=== PATIENT | female | born 1955 | race African-American/Black ===

== ENCOUNTER 2022-04-29 11:15 | Emergency (ER) | payer OTHER, SELFPAY ==
[2022-04-29 11:18] VITALS: BP 136/83; PULSE 80; RESP 18; TEMP 36.6; O2SAT 97; BMI 29.0
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
== END 2022-04-29 14:58 | disposition home or self-care (01) ==
PROVIDERS: Emergency Provider Student in an Organized Health Care Education/Training Program
DX: S13.4XXA Sprain of ligaments of cervical spine, initial encounter (principal); M54.50 Low back pain, unspecified; R51.9 Headache, unspecified; M54.2 Cervicalgia; V43.52XA Car driver injured in collision with other type car in traffic accident, initial encounter; Y93.9 Activity, unspecified; Y92.410 Unspecified street and highway as the place of occurrence of the external cause; Y99.9 Unspecified external cause status
CPT/HCPCS: 70450; 72100; 72125; 99283; 99284

== ENCOUNTER 2024-06-28 22:28 | Inpatient (IN) | payer MEDICARE, SELFPAY ==
--- NOTE | ~2024-06-28 | XR_ITS ---
CLINICAL HISTORY: dyspnea 1 view chest x-ray. Comparison: None Findings: Minimal to mild left basilar opacities are present with mild blunting of the left costophrenic angle. No focal consolidation identified within the right lung. No pneumothorax or right pleural effusion. Heart size is borderline enlarged. Partial visualization of surgical hardware over the cervical spine. Impression: 1. Borderline cardiomegaly with minimal to mild left basilar atelectasis versus infiltrates in the possible small left pleural effusion. This document has been electronically signed by: Mario Dow MD on 06/28/2024 23:30:14
[2024-06-28 22:33] VITALS: BP 192/92; PULSE 114; RESP 18; TEMP 36.9; O2SAT 97
[2024-06-28 22:38] VITALS: BP 192/92; PULSE 110; PULSE 94; RESP 20; TEMP 36.9; O2SAT 96; O2SAT 97; BMI 37.3
[2024-06-28 22:46] VITALS: BP 177/94; PULSE 106; RESP 15; TEMP 36.9; O2SAT 96
--- NOTE | 2024-06-28 22:46 | ECG_ITS ---
Test Reason : HTN Blood Pressure : */* mmHG Vent. Rate : 90 BPM Atrial Rate : 90 BPM P-R Int : 176 ms QRS Dur : 114 ms QT Int : 360 ms P-R-T Axes : 63 42 203 degrees QTcB Int : 440 ms Normal sinus rhythm with sinus arrhythmia Nonspecific ST and T wave abnormality Abnormal ECG When compared with ECG of 27-Aug-2003 16:22, Nonspecific T wave abnormality now evident in Inferior leads T wave inversion now evident in Lateral leads Referred By: Generic ED Physician Electronically Signed By: CHEYENNE YOU
[2024-06-28 23:34] LABS: Influenza A PCR NEGATIVE (Negative); Influenza B PCR NEGATIVE (Negative); Resp Syncy Virus RNA Qual PCR NEGATIVE (Negative); SARS COV2 PCR INHOUSE NEGATIVE (Negative)
[2024-06-28 23:49] LABS: Prothrombin Time 11.3 SEC (10.9-12.4)
[2024-06-28 23:55] LABS: Basophils Percent Auto 0.7 % (0-2); Eosinophils Absolute Auto 0.2 X10*3/uL (0.0-0.4); Eosinophils Percent Auto 4.3 % (0-4); Hematocrit 32.2 % (37.0-47.0); Hemoglobin 10.7 g/dl (12.0-16.0); Imm Gran Abs Auto 0.02 X10*3/uL (0.00-0.03); Imm Gran Pct Auto 0.4 % (0.0-0.4); Lymphocytes Absolute Auto 1.3 X10*3/uL (1.2-4.9); Lymphocytes Percent Auto 23.4 % (20-40); MANUAL DIFF FLAG NO; Mean Corpuscular HGB Conc 33.2 g/dl (31.0-35.0); Mean Corpuscular Hemoglobin 29.6 pg (27.0-33.0); Mean Platelet Volume 11.4 fL (9.4-12.3); Monocytes Absolute Auto 0.4 X10*3/uL (0.1-1.2); Monocytes Percent Auto 8.1 % (2-11); Neutrophils Absolute Auto 3.4 x10*3/uL (2.0-8.3); Neutrophils Percent Auto 63.1 % (45-73); Platelet Count 283 X10*3/uL (160-400); Red Blood Count 3.62 X10*6/uL (4.20-5.50); Red Cell Distribution Width 15.2 % (11.0-16.0); White Blood Count 5.3 X10*3/uL (4.8-10.8)
[2024-06-29] VITALS (13 sets, daily range): BP systolic 120–183; BP diastolic 64–94; PULSE 73–105; RESP 14–20; TEMP 36.2–36.7; O2SAT 95–100; BMI 34.0
--- NOTE | 2024-06-29 00:05 | ED_ITS ---
HPI - General Adult General Chief complaint: Dyspnea Stated complaint: malaise,diff breathing Time Seen by Provider: 06/28/24 22:50 Source: patient Mode of arrival: EMS Limitations: no limitations History of Present Illness ED Provider: HPI narrative: Patient's history of hypertension noncompliant to her medication, history of asthma noncompliant to her medication has not seen a PCP in last 2- 3 years does not take any medication for her blood pressure comes here for increased shortness of breath for last few days got worse in last 3 days with dry cough now denies any chest pain saturating 96% at room air blood pressure was 192/92 on arrival Related Data Previous Rx's ?Medication ?Instructions ?Recorded acetaminophen 500 mg capsule 1,000 mg (2 x 500 mg) PO TID PRN 04/29/22 pain #20 caps oxycodone 5 mg tablet 5 mg PO Q8H PRN pain #10 tabs 04/29/22 Allergies Allergy/AdvReac Type Severity Reaction Status Date / Time No Known Allergies Allergy Verified 06/28/24 22:42 Review of Systems 2 Review of Systems: Yes all other systems are reviewed and are negative [facility] Past Medical History Medical History (Updated 06/29/24 @ 01:38 by Jimi Oro MD) Asthma Hypertension Social History Social History Advance Directives: No Advance Directives Information Provided: Yes Physical Exam ED Vital Signs: Vital Signs - 24 hr 06/28/24 22:33 06/28/24 22:38 06/28/24 22:46 Temperature 98.5 F 98.5 F 98.5 F Pulse Rate 114 H 94 106 H Respiratory Rate 18 20 15 Blood Pressure 192/92 H 192/92 H 177/94 H Pulse Oximetry 97 97 96 Oxygen Delivery Method Room Air Room Air Room Air 06/29/24 00:50 06/29/24 00:55 Temperature Pulse Rate 105 H Respiratory Rate 15 Blood Pressure 177/94 H Pulse Oximetry Oxygen Delivery Method BMI result Body Mass Index 37.3 Appearance: Alert. Oriented X3. No acute distress. Dry cough Eyes: PERRLA, No Nystagmus ENT: Pharynx normal. Oral Mucosa moist Neck: Normal inspection. Neck supple. CVS: Normal heart rate and rhythm. Pulses normal. Respiratory: No respiratory distress. Equal air entry bilateral, prolonged expiration few rales at the bases frequent dry cough Abdomen: Soft and nontender. Bowel sounds are present, no mass palpable, no CVA tenderness Skin: Skin warm and dry. Normal skin color. Normal skin turgor. Extremities: 2+ lower extremity edema. No calf tenderness Neuro: Oriented X 3. No motor deficit. No sensory deficit.No cerebellar signs , cranial nerves II-XII intact Medications Administered Discontinued Medications Generic Name Dose Route Start Last Admin Trade Name Sena PRN Reason Stop Dose Admin Amlodipine Besylate 5 mg 06/29/24 00:19 06/29/24 00:50 Amlodipine Besylate 5 Mg Tablet PO 06/29/24 00:20 5 mg ONCE ONE Administration Protocol Albuterol Sulfate 2.5 mg/ 0 mg 06/29/24 00:09 06/29/24 00:52 Albuterol/Ipratropium 3 ml INHALE 06/29/24 00:10 1 dose ONCE ONE Administration Medical Decision Making Medical Decision Making [facility] Narrative: Patient with history of hypertension noncompliant to medication noted to be hypotensive on arrival workup showed elevated BNP and creatinine patient has not seen PCP for a while no previous labs available chest x-ray showed cardiomegaly with atelectasis. Will admit patient for IV diuresis and cardiology follow up Differential Diagnosis Differential Diagnoses: The differential diagnosis associated with the presentation includes Admission/Observation Consideration of admission/observation: Escalation of care including admission/observation considered Consult Healthcare Provider Management of the patient was discussed with: Hospitalist Lab Data [facility] Lab Attestation statement: I reviewed the patient's lab results. 06/28/24 23:47 06/28/24 23:47 Labs: Lab Results 06/28/24 06/28/24 06/28/24 Range/Units 22:53 23:25 23:47 WBC 5.3 (4.8-10.8) X10*3/uL RBC 3.62 L (4.20-5.50) X10*6/uL Hgb 10.7 L (12.0-16.0) g/dl Hct 32.2 L (37.0-47.0) % MCV 89.0 (80.0-98.0) fL MCH 29.6 (27.0-33.0) pg MCHC 33.2 (31.0-35.0) g/dl RDW 15.2 (11.0-16.0) % Plt Count 283 (160-400) X10*3/uL MPV 11.4 (9.4-12.3) fL Immature Gran % (Auto) 0.4 (0.0-0.4) % Neut % (Auto) 63.1 (45-73) % Lymph % (Auto) 23.4 (20-40) % [place] % (Auto) 8.1 (2-11) % Eos % (Auto) 4.3 H (0-4) % Baso % (Auto) 0.7 (0-2) % Lymph # (Auto) 1.3 (1.2-4.9) X10*3/uL [place] # (Auto) 0.4 (0.1-1.2) X10*3/uL Eos # (Auto) 0.2 (0.0-0.4) X10*3/uL Baso # (Auto) 0.0 (0.0-0.2) X10*3/uL Abs Immat Gran (auto) 0.02 (0.00-0.03) X10*3/uL Absolute Neuts (auto) 3.4 (2.0-8.3) x10*3/uL Absolute Nucleated RBC 0.000 (0.0-0.012) X10*3/uL Nucleated RBC % (auto) 0.0 (0.0-0.2) /100WBC Hold Purple Top PT 11.3 (10.9-12.4) SEC INR 1.0 (0.9-1.1) Hold Blue Top Sodium 145 (135-145) mmol/L Potassium 3.4 (3.3-5.1) mmol/L Chloride 108 (96-108) mmol/L Carbon Dioxide 27 (22-29) mmol/L Anion Gap 13 (12-20) BUN 18 H (9-16) mg/dL Creatinine 1.53 H (0.5-1.4) mg/dL Estim Creat Clear Calc 37.6 Estimated GFR 34 Random Glucose 212 H (60-115) mg/dL Calcium 8.8 (8.4-10.2) mg/dL Troponin I High Sens 39.0 H (<3.5-17.0) ng/L B-Natriuretic Peptide (<100) pg/mL TSH 2.59 (0.32-4.0) uIU/mL Influenza Type A (PCR) NEGATIVE (Negative) Influenza Type B (PCR) NEGATIVE (Negative) RSV RNA Qual (PCR) NEGATIVE (Negative) SARS-CoV-2 RNA (RT-PCR) NEGATIVE (Negative) 06/28/24 Range/Units 23:48 WBC (4.8-10.8) X10*3/uL RBC (4.20-5.50) X10*6/uL Hgb (12.0-16.0) g/dl Hct (37.0-47.0) % MCV (80.0-98.0) fL MCH (27.0-33.0) pg MCHC (31.0-35.0) g/dl RDW (11.0-16.0) % Plt Count (160-400) X10*3/uL MPV (9.4-12.3) fL Immature Gran % (Auto) (0.0-0.4) % Neut % (Auto) (45-73) % Lymph % (Auto) (20-40) % [place] % (Auto) (2-11) % Eos % (Auto) (0-4) % Baso % (Auto) (0-2) % Lymph # (Auto) (1.2-4.9) X10*3/uL [place] # (Auto) (0.1-1.2) X10*3/uL Eos # (Auto) (0.0-0.4) X10*3/uL Baso # (Auto) (0.0-0.2) X10*3/uL Abs Immat Gran (auto) (0.00-0.03) X10*3/uL Absolute Neuts (auto) (2.0-8.3) x10*3/uL Absolute Nucleated RBC (0.0-0.012) X10*3/uL Nucleated RBC % (auto) (0.0-0.2) /100WBC Hold Purple Top SEE NOTE PT (10.9-12.4) SEC INR (0.9-1.1) Hold Blue Top SEE NOTE Sodium (135-145) mmol/L Potassium (3.3-5.1) mmol/L Chloride (96-108) mmol/L Carbon Dioxide (22-29) mmol/L Anion Gap (12-20) BUN (9-16) mg/dL Creatinine (0.5-1.4) mg/dL Estim Creat Clear Calc Estimated GFR Random Glucose (60-115) mg/dL Calcium (8.4-10.2) mg/dL Troponin I High Sens (<3.5-17.0) ng/L B-Natriuretic Peptide 868 H (<100) pg/mL TSH (0.32-4.0) uIU/mL Influenza Type A (PCR) (Negative) Influenza Type B (PCR) (Negative) RSV RNA Qual (PCR) (Negative) SARS-CoV-2 RNA (RT-PCR) (Negative) Independent Interpretation I performed an independent interpretation of an: EKG and Plain X-Ray Interpretation: CM+ Normal sinus rhythm with heart rate 90 beats per minute normal interval normal axis T inversion inferolateral leads no acute ischemia Radiology Impression Discussion of test interpretation with radiology: I have reviewed the radiologist's reading. Radiologist Impression: Impression: 1. Borderline cardiomegaly with minimal to mild left basilar atelectasis versus infiltrates in the possible small left pleural effusion. This document has been electronically signed by: Mario Dow MD on Discharge Plan Discharge Clinical Impression: Congestive heart failure of unknown etiology, Hypertension, CKD (chronic kidney disease) stage 3, GFR 30-59 ml/min Patient Disposition: Admitted As Inpatient Print Language: Barbadian
[2024-06-29 00:07] LABS: Anion Gap 13 (12-20); Blood Urea Nitrogen 18 mg/dL (9-16); Calcium 8.8 mg/dL (8.4-10.2); Carbon Dioxide 27 mmol/L (22-29); Chloride 108 mmol/L (96-108); Creatinine Clr Calc Pharmacy 37.6; Estimated Glomerular Filt Rate 34; Glucose Random 212 mg/dL (60-115); Potassium 3.4 mmol/L (3.3-5.1); Sodium 145 mmol/L (135-145)
--- NOTE | 2024-06-29 00:12 | PC.NURSE ---
18g IV access established by via ultrasound guided insertion. Labs drawn and sent for analysis. Awaiting results.
[2024-06-29] MEDS: amLODIPine Besylate 5 MG TABLET PO (00:50)
[2024-06-29 00:52] LABS: B Type Natriuretic Peptide 868 pg/mL (<100)
[2024-06-29] MEDS: Albuterol Sulfate 2.5 MG, Albuterol/Iprat 2.5/0.5MG 3 ML 3 ML INHALE (00:52)
[2024-06-29 01:03] LABS: Thyroid Stimulating Hormone 2.59 uIU/mL (0.32-4.0)
[2024-06-29] MEDS: Furosemide 40 MG/4 ML VIAL IVPUSH (01:46)
[2024-06-29] MEDS: Nitroglycerin 2 % Oint 1 GM Packet 1 INCH TRANSDERMA (01:46)
--- NOTE | 2024-06-29 02:10 | PM.IMHP ---
History of Present Illness Date of Service: 06/29/24 Attending physician on admission: [facility] Chief Complaint: SOB, fatigue Pt is a 69-year-old female with an unclear PMH significant for?HTN and asthma who presents to the ED complaining of increased SOB, difficulty breathing, and nonproductive cough for the past few days. Reports sick contact with a grandson gave her a bad cold. Pt states feels fatigued, weak, and has chest pain/tightness mostly associated with deep breathing and cough. Pt is overall a poor and vague historian, and is unable to provide details concerning either her PMH, medication use, or current symptoms. Reports she is supposed to be on antihypertensives, but has not taken them for an unclear amount of time. Has not followed with a PCP for ?a long time?. States was recently at [facility] and diagnosed with ?a heart condition? but is unable to specify what that condition was or what medications, if any, she was prescribed. Denies known hx of CHF. No fever, chills, nausea, or vomiting. Currently denies abdominal pain, but states she knows it's coming since has chronic abdominal issues. Earlier has a headache but currently none. In the ED pt was hypertensive as high as 192/92, tachycardic up to 114, and satting at 96% on RA. Labs were significant for creatinine 1.53 (baseline unknown), glucose 212, initial troponin 39.0, and BNP 868. Tested negative for flu, COVID, RSV. CXR showed borderline cardiomegaly with minimal to mild left basilar atelectasis vs infiltrate and possible small left pleural effusion. Pt was treated with amlodipine, DuoNeb, nitroglycerin, and furosemide. Pt will be admitted to the hospital for treatment and further evaluation of new onset acute CHF. Review of Systems Review of Systems: Negative except for that which is stated in the [facility] Medical History Asthma Hypertension Social History Advance Directives: No Advance Directives Information Provided: Yes Meds Allergies Allergy/AdvReac Type Severity Reaction Status Date / Time No Known Allergies Allergy Verified 06/28/24 22:42 Physical Exam Vital Signs and Narrative: Vital Signs: Last Vital Signs Temp 98.5 F 06/28/24 22:46 Pulse 105 H 06/29/24 00:55 Resp 15 06/29/24 00:55 BP 157/91 H 06/29/24 01:46 Pulse Ox 96 06/28/24 22:46 O2 Del Method Room Air 06/28/24 22:46 BMI result Body Mass Index 37.3 General: AOx3, no acute distress Resp: CTA bilaterally CVS: Regularly irregular rhythm. No JVD appreciated GI: +BS, NT, no distention Skin: Warm, dry Neuro: Cranial nerves II-XII grossly intact bilaterally. Motor grossly intact bilaterally Extremities: 2+ bilateral pitting lower leg edema Psych: Appropriate affect Results Labs 06/28/24 23:47 06/28/24 23:47 Labs: Laboratory Results - last 24 hr 06/28/24 06/28/24 06/28/24 22:53 23:25 23:47 MCV 89.0 MCH 29.6 MCHC 33.2 RDW 15.2 Plt Count 283 MPV 11.4 Immature Gran % (Auto) 0.4 Neut % (Auto) 63.1 Lymph % (Auto) 23.4 [place] % (Auto) 8.1 Eos % (Auto) 4.3 H Baso % (Auto) 0.7 Lymph # (Auto) 1.3 [place] # (Auto) 0.4 Eos # (Auto) 0.2 Baso # (Auto) 0.0 Abs Immat Gran (auto) 0.02 Absolute Neuts (auto) 3.4 Absolute Nucleated RBC 0.000 Nucleated RBC % (auto) 0.0 Hold Purple Top PT 11.3 INR 1.0 Hold Blue Top Anion Gap 13 Estim Creat Clear Calc 37.6 Estimated GFR 34 Random Glucose 212 H Calcium 8.8 B-Natriuretic Peptide TSH 2.59 Influenza Type A (PCR) NEGATIVE Influenza Type B (PCR) NEGATIVE RSV RNA Qual (PCR) NEGATIVE SARS-CoV-2 RNA (RT-PCR) NEGATIVE 06/28/24 23:48 MCV MCH MCHC RDW Plt Count MPV Immature Gran % (Auto) Neut % (Auto) Lymph % (Auto) [place] % (Auto) Eos % (Auto) Baso % (Auto) Lymph # (Auto) [place] # (Auto) Eos # (Auto) Baso # (Auto) Abs Immat Gran (auto) Absolute Neuts (auto) Absolute Nucleated RBC Nucleated RBC % (auto) Hold Purple Top SEE NOTE PT INR Hold Blue Top SEE NOTE Anion Gap Estim Creat Clear Calc Estimated GFR Random Glucose Calcium B-Natriuretic Peptide 868 H TSH Influenza Type A (PCR) Influenza Type B (PCR) RSV RNA Qual (PCR) SARS-CoV-2 RNA (RT-PCR) Assessment and Plan (1) Congestive heart failure of unknown etiology: Status: Acute (2) Hypertensive urgency: Status: Acute Plan Pt is a 69-year-old female with an unclear PMH significant for?HTN and asthma who presents to the ED complaining of increased SOB, difficulty breathing, and nonproductive cough for the past few days. Pt will be admitted to the hospital for treatment and further evaluation of new onset acute CHF. New onset CHF Pt with SOB, SOTELO, nonproductive, elevated BNP, 2+ pitting LLE, CXR with possible cardiomegaly pleural effusion Pt denies any previous CHF diagnosis, but states has a heart problem recently diagnosed at [facility] Will treat with Lasix 20 mg IV bid Echocardiogram Cardiology consult Follow I/O, daily weights, lytes Low salt diet Monitor on telemetry Hypertensive urgency BP as high as 192/92, currently 183/66 Pt currently asymptomatic but reports [place] earlier Has been off meds for unclear period of time Will give labetalol 5mg IV x1 Resume home meds once med rec completed Monitor BP Elevated creatinine Patient's creatinine 1.53 at time presentation Baseline unknown: CKD 3 vs ZEINAB likely cardiorenal Treat as above with diuretics Follow kidney function Elevated troponin Initial troponin 39.0 Pt asymptomatic, EKG without ischemic changes Likely type 2 in the setting of increased demand Repeat troponin Monitor on telemetry Cough Reports non-productive cough for past few days Possibly in the setting of CHF, though pt reports contact with sick son RSV/Flu/COVID negative CXR negative for consolidation Will check full respiratory panel Currently no indication for antibiotics at this time, no sepsis Hyperglycemia Random glucose 212 at time of presentation Pt reports she thinks she is diabetic, but does not know what medications she is or if she takes insulin Will place on sliding scale insulin for now Check A1c Asthma Not in acute exacerbation Continue home inhalers Full Code Attending:?Dr. Hanson DVT Prophylaxis: Lovenox Pt will require a hospitalization of at least two nights for treatment and evaluation of new onset acute CHF as well as possible ZEINAB vs CKD 3. Pt will require hospital level care for administration of IV diuretics, close monitoring of labs and kidney function, and specialist consultation Cardiology. Quality Stroke Does the patient have a stroke diagnosis?: No VTE Prior VTE?: No VTE Risk Level:: Medical - moderate - high VTE Device Contraindication: Treatment Not Indicated VTE Drug Contraindication: N/A - Med Ordered
[2024-06-29] MEDS: Labetalol HCL 100 MG/20 ML VIAL IVPUSH (02:29)
[2024-06-29 03:58] LABS: Troponin-I High Sensitivity 31.7 ng/L (<3.5-17.0)
--- NOTE | 2024-06-29 05:40 | MHC.EDTECH ---
Patient agreed with placement of Purewick for better documentation of I+O. Purewick placed by senior health physics technician Shannon
--- NOTE | 2024-06-29 05:42 | PC.NURSE ---
Pt is alert/oriented. Up to commode with this RN and noted to be increasingly weak and mildy SOB with activity, purewick placed by [email or web address]. No SOB noted on rest. Skin color normal for ethnicity. +1 edema to LE. NSR on tele rate 80s. Voiding frequently
[2024-06-29 07:22] LABS: Glucose, Whole Blood 172 mg/dL (60-115)
[2024-06-29] MEDS: Insulin Lispro 100 UNIT/ML 3 ML VIAL SUBCUT ×2 (08:45→12:04)
[2024-06-29] MEDS: Furosemide 20 MG/2 ML VIAL IVPUSH ×2 (08:47→16:40)
[2024-06-29] MEDS: 0.9 % Sodium Chloride Flush 3 ML SYRINGE IVFLUSH ×2 (08:49→16:40)
--- NOTE | 2024-06-29 09:12 | MHC.EDTECH ---
purewick removed from pt due to pt transferring to bedside commode when necessary. RN aware
[2024-06-29 09:20] LABS: Adenovirus PCR Not Detected (Not Detect.); Bordetella parapertussis PCR Not Detected (Not Detect.); Bordetella pertussis PCR Not Detected (Not Detect.); Chlamydia pneumoniae PCR Not Detected (Not Detect.); Coronavirus 229E PCR Not Detected (Not Detect.); Coronavirus HKU1 PCR Not Detected (Not Detect.); Coronavirus NL63 PCR Not Detected (Not Detect.); Coronavirus OC43 PCR Not Detected (Not Detect.); Human metapneumovirus PCR Not Detected (Not Detect.); Influenza A PCR Not Detected (Not Detect.); Influenza B PCR Not Detected (Not Detect.); Mycoplasma pneumoniae PCR Not Detected (Not Detect.); Parainfluenza 1 PCR Not Detected (Not Detect.); Parainfluenza 2 PCR Not Detected (Not Detect.); Parainfluenza 3 PCR Not Detected (Not Detect.); Parainfluenza 4 PCR Not Detected (Not Detect.); RSV PCR Not Detected (Not Detect.); Rhino/Enterovirus PCR Not Detected (Not Detect.)
[2024-06-29 09:31] LABS: SARS-CoV-2 PCR Not Detected (Not Detect.)
--- NOTE | 2024-06-29 10:23 | MHC.CM.PN ---
CM met with Patient at bedside and addressed IMM with her verbally (on contact precautions); original was given to Patient and a copy has been placed on the chart. Patient is currently living in a house with her Niece ,on [address] [facility] in [place]; her Niece will transport to home. Patient has a cane and walker and her goal is home/self care. CM has initiated and will follow fir dc planning. PCP is Dr. Cesario Cedeno and Patient declined the completion of a HCP.
[2024-06-29 10:53] LABS: Glucose, Whole Blood 204 mg/dL (60-115)
--- NOTE | 2024-06-29 11:23 | PHA.MEDREC ---
Addendum entered by Inna Gramajo [facility] 07/01/24 21:35: Normansimi took pictures of RX bottles that were brought in by a family member and sent them to me. They included Eliquis 5mg, dicyclomine 10mg QID, monelukast 10mg, and a hand written lable on RX bottle that had tylenol 500mg on it Addendum entered by Myron Sutherland 06/29/24 18:09: Called Kacey Maya ([phone]) who pt is staying with and was provided with list of medications. Unclear whether medications are current and unable to confirm which pharmacy they were filled at. Left as unconfirmed for now. Original Note: Pharmacy Consult ? Medication Reconciliation Pharmacy has completed the medication reconciliation. Patient is poor historian of medications. Pt claims to be on several medications, but cannot state what they are for or remember any of the names. Patient states they utilized a mail order pharmacy service at one point (cannot remember the mail order name) and also utilized [facility]. Called [facility] and was told that the patient has not picked up anything in the past year at their location (was sent Eliquis Rx in 02/2024 but was never picked up by pt). Called pt's contact Mony ([phone]) but was unable to get a hold of them and left a message.
[2024-06-29] MEDS: Loratadine 10 MG TABLET PO (12:04)
--- NOTE | 2024-06-29 12:51 | CA_ITS ---
Transthoracic Echocardiogram Patient (Last, First, Middle): Elizabeth Russell, Gender: Female Date of : 1955 Age: 69 Procedure Date: 06/29/2024 Procedure Type: Transthoracic Echocardiogram Location: [facility] [place] Height: 160.02 cm Weight: 86.64 kg BSA: 1.90 m2 Heart Rate: bpm BP: 148 / 94 mmHg Front Counter Clerk: BUDDY Referring MD: Judah RAMSAY Symptoms: New onset CHF Study Quality: Technically Difficult, contrast ECG Rhythm: Sinus Conclusions: - The left ventricular systolic function is severely decreased. The visually estimated ejection fraction is between 15-20%. - No obvious valvular pathology seen on this study. Findings Procedure Information Contrast agent, definity, is being given per protocol without apparent complications. Left Ventricle Mildly increased left ventricular cavity size. There is normal left ventricular wall thickness. The left ventricular systolic function is severely decreased. The visually estimated ejection fraction is between 15 20%. Evidence suggests grade II (moderate) diastolic dysfunction. Globally hypokinetic with some regional variation. Right Ventricle Normal right ventricular cavity size. There is mildly decreased right ventricular systolic function. Atria Both atria are normal in size. Aortic Valve There is a normal trileaflet aortic valve. There is no aortic valve stenosis. There is no aortic valve regurgitation. Mitral Valve The mitral valve appears normal. There is no mitral valve regurgitation. There is no mitral valve stenosis. Pulmonic Valve The pulmonic valve is likely normal. Tricuspid Valve There is no tricuspid valve regurgitation. Tricuspid regurgitation envelope is inadequate for calculation of right ventricular systolic pressure. Great Vessels The asc aorta is normal in size. Venous The inferior vena cava was not well visualized. Pericardium/Pleural There is no evidence of pericardial effusion. Prior Study Comparison No prior study available for comparison. Recommendations, Care & Conclusions No obvious valvular pathology seen on this study. Measurements 2D Linear Measurements IVSd: 0.89 0.6-0.9/0.6-1.0 cm LVIDd: 5.74 3.9-5.3/4.2-5.9 cm LVIDd Index: 3.02 2.4-3.2/2.2-3.1 cm/m2 LVIDs: 3.75 2.0-3.6 cm LVPWd: 0.87 0.7-1.1 cm LA Diam: 3.20 2.7-3.8/3.0-4.0 cm LAIDs Index: 1.68 1.5-2.3 cm/m2 LV Mass: 241.19 67-162/88-224 g LV Mass Index: 126.94 43-95/49-115 g/m2 LVOT Diam: 2.00 3.0+(-)1.3 cm 2D Systolic Function EF 4C: 21.50 >55% EF 2C: 34.60 >55% EF BiP: 27.70 >55% Mitral Valve MV Pk E: 0.69 MV PK A: 0.62 MV Decel Time: 175.00 E/A: 1.10 E'Lateral: 3.92 E'Medial: 3.48 E/E' Med: 19.90 E/E' Lat: 17.70 PHT: 51.00 MVA PHT: 4.31 Decel [place]: 3.94 Aortic Valve AoV Pk Humberto: 1.03 AoV Mn Humberto: 0.74 AoV VTI: 0.20 AoV Pk Grad: 4.00 Aov Mn Grad: 2.00 LEVON Cont.VTI: 1.97 LVOT LVOT Pk Humberto: 0.72 LVOT Mn Humberto: 0.49 LVOT VTI: 0.13 LVOT Pk Grad: 2.00 LVOT Mn Grad: 1.00 LVOT Diam: 2.00 LVOT Area: 3.14 Diastolic Function MV Pk E: 0.69 MV Pk A: 0.62 E/A: 1.10 E'Medial: 3.48 E/E' Med: 19.90 E' Laterial: 3.92 E/E' Lat: 17.70 Right Ventricle TAPSE (mm): 20.00 TVS' Humberto: 8.59 Great Vessels Aorta Sinus of Valsalva: 3.15 2.0-3.[address] [place]: 2.83 1.7-3.4 cm Ao Asc: 3.50 2.1-3.4 cm Updated in Other Vendor System with Status of Final Victorino Pope MD electronically signed on 06/30/2024 1:36:25 PM with status of Final
[2024-06-29 16:22] LABS: Glucose, Whole Blood 149 mg/dL (60-115)
--- NOTE | 2024-06-29 16:52 | P.EN_ITS ---
Event Note Date of Service: 06/29/24 Event Note: This patient is seen and examined -patient was admitted for CHF exacerbation- etiology unclear, no documentation available ,medications also not available Physical exam and assessment and plan coordinated in APCs note, Agree with the plan in addition: chf excerebation/ckd3 b: continue iv diuresis /moniter i/o,daily weight [phone] madan Time Spent With Patient Time: Total time managing care of this patient today ____ minutes.
[2024-06-29] MEDS: guaiFENesin DM 200/20/10 ML 10 ML SYRUP PO (18:05)
[2024-06-29 20:14] LABS: Alanine Aminotransferase 91 U/L (0-31); Albumin Level 3.7 g/dL (3.5-5.0); Alkaline Phosphatase 73 U/L (39-117); Anion Gap 15 (12-20); Aspartate Amino Transferase 50 U/L (5-31); Bilirubin Total 0.3 mg/dL (0.0-1.0); Blood Urea Nitrogen 19 mg/dL (9-16); Calcium 8.7 mg/dL (8.4-10.2); Carbon Dioxide 30 mmol/L (22-29); Chloride 102 mmol/L (96-108); Estimated Glomerular Filt Rate 33; Glucose Random 197 mg/dL (60-115); Sodium 144 mmol/L (135-145); Total Protein 7.8 g/dL (6.5-8.0)
[2024-06-29 21:53] LABS: Glucose, Whole Blood 178 mg/dL (60-115)
[2024-06-30] VITALS: BP 137/74; PULSE 89; RESP 16; TEMP 37.1; O2SAT 98
[2024-06-30 04:00] VITALS: BP 161/77; PULSE 77; RESP 16; TEMP 36.4; O2SAT 96
[2024-06-30 07:34] LABS: Estimated Average Glucose 180 mg/dL; Hemoglobin A1C 179.9466 umol/L; Hemoglobin A1c % 7.9 % (<6.0)
[2024-06-30 07:37] LABS: Anion Gap 15 (12-20); Blood Urea Nitrogen 17 mg/dL (9-16); Calcium 8.7 mg/dL (8.4-10.2); Carbon Dioxide 29 mmol/L (22-29); Chloride 103 mmol/L (96-108); Creatinine Clr Calc Pharmacy 39.4; Estimated Glomerular Filt Rate 37; Glucose Random 171 mg/dL (60-115); Potassium 3.1 mmol/L (3.3-5.1); Sodium 144 mmol/L (135-145)
[2024-06-30 07:44] LABS: Glucose, Whole Blood 176 mg/dL (60-115)
[2024-06-30 07:50] VITALS: BP 142/69; PULSE 91; RESP 19; TEMP 36.5; O2SAT 97
--- NOTE | 2024-06-30 08:18 | HO.PM.IMPN ---
Subjective Subjective Date of Service: 06/30/24 Interval History: possible chf -etiology unclear Review of Systems sob seems somewhat improving generalised weak 2.1liter leg negative Physical Exam Vital Signs: Vital Signs: Last Vital Signs Temp 97.7 F 06/30/24 07:50 Pulse 91 06/30/24 07:50 Resp 19 06/30/24 07:50 BP 142/69 H 06/30/24 07:50 Pulse Ox 97 06/30/24 07:50 O2 Del Method Room Air 06/30/24 04:00 BMI result Body Mass Index 34.0 General: awake ,conversive ,poor histroian. Resp: air entry fair ,somewhat diminshed at bases CVS: Regularly irregular rhythm. No JVD . GI: +BS, NT, no distention Skin: Warm, dry,edema 1+ Neuro: nonfocal Objective Data Active Medications Acetaminophen (Acetaminophen 325 Mg Tablet) 650 mg PO Q6H PRN PRN Reason: Pain, Mild 1-3,fever,headache Calcium Carbonate (Calcium Carbonate 750 Mg Tab.Chew) 750 mg PO Q4H PRN PRN Reason: Heartburn Dextrose (Dextrose 50 % 25 Gm/50 Ml Syringe) 25 gm IVPUSH Q15M PRN; Protocol PRN Reason: per Hypoglycemia Standing Ord. Enoxaparin Sodium (Enoxaparin Sodium 40 Mg/0.4 Ml Syringe) 40 mg SUBCUT Q24H [facility] Last Admin: 06/30/24 03:47 Dose: Not Given Documented By: CRISTINA Non-Admin Reason: Patient Refused Furosemide (Furosemide 20 Mg/2 Ml Vial) 20 mg IVPUSH BIDWM [facility]; Protocol Last Admin: 06/29/24 16:40 Dose: 20 mg Documented By: OFELIA Glucose (Glucose Gel 15 Gm Gel..Gram.) 15 gm PO Q15M PRN; Protocol PRN Reason: per Hypoglycemia Standing Ord. Guaifenesin (Guaifenesin 200 Mg/10 Ml 10 Ml Liquid) 10 ml PO Q4H PRN PRN Reason: Cough Guaifenesin/Dextromethorphan (Guaifenesin Dm 200/20/10 Ml 10 Ml Syrup) 10 ml PO Q4H PRN PRN Reason: Cough Last Admin: 06/29/24 18:05 Dose: 10 ml Documented By: OFELIA Insulin Human Lispro (Insulin Lispro 100 Unit/Ml 3 Ml Vial) 0 unit SUBCUT QIDACHS [facility]; Protocol Last Admin: 06/29/24 21:45 Dose: Not Given Documented By: CRISTINA Non-Admin Reason: Patient Refused Loratadine (Loratadine 10 Mg Tablet) 10 mg PO DAILY [facility] Last Admin: 06/29/24 12:04 Dose: 10 mg Documented By: OFELIA Magnesium Hydroxide (Milk Of Magnesia 30 Ml Oral.Susp) 30 ml PO DAILY PRN PRN Reason: Constipation Melatonin (Melatonin 3 Mg Tablet) 6 mg PO BEDTIME PRN PRN Reason: Insomnia Metoprolol Tartrate (Metoprolol Tartrate 25 Mg Tablet) 25 mg PO BID [facility]; Protocol Montelukast Sodium (Montelukast Sodium 10 Mg Tablet) 10 mg PO DAILY [facility] Ondansetron HCl (Ondansetron Hcl 4 Mg/2 Ml Vial) 4 mg IVPUSH Q8H PRN PRN Reason: Nausea and Vomiting Sodium Chloride (0.9 % Sodium Chloride Flush 3 Ml Syringe) 3 ml IVFLUSH QSHIFT [facility] Last Admin: 06/30/24 01:23 Dose: Not Given Documented By: CRISTINA Non-Admin Reason: Patient Asleep Labs 06/28/24 23:47 06/30/24 07:12 Labs: Laboratory Results - last 24 hr 06/29/24 06/29/24 06/29/24 07:09 10:47 16:13 Anion Gap Estim Creat Clear Calc Estimated GFR POC Glucose 204 H 149 H Random Glucose Estimat Average Glucose Hemoglobin A1c % Calcium Total Bilirubin AST ALT Alkaline Phosphatase Total Protein Albumin Respiratory Panel North See Note Adenovirus (Rapid PCR) Not Detected B.pert (TEM-PCR) Not Detected B.parapertussis DNA PCR Not Detected C. pneumoniae DNA (PCR) Not Detected Coronavirus OC43 (PCR) Not Detected Coronavirus HKU1 (PCR) Not Detected Coronavirus 229E (PCR) Not Detected Coronavirus NL63 (PCR) Not Detected Human Metapneumovir PCR Not Detected Influenza A (RT-PCR) Not Detected Influenza B (RT-PCR) Not Detected M. pneumoniae (PCR) Not Detected Parainfluenza 1 (PCR) Not Detected Parainfluenza 2 (PCR) Not Detected Parainfluenza 3 (PCR) Not Detected Parainfluenza 4 (PCR) Not Detected RSV (PCR) Not Detected Entero/Rhino (PCR) Not Detected SARS-CoV-2 RNA (RT-PCR) Not Detected 06/29/24 06/29/24 06/30/24 19:43 21:43 07:12 Anion Gap 15 15 Estim Creat Clear Calc 35.0 39.4 Estimated GFR 33 37 POC Glucose 178 H Random Glucose 197 H 171 H Estimat Average Glucose 180 Hemoglobin A1c % 7.9 H Calcium 8.7 8.7 Total Bilirubin 0.3 AST 50 H ALT 91 H Alkaline Phosphatase 73 Total Protein 7.8 Albumin 3.7 Respiratory Panel North Adenovirus (Rapid PCR) B.pert (TEM-PCR) B.parapertussis DNA PCR C. pneumoniae DNA (PCR) Coronavirus OC43 (PCR) Coronavirus HKU1 (PCR) Coronavirus 229E (PCR) Coronavirus NL63 (PCR) Human Metapneumovir PCR Influenza A (RT-PCR) Influenza B (RT-PCR) M. pneumoniae (PCR) Parainfluenza 1 (PCR) Parainfluenza 2 (PCR) Parainfluenza 3 (PCR) Parainfluenza 4 (PCR) RSV (PCR) Entero/Rhino (PCR) SARS-CoV-2 RNA (RT-PCR) 06/30/24 07:22 Anion Gap Estim Creat Clear Calc Estimated GFR POC Glucose 176 H Random Glucose Estimat Average Glucose Hemoglobin A1c % Calcium Total Bilirubin AST ALT Alkaline Phosphatase Total Protein Albumin Respiratory Panel North Adenovirus (Rapid PCR) B.pert (TEM-PCR) B.parapertussis DNA PCR C. pneumoniae DNA (PCR) Coronavirus OC43 (PCR) Coronavirus HKU1 (PCR) Coronavirus 229E (PCR) Coronavirus NL63 (PCR) Human Metapneumovir PCR Influenza A (RT-PCR) Influenza B (RT-PCR) M. pneumoniae (PCR) Parainfluenza 1 (PCR) Parainfluenza 2 (PCR) Parainfluenza 3 (PCR) Parainfluenza 4 (PCR) RSV (PCR) Entero/Rhino (PCR) SARS-CoV-2 RNA (RT-PCR) Assessment and Plan (1) Hypertensive urgency: Status: Acute (2) CKD (chronic kidney disease) stage 3, GFR 30-59 ml/min: Status: Acute (3) Hypertension: Status: Acute (4) Congestive heart failure of unknown etiology: Status: Acute Assessment and Plan: 69-year-old female with an unclear PMH significant for?HTN and asthma who presents to the ED complaining of increased SOB, difficulty breathing, and nonproductive cough for the past few days. Pt will be admitted to the hospital for treatment and further evaluation of possible new onset acute CHF. As per discharge records from records from [facility] pmhx of leg swelling ,elevated bnp, htn,dm2,asthma-?severtity unknown,leucopenia and hx of lung cancer s/p left lower lobe resection follow up with Dr Pao ferrara.pcp was Dr Lee ( as per medical records from [facility]). New onset CHF Pt with SOB, SOTELO, nonproductive, elevated BNP, 2+ pitting LLE, CXR with possible cardiomegaly pleural effusion Follow I/O, daily weights, lytes elevated troponins -flat ,ekg:Normal sinus rhythm with sinus arrhythmia. plan:moniter on tele echo ef lower side -left ventricular systolic function is severely decreased. The visually estimated ejection fraction is between 15-20%. (echo in [facility] in 02/28 : ef is 55-60%) Cardiology consult- continue iv lasix,moniter i/o. Hx of Paf: continue metoprolol and eliquis. Htn:home meds unclear -records from [facility] -only on metoprolol. likely ckd3a: moniter renal function and electrolytes (lasix). nephrology eval. Cough: non-productive cough for past few days Possibly in the setting of CHF, though pt reports contact with sick grandson RSV/Flu/COVID negative,CXR negative for consolidation,full respiratory panel negative no indication for antibiotics at this time, no sepsis dm with flactuating fs : hba1c levels 7.9 moniter fs and sliding scale coverage. Asthma-?severity unknown Not in acute exacerbation Continue home inhalers. As per [facility] notes -patient has memory impairment ( even in 02/28) unable to provide any significant details for her medical issues or medication even during that admission. tsh normal , will check b12 levels obesity -encouraged to loose weight and cut down calories ongoing hospitalization of at least two nights for treatment and evaluation of new onset acute CHF as well as possible ZEINAB vs CKD 3-need IV diuretics, close monitoring of labs and kidney function, and specialist consultation Cardiology. spoke to patient niece -patient does not have any pcp,and she will bring her meds from home tomorrow. Quality Stroke Does the patient have a stroke diagnosis?: No VTE Prior VTE?: No VTE Risk Level:: Medical - moderate - high VTE Device Contraindication: Treatment Not Indicated VTE Drug Contraindication: N/A - Med Ordered
[2024-06-30 08:23] LABS: Magnesium 1.7 mg/dL (1.6-2.6)
[2024-06-30] MEDS: Insulin Lispro 100 UNIT/ML 3 ML VIAL SUBCUT ×3 (09:21→21:59)
[2024-06-30] MEDS: Potassium Chloride ER 20 MEQ TAB.ER.PRT 40 MEQ PO (09:21)
[2024-06-30] MEDS: Metoprolol Tartrate 25 MG TABLET PO ×2 (09:21→20:27)
[2024-06-30] MEDS: Loratadine 10 MG TABLET PO (09:21)
[2024-06-30] MEDS: Montelukast Sodium 10 MG TABLET PO (09:21)
[2024-06-30] MEDS: Furosemide 20 MG/2 ML VIAL IVPUSH (09:22)
[2024-06-30] MEDS: 0.9 % Sodium Chloride Flush 3 ML SYRINGE IVFLUSH ×3 (09:22→22:00)
[2024-06-30 11:52] LABS: Glucose, Whole Blood 232 mg/dL (60-115)
[2024-06-30 12:00] VITALS: BP 133/68; PULSE 89; RESP 19; TEMP 36.2; O2SAT 94
--- NOTE | 2024-06-30 15:24 | PM.CNCAR ---
History of Present Illness History of Present Illness Date of Service: 06/30/24 Chief complaint: New Onset CHF Narrative: This is a cardiology consultation for CHF. Patient is a poor historian and not able to give any information whatsoever. She states she does not know why she is here. Stated history of hypertension/asthma. Also paroxysmal atrial fibrillation. Per H and P, weakness, chest tightness with deep breathing and cough. Supposedly not taken antihypertensives for a while but patient does not know really any information at all. 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 However, it seems that she has been admitted to [facility] in the past when she was apparently diagnosed with atrial fibrillation per Dr. Guevara/records. Currently, she states she feels okay. No acute cardiac symptoms. She had an echocardiogram yesterday and that showed LV dysfunction. Hence we are asked to see. Review of Systems Review of Systems: Yes all other systems are reviewed and are negative Constitutional: Constitutional: Reports as per HPI and Reports no additional constitutional complaints Eyes: Eyes: Reports as per HPI and Denies no additional eye complaints ENT: Denies system reviewed and no additional complaints, except as documented and Reports as per HPI Cardiovascular: Cardiovascular: Reports as per HPI, Reports no additional cardiovascular complaints, Denies acrocyanosis, Denies cool extremities, Denies chest pain, Denies leg edema, Denies lightheadedness, Denies palpitations and Denies dyspnea Respiratory: Respiratory: Reports as per HPI, Denies no additional respiratory complaints and Denies dyspnea Gastrointestinal: Gastrointestinal: Reports as per HPI and Denies no additional gastrointestinal complaints Genitourinary: Genitourinary: Reports as per HPI Musculoskeletal: Musculoskeletal: Reports no additional musculoskeletal complaints and Reports as per HPI Integumentary/Breasts: Skin/Breast: Reports system reviewed and no additional complaints, except as docu Neurologic: Reports system reviewed and no additional complaints, except as documented and Reports as per HPI Psychiatric: Psychiatric: Reports no additional psychiatric complaints and Reports as per HPI Endocrine: Endocrine: Reports no additional endocrine complaints, Reports as per HPI and Denies palpitations Hematologic/Lymphatic: Hematologic/Lymphatic: Reports no additional hematologic/lymphatic complaints and Reports as per HPI Allergic/Immunologic: Allergic/Immunologic: Reports no additional allergic/immunologic complaints and Reports as per HPI [facility] Past Medical History Medical History Asthma Hypertension Family History Pertinent family history: Patient cannot recall any information. Social History Social History Household Members: Family Housing: House Do you presently have visiting nurse or other home services: No Patient Tobacco Use Status: Never used Tobacco Smoked in Last 30 Days: No Use of substances other than those prescribed or required for medical reasons: No Currently Displaying Signs/Symptoms of Drug Intoxication Withdrawal: No Have you been hit, kicked, punched, or otherwise hurt by someone within the past year? If so, by whom?: No Do you feel safe in your current relationship?: Yes Is there a partner from a previous relationship who is making you feel unsafe now?: No Are you made to feel afraid or neglected: No Advance Directives: No Advance Directives Information Provided: Yes Do you have a plan to hurt others: No Plan Recently lost weight without trying: No Nutrition Risks: No Nutritional Risk Patient : No : No Poor oral hygiene: No service: No Meds Allergies Allergy/AdvReac Type Severity Reaction Status Date / Time No Known Allergies Allergy Verified 06/28/24 22:42 Active Medications: Current Medications Acetaminophen (Acetaminophen 325 Mg Tablet) 650 mg PO Q6H PRN PRN Reason: Pain, Mild 1-3,fever,headache Calcium Carbonate (Calcium Carbonate 750 Mg Tab.Chew) 750 mg PO Q4H PRN PRN Reason: Heartburn Dextrose (Dextrose 50 % 25 Gm/50 Ml Syringe) 25 gm IVPUSH Q15M PRN; Protocol PRN Reason: per Hypoglycemia Standing Ord. Enoxaparin Sodium (Enoxaparin Sodium 40 Mg/0.4 Ml Syringe) 40 mg SUBCUT Q24H [facility] Last Admin: 06/30/24 03:47 Dose: Not Given Furosemide (Furosemide 20 Mg/2 Ml Vial) 20 mg IVPUSH DAILY [facility]; Protocol Last Admin: 06/30/24 09:22 Dose: 20 mg Glucose (Glucose Gel 15 Gm Gel..Gram.) 15 gm PO Q15M PRN; Protocol PRN Reason: per Hypoglycemia Standing Ord. Guaifenesin (Guaifenesin 200 Mg/10 Ml 10 Ml Liquid) 10 ml PO Q4H PRN PRN Reason: Cough Guaifenesin/Dextromethorphan (Guaifenesin Dm 200/20/10 Ml 10 Ml Syrup) 10 ml PO Q4H PRN PRN Reason: Cough Last Admin: 06/29/24 18:05 Dose: 10 ml Insulin Human Lispro (Insulin Lispro 100 Unit/Ml 3 Ml Vial) 0 unit SUBCUT QIDACHS [facility]; Protocol Last Admin: 06/30/24 12:17 Dose: 4 unit Loratadine (Loratadine 10 Mg Tablet) 10 mg PO DAILY [facility] Last Admin: 06/30/24 09:21 Dose: 10 mg Magnesium Hydroxide (Milk Of Magnesia 30 Ml Oral.Susp) 30 ml PO DAILY PRN PRN Reason: Constipation Melatonin (Melatonin 3 Mg Tablet) 6 mg PO BEDTIME PRN PRN Reason: Insomnia Metoprolol Tartrate (Metoprolol Tartrate 25 Mg Tablet) 25 mg PO BID [facility]; Protocol Last Admin: 06/30/24 09:21 Dose: 25 mg Montelukast Sodium (Montelukast Sodium 10 Mg Tablet) 10 mg PO DAILY [facility] Last Admin: 06/30/24 09:21 Dose: 10 mg Ondansetron HCl (Ondansetron Hcl 4 Mg/2 Ml Vial) 4 mg IVPUSH Q8H PRN PRN Reason: Nausea and Vomiting Sodium Chloride (0.9 % Sodium Chloride Flush 3 Ml Syringe) [facility] Last Admin: 06/30/24 09:22 Dose: 3 ml Home Medications ?Medication ?Instructions ?Recorded ?Confirmed ?Last Taken ?Type apixaban 5 mg tablet 5 mg PO BID 06/29/24 06/29/24 Unknown History insulin aspart U-100 100 unit/mL 1 sliding scale dose subcut TIDAC 06/29/24 06/29/24 Unknown History (3 mL) subcutaneous pen (Novolog FlexPen U-100 Insulin aspart) insulin glargine 100 unit/mL (3 See Rx Instructions .Route .COMPLEX 06/29/24 Unknown History mL) subcutaneous pen (Lantus Solostar U-100 Insulin) liraglutide 0.6 mg/0.1 mL (18 mg/3 1.8 mg subcut DAILY 06/29/24 06/29/24 Unknown History mL) subcutaneous pen injector (Victoza 2-Mian) metoclopramide HCl 5 mg tablet 5 mg PO DAILY 06/29/24 06/29/24 Unknown History metoprolol tartrate 25 mg tablet 25 mg PO BID 06/29/24 06/29/24 Unknown History montelukast 10 mg tablet 10 mg PO DAILY 06/29/24 06/29/24 Unknown History umeclidinium 62.5 mcg/actuation 1 inh inhalation DAILY 06/29/24 06/29/24 Unknown History blister powder for inhalation (Incruse Ellipta) Physical Exam Vital Signs: Vital Signs: Last Vital Signs Temp 97.1 F 06/30/24 12:00 Pulse 89 06/30/24 12:00 Resp 19 06/30/24 12:00 BP 133/68 06/30/24 12:00 Pulse Ox 94 06/30/24 12:00 O2 Del Method Room Air 06/30/24 12:00 BMI result Body Mass Index 34.0 Const: General: comfortable and no acute distress Orientation/consciousness: patient oriented x3 HEENT: Other: Unremarkable Head: Yes normal to inspection Neck: Neck: Yes normal visual inspection Chest: Chest palpation & inspection: normal inspection of the chest Resp: Auscultation: clear to auscultation bilaterally Cardio: Palpation: normal PMI Heart sounds: S1 normal heart sound present, S2 normal heart sound present, no gallops, no murmurs and no rubs GI: Palpation (GI): Soft to palpation Back/Spine/Pelvis: Other: unremarkable Skin: General skin exam: no rashes or lesions noted Neuro: General: patient oriented x3 Extrem: General: Yes normal to inspection Psych: Mental Status: mental status grossly normal Objective Labs and Meds 06/28/24 23:47 06/30/24 07:12 Lab results: Laboratory Results - last 24 hr 06/29/24 06/29/24 06/29/24 16:13 19:43 21:43 Sodium 144 Potassium 3.0 L Chloride 102 Carbon Dioxide 30 H Anion Gap 15 BUN 19 H Creatinine 1.56 H Estim Creat Clear Calc 35.0 Estimated GFR 33 POC Glucose 149 H 178 H Random Glucose 197 H Estimat Average Glucose Hemoglobin A1c % Calcium 8.7 Magnesium Total Bilirubin 0.3 AST 50 H ALT 91 H Alkaline Phosphatase 73 Total Protein 7.8 Albumin 3.7 06/30/24 06/30/24 06/30/24 07:12 07:22 11:25 Sodium 144 Potassium 3.1 L Chloride 103 Carbon Dioxide 29 Anion Gap 15 BUN 17 H Creatinine 1.39 Estim Creat Clear Calc 39.4 Estimated GFR 37 POC Glucose 176 H 232 H Random Glucose 171 H Estimat Average Glucose 180 Hemoglobin A1c % 7.9 H Calcium 8.7 Magnesium 1.7 Total Bilirubin AST ALT Alkaline Phosphatase Total Protein Albumin ECG Interpretation: EKG with sinus rhythm, 90/Min; nonspecific ST-T changes. Assessment and Plan (1) Hypertensive urgency: Status: Acute (2) Acute combined systolic and diastolic congestive heart failure: Status: Acute (3) CKD (chronic kidney disease) stage 3, GFR 30-59 ml/min: Status: Acute (4) Diabetes mellitus: Status: Acute Plan Diabetes, hypertension, chronic kidney disease, probable acute heart failure related to poorly controlled hypertension. In the echocardiogram, LVEF is 15-20%. Moderate diastolic dysfunction. Blood pressure was in the 190s initially. Currently much improved. Creatinine was 1.53 yesterday. Today it is 1.39. She could have hypertension induced LV dysfunction. Could have concurrent CAD. I am not entirely clear what she takes at home. That needs to be clarified with family. Discussed about this with Dr. Guevara. Otherwise, considering the fact that she has diabetes, CKD as well as hypertension, we can start DIANDRA inhibitors or ARB. We will need to closely monitor creatinine. Consider Nephrology consult. Carvedilol can be used in please metoprolol for blood pressure effects as well as LV dysfunction. On IV diuretics for heart failure and we can monitor her creatinine closely. For history of PAF, on Eliquis. Main barrier medical care would be cognition. Discussed with Dr. Guevara. Procedures Date of Service Date of Service: 06/30/24
[2024-06-30 15:31] LABS: Glucose, Whole Blood 95 mg/dL (60-115)
[2024-06-30 15:41] VITALS: BP 135/65; PULSE 77; RESP 18; TEMP 36.1; O2SAT 97
[2024-06-30 20:00] VITALS: BP 137/57; PULSE 81; RESP 20; TEMP 36.7; O2SAT 97
[2024-06-30] MEDS: Apixaban 5 MG TABLET PO (20:27)
[2024-06-30] MEDS: Acetaminophen 325 MG TABLET 650 MG PO (20:28)
[2024-06-30 21:19] LABS: Glucose, Whole Blood 161 mg/dL (60-115)
[2024-07-01] VITALS (9 sets, daily range): BP systolic 109–147; BP diastolic 59–94; PULSE 67–84; RESP 16–20; TEMP 35.8–36.7; O2SAT 97–99
[2024-07-01 07:21] LABS: Glucose, Whole Blood 144 mg/dL (60-115)
[2024-07-01] MEDS: Tiotropium Bromide 2.5 mcg 1 PUFF/2.5 MCG MIST.INHAL 2 PUFF INHALE (08:10)
[2024-07-01] MEDS: Loratadine 10 MG TABLET PO (08:44)
[2024-07-01] MEDS: Montelukast Sodium 10 MG TABLET PO (08:44)
[2024-07-01] MEDS: Apixaban 5 MG TABLET PO ×2 (08:45→21:19)
[2024-07-01] MEDS: 0.9 % Sodium Chloride Flush 3 ML SYRINGE IVFLUSH ×2 (08:45→17:22)
[2024-07-01] MEDS: Metoprolol Tartrate 25 MG TABLET PO ×2 (08:45→21:16)
[2024-07-01] MEDS: Furosemide 20 MG/2 ML VIAL IVPUSH (08:45)
[2024-07-01 09:59] LABS: Anion Gap 13 (12-20); Anion Gap 14 (12-20); Blood Urea Nitrogen 23 mg/dL (9-16); Calcium 8.6 mg/dL (8.4-10.2); Calcium 8.8 mg/dL (8.4-10.2); Carbon Dioxide 28 mmol/L (22-29); Chloride 103 mmol/L (96-108); Chloride 104 mmol/L (96-108); Creatinine Clr Calc Pharmacy 35.3; Estimated Glomerular Filt Rate 33; Estimated Glomerular Filt Rate 34; Glucose Random 286 mg/dL (60-115); Potassium 3.3 mmol/L (3.3-5.1); Sodium 142 mmol/L (135-145)
[2024-07-01 10:06] LABS: B Type Natriuretic Peptide 278 pg/mL (<100)
--- NOTE | 2024-07-01 10:13 | P.CONNP_ITS ---
History of Present Illness Reason for Consult Consult date: 07/01/24 Reason for consult: CKD Chief Complaint Chief complaint: New Onset CHF History of Present Illness Narrative: 69-year-old female with an unclear PMH significant for?HTN and asthma who presents to the ED complaining of increased SOB, difficulty breathing, and nonproductive cough for the past few days. Reports sick contact with a grandson gave her a bad cold. Pt states feels fatigued, weak, and has chest pain/tightness mostly associated with deep breathing and cough. Pt is overall a poor and vague historian, and is unable to provide details concerning either her PMH, medication use, or current symptoms. Reports she is supposed to be on antihypertensives, but has not taken them for an unclear amount of time. Has not followed with a PCP for ?a long time?. States was recently at [facility] and diagnosed with ?a heart condition? but is unable to specify what that condition was or what medications, if any, she was prescribed. Denies known hx of CHF. No fever, chills, nausea, or vomiting. Currently denies abdominal pain, but states she knows it's coming since has chronic abdominal issues. Earlier has a headache but currently none. Review of Systems Review of Systems Yes Unobtainable due to mental status PMFSH Past Medical History Medical History Asthma Hypertension Social History Social History Household Members: Family Housing: House Do you presently have visiting nurse or other home services: No Patient Tobacco Use Status: Never used Tobacco service: No Meds Allergies Allergy/AdvReac Type Severity Reaction Status Date / Time No Known Allergies Allergy Verified 06/28/24 22:42 Active Medications: Current Medications Acetaminophen (Acetaminophen 325 Mg Tablet) 650 mg PO Q6H PRN PRN Reason: Pain, Mild 1-3,fever,headache Last Admin: 06/30/24 20:28 Dose: 650 mg Apixaban (Apixaban 5 Mg Tablet) 5 mg PO BID [facility] Last Admin: 07/01/24 08:45 Dose: 5 mg Calcium Carbonate (Calcium Carbonate 750 Mg Tab.Chew) 750 mg PO Q4H PRN PRN Reason: Heartburn Dextrose (Dextrose 50 % 25 Gm/50 Ml Syringe) 25 gm IVPUSH Q15M PRN; Protocol PRN Reason: per Hypoglycemia Standing Ord. Enoxaparin Sodium (Enoxaparin Sodium 40 Mg/0.4 Ml Syringe) 40 mg SUBCUT Q24H [facility] Last Admin: 07/01/24 04:56 Dose: Not Given Furosemide (Furosemide 20 Mg/2 Ml Vial) 20 mg IVPUSH DAILY [facility]; Protocol Last Admin: 07/01/24 08:45 Dose: 20 mg Glucose (Glucose Gel 15 Gm Gel..Gram.) 15 gm PO Q15M PRN; Protocol PRN Reason: per Hypoglycemia Standing Ord. Guaifenesin (Guaifenesin 200 Mg/10 Ml 10 Ml Liquid) 10 ml PO Q4H PRN PRN Reason: Cough Guaifenesin/Dextromethorphan (Guaifenesin Dm 200/20/10 Ml 10 Ml Syrup) 10 ml PO Q4H PRN PRN Reason: Cough Last Admin: 06/29/24 18:05 Dose: 10 ml Insulin Human Lispro (Insulin Lispro 100 Unit/Ml 3 Ml Vial) 0 unit SUBCUT QIDACHS [facility]; Protocol Last Admin: 07/01/24 07:39 Dose: Not Given Loratadine (Loratadine 10 Mg Tablet) 10 mg PO DAILY [facility] Last Admin: 07/01/24 08:44 Dose: 10 mg Magnesium Hydroxide (Milk Of Magnesia 30 Ml Oral.Susp) 30 ml PO DAILY PRN PRN Reason: Constipation Melatonin (Melatonin 3 Mg Tablet) 6 mg PO BEDTIME PRN PRN Reason: Insomnia Metoprolol Tartrate (Metoprolol Tartrate 25 Mg Tablet) 25 mg PO BID [facility]; Protocol Last Admin: 07/01/24 08:45 Dose: 25 mg Montelukast Sodium (Montelukast Sodium 10 Mg Tablet) 10 mg PO DAILY [facility] Last Admin: 07/01/24 08:44 Dose: 10 mg Ondansetron HCl (Ondansetron Hcl 4 Mg/2 Ml Vial) 4 mg IVPUSH Q8H PRN PRN Reason: Nausea and Vomiting Sodium Chloride (0.9 % Sodium Chloride Flush 3 Ml Syringe) 3 ml IVFLUSH QSHIFT [facility] Last Admin: 07/01/24 08:45 Dose: 3 ml Tiotropium [place] (Tiotropium [place] 2.5 Mcg 1 Puff/2.5 Mcg Mist.Inhal) 2 puff INHALE RDAILY [facility] Last Admin: 07/01/24 08:10 Dose: 2 puff Home Medications ?Medication ?Instructions ?Recorded ?Confirmed ?Last Taken ?Type apixaban 5 mg tablet 5 mg PO BID 06/29/24 06/29/24 Unknown History insulin aspart U-100 100 unit/mL 1 sliding scale dose subcut TIDAC 06/29/24 06/29/24 Unknown History (3 mL) subcutaneous pen (Novolog FlexPen U-100 Insulin aspart) insulin glargine 100 unit/mL (3 See Rx Instructions .Route .COMPLEX 06/29/24 Unknown History mL) subcutaneous pen (Lantus Solostar U-100 Insulin) liraglutide 0.6 mg/0.1 mL (18 mg/3 1.8 mg subcut DAILY 06/29/24 06/29/24 Unknown History mL) subcutaneous pen injector (Victoza 2-Mian) metoclopramide HCl 5 mg tablet 5 mg PO DAILY 06/29/24 06/29/24 Unknown History metoprolol tartrate 25 mg tablet 25 mg PO BID 06/29/24 06/29/24 Unknown History montelukast 10 mg tablet 10 mg PO DAILY 06/29/24 06/29/24 Unknown History umeclidinium 62.5 mcg/actuation 1 inh inhalation DAILY 06/29/24 06/29/24 Unknown History blister powder for inhalation (Incruse Ellipta) dicyclomine 10 mg capsule 10 mg PO QID 07/01/24 07/01/24 Unknown History Physical Exam Vital Signs: Last Vital Signs Temp 97.5 F 07/01/24 07:52 Pulse 75 07/01/24 08:13 Resp 16 07/01/24 08:13 BP 142/94 H 07/01/24 07:52 Pulse Ox 98 07/01/24 07:52 O2 Del Method Room Air 07/01/24 07:52 BMI result Body Mass Index 34.0 Awake. Comfortable. Neck is supple. Mucosa moist. Lungs bilateral scattered rhonchi. Heart S1-S2 heard no gallop. Abdomen soft. Extremities no edema. No involuntary movements. No myoclonus. Results Lab Results 06/28/24 23:47 07/04/24 11:13 Lab results: Chemistry 06/28/24 06/29/24 06/30/24 23:47 19:43 07:12 Sodium 145 144 144 Potassium 3.4 3.0 L 3.1 L Carbon Dioxide 27 30 H 29 BUN 18 H 19 H 17 H Creatinine 1.53 H 1.56 H 1.39 Calcium 8.8 8.7 8.7 07/01/24 07/01/24 07/01/24 09:37 09:37 09:37 Sodium 142 142 Potassium 3.3 3.3 Carbon Dioxide 28 BUN Creatinine Calcium 07/01/24 07/01/24 07/01/24 09:37 09:37 09:37 Sodium Potassium Carbon Dioxide 28 BUN 23 H 23 H Creatinine 1.52 H 1.55 H Calcium 8.8 07/01/24 09:37 Sodium Potassium Carbon Dioxide BUN Creatinine Calcium 8.6 Hematology 06/28/24 23:47 WBC 5.3 Hgb 10.7 L Plt Count 283 Assessment and Plan (1) CKD (chronic kidney disease) stage 3, GFR 30-59 ml/min: Status: Acute (2) Hypertension: Status: Acute Plan ZEINAB superimposed on CKD. Renal function is essentially unchanged Continue with cautious diuresis Low-sodium diet Continue to avoid nephrotoxic agents including NSAIDs. Mild anemia due to CKD. No indication for Epogen yet. She will follow up with the team Procedures Date of Service Date of Service: 07/10/24
[2024-07-01 10:38] LABS: Folate 8.4 ng/mL (> or = 4.0); Vitamin B12 478 pg/mL (200-900)
[2024-07-01 11:32] LABS: Glucose, Whole Blood 229 mg/dL (60-115)
[2024-07-01] MEDS: Insulin Lispro 100 UNIT/ML 3 ML VIAL SUBCUT ×2 (11:52→21:19)
[2024-07-01] MEDS: Acetaminophen 325 MG TABLET 650 MG PO (11:55)
--- NOTE | 2024-07-01 16:04 | HO.PM.IMPN ---
Subjective Subjective Date of Service: 07/01/24 Interval History: chf ,ckd Review of Systems sob seems improving denies any chest pain Physical Exam Vital Signs: Vital Signs: Last Vital Signs Temp 97.7 F 07/01/24 15:48 Pulse 72 07/01/24 15:48 Resp 18 07/01/24 15:48 BP 109/59 L 07/01/24 15:48 Pulse Ox 97 07/01/24 15:48 O2 Del Method Room Air 07/01/24 15:48 BMI result Body Mass Index 34.0 General: awake ,conversive ,poor histroian. Resp: air entry fair ,no rales or wheezing CVS: Regularly irregular rhythm. No JVD . GI: +BS, NT, no distention Skin: Warm, dry,trace edema. Neuro: nonfocal Objective Data Active Medications Acetaminophen (Acetaminophen 325 Mg Tablet) 650 mg PO Q6H PRN PRN Reason: Pain, Mild 1-3,fever,headache Last Admin: 07/01/24 11:55 Dose: 650 mg Documented By: ILENE Apixaban (Apixaban 5 Mg Tablet) 5 mg PO BID [facility] Last Admin: 07/01/24 08:45 Dose: 5 mg Documented By: ILENE Calcium Carbonate (Calcium Carbonate 750 Mg Tab.Chew) 750 mg PO Q4H PRN PRN Reason: Heartburn Dextrose (Dextrose 50 % 25 Gm/50 Ml Syringe) 25 gm IVPUSH Q15M PRN; Protocol PRN Reason: per Hypoglycemia Standing Ord. Furosemide (Furosemide 20 Mg/2 Ml Vial) 20 mg IVPUSH DAILY [facility]; Protocol Last Admin: 07/01/24 08:45 Dose: 20 mg Documented By: ILENE Glucose (Glucose Gel 15 Gm Gel..Gram.) 15 gm PO Q15M PRN; Protocol PRN Reason: per Hypoglycemia Standing Ord. Guaifenesin (Guaifenesin 200 Mg/10 Ml 10 Ml Liquid) 10 ml PO Q4H PRN PRN Reason: Cough Guaifenesin/Dextromethorphan (Guaifenesin Dm 200/20/10 Ml 10 Ml Syrup) 10 ml PO Q4H PRN PRN Reason: Cough Last Admin: 06/29/24 18:05 Dose: 10 ml Documented By: OFELIA Insulin Human Lispro (Insulin Lispro 100 Unit/Ml 3 Ml Vial) 0 unit SUBCUT QIDACHS [facility]; Protocol Last Admin: 07/01/24 11:52 Dose: 4 unit Documented By: ILENE Loratadine (Loratadine 10 Mg Tablet) 10 mg PO DAILY [facility] Last Admin: 07/01/24 08:44 Dose: 10 mg Documented By: ILENE Magnesium Hydroxide (Milk Of Magnesia 30 Ml Oral.Susp) 30 ml PO DAILY PRN PRN Reason: Constipation Melatonin (Melatonin 3 Mg Tablet) 6 mg PO BEDTIME PRN PRN Reason: Insomnia Metoprolol Tartrate (Metoprolol Tartrate 25 Mg Tablet) 25 mg PO BID [facility]; Protocol Last Admin: 07/01/24 08:45 Dose: 25 mg Documented By: ILENE Montelukast Sodium (Montelukast Sodium 10 Mg Tablet) 10 mg PO DAILY [facility] Last Admin: 07/01/24 08:44 Dose: 10 mg Documented By: ILENE Ondansetron HCl (Ondansetron Hcl 4 Mg/2 Ml Vial) 4 mg IVPUSH Q8H PRN PRN Reason: Nausea and Vomiting Sodium Chloride (0.9 % Sodium Chloride Flush 3 Ml Syringe) 3 ml IVFLUSH QSHIFT [facility] Last Admin: 07/01/24 08:45 Dose: 3 ml Documented By: ILENE Tiotropium [place] (Tiotropium [place] 2.5 Mcg 1 Puff/2.5 Mcg Mist.Inhal) 2 puff INHALE RDAILY [facility] Last Admin: 07/01/24 08:10 Dose: 2 puff Documented By: GUIDIB Labs 06/28/24 23:47 07/01/24 09:37 Labs: Laboratory Results - last 24 hr 06/30/24 07/01/24 07/01/24 21:13 07:16 09:37 Anion Gap 14 Estim Creat Clear Calc Estimated GFR POC Glucose 161 H 144 H Random Glucose Calcium B-Natriuretic Peptide Vitamin B12 Folate 07/01/24 07/01/24 07/01/24 09:37 09:37 09:37 Anion Gap 13 Estim Creat Clear Calc 36.0 35.3 Estimated GFR 34 33 POC Glucose Random Glucose 286 H Calcium B-Natriuretic Peptide Vitamin B12 Folate 07/01/24 07/01/24 07/01/24 09:37 09:37 11:29 Anion Gap Estim Creat Clear Calc Estimated GFR POC Glucose 229 H Random Glucose 286 H Calcium 8.8 8.6 B-Natriuretic Peptide 278 H Vitamin B12 478 Folate 8.4 Assessment and Plan (1) Hypertensive urgency: Status: Acute (2) CKD (chronic kidney disease) stage 3, GFR 30-59 ml/min: Status: Acute (3) Hypertension: Status: Acute (4) Congestive heart failure of unknown etiology: Status: Acute Assessment and Plan: 69-year-old female with an unclear PMH significant for?HTN and asthma who presents to the ED complaining of increased SOB, difficulty breathing, and nonproductive cough for the past few days. Pt will be admitted to the hospital for treatment and further evaluation of possible new onset acute CHF. As per discharge records from records from [facility] ([facility]): pmhx of leg swelling ,elevated bnp, htn,dm2,asthma-?severtity unknown,leucopenia and hx of lung cancer s/p left lower lobe resection follow up with Dr Pao ferrara.pcp was Dr Lee ( as per medical records from [facility]). New onset CHF Pt with SOB, SOTELO, nonproductive, elevated BNP, 2+ pitting LLE, CXR with possible cardiomegaly pleural effusion Follow I/O, daily weights, lytes elevated troponins -flat ,ekg:Normal sinus rhythm with sinus arrhythmia. plan:moniter on tele echo ef lower side -left ventricular systolic function is severely decreased. The visually estimated ejection fraction is between 15-20%. (echo in [facility] in 02/28 : ef is 55-60%) Cardiology consult- continue iv lasix,moniter i/o. Hx of Paf: continue metoprolol and eliquis. Htn:home meds unclear -records from [facility] -only on metoprolol. likely ckd3a: moniter renal function and electrolytes (lasix). nephrology eval. Cough: non-productive cough for past few days Possibly in the setting of CHF, though pt reports contact with sick grandson RSV/Flu/COVID negative,CXR negative for consolidation,full respiratory panel negative no indication for antibiotics at this time, no sepsis dm with flactuating fs : hba1c levels 7.9 moniter fs and sliding scale coverage. Asthma-?severity unknown Not in acute exacerbation Continue home inhalers. As per [facility] notes -patient has memory impairment ( even in 02/28) unable to provide any significant details for her medical issues or medication even during that admission. tsh normal , will check b12 levels obesity -encouraged to loose weight and cut down calories ongoing hospitalization of at least two nights for treatment and evaluation of new onset acute CHF as well as possible ZEINAB vs CKD 3-need IV diuretics, close monitoring of labs and kidney function, and specialist consultation Cardiology. spoke to patient niece -patient does not have any pcp,and she will bring her meds from home tomorrow. Quality Stroke Does the patient have a stroke diagnosis?: No VTE Prior VTE?: No VTE Risk Level:: Medical - moderate - high VTE Device Contraindication: Treatment Not Indicated VTE Drug Contraindication: N/A - Med Ordered
--- NOTE | 2024-07-01 16:06 | P.CDIM_ITS ---
PROVIDER RESPONSE TEXT: To clarify, the appropriate diagnosis supported by the clinical indicators: CKD 3b QUERY TEXT: PHYSICIAN'S DOCUMENTATION REQUEST Date of Query: 07/01/2024 09:58 AM EST Patient Name: Elizabeth Russell Admit Date: 06/29/2024 Dear Vish Guevara MD, A review of the medical record indicates additional documentation may be needed. Please review below and update the documentation accordingly. Clinical Indicators: Per Hospitalist Progress note 06/29/24: CKD 3b : BUN 19/Creatinine 1.56 Per Hospitalist Progress note 06/30/24: likely CKD 3a : BUN 17/Creatinine 1.39 The following diagnoses or signs and symptoms were noted in the patient record: Based on the above, could you clarify the appropriate diagnosis, if significant, that supports the ab ove abnormalities and additional evaluation, monitoring, and/or treatment rendered: CKD 3a CKD 3b Labs indicate a diagnosis of (please specify) Other (explain) Clinically unable to determine (explain) Thank you, Sheila Fry RN Use of terms such as suspected, likely, concern for, or probable (associated with a specific diagnosi s that is being evaluated, monitored, or treated as if it exists) are acceptable and can be coded in the inpatient se tting, when documented at the time of discharge. Please use your independent medical judgment in providing your response. THIS QUERY IS PART OF THE PERMANENT MEDICAL RECORD
--- NOTE | 2024-07-01 16:34 | MHC.CM.PN ---
PT NOT YET MEDICALLY CLEARED, DCP TBD, STR RECOMMENDED, HOWEVER PT CURRENTLY REFUSING DCP: HOME WITH [facility] VS STR
[2024-07-01 16:45] LABS: Glucose, Whole Blood 100 mg/dL (60-115)
[2024-07-01 20:37] LABS: Glucose, Whole Blood 191 mg/dL (60-115)
[2024-07-02] VITALS (9 sets, daily range): BP systolic 112–151; BP diastolic 58–92; PULSE 66–82; RESP 16–98; TEMP 35.9–36.5; O2SAT 96–100
[2024-07-02] MEDS: 0.9 % Sodium Chloride Flush 3 ML SYRINGE IVFLUSH ×3 (02:23→22:54)
[2024-07-02] MEDS: Acetaminophen 325 MG TABLET 650 MG PO ×3 (02:26→22:52)
[2024-07-02 07:34] LABS: Glucose, Whole Blood 219 mg/dL (60-115)
[2024-07-02] MEDS: Tiotropium Bromide 2.5 mcg 1 PUFF/2.5 MCG MIST.INHAL 2 PUFF INHALE (07:57)
[2024-07-02 08:05] LABS: Anion Gap 13 (12-20); Blood Urea Nitrogen 31 mg/dL (9-16); Calcium 8.6 mg/dL (8.4-10.2); Carbon Dioxide 30 mmol/L (22-29); Chloride 103 mmol/L (96-108); Creatinine Clr Calc Pharmacy 34.4; Estimated Glomerular Filt Rate 32; Glucose Random 230 mg/dL (60-115); Potassium 3.2 mmol/L (3.3-5.1); Sodium 143 mmol/L (135-145)
--- NOTE | 2024-07-02 08:40 | HO.PM.IMPN ---
Subjective Subjective Date of Service: 07/02/24 Interval History: chf,zeinab Review of Systems sob seems to be somewhat improving has cough Physical Exam Vital Signs: Vital Signs: Last Vital Signs Temp 97.7 F 07/02/24 08:00 Pulse 66 07/02/24 08:00 Resp 18 07/02/24 08:00 BP 139/82 07/02/24 08:00 Pulse Ox 99 07/02/24 08:00 O2 Del Method Room Air 07/02/24 08:00 BMI result Body Mass Index 34.0 General: awake ,conversive ,poor histroian. Resp: air entry fair ,no rales or wheezing CVS: Regularly irregular rhythm. No JVD . GI: +BS, NT, no distention Skin: Warm, dry,trace edema. Neuro: nonfocal Objective Data Active Medications Acetaminophen (Acetaminophen 325 Mg Tablet) 650 mg PO Q6H PRN PRN Reason: Pain, Mild 1-3,fever,headache Last Admin: 07/02/24 02:26 Dose: 650 mg Documented By: CARYN Apixaban (Apixaban 5 Mg Tablet) 5 mg PO BID [facility] Last Admin: 07/01/24 21:19 Dose: 5 mg Documented By: ROBERT Calcium Carbonate (Calcium Carbonate 750 Mg Tab.Chew) 750 mg PO Q4H PRN PRN Reason: Heartburn Dextrose (Dextrose 50 % 25 Gm/50 Ml Syringe) 25 gm IVPUSH Q15M PRN; Protocol PRN Reason: per Hypoglycemia Standing Ord. Glucose (Glucose Gel 15 Gm Gel..Gram.) 15 gm PO Q15M PRN; Protocol PRN Reason: per Hypoglycemia Standing Ord. Guaifenesin (Guaifenesin 200 Mg/10 Ml 10 Ml Liquid) 10 ml PO Q4H PRN PRN Reason: Cough Guaifenesin/Dextromethorphan (Guaifenesin Dm 200/20/10 Ml 10 Ml Syrup) 10 ml PO Q4H PRN PRN Reason: Cough Last Admin: 06/29/24 18:05 Dose: 10 ml Documented By: OFELIA Insulin Human Lispro (Insulin Lispro 100 Unit/Ml 3 Ml Vial) 0 unit SUBCUT QIDACHS [facility]; Protocol Last Admin: 07/01/24 21:19 Dose: 2 unit Documented By: ROBERT Loratadine (Loratadine 10 Mg Tablet) 10 mg PO DAILY [facility] Last Admin: 07/01/24 08:44 Dose: 10 mg Documented By: ILENE Magnesium Hydroxide (Milk Of Magnesia 30 Ml Oral.Susp) 30 ml PO DAILY PRN PRN Reason: Constipation Melatonin (Melatonin 3 Mg Tablet) 6 mg PO BEDTIME PRN PRN Reason: Insomnia Metoprolol Tartrate (Metoprolol Tartrate 25 Mg Tablet) 25 mg PO BID [facility]; Protocol Last Admin: 07/01/24 21:16 Dose: 25 mg Documented By: ROBERT Montelukast Sodium (Montelukast Sodium 10 Mg Tablet) 10 mg PO DAILY [facility] Last Admin: 07/01/24 08:44 Dose: 10 mg Documented By: ILENE Ondansetron HCl (Ondansetron Hcl 4 Mg/2 Ml Vial) 4 mg IVPUSH Q8H PRN PRN Reason: Nausea and Vomiting Sodium Chloride (0.9 % Sodium Chloride Flush 3 Ml Syringe) 3 ml IVFLUSH QSHIFT [facility] Last Admin: 07/02/24 02:23 Dose: 3 ml Documented By: SALSYLVIE Tiotropium [place] (Tiotropium [place] 2.5 Mcg 1 Puff/2.5 Mcg Mist.Inhal) 2 puff INHALE RDAILY [facility] Last Admin: 07/02/24 07:57 Dose: 2 puff Documented By: JOSE JUAN Labs 06/28/24 23:47 07/02/24 07:28 Labs: Laboratory Results - last 24 hr 07/01/24 07/01/24 07/01/24 09:37 09:37 09:37 Anion Gap 14 13 Estim Creat Clear Calc 36.0 35.3 Estimated GFR 34 POC Glucose Random Glucose Calcium B-Natriuretic Peptide Vitamin B12 Folate 07/01/24 07/01/24 07/01/24 09:37 09:37 09:37 Anion Gap Estim Creat Clear Calc Estimated GFR 33 POC Glucose Random Glucose 286 H 286 H Calcium 8.8 8.6 B-Natriuretic Peptide 278 H Vitamin B12 478 Folate 8.4 07/01/24 07/01/24 07/01/24 11:29 16:31 20:31 Anion Gap Estim Creat Clear Calc Estimated GFR POC Glucose 229 H 100 191 H Random Glucose Calcium B-Natriuretic Peptide Vitamin B12 Folate 07/02/24 07/02/24 07:24 07:28 Anion Gap 13 Estim Creat Clear Calc 34.4 Estimated GFR 32 POC Glucose 219 H Random Glucose 230 H Calcium 8.6 B-Natriuretic Peptide Vitamin B12 Folate Assessment and Plan (1) Diabetes mellitus: Status: Acute (2) Acute combined systolic and diastolic congestive heart failure: Status: Acute (3) Hypertensive urgency: Status: Acute (4) CKD (chronic kidney disease) stage 3, GFR 30-59 ml/min: Status: Acute (5) Hypertension: Status: Acute (6) Congestive heart failure of unknown etiology: Status: Acute Assessment and Plan: 69-year-old female with an unclear PMH significant for?HTN and asthma who presents to the ED complaining of increased SOB, difficulty breathing, and nonproductive cough for the past few days. Pt will be admitted to the hospital for treatment and further evaluation of possible new onset acute CHF. As per discharge records from records from [facility] ([facility]): pmhx of leg swelling ,elevated bnp, htn,dm2,asthma-?severtity unknown,leucopenia and hx of lung cancer s/p left lower lobe resection follow up with Dr Pao ferrara.pcp was Dr Lee ( as per medical records from [facility]). New onset CHF Pt with SOB, SOTELO, nonproductive, elevated BNP, 2+ pitting LLE, CXR with possible cardiomegaly pleural effusion Follow I/O, daily weights, lytes elevated troponins -flat ,ekg:Normal sinus rhythm with sinus arrhythmia. plan:moniter on tele echo ef lower side -left ventricular systolic function is severely decreased. The visually estimated ejection fraction is between 15-20%. (echo in [facility] in 02/28 : ef is 55-60%) Cardiology consult- hold iv lasix due to wrosening creatinine,moniter i/o. Hx of Paf: continue metoprolol and eliquis. Htn:home meds unclear -records from [facility] -only on metoprolol. laki on ckd3a: moniter renal function and electrolytes (lasix). hold lasix for today nephrology eval. Cough: non-productive cough for past few days Possibly in the setting of CHF, though pt reports contact with sick grandson RSV/Flu/COVID negative,CXR negative for consolidation,full respiratory panel negative no indication for antibiotics at this time, no sepsis dm with flactuating fs : hba1c levels 7.9 moniter fs and sliding scale coverage. Asthma-?severity unknown Not in acute exacerbation Continue home inhalers. As per [facility] notes -patient has memory impairment ( even in 02/28) unable to provide any significant details for her medical issues or medication even during that admission. tsh normal , b12 ,folate normal obesity -encouraged to loose weight and cut down calories ongoing hospitalization of at least two nights for treatment and evaluation of new onset acute CHF as well as possible ZEINAB vs CKD 3-need IV diuretics, close monitoring of labs and kidney function, and specialist consultation Cardiology. spoke to patient niece miss hager in detail Quality Stroke Does the patient have a stroke diagnosis?: No VTE Prior VTE?: No VTE Risk Level:: Medical - moderate - high VTE Device Contraindication: Treatment Not Indicated VTE Drug Contraindication: N/A - Med Ordered
[2024-07-02] MEDS: Insulin Lispro 100 UNIT/ML 3 ML VIAL SUBCUT ×2 (08:49→12:13)
[2024-07-02] MEDS: Apixaban 5 MG TABLET PO ×2 (08:56→22:53)
[2024-07-02] MEDS: Metoprolol Tartrate 25 MG TABLET PO ×2 (08:57→22:53)
[2024-07-02] MEDS: Loratadine 10 MG TABLET PO (08:57)
[2024-07-02] MEDS: Montelukast Sodium 10 MG TABLET PO (08:58)
[2024-07-02] MEDS: Potassium Chloride ER 20 MEQ TAB.ER.PRT PO (10:54)
[2024-07-02 12:04] LABS: Glucose, Whole Blood 201 mg/dL (60-115)
[2024-07-02] MEDS: traZODone HCL 25 MG HALFTAB 12.5 MG PO (12:13)
--- NOTE | 2024-07-02 13:07 | MHC.CM.PN ---
CM met with pt. to ask if she would like to complete a HCP. She said she would have to speak with her niece about this, CM will check back later on this.
[2024-07-02 16:37] LABS: Glucose, Whole Blood 134 mg/dL (60-115)
--- NOTE | 2024-07-02 16:59 | PC.NURSE ---
Per MD have patient use the incentive spirometer. Incentive spirometer brought into room and patient educated on how to use and the importance of using. Patient refusing to use, states that she does not have enough oxygen to use it and that she doesn't have the patience to try it. States that if she begins to feel better she will think about using it but at this time she is not willing to try.
--- NOTE | 2024-07-02 22:00 | PC.NURSE ---
Pt refusing to have glucose checked by PARASITOLOGIST. RN went in and asked again and pt stated she does not have DM, and therefore does not need insulin. RN unable to give insulin. aware
--- NOTE | 2024-07-02 22:00 | PC.NURSE ---
Pt refusing incentive spirometer. States it makes it harder to breathe. RN provided education
[2024-07-02] MEDS: Melatonin 3 MG TABLET 6 MG PO (22:53)
[2024-07-03] VITALS (8 sets, daily range): BP systolic 113–167; BP diastolic 64–79; PULSE 59–71; RESP 16; TEMP 36.1–36.7; O2SAT 98–100
--- NOTE | 2024-07-03 02:30 | PC.NURSE ---
Pt is awake and refusing incentive spirometer. States it makes it harder to breathe. RN provided education again. Pt requesting device to be removed from room. RN left incentive spirometer in room.
[2024-07-03 07:49] LABS: Glucose, Whole Blood 151 mg/dL (60-115)
[2024-07-03] MEDS: Tiotropium Bromide 2.5 mcg 1 PUFF/2.5 MCG MIST.INHAL 2 PUFF INHALE (07:56)
[2024-07-03] MEDS: Montelukast Sodium 10 MG TABLET PO (09:28)
[2024-07-03] MEDS: Apixaban 5 MG TABLET PO ×2 (09:28→21:04)
[2024-07-03] MEDS: 0.9 % Sodium Chloride Flush 3 ML SYRINGE IVFLUSH ×3 (09:28→21:05)
[2024-07-03] MEDS: Potassium Chloride ER 20 MEQ TAB.ER.PRT 40 MEQ PO (09:29)
[2024-07-03] MEDS: Loratadine 10 MG TABLET PO (09:29)
[2024-07-03] MEDS: Metoprolol Tartrate 25 MG TABLET PO ×2 (09:29→21:04)
--- NOTE | 2024-07-03 10:39 | MHC.CM.PN ---
Per rounds, pt. is not yet ready to DC, CM spoke to pt. to follow up on doing HCP, she said she forgot to speak with her niece about this. CM asked pt. permission to speak with family, she did not have a phone # for her niece, Caitlin, whom she lives with. Pt. gave CM permission to speak to her sister, Mony, vm message left. Pt's medical record from [facility] show 2 MD's listed as PCP, CM will ask family to clarify.
[2024-07-03 11:33] LABS: Glucose, Whole Blood 212 mg/dL (60-115)
--- NOTE | 2024-07-03 11:35 | HO.PM.IMPN ---
Subjective Subjective Date of Service: 07/03/24 Interval History: feels better Physical Exam Vital Signs: Vital Signs: Last Vital Signs Temp 97.1 F 07/03/24 11:22 Pulse 59 07/03/24 11:22 Resp 16 07/03/24 11:22 BP 126/64 07/03/24 11:22 Pulse Ox 99 07/03/24 11:22 O2 Del Method Room Air 07/03/24 11:22 BMI result Body Mass Index 34.0 Objective Data Active Medications Acetaminophen (Acetaminophen 325 Mg Tablet) 650 mg PO Q6H PRN PRN Reason: Pain, Mild 1-3,fever,headache Last Admin: 07/02/24 22:52 Dose: 650 mg Documented By: DAVID Apixaban (Apixaban 5 Mg Tablet) 5 mg PO BID [facility] Last Admin: 07/03/24 09:28 Dose: 5 mg Documented By: SAULO Calcium Carbonate (Calcium Carbonate 750 Mg Tab.Chew) 750 mg PO Q4H PRN PRN Reason: Heartburn Dextrose (Dextrose 50 % 25 Gm/50 Ml Syringe) 25 gm IVPUSH Q15M PRN; Protocol PRN Reason: per Hypoglycemia Standing Ord. Glucose (Glucose Gel 15 Gm Gel..Gram.) 15 gm PO Q15M PRN; Protocol PRN Reason: per Hypoglycemia Standing Ord. Guaifenesin (Guaifenesin 200 Mg/10 Ml 10 Ml Liquid) 10 ml PO Q4H PRN PRN Reason: Cough Guaifenesin/Dextromethorphan (Guaifenesin Dm 200/20/10 Ml 10 Ml Syrup) 10 ml PO Q4H PRN PRN Reason: Cough Last Admin: 06/29/24 18:05 Dose: 10 ml Documented By: OFELIA Insulin Human Lispro (Insulin Lispro 100 Unit/Ml 3 Ml Vial) 0 unit SUBCUT QIDACHS [facility]; Protocol Last Admin: 07/03/24 09:22 Dose: Not Given Documented By: SAULO Non-Admin Reason: Patient Refused Lidocaine (Lidocaine 4 % Patch Adh..Patch) 1 patch TRANSDERMA DAILY [facility]; Protocol Last Admin: 07/03/24 09:25 Dose: Not Given Documented By: SAULO Non-Admin Reason: Patient Refused Loratadine (Loratadine 10 Mg Tablet) 10 mg PO DAILY [facility] Last Admin: 07/03/24 09:29 Dose: 10 mg Documented By: SAULO Magnesium Hydroxide (Milk Of Magnesia 30 Ml Oral.Susp) 30 ml PO DAILY PRN PRN Reason: Constipation Melatonin (Melatonin 3 Mg Tablet) 6 mg PO BEDTIME PRN PRN Reason: Insomnia Last Admin: 07/02/24 22:53 Dose: 6 mg Documented By: DAVID Metoprolol Tartrate (Metoprolol Tartrate 25 Mg Tablet) 25 mg PO BID [facility]; Protocol Last Admin: 07/03/24 09:29 Dose: 25 mg Documented By: SAULO Montelukast Sodium (Montelukast Sodium 10 Mg Tablet) 10 mg PO DAILY [facility] Last Admin: 07/03/24 09:28 Dose: 10 mg Documented By: SAULO Ondansetron HCl (Ondansetron Hcl 4 Mg/2 Ml Vial) 4 mg IVPUSH Q8H PRN PRN Reason: Nausea and Vomiting Sodium Chloride (0.9 % Sodium Chloride Flush 3 Ml Syringe) 3 ml IVFLUSH QSHIFT [facility] Last Admin: 07/03/24 09:28 Dose: 3 ml Documented By: SAULO Tiotropium [place] (Tiotropium [place] 2.5 Mcg 1 Puff/2.5 Mcg Mist.Inhal) 2 puff INHALE RDAILY [facility] Last Admin: 07/03/24 07:56 Dose: 2 puff Documented By: [email or web address] Labs 06/28/24 23:47 07/02/24 07:28 Labs: Laboratory Results - last 24 hr 07/02/24 07/02/24 07/03/24 11:54 16:15 07:28 POC Glucose 201 H 134 H 151 H 07/03/24 11:21 POC Glucose 212 H Assessment and Plan (1) Diabetes mellitus: Status: Acute (2) Acute combined systolic and diastolic congestive heart failure: Status: Acute (3) Hypertensive urgency: Status: Acute (4) CKD (chronic kidney disease) stage 3, GFR 30-59 ml/min: Status: Acute (5) Hypertension: Status: Acute (6) Congestive heart failure of unknown etiology: Status: Acute Assessment and Plan: 69F PMH significant for?HTN, pafib, CKD III, DM, unspecified asthma, lung cancer who presented to the ED complaining of increased SOBnew onset acute CHF. acute systolic CHF now euovlemic, continue metoprolol, outpatient cardio follow up hypertensive vs ischemic Paf continue metoprolol and eliquis. Htn metoprolol. ckd3a: moniter renal function and electrolytes (lasix). hold lasix nephrology dm hba1c levels 7.9 moniter fs and sliding scale coverage. Asthma- severity unknown Not in acute exacerbation Continue home inhalers. As per [facility] notes -patient has memory impairment ( even in 02/28) unable to provide any significant details for her medical issues or medication even during that admission. tsh normal , b12 ,folate normal obesity encouraged to loose weight and cut down calories dvt prophylaxis - eliquis full code reason for continued hospitalization:safe dispo Quality Stroke Does the patient have a stroke diagnosis?: No VTE Prior VTE?: No VTE Risk Level:: Medical - moderate - high VTE Device Contraindication: Treatment Not Indicated VTE Drug Contraindication: N/A - Med Ordered
[2024-07-03] MEDS: Insulin Lispro 100 UNIT/ML 3 ML VIAL SUBCUT ×2 (12:09→21:04)
--- NOTE | 2024-07-03 13:07 | P.PNNP_ITS ---
Subjective Subjective Date of Service: 07/03/24 Interval history: Feels better; Seen this morning. All recent data reviewed Physical Exam 2 Vital Signs: Vital Signs: Last Vital Signs Temp 97.1 F 07/03/24 11:22 Pulse 59 07/03/24 11:22 Resp 16 07/03/24 11:22 BP 126/64 07/03/24 11:22 Pulse Ox 99 07/03/24 11:22 O2 Del Method Room Air 07/03/24 11:22 BMI result Body Mass Index 34.0 Const: General: no acute distress Orientation/consciousness: patient oriented x3 Eyes: EOM: EOMs intact bilaterally Neck: Neck: Yes supple Resp: Auscultation: diminished lung sounds Cardio: Rate: regular rate GI: Palpation (GI): Soft to palpation Neuro: General: patient oriented x3 Extrem: General: Yes no pedal edema Objective Data Labs 06/28/24 23:47 07/02/24 07:28 Labs: Laboratory Results - last 24 hr 07/02/24 07/03/24 07/03/24 16:15 07:28 11:21 POC Glucose 134 H 151 H 212 H Procedures Date of Service Date of Service: 07/03/24 Assessment & Plan Assessment and plan (1) CKD (chronic kidney disease) stage 3, GFR 30-59 ml/min: Status: Acute (2) Hypertension: Status: Acute Plan H/O ZEINAB superimposed on CKD Renal function currently stable Low-sodium diet ; BP needs to be at goal No NSAIDs/ ACEI for now No indication for Epogen yet. Shall arrange office follow up when D/[facility] Progress Note: Quality Stroke Does the patient have a stroke diagnosis?: No
[2024-07-03 16:23] LABS: Glucose, Whole Blood 152 mg/dL (60-115)
[2024-07-03 20:40] LABS: Glucose, Whole Blood 169 mg/dL (60-115)
[2024-07-04 07:17] VITALS: BP 132/81; PULSE 73; RESP 19; TEMP 36.3; O2SAT 98
[2024-07-04 07:28] LABS: Glucose, Whole Blood 154 mg/dL (60-115)
[2024-07-04] MEDS: Tiotropium Bromide 2.5 mcg 1 PUFF/2.5 MCG MIST.INHAL 2 PUFF INHALE (08:46)
[2024-07-04 08:49] VITALS: PULSE 72; RESP 18; O2SAT 96
[2024-07-04] MEDS: Metoprolol Tartrate 25 MG TABLET PO (09:49)
[2024-07-04] MEDS: Loratadine 10 MG TABLET PO (09:49)
[2024-07-04] MEDS: 0.9 % Sodium Chloride Flush 3 ML SYRINGE IVFLUSH (09:49)
[2024-07-04] MEDS: Apixaban 5 MG TABLET PO (09:49)
[2024-07-04] MEDS: Montelukast Sodium 10 MG TABLET PO (09:49)
[2024-07-04] MEDS: Insulin Lispro 100 UNIT/ML 3 ML VIAL SUBCUT ×2 (09:50→12:07)
--- NOTE | 2024-07-04 09:54 | P.DS_ITS ---
DS: Providers Provider Date of Service: 07/04/24 Date of admission: 06/29/24 02:21 Date of discharge: 07/04/24 Primary care physician: Cesario Cedeno MD Consults: 06/29/24 10:21 Consult to Nephrology Routine Consulting Provider: [facility] Reason for consultation: ckd /chf Has provider been notified: No 06/30/24 08:42 Consult to Cardiology Routine Consulting Provider: [facility] Reason for consultation: chf Has provider been notified: No DS: Diagnosis Discharge Diagnosis (1) CKD (chronic kidney disease) stage 3, GFR 30-59 ml/min: Status: Acute (2) Hypertension: Status: Acute DS: Summary Hospital Course Hospital Course: from initial hpi: 69-year-old female with an unclear PMH significant for?HTN and asthma who presents to the ED complaining of increased SOB, difficulty breathing, and nonproductive cough for the past few days. Reports sick contact with a grandson gave her a bad cold. Pt states feels fatigued, weak, and has chest pain/tightness mostly associated with deep breathing and cough. Pt is overall a poor and vague historian, and is unable to provide details concerning either her PMH, medication use, or current symptoms. Reports she is supposed to be on antihypertensives, but has not taken them for an unclear amount of time. Has not followed with a PCP for ?a long time?. States was recently at [facility] and diagnosed with ?a heart condition? but is unable to specify what that condition was or what medications, if any, she was prescribed. Denies known hx of CHF. No fever, chills, nausea, or vomiting. Currently denies abdominal pain, but states she knows it's coming since has chronic abdominal issues. Earlier has a headache but currently none. In the ED pt was hypertensive as high as 192/92, tachycardic up to 114, and satting at 96% on RA. Labs were significant for creatinine 1.53 (baseline unknown), glucose 212, initial troponin 39.0, and BNP 868. Tested negative for flu, COVID, RSV. CXR showed borderline cardiomegaly with minimal to mild left basilar atelectasis vs infiltrate and possible small left pleural effusion. Pt was treated with amlodipine, DuoNeb, nitroglycerin, and furosemide. Pt will be admitted to the hospital for treatment and further evaluation of new onset acute CHF. hospital course: Patient was admitted for acute on chronic systolic CHF. Was treated with IV Lasix and became euvolemic. Was continued on metoprolol and recommended outpatient follow up with Cardiology. For paroxysmal AFib was continued on metoprolol and Eliquis. For hypertension continued on metoprolol became better controlled. For CKD 3 creatinine remained stable around 1.5. For diabetes was continued on insulin sliding scale. For unspecified asthma remained stable. For obesity weight loss recommended. Patient is feeling better will be discharged to [facility] [place], expected to require less than 30 days. Time Attestation Discharge Coordination Time (in mins): 37 Quality: Safe Use of Opioids Does Pt have an Active Cancer Diagnosis on the Problem List?: No Quality: Stroke Does the patient have a stroke diagnosis?: No Physical Exam Vital Signs: Vital Signs: Last Vital Signs Temp 97.4 F 07/04/24 07:17 Pulse 72 07/04/24 08:49 Resp 18 07/04/24 08:49 BP 132/81 07/04/24 07:17 Pulse Ox 98 07/04/24 07:17 O2 Del Method Room Air 07/04/24 07:17 BMI result Body Mass Index 34.0 Const: General: no acute distress Orientation/consciousness: patient oriented x3 Eyes: EOM: EOMs intact bilaterally Neck: Neck: Yes supple Resp: Auscultation: diminished lung sounds Cardio: Rate: regular rate GI: Palpation (GI): Soft to palpation Neuro: General: patient oriented x3 Extrem: General: Yes no pedal edema DS: Data Data Completed and Pending Labs on day of discharge: Laboratory Results - last 24 hr 07/03/24 07/03/24 07/03/24 11:21 16:17 20:33 POC Glucose 212 H 152 H 169 H 07/04/24 07:19 POC Glucose 154 H Discharge Plan Discharge Anticipated Discharge Date/Time: 07/04/24 09:53 Patient Disposition: Xfer SNF Discharge Diagnosis: chf Referrals: Cesario Cedeno MD [Primary Care Provider] - 1 Week Discharge Medications: Continued metoclopramide HCl 5 mg Tablet 5 mg PO DAILY montelukast 10 mg Tablet 10 mg PO DAILY metoprolol tartrate 25 mg Tablet 25 mg PO BID apixaban 5 mg Tablet 5 mg PO BID insulin aspart U-100 [Novolog FlexPen U-100 Insulin] 100 unit/mL (3 mL) Insulin Pen 1 sliding scale dose SUBCUT TIDAC insulin glargine [Lantus Solostar U-100 Insulin] 100 unit/mL (3 mL) Insulin Pen See Rx Instructions .ROUTE .COMPLEX Rx Instructions: dose not known liraglutide [Victoza 2-Mian] 0.6 mg/0.1 mL (18 mg/3 mL) Pen Injector 1.8 mg SUBCUT DAILY Incruse Ellipta 62.5 mcg/actuation Blister With Device 1 inh INHALATION DAILY dicyclomine 10 mg Capsule 10 mg PO QID Discharge Orders: Discharge Order (Routine); Ordered 07/04/24 Ordered By: Eron Andres Diet: Advance to usual diet Activity on Discharge: As tolerated Stand Alone Forms: Patient Portal Discharge page Print Language: Malay Care Plan Goals: manage chf Health Concerns: chf Plan of Treatment: cardiology follow up Assessment: see above
--- NOTE | 2024-07-04 09:58 | P.PNIM_ITS ---
Subjective Subjective Date of Service: 07/04/24 Interval History: feels better Physical Exam 2 Vital Signs: Vital Signs: Last Vital Signs Temp 97.4 F 07/04/24 07:17 Pulse 72 07/04/24 08:49 Resp 18 07/04/24 08:49 BP 132/81 07/04/24 07:17 Pulse Ox 98 07/04/24 07:17 O2 Del Method Room Air 07/04/24 07:17 BMI result Body Mass Index 34.0 Const: General: no acute distress Orientation/consciousness: patient oriented x3 Eyes: EOM: EOMs intact bilaterally Neck: Neck: Yes supple Resp: Auscultation: diminished lung sounds Cardio: Rate: regular rate GI: Palpation (GI): Soft to palpation Neuro: General: patient oriented x3 Extrem: General: Yes no pedal edema Objective Data Active Medications Acetaminophen (Acetaminophen 325 Mg Tablet) 650 mg PO Q6H PRN PRN Reason: Pain, Mild 1-3,fever,headache Last Admin: 07/02/24 22:52 Dose: 650 mg Documented By: DAVID Apixaban (Apixaban 5 Mg Tablet) 5 mg PO BID [facility] Last Admin: 07/04/24 09:49 Dose: 5 mg Documented By: YUDELKA Calcium Carbonate (Calcium Carbonate 750 Mg Tab.Chew) 750 mg PO Q4H PRN PRN Reason: Heartburn Dextrose (Dextrose 50 % 25 Gm/50 Ml Syringe) 25 gm IVPUSH Q15M PRN; Protocol PRN Reason: per Hypoglycemia Standing Ord. Glucose (Glucose Gel 15 Gm Gel..Gram.) 15 gm PO Q15M PRN; Protocol PRN Reason: per Hypoglycemia Standing Ord. Guaifenesin (Guaifenesin 200 Mg/10 Ml 10 Ml Liquid) 10 ml PO Q4H PRN PRN Reason: Cough Guaifenesin/Dextromethorphan (Guaifenesin Dm 200/20/10 Ml 10 Ml Syrup) 10 ml PO Q4H PRN PRN Reason: Cough Last Admin: 06/29/24 18:05 Dose: 10 ml Documented By: OFELIA Insulin Human Lispro (Insulin Lispro 100 Unit/Ml 3 Ml Vial) 0 unit SUBCUT QIDACHS [facility]; Protocol Last Admin: 07/04/24 09:50 Dose: 2 unit Documented By: YUDELKA Lidocaine (Lidocaine 4 % Patch Adh..Patch) 1 patch TRANSDERMA DAILY [facility]; Protocol Last Admin: 07/04/24 09:52 Dose: Not Given Documented By: YUDELKA Non-Admin Reason: Patient Refused Loratadine (Loratadine 10 Mg Tablet) 10 mg PO DAILY [facility] Last Admin: 07/04/24 09:49 Dose: 10 mg Documented By: YUDELKA Magnesium Hydroxide (Milk Of Magnesia 30 Ml Oral.Susp) 30 ml PO DAILY PRN PRN Reason: Constipation Melatonin (Melatonin 3 Mg Tablet) 6 mg PO BEDTIME PRN PRN Reason: Insomnia Last Admin: 07/02/24 22:53 Dose: 6 mg Documented By: DAVID Metoprolol Tartrate (Metoprolol Tartrate 25 Mg Tablet) 25 mg PO BID [facility]; Protocol Last Admin: 07/04/24 09:49 Dose: 25 mg Documented By: YUDELKA Montelukast Sodium (Montelukast Sodium 10 Mg Tablet) 10 mg PO DAILY [facility] Last Admin: 07/04/24 09:49 Dose: 10 mg Documented By: YUDELKA Ondansetron HCl (Ondansetron Hcl 4 Mg/2 Ml Vial) 4 mg IVPUSH Q8H PRN PRN Reason: Nausea and Vomiting Sodium Chloride (0.9 % Sodium Chloride Flush 3 Ml Syringe) 3 ml IVFLUSH QSHIFT [facility] Last Admin: 07/04/24 09:49 Dose: 3 ml Documented By: YUDELKA Tiotropium [place] (Tiotropium [place] 2.5 Mcg 1 Puff/2.5 Mcg Mist.Inhal) 2 puff INHALE RDAILY [facility] Last Admin: 07/04/24 08:46 Dose: 2 puff Documented By: JANETT Labs 06/28/24 23:47 07/02/24 07:28 Labs: Laboratory Results - last 24 hr 07/03/24 07/03/24 07/03/24 11:21 16:17 20:33 POC Glucose 212 H 152 H 169 H 07/04/24 07:19 POC Glucose 154 H Assessment and Plan (1) Diabetes mellitus: Status: Acute (2) Acute combined systolic and diastolic congestive heart failure: Status: Acute (3) Hypertensive urgency: Status: Acute (4) CKD (chronic kidney disease) stage 3, GFR 30-59 ml/min: Status: Acute (5) Hypertension: Status: Acute (6) Congestive heart failure of unknown etiology: Status: Acute Assessment and Plan: 69F PMH significant for?HTN, pafib, CKD III, DM, unspecified asthma, lung cancer who presented to the ED complaining of increased SOBnew onset acute CHF. acute systolic CHF now euovlemic, continue metoprolol, outpatient cardio follow up hypertensive vs ischemic Paf continue metoprolol and eliquis. Htn metoprolol. ckd3a: moniter renal function and electrolytes (lasix). hold lasix nephrology dm hba1c levels 7.9 moniter fs and sliding scale coverage. Asthma- severity unknown Not in acute exacerbation Continue home inhalers. As per [facility] notes -patient has memory impairment ( even in 02/28) unable to provide any significant details for her medical issues or medication even during that admission. tsh normal , b12 ,folate normal obesity encouraged to loose weight and cut down calories dvt prophylaxis - mayra full code reason for continued hospitalization:safe dispo Quality Stroke Does the patient have a stroke diagnosis?: No VTE Prior VTE?: No VTE Risk Level:: Medical - moderate - high VTE Device Contraindication: Treatment Not Indicated VTE Drug Contraindication: N/A - Med Ordered
[2024-07-04] MEDS: Magnesium Oxide 400 MG TABLET 800 MG PO (11:03)
--- NOTE | 2024-07-04 11:25 | MHC.CM.PN ---
CM received call back from pt.s niece, Nancy, discussed DCP, family feel pt. should go to [facility] according to PT rec. CM sent out referrals, family and CM to discuss further with pt. to encourage her to accept this plan. Family is not aware of pt.'s medicaid status, referral into financial counselors.
[2024-07-04 11:27] VITALS: BP 134/63; PULSE 70; RESP 18; TEMP 36.4; O2SAT 98
[2024-07-04 11:29] LABS: Glucose, Whole Blood 264 mg/dL (60-115)
[2024-07-04 11:50] LABS: Anion Gap 11 (12-20); Blood Urea Nitrogen 28 mg/dL (9-16); Calcium 8.9 mg/dL (8.4-10.2); Carbon Dioxide 28 mmol/L (22-29); Chloride 106 mmol/L (96-108); Estimated Glomerular Filt Rate 36; Glucose Random 315 mg/dL (60-115); Potassium 3.9 mmol/L (3.3-5.1); Sodium 141 mmol/L (135-145)
[2024-07-04 12:45] LABS: Magnesium 2.1 mg/dL (1.6-2.6)
[2024-07-04 15:27] VITALS: BP 136/70; PULSE 76; RESP 18; TEMP 36.1; O2SAT 96
--- NOTE | 2024-07-04 15:35 | MHC.CM.PN ---
Pt. has been medically cleared for DC, she will go to [facility] for STR via BLS this evening.
[2024-07-04 16:10] LABS: Glucose, Whole Blood 110 mg/dL (60-115)
== END 2024-07-04 19:22 | disposition skilled nursing facility (03) | DRG 291 ==
LOC: HO.ED 06-29 01:38 → HO.EDOVER 06-29 02:31 → HO.IMC 06-29 07:32
PROVIDERS: Internal Medicine; Admitting Provider Student in an Organized Health Care Education/Training Program; Emergency Provider Internal Medicine; Visit Provider Internal Medicine
DX: I13.0 Hypertensive heart and chronic kidney disease with heart failure and stage 1 through stage 4 chronic kidney disease, or unspecified chronic kidney disease (principal); I50.23 Acute on chronic systolic (congestive) heart failure; N17.9 Acute kidney failure, unspecified; I16.0 Hypertensive urgency; N18.32 Chronic kidney disease, stage 3b; E11.22 Type 2 diabetes mellitus with diabetic chronic kidney disease; E11.65 Type 2 diabetes mellitus with hyperglycemia; J45.909 Unspecified asthma, uncomplicated; I48.0 Paroxysmal atrial fibrillation; E66.9 Obesity, unspecified; Z68.34 Body mass index [BMI] 34.0-34.9, adult; Z71.3 Dietary counseling and surveillance; Z20.822 Contact with and (suspected) exposure to COVID-19; Z91.148 Patient's other noncompliance with medication regimen for other reason; Z79.01 Long term (current) use of anticoagulants; Z79.4 Long term (current) use of insulin; Z79.899 Other long term (current) drug therapy
CPT/HCPCS: 0241U; 36415; 71045; 80048; 80053; 82607; 82746; 82947; 83036; 83735; 83880; 84443; 84484; 85025; 85610; 87633; 93005; 93306; 94640; 97110; 97162; 99285; J1920; J1940; Q9957

== ENCOUNTER → 2024-06-28 22:46 | Outpatient (BNV) | payer MEDICARE, SELFPAY | PROVIDERS: Admitting Provider Student in an Organized Health Care Education/Training Program; Emergency Provider Internal Medicine; PCP Internal Medicine Critical Care Medicine; Visit Provider Internal Medicine | DX: I49.9 Cardiac arrhythmia, unspecified (principal); R94.31 Abnormal electrocardiogram [ECG] [EKG] | CPT/HCPCS: 93010 ==

== ENCOUNTER → 2024-06-28 22:46 | Outpatient (BNV) | payer OTHER, SELFPAY | PROVIDERS: Emergency Provider Internal Medicine; Visit Provider Radiology Diagnostic Radiology | DX: J98.11 Atelectasis (principal) | CPT/HCPCS: 71045 ==

== ENCOUNTER 2024-06-29 02:21 | Outpatient (BNV) | payer MEDICARE, SELFPAY | END 2024-06-29 12:51 | PROVIDERS: Admitting Provider Student in an Organized Health Care Education/Training Program; Emergency Provider Internal Medicine; PCP Internal Medicine Critical Care Medicine; Visit Provider Internal Medicine | DX: I50.9 Heart failure, unspecified (principal) | CPT/HCPCS: 93306 ==

== ENCOUNTER → 2024-06-29 02:21 | Outpatient (BNV) | payer MEDICARE, SELFPAY | PROVIDERS: Admitting Provider Student in an Organized Health Care Education/Training Program; Emergency Provider Internal Medicine; PCP Internal Medicine Critical Care Medicine; Visit Provider Internal Medicine Nephrology | DX: N18.30 Chronic kidney disease, stage 3 unspecified (principal); I10 Essential (primary) hypertension | CPT/HCPCS: 99232 ==

== ENCOUNTER → 2024-06-29 02:21 | Outpatient (BNV) | payer MEDICARE, SELFPAY | PROVIDERS: Admitting Provider Student in an Organized Health Care Education/Training Program; Emergency Provider Internal Medicine; PCP Internal Medicine Critical Care Medicine; Visit Provider Internal Medicine | DX: I16.0 Hypertensive urgency (principal); I50.41 Acute combined systolic (congestive) and diastolic (congestive) heart failure; N18.30 Chronic kidney disease, stage 3 unspecified; E11.9 Type 2 diabetes mellitus without complications | CPT/HCPCS: 99223 ==

== ENCOUNTER → 2024-06-29 02:21 | Outpatient (BNV) | payer MEDICARE, SELFPAY | PROVIDERS: Admitting Provider Student in an Organized Health Care Education/Training Program; Emergency Provider Internal Medicine; PCP Internal Medicine Critical Care Medicine; Visit Provider Student in an Organized Health Care Education/Training Program | DX: E11.9 Type 2 diabetes mellitus without complications (principal); I50.41 Acute combined systolic (congestive) and diastolic (congestive) heart failure; I16.0 Hypertensive urgency; N18.30 Chronic kidney disease, stage 3 unspecified; I10 Essential (primary) hypertension; I50.9 Heart failure, unspecified | CPT/HCPCS: 99231; 99233 ==

== ENCOUNTER 2024-09-30 18:25 | Inpatient (IN) | payer MEDICARE, SELFPAY ==
--- NOTE | ~2024-09-30 | CT_ITS ---
EXAMINATION: CT CHEST WITHOUT IV CONTRAST INDICATION: Cough, CHF COMPARISON: Comparison is made with the prior examination dated 10/02/2024. TECHNIQUE: Helical CT scan of the chest was performed without intravenous contrast. Coronal and sagittal reformatted images were generated and reviewed. This CT exam was performed with one or more of the following dose reduction techniques: automated exposure control, adjustment of the mA and/or kV according to patient size, use of iterative reconstruction technique. DLP: 287 mGy-cm CHEST: THYROID: The thyroid is unremarkable. LUNGS: There is a 3 mm nodule in the right middle lobe (series 4, image 97) small areas of scarring are seen bilaterally. There are no focal airspace opacities. There is no evidence of vascular congestion. MEDIASTINUM: There is an enlarged paratracheal lymph node measuring up to 3.9 cm in size and an enlarged precarinal lymph node measuring 2.2 cm in size. DHAVAL: Evaluation of the hilar regions is limited by lack of intravenous contrast material. CARDIOVASCULATURE: The heart is enlarged. There is no pericardial effusion. The thoracic aorta is normal in caliber. DEGREE OF CORONARY CALCIFICATION: mild PLEURA: There is no pleural effusion. No pneumothorax. MAIN AIRWAYS: The mainstem bronchi and proximal branches are patent. AXILLA: There is no axillary lymphadenopathy. BONES AND SOFT TISSUES: There is degenerative disc disease of the spine. UPPER ABDOMEN: The visualized portions of the liver, spleen, and adrenals have an unremarkable unenhanced appearance. CT/CT chest wo IV con IMPRESSION: Mediastinal lymphadenopathy as described. Given the size of the nodes, mediastinoscopy should be considered. Electronically signed by: Milton Bonilla MD 10/04/2024 02:19 PM EDT
--- NOTE | ~2024-09-30 | CT_ITS ---
EXAMINATION: CT CHEST WITHOUT CONTRAST CLINICAL INFORMATION: Shortness of breath. Cough. COMPARISON: No prior CT. Correlated to x-ray dated September 30, 2024. TECHNIQUE: Multidetector volumetric CT imaging of the chest was done. Axial MIP volume rendering provided. Sagittal and coronal reformatted images were obtained. This CT examination was performed using dose optimization techniques as appropriate, variously including the following: *Automated exposure control *Adjustment of mA and/or kV according to patient size (this includes techniques or standardized protocols for targeted exams where dose is matched to indication/reason for exam; i.e. extremities or head) *Use of iterative reconstruction technique DLP: 289 mGy centimeter. FINDINGS: TARGET TRIMMER: Patient's large body habitus. Meniscal shaped opacity left lower hemithorax. Cardiomediastinal silhouette size is enlarged. Multilevel thoracic spondylosis. Metallic plate in the cervical spine no fully included. LUNGS: Pulmonary patchy groundglass extending from the perihilar region to the periphery. No honeycombing. No bronchiectasis. MEDIASTINUM: Nonspecific prominent lymph nodes. Calcified plaque thoracic aorta. No aneurysm, thoracic aorta. Calcified plaque in the coronary arteries. No gross pericardial effusion. No pneumomediastinum. CORONARY ARTERY CALCIFICATION: Calcified plaque. PLEURA: Bilateral pleural effusions, moderate volume and likely layering no pneumothorax. No calcified pleural plaques.. AXILLA: No lymphadenopathy. UPPER ABDOMEN: Contracted gallbladder with questionable biliary sludge versus gallstones. Residual contrast within the stomach. OSSEOUS STRUCTURES: Multilevel spondylosis throughout the axial skeleton. No acute fracture. Degenerative changes in the acromioclavicular joints, left greater than the right side. CT/CT chest wo IV con IMPRESSION: Mild pulmonary edema and bilateral pleural effusions, moderate volume. Cardiomegaly. Atherosclerosis disease and likely coronary artery disease. Fleischner guidelines were followed. Electronically signed by: Andrew Saldana MD 10/02/2024 01:28 PM EDT
--- NOTE | ~2024-09-30 | XR_ITS ---
CLINICAL HISTORY: cough --- Additional Notes or Special Instructions: bloodwork 1900 DG 1 view chest x-ray Comparison: CR - XR CHEST 1V - 06/28/24 22:57 EST Findings: Diffuse interstitial patchy opacities in both lungs. Moderate left and small right pleural effusions. Mild cardiomegaly. Findings are concerning for fluid overload/CHF. Normal size heart. No acute fracture. IMPRESSION: Diffuse interstitial patchy opacities in both lungs. Moderate left and small right pleural effusions. Mild cardiomegaly. Findings are concerning for fluid overload/CHF. This document has been electronically signed by: Robin Tafoya MD on 09/30/2024 20:17:26
[2024-09-30 18:38] VITALS: BP 162/122; PULSE 94; O2SAT 98
[2024-09-30 18:40] VITALS: BP 156/93; PULSE 93; RESP 18; TEMP 36.6; O2SAT 100; BMI 36.8
[2024-09-30 18:53] VITALS: BP 149/94; PULSE 92; RESP 17; O2SAT 100
--- NOTE | 2024-09-30 19:30 | ED_ITS ---
HPI - SOB/Dyspnea General Chief Complaint: Dyspnea Stated Complaint: sob Time Seen by Provider: 09/30/24 18:58 Source: patient and EMS Mode of arrival: EMS Limitations: no limitations History of Present Illness ED Provider: Dr. Barb Preciado HPI Narrative: Patient comes to the emergency room complaining of cough, shortness of breath. Patient states that she has been feeling a bit tight, wheezy, no chest pain, patient states that she has history of asthma. When EMS arrived, they put the patient on an OxyMask 6 L, by the time she arrived to the emergency room, patient was talking in full sentences, states that she believes she has history of asthma but is not sure. Patient denies any lower extremity edema, denies orthopnea. Patient denies any syncopal or near syncopal episodes Related Data Home Medications ?Medication ?Instructions ?Recorded ?Confirmed apixaban 5 mg tablet 5 mg PO BID 06/29/24 06/29/24 insulin aspart U-100 100 unit/mL 1 sliding scale dose subcut TIDAC 06/29/24 06/29/24 (3 mL) subcutaneous pen (Novolog FlexPen U-100 Insulin aspart) insulin glargine 100 unit/mL (3 See Rx Instructions .Route .COMPLEX 06/29/24 mL) subcutaneous pen (Lantus Solostar U-100 Insulin) liraglutide 0.6 mg/0.1 mL (18 mg/3 1.8 mg subcut DAILY 06/29/24 06/29/24 mL) subcutaneous pen injector (Victoza 2-Mian) metoclopramide HCl 5 mg tablet 5 mg PO DAILY 06/29/24 06/29/24 metoprolol tartrate 25 mg tablet 25 mg PO BID 06/29/24 06/29/24 montelukast 10 mg tablet 10 mg PO DAILY 06/29/24 06/29/24 umeclidinium 62.5 mcg/actuation 1 inh inhalation DAILY 06/29/24 06/29/24 blister powder for inhalation (Incruse Ellipta) dicyclomine 10 mg capsule 10 mg PO QID 07/01/24 07/01/24 Allergies Allergy/AdvReac Type Severity Reaction Status Date / Time No Known Allergies Allergy Verified 09/30/24 18:43 Review of Systems 2 Review of Systems: Constitutional : No Weight loss, No Fever, No Chills, No Night Sweats, No Fatigue, No Malaise ENT/Mouth : No Hearing loss, No Ear Pain, No Nasal Congestion, No Sinus Pain, No Hoarseness, No sore throat, No Rhinorrhea, No Swallowing Difficulty Eyes: No Eye Pain, No Swelling, No Redness, No Foreign Body, No Discharge, No Vision Changes Cardiovascular : No Chest Pain, denies orthopnea, no lower extremity edema or palpitations Respiratory : Complaining of cough, wheezing, chest tightness with no pain Gastrointestinal : No Nausea, No Vomiting, No Diarrhea, No Constipation, No abdominal Pain, No Hematochezia, No Melena Genitourinary : no irregular bleeding, No Dysuria, No Urinary Frequency, No Hematuria, No Urinary Incontinence, No Urgency, No Flank Pain, No Urinary Flow Changes, No Hesitancy Musculoskeletal : No joint pain, No Myalgias, No Joint Swelling Skin : No Skin Lesions, No rash Neuro : No Weakness, No Numbness, No Paresthesias, No Loss of Consciousness, No Dizziness, No Headache Psych : No Anxiety/Panic, No Depression, No SI/HI/AH/VH, No Social Issues, Heme/Lymph: No Bruising, No Bleeding,No Lymphadenopathy Endocrine : No Polyuria, No Polydipsia, No Temperature Intolerance [facility] Past Medical History Medical History (Updated 09/30/24 @ 22:01 by Barb Preciado MD) CKD (chronic kidney disease) stage 3, GFR 30-59 ml/min Hypertensive urgency Acute combined systolic and diastolic congestive heart failure Diabetes mellitus Asthma Hypertension Social History Social History Household Members: Family Housing: House Do you presently have visiting nurse or other home services: No Patient Tobacco Use Status: Never used Tobacco Smoked in Last 30 Days: No Use of substances other than those prescribed or required for medical reasons: No Advance Directives: Yes Advance Directives on File: Yes Advance Directives Date on File: 07/05/24 service: No Physical Exam 2 Vital Signs: Vital Signs: Last Vital Signs Temp 97.8 F 09/30/24 18:40 Pulse 92 09/30/24 18:53 Resp 17 09/30/24 18:53 BP 149/94 H 09/30/24 18:53 Pulse Ox 86 L 09/30/24 21:26 O2 Del Method Oxymask 09/30/24 18:53 O2 Flow Rate 6 09/30/24 18:53 Oxygen Flow Rate 6 09/30/24 18:40 BMI result Body Mass Index 36.8 Const: Other: Appearance: Alert. Oriented X3. No acute distress. Eyes: Pupils equal, round and reactive to light. ENT: Pharynx normal. Neck: Normal inspection. Neck supple. No lymph nodes noted. No crepitus CVS: Normal heart rate and rhythm. Pulses normal. Normal S1 and S2 Respiratory: No respiratory distress. Breath sounds normal. No Wheezing. No rales actively coughing, decreased breath sounds on the left lower lobe Abdomen: Soft and nontender. No rigidity. No distention. Skin: Skin warm and dry. Normal skin color. Normal skin turgor. Extremities: No lower extremity edema. No Lacerations. No Rash Neuro: Oriented X 3. No motor deficit. No sensory deficit. Moving all extremities. No slurred speech. CN 2 through 12 grossly intact Psych: calm, cooperative, normal affect Course Course Course Narrative: Patient's oxygen saturation in the mid 90s on room air. I asked the patient if she has any history of CHF or atrial fibrillation. Patient denies this. However, patient was seen here in June of this year, patient had already the diagnosis of CHF and atrial fibrillation. Patient was admitted for it. Patient states that she is not on any medications for either one of these conditions However, on patient's discharge medications, patient is supposed to be on metoprolol and Eliquis, which she has not been taking since she got discharged from the hospital in June 2024. Medical Decision Making Medical Decision Making [facility] Narrative: My interpretation of labs: Patient's white blood cell count within normal limits, normal chemistry. Patient's BNP is 2018, previously in the 200s. Troponin 40.3 secondary to elevated BNP. Normal venous glasses. Serology negative for influenza RSV and COVID. Patient's chest x-ray shows patchy opacities in both lungs and small right and left pleural effusions. Findings consistent with CHF overload. On ambulation trial, patient's oxygen saturation dropped to 86%. Patient was giving IV Lasix. Patient was empirically treated with IV antibiotics, azithromycin and ceftriaxone, patient has been coughing quite a bit, patient may have underlying pneumonia. Sepsis is not suspected. Patient has no fever, no hypotensive episodes. Patient states that now she is aware that she has atrial fibrillation and CHF. As mentioned above, all the patient has been hospitalized for CHF and atrial fibrillation, patient states that she was not aware of her previous diagnosis and has not been taking metoprolol for Eliquis. I discussed the above-mentioned with Dr. Flores from the Medicine team, patient being admitted Differential Diagnosis Differential Diagnoses: The differential diagnosis associated with the presentation includes (CHF, COVID, RSV, influenza, bronchitis) Admission/Observation Consideration of admission/observation: Escalation of care including admission/observation considered Consult Healthcare Provider Management of the patient was discussed with: Hospitalist Lab Data MDM Lab Attestation statement: I reviewed the patient's lab results. 09/30/24 19:46 09/30/24 19:46 Labs: Lab Results 09/30/24 09/30/24 Range/Units 19:46 19:50 WBC 5.0 (4.8-10.8) X10*3/uL RBC 3.85 L (4.20-5.50) X10*6/uL Hgb 11.2 L (12.0-16.0) g/dl Hct 34.9 L (37.0-47.0) % MCV 90.6 (80.0-98.0) fL MCH 29.1 (27.0-33.0) pg MCHC 32.1 (31.0-35.0) g/dl RDW 16.7 H (11.0-16.0) % Plt Count 271 (160-400) X10*3/uL MPV 11.4 (9.4-12.3) fL Immature Gran % (Auto) 0.4 (0.0-0.4) % Neut % (Auto) 57.1 (45-73) % Lymph % (Auto) 25.5 (20-40) % [place] % (Auto) 8.0 (2-11) % Eos % (Auto) 8.0 H (0-4) % Baso % (Auto) 1.0 (0-2) % Lymph # (Auto) 1.3 (1.2-4.9) X10*3/uL [place] # (Auto) 0.4 (0.1-1.2) X10*3/uL Eos # (Auto) 0.4 (0.0-0.4) X10*3/uL Baso # (Auto) 0.1 (0.0-0.2) X10*3/uL Abs Immat Gran (auto) 0.02 (0.00-0.03) X10*3/uL Absolute Neuts (auto) 2.8 (2.0-8.3) x10*3/uL Absolute Nucleated RBC 0.000 (0.0-0.012) X10*3/uL Nucleated RBC % (auto) 0.0 (0.0-0.2) /100WBC VBG pH 7.41 (7.32-7.43) VBG pCO2 48 mmHg VBG pO2 59 mmHg VBG HCO3 31 H (22-26) mmol/L VBG O2 Saturation 81.0 % VBG Base Excess 5.6 mmol/L Sodium 144 (135-145) mmol/L Potassium 3.6 (3.3-5.1) mmol/L Chloride 107 (96-108) mmol/L Carbon Dioxide 25 (22-29) mmol/L Anion Gap 16 (12-20) BUN 14 (9-16) mg/dL Creatinine 1.43 H (0.5-1.4) mg/dL Estim Creat Clear Calc 40.0 Estimated GFR 36 Random Glucose 184 H (60-115) mg/dL Calcium 9.1 (8.4-10.2) mg/dL Total Bilirubin 0.6 (0.0-1.0) mg/dL AST 37 H (5-31) U/L ALT 68 H (0-31) U/L Alkaline Phosphatase 74 (39-117) U/L Troponin I High Sens 40.3 H (<3.5-17.0) ng/L B-Natriuretic Peptide 2018 H (<100) pg/mL Total Protein 7.3 (6.5-8.0) g/dL Albumin 4.0 (3.5-5.0) g/dL Influenza Type A (PCR) NEGATIVE (Negative) Influenza Type B (PCR) NEGATIVE (Negative) RSV RNA Qual (PCR) NEGATIVE (Negative) SARS-CoV-2 RNA (RT-PCR) NEGATIVE (Negative) Independent Interpretation I performed an independent interpretation of an: Plain X-Ray Radiology Impression Discussion of test interpretation with radiology: I have reviewed the radiologist's reading. Radiologist Impression: Diffuse interstitial patchy opacities in both lungs. Moderate left and small right pleural effusions. Mild cardiomegaly. Findings are concerning for fluid overload/CHF. Normal size heart. No acute fracture. IMPRESSION: Diffuse interstitial patchy opacities in both lungs. Moderate left and small right pleural effusions. Mild cardiomegaly. Findings are concerning for fluid overload/CHF. Critical Care Time Critical Care Time Critical Care Time: Yes Total Critical Care Time: 60 Attestation: I have personally provided critical care time. Time includes review of lab data, radiology results, discussion with consultants, and monitoring for potential decompensation. Intervention performed as documented. Discharge Plan Discharge Clinical Impression: Acute exacerbation of CHF (congestive heart failure), Noncompliance with medications Patient Disposition: Admitted As Inpatient Prescriptions: No Action metoclopramide HCl 5 mg Tablet 5 mg PO DAILY montelukast 10 mg Tablet 10 mg PO DAILY metoprolol tartrate 25 mg Tablet 25 mg PO BID apixaban 5 mg Tablet 5 mg PO BID insulin aspart U-100 [Novolog FlexPen U-100 Insulin] 100 unit/mL (3 mL) Insulin Pen 1 sliding scale dose SUBCUT TIDAC insulin glargine [Lantus Solostar U-100 Insulin] 100 unit/mL (3 mL) Insulin Pen See Rx Instructions .ROUTE .COMPLEX Rx Instructions: dose not known liraglutide [Victoza 2-Mian] 0.6 mg/0.1 mL (18 mg/3 mL) Pen Injector 1.8 mg SUBCUT DAILY Incruse Ellipta 62.5 mcg/actuation Blister With Device 1 inh INHALATION DAILY dicyclomine 10 mg Capsule 10 mg PO QID Print Language: Unable To Collect
--- NOTE | 2024-09-30 19:43 | ECG_ITS ---
Test Reason : SOB Blood Pressure : */* mmHG Vent. Rate : 92 BPM Atrial Rate : 92 BPM P-R Int : 160 ms QRS Dur : 114 ms QT Int : 388 ms P-R-T Axes : 44 7 202 degrees QTcB Int : 479 ms Sinus rhythm with Premature supraventricular complexes and with occasional Premature ventricular complexes Left ventricular hypertrophy with repolarization abnormality ( R in aVL , [place] product ) Abnormal ECG When compared with ECG of 28-Jun-2024 22:41, Premature ventricular complexes are now Present Premature supraventricular complexes are now Present Referred By: Barb Preciado Electronically Signed By: Nhan Jane
[2024-09-30 19:50] LABS: MANUAL DIFF FLAG NO
[2024-09-30 19:53] LABS: VBG Base Excess 5.6 mmol/L; VBG HCO3 31 mmol/L (22-26); VBG pCO2 48 mmHg; VBG pH 7.41 (7.32-7.43); VBG pO2 59 mmHg
[2024-09-30 19:57] LABS: Venous Blood Gas Refer to POC result
[2024-09-30 19:58] LABS: Basophils Absolute Auto 0.1 X10*3/uL (0.0-0.2); Eosinophils Absolute Auto 0.4 X10*3/uL (0.0-0.4); Hematocrit 34.9 % (37.0-47.0); Hemoglobin 11.2 g/dl (12.0-16.0); Imm Gran Abs Auto 0.02 X10*3/uL (0.00-0.03); Imm Gran Pct Auto 0.4 % (0.0-0.4); Lymphocytes Absolute Auto 1.3 X10*3/uL (1.2-4.9); Lymphocytes Percent Auto 25.5 % (20-40); Mean Corpuscular HGB Conc 32.1 g/dl (31.0-35.0); Mean Corpuscular Hemoglobin 29.1 pg (27.0-33.0); Mean Corpuscular Volume 90.6 fL (80.0-98.0); Mean Platelet Volume 11.4 fL (9.4-12.3); Monocytes Absolute Auto 0.4 X10*3/uL (0.1-1.2); Neutrophils Absolute Auto 2.8 x10*3/uL (2.0-8.3); Neutrophils Percent Auto 57.1 % (45-73); Platelet Count 271 X10*3/uL (160-400); Red Blood Count 3.85 X10*6/uL (4.20-5.50); Red Cell Distribution Width 16.7 % (11.0-16.0)
[2024-09-30 20:05] LABS: Alanine Aminotransferase 68 U/L (0-31); Alkaline Phosphatase 74 U/L (39-117); Anion Gap 16 (12-20); Aspartate Amino Transferase 37 U/L (5-31); Bilirubin Total 0.6 mg/dL (0.0-1.0); Blood Urea Nitrogen 14 mg/dL (9-16); Calcium 9.1 mg/dL (8.4-10.2); Carbon Dioxide 25 mmol/L (22-29); Chloride 107 mmol/L (96-108); Estimated Glomerular Filt Rate 36; Glucose Random 184 mg/dL (60-115); Potassium 3.6 mmol/L (3.3-5.1); Sodium 144 mmol/L (135-145); Total Protein 7.3 g/dL (6.5-8.0)
[2024-09-30 20:11] LABS: B Type Natriuretic Peptide 2018 pg/mL (<100)
[2024-09-30 20:12] LABS: Troponin-I High Sensitivity 40.3 ng/L (<3.5-17.0)
[2024-09-30 21:02] LABS: Influenza A PCR NEGATIVE (Negative); Influenza B PCR NEGATIVE (Negative); Resp Syncy Virus RNA Qual PCR NEGATIVE (Negative); SARS COV2 PCR INHOUSE NEGATIVE (Negative)
[2024-09-30 21:26] VITALS: O2SAT 86
--- NOTE | 2024-09-30 22:00 | PC.NURSE ---
Addendum entered by Naima Millard RN 09/30/24 22:59: pt attempted to use bedside commode, pt was able to use with standby assist. pt agreeable to purwick, placed pt on purwick and tolerated well. falls precautions placed on pt. pts needs met at this time. call geiger within reach plan of care ongoing Addendum entered by Naima Millard RN 09/30/24 22:13: abx ordered, per MD Preciado no cultures or lactic needed at this time. Original Note: pt ambulated to restroom using walker with ET as standby, pt noted to desat to 86% on RA.
[2024-09-30 22:08] VITALS: BP 130/75
[2024-09-30] MEDS: Furosemide 40 MG/4 ML VIAL IVPUSH (22:08)
[2024-09-30] MEDS: Azithromycin 500 MG TABLET PO (22:18)
[2024-09-30] MEDS: cefTRIAXone sodium 1 GM VIAL IVPUSH (22:18)
[2024-09-30 22:24] VITALS: BP 124/52; PULSE 90; RESP 14; TEMP 36.6; O2SAT 98
--- NOTE | 2024-09-30 22:43 | PM.IMHP ---
History of Present Illness Date of Service: 09/30/24 Attending physician on admission: Ashlie Luu Chief Complaint: Shortness on breath Elizabeth Russell is a 69 years old woman with past medical history significant for paroxysmal atrial fibrillation, HFrEF (15-20%), CKD and type 2 diabetes mellitus presents to the emergency department complaining of shortness on breath that started today associated with dry cough. She denied any associated chest pain, headache, sore throat, fever or chills. She also denied any acute gastrointestinal or symptoms. Denied leg swelling. Patient stated that she is not taking any blood thinners such as Eliquis (she said no one told her she has to take this; however she filled out a prescription for it on July 27, 2024). She denied tobacco smoking, alcohol abuse or illicit drug use. TTE June 2024 showed EF 15-20%, diastolic dysfunction. In the ED, she was found to have stable vital signs. Blood workup showed no leukocytosis. Hemoglobin is 11.2 which is at baseline. Platelets are normal. There are no electrolyte imbalances. Glucose 184. Creatinine is 1.43 which is at baseline. Transaminases are mildly elevated (better that prior). Troponin is 40.3 (prior 31.7) and markedly elevated BNP, 2018 (prior 278). CXR showed diffuse interstitial patchy opacities in both lungs, moderate left and small right pleural effusion, mild cardiomegaly findings are concerning for fluid overload/CHF. ECG showed sinus rhythm with occasional PVCs. ED tx: Furosemide 40 mg IV Review of Systems Review of Systems: All 12 systems were reviewed and normal except as noted in HPI. [facility] Medical History (Updated 09/30/24 @ 23:49 by Ashlie Luu MD) CKD (chronic kidney disease) stage 3, GFR 30-59 ml/min Hypertensive urgency Acute combined systolic and diastolic congestive heart failure Diabetes mellitus Asthma Hypertension Social History Household Members: Family Housing: House Do you presently have visiting nurse or other home services: No Patient Tobacco Use Status: Never used Tobacco Smoked in Last 30 Days: No Use of substances other than those prescribed or required for medical reasons: No Advance Directives: Yes Advance Directives on File: Yes Advance Directives Date on File: 07/05/24 service: No Meds Allergies Allergy/AdvReac Type Severity Reaction Status Date / Time No Known Allergies Allergy Verified 09/30/24 18:43 Active Medications: Current Medications Acetaminophen (Acetaminophen 325 Mg Tablet) 975 mg PO Q6H PRN PRN Reason: Pain, Mild 1-3,fever,headache Furosemide (Furosemide 40 Mg/4 Ml Vial) 40 mg IVPUSH BID@0900,1800 MAURI; Protocol Melatonin (Melatonin 3 Mg Tablet) 6 mg PO BEDTIME PRN PRN Reason: Insomnia Sodium Chloride (0.9 % Sodium Chloride Flush 3 Ml Syringe) 3 ml [facility] Home Medications ?Medication ?Instructions ?Recorded ?Confirmed ?Last Taken ?Type apixaban 5 mg tablet 5 mg PO BID 06/29/24 06/29/24 Unknown History insulin aspart U-100 100 unit/mL 1 sliding scale dose subcut TIDAC 06/29/24 06/29/24 Unknown History (3 mL) subcutaneous pen (Novolog FlexPen U-100 Insulin aspart) insulin glargine 100 unit/mL (3 See Rx Instructions .Route .COMPLEX 06/29/24 Unknown History mL) subcutaneous pen (Lantus Solostar U-100 Insulin) liraglutide 0.6 mg/0.1 mL (18 mg/3 1.8 mg subcut DAILY 06/29/24 06/29/24 Unknown History mL) subcutaneous pen injector ([employer] 2-Mian) metoclopramide HCl 5 mg tablet 5 mg PO DAILY 06/29/24 06/29/24 Unknown History metoprolol tartrate 25 mg tablet 25 mg PO BID 06/29/24 06/29/24 Unknown History montelukast 10 mg tablet 10 mg PO DAILY 06/29/24 06/29/24 Unknown History umeclidinium 62.5 mcg/actuation 1 inh inhalation DAILY 06/29/24 06/29/24 Unknown History blister powder for inhalation (Incruse Ellipta) dicyclomine 10 mg capsule 10 mg PO QID 07/01/24 07/01/24 Unknown History Physical Exam Vital Signs and Narrative: Vital Signs: Last Vital Signs Temp 97.8 F 09/30/24 22:24 Pulse 90 09/30/24 22:24 Resp 14 09/30/24 22:24 BP 124/52 L 09/30/24 22:24 Pulse Ox 98 09/30/24 22:24 O2 Del Method Room Air 09/30/24 22:24 O2 Flow Rate 6 09/30/24 18:53 Oxygen Flow Rate 6 09/30/24 18:40 BMI result Body Mass Index 36.8 Constitutional - Awake and Alert, No apparent distress HEENT - PERRL, EOMI Heart - Irregular rhythm, extra beats. No murmur. Lungs - Normal lung expansion, Normal respiratory effort, No respiratory distress. Tachypnea. Decreased breath sounds at bases. No crackles. No wheezing. Abdomen - NT / ND; +BS; No rebound or guarding Extremities - no calf tenderness bilaterally, no swelling Musculoskeletal - Normal inspection, normal ROM Skin - Warm/Dry Neurological - Alert & oriented x3. No focal weakness grossly noted. Normal speech. Psychological - Depressed affect Results Labs 09/30/24 19:46 09/30/24 19:46 Labs: Laboratory Results - last 24 hr 09/30/24 09/30/24 19:46 19:50 MCV 90.6 MCH 29.1 MCHC 32.1 RDW 16.7 H Plt Count 271 MPV 11.4 Immature Gran % (Auto) 0.4 Neut % (Auto) 57.1 Lymph % (Auto) 25.5 [place] % (Auto) 8.0 Eos % (Auto) 8.0 H Baso % (Auto) 1.0 Lymph # (Auto) 1.3 [place] # (Auto) 0.4 Eos # (Auto) 0.4 Baso # (Auto) 0.1 Abs Immat Gran (auto) 0.02 Absolute Neuts (auto) 2.8 Absolute Nucleated RBC 0.000 Nucleated RBC % (auto) 0.0 VBG pH 7.41 VBG pCO2 48 VBG pO2 59 VBG HCO3 31 H VBG O2 Saturation 81.0 VBG Base Excess 5.6 Anion Gap 16 Estim Creat Clear Calc 40.0 Estimated GFR 36 Random Glucose 184 H Calcium 9.1 Total Bilirubin 0.6 AST 37 H ALT 68 H Alkaline Phosphatase 74 B-Natriuretic Peptide 2018 H Total Protein 7.3 Albumin 4.0 Influenza Type A (PCR) NEGATIVE Influenza Type B (PCR) NEGATIVE RSV RNA Qual (PCR) NEGATIVE SARS-CoV-2 RNA (RT-PCR) NEGATIVE Assessment and Plan (1) Acute on chronic combined systolic and diastolic CHF (congestive heart failure): Status: Acute (2) Diabetes mellitus: Qualifiers: Diabetes mellitus type: type 2 Diabetes mellitus director long term care insulin use: with shelter use Diabetes mellitus complication status: without complication Qualified Code(s): E11.9 - Type 2 diabetes mellitus without complications; 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 Admit to hospitalist service. Telemetry. Pulse oximetry. Supplemental oxygen as needed to keep oxygen saturation above 90%. Continue Lasix 40 mg IV twice daily. Elevated troponin, no chest pain -likely secondary to above. Recheck troponin. Essential hypertension. Continue metoprolol. Paroxysmal atrial fibrillation, currently rate controlled. Continue metoprolol and Eliquis. CKD stage 3A. Renal function is stable. Avoid nephrotoxic agents. Continue to monitor renal function. Type 2 diabetes mellitus. Hgb A1c 7.9% (Jun 2024). Diabetic diet. BG checks before meals at bedtime. Insulin sliding scale. Asthma. Not in acute exacerbation. Continue home inhalers. Memory impairment. TSH, vitamin B12 and folate are normal during prior hospitalization. Obesity. BMI 36.8 kg/m2. Weight loss. DVT prophylaxis: Eliquis Code status: Full Patient will need hospitalization for at least 2 midnights for acute CHF treatment with IV diuresis and close monitoring of vital signs. Quality Stroke Does the patient have a stroke diagnosis?: No VTE Prior VTE?: No VTE Risk Level:: Medical - moderate - high VTE Device Contraindication: N/A - Device Ordered VTE Drug Contraindication: N/A - Med Ordered
[2024-09-30 23:05] LABS: Glucose, Whole Blood 232 mg/dL (60-115)
[2024-09-30] MEDS: Insulin Lispro 100 UNIT/ML 3 ML VIAL SUBCUT (23:24)
[2024-10-01] VITALS (11 sets, daily range): BP systolic 110–160; BP diastolic 66–94; PULSE 81–89; RESP 14–18; TEMP 36–36.9; O2SAT 97–100; BMI 34.6
[2024-10-01 02:53] LABS: Procalcitonin 0.04 ng/mL
--- NOTE | 2024-10-01 05:40 | PC.NURSE ---
Pt from home [facility] with report of cold like symptoms x 4 weeks and has an hx of asthma. Pt denies any chest pain, fevers, n/v/d, or recent sick contacts. Upon EMS arrival pt was placed on 6L oxymask and received an updraft from EMS. On arrival to ED pt was on RA and speaking in full clear sentences. pt has a dry barky cough, with upper exp whezing. Pt was last seen here in June where she was admitted for CHF and afib but pt denies any hx of CHF or afib, states she has not been taking any medications related to these conditions because she was not aware. Pt ambulated with walker to the bathroom and was noted to desat to 86% on RA. Pt is a&0x3, able to make her needs known and has purwick in place. Pt being admitted for acute CHF and monitoring. Pt has 18G ultrasound guided IV in RAC. Pt has been medicated per jul. LABS: BNP- 2018 Troponin- 40.3 Chest Xray: IMPRESSION: Diffuse interstitial patchy opacities in both lungs. Moderate left and small right pleural effusions. Mild cardiomegaly. Findings are concerning for fluid overload/CHF.
[2024-10-01 06:16] LABS: MANUAL DIFF FLAG NO
[2024-10-01 06:21] LABS: Basophils Percent Auto 0.6 % (0-2); Eosinophils Absolute Auto 0.5 X10*3/uL (0.0-0.4); Eosinophils Percent Auto 9.1 % (0-4); Hematocrit 33.8 % (37.0-47.0); Imm Gran Abs Auto 0.02 X10*3/uL (0.00-0.03); Imm Gran Pct Auto 0.4 % (0.0-0.4); Lymphocytes Absolute Auto 1.2 X10*3/uL (1.2-4.9); Lymphocytes Percent Auto 22.8 % (20-40); Mean Corpuscular HGB Conc 32.5 g/dl (31.0-35.0); Mean Corpuscular Hemoglobin 28.9 pg (27.0-33.0); Mean Corpuscular Volume 88.7 fL (80.0-98.0); Mean Platelet Volume 11.5 fL (9.4-12.3); Monocytes Absolute Auto 0.6 X10*3/uL (0.1-1.2); Neutrophils Absolute Auto 2.9 x10*3/uL (2.0-8.3); Neutrophils Percent Auto 56.1 % (45-73); Platelet Count 272 X10*3/uL (160-400); Red Blood Count 3.81 X10*6/uL (4.20-5.50); Red Cell Distribution Width 16.7 % (11.0-16.0); White Blood Count 5.1 X10*3/uL (4.8-10.8)
[2024-10-01 06:31] LABS: Anion Gap 14 (12-20); Blood Urea Nitrogen 17 mg/dL (9-16); Calcium 8.8 mg/dL (8.4-10.2); Carbon Dioxide 29 mmol/L (22-29); Chloride 105 mmol/L (96-108); Creatinine Clr Calc Pharmacy 38.3; Estimated Glomerular Filt Rate 35; Glucose Random 155 mg/dL (60-115); Magnesium 1.8 mg/dL (1.6-2.6); Potassium 3.1 mmol/L (3.3-5.1); Sodium 145 mmol/L (135-145)
[2024-10-01 06:38] LABS: Troponin-I High Sensitivity 44.3 ng/L (<3.5-17.0)
[2024-10-01 07:19] LABS: Glucose, Whole Blood 137 mg/dL (60-115)
--- NOTE | 2024-10-01 08:35 | P.PNIM_ITS ---
Subjective Subjective Date of Service: 10/01/24 Interval History: sob improved Physical Exam 2 Vital Signs: Vital Signs: Last Vital Signs Temp 97.0 F 10/01/24 07:55 Pulse 85 10/01/24 07:55 Resp 14 10/01/24 07:55 BP 152/94 H 10/01/24 07:55 Pulse Ox 99 10/01/24 07:55 O2 Del Method Room Air 10/01/24 07:55 O2 Flow Rate 6 09/30/24 18:53 Oxygen Flow Rate 6 09/30/24 18:40 BMI result Body Mass Index 36.8 General: AO X 3, no acute distress Resp: Crackles bilateral, no accessory muscles used CVS: S1,S2,RRR, 2-3+ edema le bilateral GI: soft, non tender, non distended Neuro: motor grossly intact, alert Psych: appropriate affect, appropriate insight Objective Data Active Medications Acetaminophen (Acetaminophen 325 Mg Tablet) 975 mg PO Q6H PRN PRN Reason: Pain, Mild 1-3,fever,headache Apixaban (Apixaban 5 Mg Tablet) 5 mg PO BID [facility] Dextrose (Dextrose 50 % 25 Gm/50 Ml Syringe) 25 gm IVPUSH Q15M PRN; Protocol PRN Reason: per Hypoglycemia Standing Ord. Furosemide (Furosemide 40 Mg/4 Ml Vial) 40 mg IVPUSH BID@0900,1800 [facility]; Protocol Glucose (Glucose Gel 15 Gm Gel..Gram.) 15 gm PO Q15M PRN; Protocol PRN Reason: per Hypoglycemia Standing Ord. Insulin Human Lispro (Insulin Lispro 100 Unit/Ml 3 Ml Vial) 0 unit SUBCUT QIDACHS [facility]; Protocol Last Admin: 10/01/24 07:34 Dose: Not Given Documented By: DAVID Non-Admin Reason: No Insulin Coverage Melatonin (Melatonin 3 Mg Tablet) 6 mg PO BEDTIME PRN PRN Reason: Insomnia Sodium Chloride (0.9 % Sodium Chloride Flush 3 Ml Syringe) 3 ml IVFLUSH [facility] Last Admin: 10/01/24 01:23 Dose: Not Given Documented By: BON Non-Admin Reason: 10ml flush used Labs 10/01/24 06:11 10/01/24 06:11 Labs: Laboratory Results - last 24 hr 09/30/24 09/30/24 09/30/24 19:46 19:50 23:01 MCV 90.6 MCH 29.1 MCHC 32.1 RDW 16.7 H Plt Count 271 MPV 11.4 Immature Gran % (Auto) 0.4 Neut % (Auto) 57.1 Lymph % (Auto) 25.5 [place] % (Auto) 8.0 Eos % (Auto) 8.0 H Baso % (Auto) 1.0 Lymph # (Auto) 1.3 [place] # (Auto) 0.4 Eos # (Auto) 0.4 Baso # (Auto) 0.1 Abs Immat Gran (auto) 0.02 Absolute Neuts (auto) 2.8 Absolute Nucleated RBC 0.000 Nucleated RBC % (auto) 0.0 VBG pH 7.41 VBG pCO2 48 VBG pO2 59 VBG HCO3 31 H VBG O2 Saturation 81.0 VBG Base Excess 5.6 Anion Gap 16 Estim Creat Clear Calc 40.0 Estimated GFR 36 POC Glucose 232 H Random Glucose 184 H Calcium 9.1 Magnesium Total Bilirubin 0.6 AST 37 H ALT 68 H Alkaline Phosphatase 74 B-Natriuretic Peptide 2018 H Total Protein 7.3 Albumin 4.0 Procalcitonin 0.04 Influenza Type A (PCR) NEGATIVE Influenza Type B (PCR) NEGATIVE RSV RNA Qual (PCR) NEGATIVE SARS-CoV-2 RNA (RT-PCR) NEGATIVE 10/01/24 10/01/24 06:11 07:16 MCV 88.7 MCH 28.9 MCHC 32.5 RDW 16.7 H Plt Count 272 MPV 11.5 Immature Gran % (Auto) 0.4 Neut % (Auto) 56.1 Lymph % (Auto) 22.8 [place] % (Auto) 11.0 Eos % (Auto) 9.1 H Baso % (Auto) 0.6 Lymph # (Auto) 1.2 [place] # (Auto) 0.6 Eos # (Auto) 0.5 H Baso # (Auto) 0.0 Abs Immat Gran (auto) 0.02 Absolute Neuts (auto) 2.9 Absolute Nucleated RBC 0.000 Nucleated RBC % (auto) 0.0 VBG pH VBG pCO2 VBG pO2 VBG HCO3 VBG O2 Saturation VBG Base Excess Anion Gap 14 Estim Creat Clear Calc 38.3 Estimated GFR 35 POC Glucose 137 H Random Glucose 155 H Calcium 8.8 Magnesium 1.8 Total Bilirubin AST ALT Alkaline Phosphatase B-Natriuretic Peptide Total Protein Albumin Procalcitonin Influenza Type A (PCR) Influenza Type B (PCR) RSV RNA Qual (PCR) SARS-CoV-2 RNA (RT-PCR) Assessment and Plan (1) Acute combined systolic and diastolic congestive heart failure: Status: Acute Plan 69F PMH hfref, pafib, CKD III, DM, presented with sob Acute hypoxic respiratory failure secondary to acute on chronic systolic and diastolic CHF IV Lasix, follow up Cardiology Paroxysmal AFib Metoprolol, Eliquis CKD 3 Stable Diabetes Continue insulin DVT prophylaxis-on Eliquis Full Code reason for continued hospitalization: IV diuresis Quality Stroke Does the patient have a stroke diagnosis?: No VTE Prior VTE?: No VTE Risk Level:: Medical - moderate - high VTE Device Contraindication: N/A - Device Ordered VTE Drug Contraindication: N/A - Med Ordered
[2024-10-01] MEDS: Potassium Chloride ER 20 MEQ TAB.ER.PRT 40 MEQ PO (08:44)
[2024-10-01] MEDS: Apixaban 5 MG TABLET PO ×2 (08:44→22:54)
[2024-10-01] MEDS: Furosemide 40 MG/4 ML VIAL IVPUSH ×2 (08:44→17:38)
[2024-10-01] MEDS: 0.9 % Sodium Chloride Flush 3 ML SYRINGE IVFLUSH ×3 (08:45→22:55)
[2024-10-01] MEDS: Acetaminophen 325 MG TABLET 975 MG PO (08:57)
--- NOTE | 2024-10-01 09:35 | PM.CNCAR ---
History of Present Illness History of Present Illness Date of Service: 10/01/24 Consult reason: congestive heart failure Chief complaint: Acute on chronic CHF, Hypoxia Narrative: I was consulted to see Elizabeth in cardiology consultation today for acute congestive heart failure. Patient is a poor historian and not able to provide much history. Says she is not aware of she having any heart problems. She lives currently with the niece and says does not do much around the house, although says that she can do it but has not been doing it. She came with significant shortness of breath and noted to be hypoxic with a acute exacerbation of congestive heart failure. She also has cough. Continues to have cough but says that she feels a lot better than yesterday. However she is not able to further describe overall her symptoms. She has not had any chest pain. She seems to has been admitted here in June with decompensated congestive heart failure at that time echocardiogram shows severe LV systolic dysfunction with LVEF of 25-30% and also has prior history of atrial fibrillation as well as diabetes. She is not aware of her medications but says takes all her medications at home. She denies any chest pain, palpitations, lightheadedness, syncope. She also says she did not notice any leg swelling. Review of Systems Constitutional: Constitutional: Reports no additional constitutional complaints Eyes: Eyes: Reports no additional eye complaints Cardiovascular: Cardiovascular: Denies chest pain, Denies lightheadedness, Denies palpitations, Reports dyspnea and Reports orthopnea Respiratory: Respiratory: Reports cough and Reports dyspnea Gastrointestinal: Gastrointestinal: Reports no additional gastrointestinal complaints Integumentary/Breasts: Skin/Breast: Reports system reviewed and no additional complaints, except as docu Neurologic: Reports system reviewed and no additional complaints, except as documented Psychiatric: Psychiatric: Reports no additional psychiatric complaints Endocrine: Endocrine: Denies palpitations PMFSH Past Medical History Medical History CKD (chronic kidney disease) stage 3, GFR 30-59 ml/min Hypertensive urgency Acute combined systolic and diastolic congestive heart failure Diabetes mellitus Asthma Hypertension Social History Social History Household Members: Family Housing: House Do you presently have visiting nurse or other home services: No Patient Tobacco Use Status: Never used Tobacco Smoked in Last 30 Days: No Use of substances other than those prescribed or required for medical reasons: No Advance Directives: Yes Advance Directives on File: Yes Advance Directives Date on File: 07/05/24 service: No Meds Allergies Allergy/AdvReac Type Severity Reaction Status Date / Time No Known Allergies Allergy Verified 09/30/24 18:43 Active Medications: Current Medications Acetaminophen (Acetaminophen 325 Mg Tablet) 975 mg PO Q6H PRN PRN Reason: Pain, Mild 1-3,fever,headache Last Admin: 10/01/24 08:57 Dose: 975 mg Apixaban (Apixaban 5 Mg Tablet) 5 mg PO BID [facility] Last Admin: 10/01/24 08:44 Dose: 5 mg Dextrose (Dextrose 50 % 25 Gm/50 Ml Syringe) 25 gm IVPUSH Q15M PRN; Protocol PRN Reason: per Hypoglycemia Standing Ord. Furosemide (Furosemide 40 Mg/4 Ml Vial) 40 mg IVPUSH BID@0900,1800 [facility]; Protocol Last Admin: 10/01/24 08:44 Dose: 40 mg Glucose (Glucose Gel 15 Gm Gel..Gram.) 15 gm PO Q15M PRN; Protocol PRN Reason: per Hypoglycemia Standing Ord. Insulin Human Lispro (Insulin Lispro 100 Unit/Ml 3 Ml Vial) 0 unit SUBCUT QIDACHS [facility]; Protocol Last Admin: 10/01/24 07:34 Dose: Not Given Melatonin (Melatonin 3 Mg Tablet) 6 mg PO BEDTIME PRN PRN Reason: Insomnia Sodium Chloride (0.9 % Sodium Chloride Flush 3 Ml Syringe) 3 ml IVFLUSH [facility] Last Admin: 10/01/24 08:45 Dose: 3 ml Home Medications ?Medication ?Instructions ?Recorded ?Confirmed ?Last Taken ?Type apixaban 5 mg tablet 5 mg PO BID 06/29/24 06/29/24 Unknown History insulin aspart U-100 100 unit/mL 1 sliding scale dose subcut TIDAC 06/29/24 06/29/24 Unknown History (3 mL) subcutaneous pen (Novolog FlexPen U-100 Insulin aspart) insulin glargine 100 unit/mL (3 See Rx Instructions .Route .COMPLEX 06/29/24 Unknown History mL) subcutaneous pen (Lantus Solostar U-100 Insulin) liraglutide 0.6 mg/0.1 mL (18 mg/3 1.8 mg subcut DAILY 06/29/24 06/29/24 Unknown History mL) subcutaneous pen injector (Dolls Killtoza 2-Mian) metoclopramide HCl 5 mg tablet 5 mg PO DAILY 06/29/24 06/29/24 Unknown History metoprolol tartrate 25 mg tablet 25 mg PO BID 06/29/24 06/29/24 Unknown History montelukast 10 mg tablet 10 mg PO DAILY 06/29/24 06/29/24 Unknown History umeclidinium 62.5 mcg/actuation 1 inh inhalation DAILY 06/29/24 06/29/24 Unknown History blister powder for inhalation (Incruse Ellipta) dicyclomine 10 mg capsule 10 mg PO QID 07/01/24 07/01/24 Unknown History Physical Exam Vital Signs: Vital Signs: Last Vital Signs Temp 97.0 F 10/01/24 07:55 Pulse 85 10/01/24 07:55 Resp 14 10/01/24 07:55 BP 133/80 10/01/24 08:44 Pulse Ox 99 10/01/24 07:55 O2 Del Method Room Air 10/01/24 07:55 O2 Flow Rate 6 09/30/24 18:53 Oxygen Flow Rate 6 09/30/24 18:40 BMI result Body Mass Index 36.8 Const: General: cooperative, alert, awake and in distress mild and respiratory Nutritional Appearance: obese Orientation/consciousness: patient oriented x3 HEENT: Head: Yes normocephalic and Yes atraumatic Neck: Neck: Yes trachea midline, Yes supple and Yes JVD Resp: Effort & Inspection: normal respiratory effort Auscultation: no wheezes and breath sounds absent on th left (Base) Cardio: Jugular venous distension: JVD Palpation: abnormal PMI enlarged PMI Rate: regular rate Rhythm: abnormal rhythm with ectopic beats Heart sounds: S1 normal heart sound present, S2 normal heart sound present, no click, no gallops and no murmurs GI: Auscultation: normal bowel sounds Skin: General skin exam: no rashes or lesions noted Neuro: General: patient oriented x3 and no focal motor deficits Extrem: General: No clubbing, No cyanosis and Yes edema Objective Labs and Meds 10/01/24 06:11 10/01/24 06:11 Lab results: Laboratory Results - last 24 hr 09/30/24 09/30/2425 19:46 19:50 23:01 WBC 5.0 RBC 3.85 L Hgb 11.2 L Hct 34.9 L MCV 90.6 MCH 29.1 MCHC 32.1 RDW 16.7 H Plt Count 271 MPV 11.4 Immature Gran % (Auto) 0.4 Neut % (Auto) 57.1 Lymph % (Auto) 25.5 [place] % (Auto) 8.0 Eos % (Auto) 8.0 H Baso % (Auto) 1.0 Lymph # (Auto) 1.3 [place] # (Auto) 0.4 Eos # (Auto) 0.4 Baso # (Auto) 0.1 Abs Immat Gran (auto) 0.02 Absolute Neuts (auto) 2.8 Absolute Nucleated RBC 0.000 Nucleated RBC % (auto) 0.0 VBG pH 7.41 VBG pCO2 48 VBG pO2 59 VBG HCO3 31 H VBG O2 Saturation 81.0 VBG Base Excess 5.6 Sodium 144 Potassium 3.6 Chloride 107 Carbon Dioxide 25 Anion Gap 16 BUN 14 Creatinine 1.43 H Estim Creat Clear Calc 40.0 Estimated GFR 36 POC Glucose 232 H Random Glucose 184 H Calcium 9.1 Magnesium Total Bilirubin 0.6 AST 37 H ALT 68 H Alkaline Phosphatase 74 Troponin I High Sens 40.3 H B-Natriuretic Peptide 2018 H Total Protein 7.3 Albumin 4.0 Procalcitonin 0.04 Influenza Type A (PCR) NEGATIVE Influenza Type B (PCR) NEGATIVE RSV RNA Qual (PCR) NEGATIVE SARS-CoV-2 RNA (RT-PCR) NEGATIVE 10/01/24 10/01/24 06:11 07:16 WBC 5.1 RBC 3.81 L Hgb 11.0 L Hct 33.8 L MCV 88.7 MCH 28.9 MCHC 32.5 RDW 16.7 H Plt Count 272 MPV 11.5 Immature Gran % (Auto) 0.4 Neut % (Auto) 56.1 Lymph % (Auto) 22.8 [place] % (Auto) 11.0 Eos % (Auto) 9.1 H Baso % (Auto) 0.6 Lymph # (Auto) 1.2 [place] # (Auto) 0.6 Eos # (Auto) 0.5 H Baso # (Auto) 0.0 Abs Immat Gran (auto) 0.02 Absolute Neuts (auto) 2.9 Absolute Nucleated RBC 0.000 Nucleated RBC % (auto) 0.0 VBG pH VBG pCO2 VBG pO2 VBG HCO3 VBG O2 Saturation VBG Base Excess Sodium 145 Potassium 3.1 L Chloride 105 Carbon Dioxide 29 Anion Gap 14 BUN 17 H Creatinine 1.49 H Estim Creat Clear Calc 38.3 Estimated GFR 35 POC Glucose 137 H Random Glucose 155 H Calcium 8.8 Magnesium 1.8 Total Bilirubin AST ALT Alkaline Phosphatase Troponin I High Sens 44.3 H B-Natriuretic Peptide Total Protein Albumin Procalcitonin Influenza Type A (PCR) Influenza Type B (PCR) RSV RNA Qual (PCR) SARS-CoV-2 RNA (RT-PCR) EKG shows normal sinus rhythm with LVH with repolarization abnormality with PACs and PVCs Assessment and Plan (1) Acute exacerbation of CHF (congestive heart failure): Status: Acute Patient presented with acute congestive heart failure with bilateral pleural effusion. Clinically still appears to be in congestive heart failure. Continue IV diuresis. Strict intake and output chart needs to be pursued. She has multiple comorbidities including diabetes, chronic kidney disease but most importantly understanding of her disease process and possible noncompliance. I think she needs further education for heart failure. Please provide her with printed education materials. Start Entresto 24-26 mg b.i.d.. Closely follow electrolytes and renal function. Once euvolemic will also will need beta-flaco therapy. Will gradually increase her medications. Also add Jardiance 10 mg to regimen. (2) Paroxysmal atrial fibrillation: Status: Acute Paroxysmal atrial fibrillation with frequent PACs. Hold off on beta-blockers for now. If she has further runs of atrial fibrillation may benefit from rhythm control with amiodarone therapy. Will continue monitor. Agree with oral anticoagulation therapy with Eliquis. Full disclosure cardiac telemetry. Will follow with you Procedures Date of Service Date of Service: 10/01/24
--- NOTE | 2024-10-01 11:12 | MHC.EDTECH ---
took over assignment at 1100, pt was cleaned, blankets given, vitals obtained, 700mL of urine via purewick documented and emptied.
--- NOTE | 2024-10-01 12:00 | MHC.CM.PN ---
IMM 10/01/24, Pt lives with her niece, she could not recall the name of her PCP. HCP is on file and confirmed: niece, Nancy. She has used services from [facility] in the past and they will accept her as a pt. again if needed. For DME, she has a walker. Following last admission, she went to [facility] for STR. Niece to transport home at DC, DCP: home with services. CM to follow for DC needs.
[2024-10-01 12:49] LABS: Glucose, Whole Blood 216 mg/dL (60-115)
[2024-10-01] MEDS: Insulin Lispro 100 UNIT/ML 3 ML VIAL SUBCUT ×2 (12:51→22:54)
--- NOTE | 2024-10-01 15:49 | MHC.EDTECH ---
pt was transferred to hospital bed for comfort. bed side table and call geiger within reach.
[2024-10-01 17:50] LABS: Glucose, Whole Blood 145 mg/dL (60-115)
--- NOTE | 2024-10-01 18:34 | PHA.MEDREC ---
Pharmacy Consult ? Medication Reconciliation Pharmacy has completed the medication reconciliation.
[2024-10-01 22:23] LABS: Glucose, Whole Blood 218 mg/dL (60-115)
[2024-10-01] MEDS: Sacubitril/Valsartan 24/26 1 TAB TABLET PO (22:54)
[2024-10-02] VITALS (7 sets, daily range): BP systolic 110–150; BP diastolic 59–83; PULSE 62–95; RESP 16–18; TEMP 36.1–36.8; O2SAT 92–100
[2024-10-02 07:28] LABS: Hematocrit 35.8 % (37.0-47.0); Hemoglobin 11.3 g/dl (12.0-16.0); Mean Corpuscular HGB Conc 31.6 g/dl (31.0-35.0); Mean Corpuscular Hemoglobin 28.4 pg (27.0-33.0); Mean Corpuscular Volume 89.9 fL (80.0-98.0); Mean Platelet Volume 12.3 fL (9.4-12.3); Platelet Count 269 X10*3/uL (160-400); Red Blood Count 3.98 X10*6/uL (4.20-5.50); Red Cell Distribution Width 16.5 % (11.0-16.0)
[2024-10-02 07:48] LABS: Glucose, Whole Blood 156 mg/dL (60-115)
[2024-10-02 07:53] LABS: Anion Gap 13 (12-20); Blood Urea Nitrogen 17 mg/dL (9-16); Calcium 8.4 mg/dL (8.4-10.2); Carbon Dioxide 33 mmol/L (22-29); Chloride 101 mmol/L (96-108); Creatinine Clr Calc Pharmacy 34.9; Estimated Glomerular Filt Rate 32; Glucose Random 134 mg/dL (60-115); Magnesium 1.6 mg/dL (1.6-2.6); Potassium 2.9 mmol/L (3.3-5.1); Sodium 144 mmol/L (135-145)
[2024-10-02] MEDS: Insulin Lispro 100 UNIT/ML 3 ML VIAL SUBCUT ×3 (09:13→22:31)
[2024-10-02] MEDS: Potassium Chloride ER 20 MEQ TAB.ER.PRT 40 MEQ PO (09:14)
[2024-10-02] MEDS: Apixaban 5 MG TABLET PO ×2 (09:14→22:31)
[2024-10-02] MEDS: Empagliflozin 10 MG TABLET PO (09:14)
[2024-10-02] MEDS: 0.9 % Sodium Chloride Flush 3 ML SYRINGE IVFLUSH ×3 (09:14→22:32)
[2024-10-02] MEDS: Sacubitril/Valsartan 24/26 1 TAB TABLET PO ×2 (09:15→22:31)
--- NOTE | 2024-10-02 10:15 | P.PNIM_ITS ---
Subjective Subjective Date of Service: 10/02/24 Interval History: SOB is better, still with signs of fluid overload, non productive cough Physical Exam 2 Vital Signs: Vital Signs: Last Vital Signs Temp 97.1 F 10/02/24 07:16 Pulse 93 10/02/24 07:16 Resp 16 10/02/24 07:16 BP 138/83 10/02/24 07:16 Pulse Ox 96 10/02/24 07:16 O2 Del Method Room Air 10/02/24 07:16 O2 Flow Rate 6 09/30/24 18:53 Oxygen Flow Rate 6 09/30/24 18:40 BMI result Body Mass Index 34.6 Objective Data Active Medications Acetaminophen (Acetaminophen 325 Mg Tablet) 975 mg PO Q6H PRN PRN Reason: Pain, Mild 1-3,fever,headache Last Admin: 10/01/24 08:57 Dose: 975 mg Documented By: STANISLAV Apixaban (Apixaban 5 Mg Tablet) 5 mg PO BID [facility] Last Admin: 10/02/24 09:14 Dose: 5 mg Documented By: MAXIMILIANO Dextrose (Dextrose 50 % 25 Gm/50 Ml Syringe) 25 gm IVPUSH Q15M PRN; Protocol PRN Reason: per Hypoglycemia Standing Ord. Empagliflozin (Empagliflozin 10 Mg Tablet) 10 mg PO DAILY [facility] Last Admin: 10/02/24 09:14 Dose: 10 mg Documented By: MAXIMILIANO Furosemide (Furosemide 40 Mg/4 Ml Vial) 40 mg IVPUSH BID@0900,1800 [facility]; Protocol Last Admin: 10/02/24 09:14 Dose: 40 mg Documented By: MAXIMILIANO Glucose (Glucose Gel 15 Gm Gel..Gram.) 15 gm PO Q15M PRN; Protocol PRN Reason: per Hypoglycemia Standing Ord. Insulin Human Lispro (Insulin Lispro 100 Unit/Ml 3 Ml Vial) 0 unit SUBCUT QIDACHS [facility]; Protocol Last Admin: 10/02/24 09:13 Dose: 2 unit Documented By: MAXIMILIANO Melatonin (Melatonin 3 Mg Tablet) 6 mg PO BEDTIME PRN PRN Reason: Insomnia Sacubitril/Valsartan (Sacubitril/Valsartan 1 Tab Tablet) 1 tab PO BID [facility]; Protocol Last Admin: 10/02/24 09:15 Dose: 1 tab Documented By: MAXIMILIANO Sodium Chloride (0.9 % Sodium Chloride Flush 3 Ml Syringe) 3 ml IVFLUSH QSHIFT [facility] Last Admin: 10/02/24 09:14 Dose: 3 ml Documented By: MAXIMILIANO Labs 10/02/24 07:14 10/02/24 07:14 Labs: Laboratory Results - last 24 hr 10/01/24 10/01/24 10/01/24 12:45 17:42 22:19 MCV MCH MCHC RDW Plt Count MPV Absolute Nucleated RBC Nucleated RBC % (auto) Anion Gap Estim Creat Clear Calc Estimated GFR POC Glucose 216 H 145 H 218 H Random Glucose Calcium Magnesium 10/02/24 10/02/24 07:14 07:18 MCV 89.9 MCH 28.4 MCHC 31.6 RDW 16.5 H Plt Count 269 MPV 12.3 Absolute Nucleated RBC 0.000 Nucleated RBC % (auto) 0.0 Anion Gap 13 Estim Creat Clear Calc 34.9 Estimated GFR 32 POC Glucose 156 H Random Glucose 134 H Calcium 8.4 Magnesium 1.6 Assessment and Plan (1) Acute combined systolic and diastolic congestive heart failure: Status: Acute (2) Paroxysmal atrial fibrillation: Status: Acute (3) CKD (chronic kidney disease) stage 3, GFR 30-59 ml/min: Status: Acute (4) Diabetes mellitus: Status: Acute Plan 69F PMH hfref, pafib, CKD III, DM, presented with sob d/t decompensated heart failure Acute hypoxic respiratory failure secondary to acute on chronic systolic and diastolic, last echo Jun 2024, EF 25-30% IV Lasix, Cardiology following continue entresto, jardiance once euvolemic may add beta flaco Non contrast CT in light persistent cough Monitor I/O, weight, electrolytes Hypokalemia, oral K recheck in Am Paroxysmal AFib, remains in afib start amio 200 bid, if CT shows no evidence of pul fibrosis continue eliquis CKD 3 Stable Diabetes Continue insulin DVT prophylaxis-on Eliquis Full Code reason for continued hospitalization: IV diuresis acute heart failure Quality Stroke Does the patient have a stroke diagnosis?: No VTE Prior VTE?: No VTE Risk Level:: Medical - moderate - high VTE Device Contraindication: N/A - Device Ordered VTE Drug Contraindication: N/A - Med Ordered
--- NOTE | 2024-10-02 10:41 | PM.PNCARD ---
Subjective Subjective Date of Service: 10/02/24 Principal diagnosis: Decompensated congestive heart failure, cardiac arrhythmias Interval history: Patient continues to be short of breath as per her and continues to have cough nonproductive. Has diuresed about 2 L since yesterday. Kidney functions are stable. Continues to have runs of short bursts of atrial fibrillation and PACs on the monitor. No pauses noted. Review of Systems Constitutional: Reports weakness Eyes: Reports no additional eye complaints Cardiovascular: Denies chest pain, Denies rapid heart rate, Reports leg edema, Denies lightheadedness, Denies Loss of Consciousness, Denies palpitations, Reports dyspnea on exertion and Reports orthopnea Respiratory: Reports cough and Reports dyspnea on exertion Gastrointestinal: Reports no additional gastrointestinal complaints Genitourinary: Reports no additional female genitourinary complaints Musculoskeletal: Reports no additional musculoskeletal complaints Reports system reviewed and no additional complaints, except as documented and Reports weakness Endocrine: Denies palpitations Physical Exam Vital Signs: Last Vital Signs Temp 97.1 F 10/02/24 07:16 Pulse 93 10/02/24 07:16 Resp 16 10/02/24 07:16 BP 138/83 10/02/24 07:16 Pulse Ox 96 10/02/24 07:16 O2 Del Method Room Air 10/02/24 07:16 O2 Flow Rate 6 09/30/24 18:53 Oxygen Flow Rate 6 09/30/24 18:40 BMI result Body Mass Index 34.6 Const General: cooperative, alert, awake and in distress mild and respiratory Nutritional Appearance: obese Orientation/consciousness: patient oriented x3 HEENT Head: Yes normocephalic and Yes atraumatic Neck Neck: Yes trachea midline, Yes supple and Yes JVD Resp Effort & Inspection: normal respiratory effort Auscultation: no wheezes and breath sounds absent on th left (Base) Cardio Jugular venous distension: JVD Palpation: abnormal PMI enlarged PMI Rate: regular rate Rhythm: abnormal rhythm with ectopic beats Heart sounds: S1 normal heart sound present, S2 normal heart sound present, no click, no gallops and no murmurs GI Auscultation: normal bowel sounds Skin General skin exam: no rashes or lesions noted Neuro General: patient oriented x3 and no focal motor deficits Extrem General: No clubbing, No cyanosis and Yes edema Objective Labs and Meds 10/02/24 07:14 10/02/24 07:14 Lab results: Laboratory Results - last 24 hr 10/01/24 10/01/24 10/01/24 12:45 17:42 22:19 WBC RBC Hgb Hct MCV MCH MCHC RDW Plt Count MPV Absolute Nucleated RBC Nucleated RBC % (auto) Sodium Potassium Chloride Carbon Dioxide Anion Gap BUN Creatinine Estim Creat Clear Calc Estimated GFR POC Glucose 216 H 145 H 218 H Random Glucose Calcium Magnesium 10/02/24 10/02/24 07:14 07:18 WBC 5.0 RBC 3.98 L Hgb 11.3 L Hct 35.8 L MCV 89.9 MCH 28.4 MCHC 31.6 RDW 16.5 H Plt Count 269 MPV 12.3 Absolute Nucleated RBC 0.000 Nucleated RBC % (auto) 0.0 Sodium 144 Potassium 2.9 L* Chloride 101 Carbon Dioxide 33 H Anion Gap 13 BUN 17 H Creatinine 1.58 H Estim Creat Clear Calc 34.9 Estimated GFR 32 POC Glucose 156 H Random Glucose 134 H Calcium 8.4 Magnesium 1.6 Progress Note: A&P Assessment and plan (1) Acute exacerbation of CHF (congestive heart failure): Status: Acute Assessment and Plan: Acute congestive heart failure with persistent fluid overload. Continue IV diuresis. Continue Entresto therapy as well as Jardiance therapy. Hold off on beta-flaco therapy given her fluid overload status and decompensated heart failure status at this point time. Once more euvolemic will pursue beta-flaco therapy as well. Strict intake and output chart needs to be pursued. Continue monitor electrolytes and renal function closely. If blood pressure remained stable with more diuresis, will add spironolactone and/or uptitrate Entresto therapy. Discussed with her about her diagnoses and importance of follow up and compliance with medication to improve overall outcome. Her cough is out of proportion to her heart failure. Question underlying pulmonary pathology. Consider noncontrast CT. Question related to pleural effusion which may require drainage. (2) Paroxysmal atrial fibrillation: Status: Acute Assessment and Plan: Paroxysmal atrial fibrillation with short bursts of atrial arrhythmias. Noncontrast CTA of the lungs. If no significant interstitial process consider starting amiodarone 200 mg b.i.d.. Continue with anticoagulation for now. Will follow with you Time Spent With Patient Time: Total time managing care of this patient today ____ minutes. Progress Note: Quality Stroke Does the patient have a stroke diagnosis?: No Procedures Date of Service Date of Service: 10/02/24
[2024-10-02 12:03] LABS: Glucose, Whole Blood 227 mg/dL (60-115)
[2024-10-02] MEDS: Furosemide 40 MG/4 ML VIAL IVPUSH ×2 (12:20→18:19)
[2024-10-02 16:16] LABS: Glucose, Whole Blood 110 mg/dL (60-115)
[2024-10-02 21:06] LABS: Glucose, Whole Blood 196 mg/dL (60-115)
[2024-10-02] MEDS: Amiodarone HCL 200 MG TABLET PO (22:31)
[2024-10-02] MEDS: guaiFENesin 200 MG/10 ML 10 ML LIQUID PO (22:51)
[2024-10-02] MEDS: Lactulose 20 GM/30 ML SOLUTION PO (22:52)
[2024-10-03] VITALS (9 sets, daily range): BP systolic 100–129; BP diastolic 54–83; PULSE 60–137; RESP 17–18; TEMP 36.1–36.7; O2SAT 94–98
--- NOTE | 2024-10-03 | ECG_ITS ---
Test Reason : tachycardia Blood Pressure : */* mmHG Vent. Rate : 149 BPM Atrial Rate : * BPM P-R Int : * ms QRS Dur : 110 ms QT Int : 322 ms P-R-T Axes : * 29 241 degrees QTcB Int : 507 ms Supraventricular tachycardia Incomplete left bundle branch block Left ventricular hypertrophy with repolarization abnormality ( R in aVL , Sokolow-Camargo , Gideon product ) Abnormal ECG When compared with ECG of 30-Sep-2024 19:48, Supraventricular tachycardia has replaced Normal sinus rhythm with Premature atrial complexes Referred By: Ashlie Luu Electronically Signed By: VERENICE HAQ MD
[2024-10-03 07:13] LABS: Anion Gap 14 (12-20); Blood Urea Nitrogen 27 mg/dL (9-16); Calcium 8.7 mg/dL (8.4-10.2); Carbon Dioxide 35 mmol/L (22-29); Chloride 100 mmol/L (96-108); Creatinine Clr Calc Pharmacy 34.7; Estimated Glomerular Filt Rate 32; Glucose Random 165 mg/dL (60-115); Sodium 146 mmol/L (135-145)
[2024-10-03 07:24] LABS: B Type Natriuretic Peptide 439 pg/mL (<100)
[2024-10-03 07:32] LABS: Glucose, Whole Blood 172 mg/dL (60-115)
[2024-10-03] MEDS: Furosemide 40 MG/4 ML VIAL IVPUSH (07:54)
[2024-10-03] MEDS: Insulin Lispro 100 UNIT/ML 3 ML VIAL SUBCUT ×4 (07:54→21:33)
[2024-10-03] MEDS: Potassium Chloride ER 20 MEQ TAB.ER.PRT 40 MEQ PO ×2 (07:55→20:01)
[2024-10-03] MEDS: Sacubitril/Valsartan 24/26 1 TAB TABLET PO ×2 (07:55→19:58)
[2024-10-03] MEDS: Apixaban 5 MG TABLET PO ×2 (07:55→20:01)
[2024-10-03] MEDS: Amiodarone HCL 200 MG TABLET PO ×2 (07:55→20:00)
[2024-10-03] MEDS: Empagliflozin 10 MG TABLET PO (07:55)
[2024-10-03] MEDS: 0.9 % Sodium Chloride Flush 3 ML SYRINGE IVFLUSH ×3 (07:57→20:02)
[2024-10-03] MEDS: polyethylene glycoL 3350 17 GM POWD.PACK PO (08:00)
[2024-10-03 11:27] LABS: Glucose, Whole Blood 231 mg/dL (60-115)
--- NOTE | 2024-10-03 11:38 | PM.PNCARD ---
Subjective Subjective Date of Service: 10/03/24 Principal diagnosis: Decompensated congestive heart failure, cardiac arrhythmias Interval history: Patient is feeling better. Cough has improved. Still having short runs of PACs without sustained atrial fibrillation. Hemodynamically stable. BNP is significantly down trended Review of Systems Constitutional: Reports weakness Eyes: Reports no additional eye complaints Cardiovascular: Denies chest pain, Denies rapid heart rate, Denies lightheadedness, Denies Loss of Consciousness and Reports dyspnea (Improved) Respiratory: Reports cough (Improved) and Reports dyspnea (Improved) Musculoskeletal: Reports no additional musculoskeletal complaints Reports system reviewed and no additional complaints, except as documented and Reports weakness Psychiatric: Reports no additional psychiatric complaints Physical Exam Vital Signs: Last Vital Signs Temp 98.1 F 10/03/24 11:10 Pulse 80 10/03/24 11:10 Resp 18 10/03/24 11:10 BP 124/67 10/03/24 11:10 Pulse Ox 94 10/03/24 11:10 O2 Del Method Room Air 10/03/24 11:10 O2 Flow Rate 6 09/30/24 18:53 Oxygen Flow Rate 6 09/30/24 18:40 BMI result Body Mass Index 34.6 Const General: cooperative, alert, awake and in distress mild and respiratory Nutritional Appearance: obese Orientation/consciousness: patient oriented x3 HEENT Head: Yes normocephalic and Yes atraumatic Neck Neck: Yes trachea midline, Yes supple and Yes no JVD Resp Effort & Inspection: normal respiratory effort Auscultation: no wheezes and breath sounds absent on th left (Base) Cardio Jugular venous distension: no JVD Palpation: abnormal PMI enlarged PMI Rate: regular rate Rhythm: abnormal rhythm with ectopic beats Heart sounds: S1 normal heart sound present, S2 normal heart sound present, no click, no gallops and no murmurs GI Auscultation: normal bowel sounds Skin General skin exam: no rashes or lesions noted Neuro General: patient oriented x3 and no focal motor deficits Extrem General: No clubbing, No cyanosis and Yes edema Objective Labs and Meds 10/02/24 07:14 10/03/24 06:25 Lab results: Laboratory Results - last 24 hr 10/02/24 10/02/24 10/02/24 11:58 16:13 21:01 Sodium Potassium Chloride Carbon Dioxide Anion Gap BUN Creatinine Estim Creat Clear Calc Estimated GFR POC Glucose 227 H 110 196 H Random Glucose Calcium B-Natriuretic Peptide 10/03/24 10/03/24 10/03/24 06:25 07:28 11:23 Sodium 146 H Potassium 3.0 L Chloride 100 Carbon Dioxide 35 H Anion Gap 14 BUN 27 H Creatinine 1.59 H Estim Creat Clear Calc 34.7 Estimated GFR 32 POC Glucose 172 H 231 H Random Glucose 165 H Calcium 8.7 B-Natriuretic Peptide 439 H Imaging Radiologist's impression: Impressions Chest CT 10/02/24 11:25 IMPRESSION: Mild pulmonary edema and bilateral pleural effusions, moderate volume. Cardiomegaly. Atherosclerosis disease and likely coronary artery disease. Fleischner guidelines were followed. Electronically signed by: Andrew Saldana MD 10/02/2024 01:28 PM EDT Progress Note: A&P Assessment and plan (1) Acute exacerbation of CHF (congestive heart failure): Status: Acute Assessment and Plan: Acute decompensated systolic heart failure. Clinically much improved. Continue Lasix but add low-dose 40 mg daily. Transition to p.o. Lasix tomorrow. Continue with Entresto and Jardiance. Add Coreg 3.125 mg b.i.d. to her regimen. Continue strict intake and output chart and monitoring of electrolytes and renal function. Check BNP tomorrow. Out of bed to chair. Education material to be provided. Consider physical therapy consult. (2) Paroxysmal atrial fibrillation: Status: Acute Assessment and Plan: Paroxysmal atrial fibrillation without any sustained episodes. At this point time will continue with amiodarone at 200 mg b.i.d. for 1 month followed by 200 mg daily to suppress atrial fibrillation. Eventually once optimized medical therapy and no more recurrence of atrial fibrillation will consider reducing amiodarone dependence. Continue full oral anticoagulation. Will follow with you Time Spent With Patient Time: Total time managing care of this patient today ____ minutes. Progress Note: Quality Stroke Does the patient have a stroke diagnosis?: No Procedures Date of Service Date of Service: 10/03/24
--- NOTE | 2024-10-03 12:01 | P.PNIM_ITS ---
Subjective Subjective Date of Service: 10/03/24 Interval History: Seen and examined this morning Follow-up for CHF Awake, alert, reports improvement in breathing No overnight events Review of Systems Review of Systems: Yes all other systems are reviewed and are negative Constitutional Constitutional: Denies chills and Denies fever(s) Cardiovascular Cardiovascular: Denies chest pain, Denies palpitations and Denies dyspnea Respiratory Respiratory: Denies cough and Denies dyspnea Endocrine Endocrine: Denies palpitations Physical Exam 2 Vital Signs: Vital Signs: Last Vital Signs Temp 98.1 F 10/03/24 11:10 Pulse 80 10/03/24 11:10 Resp 18 10/03/24 11:10 BP 124/67 10/03/24 11:10 Pulse Ox 94 10/03/24 11:10 O2 Del Method Room Air 10/03/24 11:10 O2 Flow Rate 6 09/30/24 18:53 Oxygen Flow Rate 6 09/30/24 18:40 BMI result Body Mass Index 34.6 Objective Data Active Medications Acetaminophen (Acetaminophen 325 Mg Tablet) 975 mg PO Q6H PRN PRN Reason: Pain, Mild 1-3,fever,headache Last Admin: 10/01/24 08:57 Dose: 975 mg Documented By: STANISLAV Amiodarone HCl (Amiodarone Hcl 200 Mg Tablet) 200 mg PO BID [facility] Last Admin: 10/03/24 07:55 Dose: 200 mg Documented By: TALI Apixaban (Apixaban 5 Mg Tablet) 5 mg PO BID [facility] Last Admin: 10/03/24 07:55 Dose: 5 mg Documented By: TALI Bisacodyl (Bisacodyl 10 Mg Supp.Rect) 10 mg OR BEDTIME PRN PRN Reason: Constipation Carvedilol (Carvedilol 3.125 Mg Tablet) 3.125 mg PO BID [facility]; Protocol Dextrose (Dextrose 50 % 25 Gm/50 Ml Syringe) 25 gm IVPUSH Q15M PRN; Protocol PRN Reason: per Hypoglycemia Standing Ord. Empagliflozin (Empagliflozin 10 Mg Tablet) 10 mg PO DAILY [facility] Last Admin: 10/03/24 07:55 Dose: 10 mg Documented By: TALI Furosemide (Furosemide 40 Mg/4 Ml Vial) 40 mg IVPUSH DAILY [facility]; Protocol Glucose (Glucose Gel 15 Gm Gel..Gram.) 15 gm PO Q15M PRN; Protocol PRN Reason: per Hypoglycemia Standing Ord. Guaifenesin (Guaifenesin 200 Mg/10 Ml 10 Ml Liquid) 10 ml PO Q6H PRN PRN Reason: Cough Last Admin: 10/02/24 22:51 Dose: 10 ml Documented By: KATELIN Insulin Human Lispro (Insulin Lispro 100 Unit/Ml 3 Ml Vial) 0 unit SUBCUT QIDACHS [facility]; Protocol Last Admin: 10/03/24 11:37 Dose: 4 unit Documented By: TALI Magnesium Hydroxide (Milk Of Magnesia 30 Ml Oral.Susp) 30 ml PO BID PRN PRN Reason: Constipation Melatonin (Melatonin 3 Mg Tablet) 6 mg PO BEDTIME PRN PRN Reason: Insomnia Polyethylene Glycol (Polyethylene Glycol 3350 17 Gm Powd.Pack) 17 gm PO DAILY [facility] Last Admin: 10/03/24 08:00 Dose: 17 gm Documented By: TALI Potassium Chloride (Potassium Chloride Er 20 Meq Tab.Er.Prt) 40 meq PO BID [facility] Stop: 10/03/24 21:01 Last Admin: 10/03/24 07:55 Dose: 40 meq Documented By: TALI Sacubitril/Valsartan (Sacubitril/Valsartan 1 Tab Tablet) 1 tab PO BID [facility]; Protocol Last Admin: 10/03/24 07:55 Dose: 1 tab Documented By: TALI Sodium Chloride (0.9 % Sodium Chloride Flush 3 Ml Syringe) [facility] Last Admin: 10/03/24 11:37 Dose: 3 ml Documented By: TALI Labs 10/02/24 07:14 10/03/24 06:25 Labs: Laboratory Results - last 24 hr 10/02/24 10/02/24 10/02/24 11:58 16:13 21:01 Anion Gap Estim Creat Clear Calc Estimated GFR POC Glucose 227 H 110 196 H Random Glucose Calcium B-Natriuretic Peptide 10/03/24 10/03/24 10/03/24 06:25 07:28 11:23 Anion Gap 14 Estim Creat Clear Calc 34.7 Estimated GFR 32 POC Glucose 172 H 231 H Random Glucose 165 H Calcium 8.7 B-Natriuretic Peptide 439 H Assessment and Plan (1) Paroxysmal atrial fibrillation: Status: Acute (2) Acute exacerbation of CHF (congestive heart failure): Status: Acute Plan This is a 69F PMH hfref, pafib, CKD III, DM, presented with sob d/t decompensated heart failure Acute hypoxic respiratory failure secondary to acute on chronic systolic and diastolic, last echo Jun 2024, EF 25-30% Continue IV Lasix, reduce to once daily Cardiology following continue tono shell Add Coreg 3.125 b.i.d. Monitor I/O, weight, electrolytes Hypokalemia, Persistently low, continue oral K recheck in Am Paroxysmal AFib, remains in afib start amio 200 bid for 1 month followed by 200 mg daily continue eliquis Outpatient follow-up with Cardiology CKD 3 Stable Diabetes Victoza on hold Continue insulin DVT prophylaxis-on Eliquis Full Code reason for continued hospitalization: IV diuresis acute heart failure Quality Stroke Does the patient have a stroke diagnosis?: No VTE Prior VTE?: No VTE Risk Level:: Medical - moderate - high VTE Device Contraindication: N/A - Device Ordered VTE Drug Contraindication: N/A - Med Ordered
--- NOTE | 2024-10-03 14:27 | MHC.CM.PN ---
PCP is Dr. Cesario Cedeno in [place].
[2024-10-03 16:16] LABS: Glucose, Whole Blood 175 mg/dL (60-115)
[2024-10-03] MEDS: guaiFENesin 200 MG/10 ML 10 ML LIQUID PO (19:59)
[2024-10-03] MEDS: carvediloL 3.125 MG TABLET PO (20:00)
[2024-10-03 20:55] LABS: Glucose, Whole Blood 190 mg/dL (60-115)
[2024-10-03] MEDS: Metoprolol Tartrate 5 MG/5 ML VIAL IVPUSH ×2 (21:09→21:26)
[2024-10-04] MEDS: Digoxin 0.5 MG/2 ML AMPUL 0.125 MG IVPUSH (00:24)
--- NOTE | 2024-10-04 03:34 | PC.NURSE ---
1952: HR sustaining in 140's - pt symptomatic - MD valencia aware. Scheduled PO meds given per MD, with no effect 2018: Rhythm on tele shows SVT - MD aware and come to bedside. EKG ordered 2039: EKG obtained 2108: Metoprolol 5mg IVP ordered and given with no effect, MD aware. 2125: Addtl Metoprolol 5mg IVP ordered and given with mild effect - MD aware - HR sustaining in 130's SVT rhythm. 0024: Digoxin 0.125mg IVP ordered and given with good effect - NSR in 60/70's
[2024-10-04 03:59] VITALS: BP 117/68; PULSE 109; RESP 18; TEMP 36.3; O2SAT 95
[2024-10-04 07:14] LABS: Glucose, Whole Blood 169 mg/dL (60-115)
[2024-10-04 07:33] VITALS: BP 95/65; PULSE 65; RESP 16; TEMP 36.4; O2SAT 95
[2024-10-04 08:13] LABS: Anion Gap 12 (12-20); Blood Urea Nitrogen 37 mg/dL (9-16); Calcium 8.7 mg/dL (8.4-10.2); Carbon Dioxide 35 mmol/L (22-29); Chloride 101 mmol/L (96-108); Creatinine Clr Calc Pharmacy 29.3; Estimated Glomerular Filt Rate 26; Glucose Random 163 mg/dL (60-115); Sodium 144 mmol/L (135-145)
[2024-10-04 08:17] LABS: B Type Natriuretic Peptide 473 pg/mL (<100)
[2024-10-04] MEDS: guaiFENesin 200 MG/10 ML 10 ML LIQUID PO (08:39)
[2024-10-04] MEDS: Empagliflozin 10 MG TABLET PO (08:39)
[2024-10-04] MEDS: polyethylene glycoL 3350 17 GM POWD.PACK PO (08:39)
[2024-10-04] MEDS: Sacubitril/Valsartan 24/26 1 TAB TABLET PO (08:39)
[2024-10-04] MEDS: Amiodarone HCL 200 MG TABLET PO (08:39)
[2024-10-04] MEDS: carvediloL 3.125 MG TABLET PO (08:39)
[2024-10-04] MEDS: Acetaminophen 325 MG TABLET 975 MG PO (08:39)
[2024-10-04] MEDS: Insulin Lispro 100 UNIT/ML 3 ML VIAL SUBCUT ×3 (08:40→21:38)
[2024-10-04] MEDS: Apixaban 5 MG TABLET PO ×2 (08:40→21:39)
[2024-10-04] MEDS: 0.9 % Sodium Chloride Flush 3 ML SYRINGE IVFLUSH ×3 (08:40→21:39)
--- NOTE | 2024-10-04 10:13 | PM.PNCARD ---
Subjective Subjective Date of Service: 10/04/24 Principal diagnosis: Decompensated congestive heart failure, cardiac arrhythmias Interval history: Patient complains of incessant cough this morning. This is again new yesterday was feeling better. Says shortness of breath is so-so. Overnight had very prolonged fast heart rate consistent with SVT/atrial flutter. Received multiple medication including digoxin and IV Lopressor with multiple rounds. This morning converted to sinus rhythm and he had remains in sinus rhythm at 70 beats per minute. Blood pressure this morning is soft. Negative balance of 2160 since yesterday. Creatinine in as bumped up Review of Systems Constitutional: Reports weakness Eyes: Reports no additional eye complaints Cardiovascular: Denies rapid heart rate, Denies leg edema, Denies Loss of Consciousness and Denies palpitations Respiratory: Reports cough Reports weakness Endocrine: Denies palpitations Physical Exam Vital Signs: Last Vital Signs Temp 97.5 F 10/04/24 07:33 Pulse 65 10/04/24 07:33 Resp 16 10/04/24 07:33 BP 95/65 10/04/24 07:33 Pulse Ox 95 10/04/24 07:33 O2 Del Method Room Air 10/04/24 07:33 O2 Flow Rate 6 09/30/24 18:53 Oxygen Flow Rate 6 09/30/24 18:40 BMI result Body Mass Index 34.6 Const General: cooperative and comfortable Nutritional Appearance: obese Orientation/consciousness: patient oriented x3 Neck Neck: Yes trachea midline, Yes supple and Yes no JVD Resp Effort & Inspection: decreased respiratory effort Auscultation: diminished lung sounds Cardio Palpation: abnormal PMI displaced PMI Rate: regular rate Rhythm: regular rhythm Heart sounds: S1 normal heart sound present, S2 normal heart sound present, no click, no gallops and no murmurs Skin General skin exam: no rashes or lesions noted Neuro General: patient oriented x3 and no focal motor deficits Extrem General: No clubbing, No cyanosis and Yes edema Objective Labs and Meds 10/02/24 07:14 10/04/24 07:20 Lab results: Laboratory Results - last 24 hr 10/03/24 10/03/24 10/03/24 11:23 16:10 20:52 Sodium Potassium Chloride Carbon Dioxide Anion Gap BUN Creatinine Estim Creat Clear Calc Estimated GFR POC Glucose 231 H 175 H 190 H Random Glucose Calcium B-Natriuretic Peptide 10/04/24 10/04/24 07:10 07:20 Sodium 144 Potassium 4.0 D Chloride 101 Carbon Dioxide 35 H Anion Gap 12 BUN 37 H Creatinine 1.88 H Estim Creat Clear Calc 29.3 Estimated GFR 26 POC Glucose 169 H Random Glucose 163 H Calcium 8.7 B-Natriuretic Peptide 473 H Progress Note: A&P Assessment and plan (1) Acute exacerbation of CHF (congestive heart failure): Status: Acute Assessment and Plan: Acute decompensated congestive heart failure on admission, has diuresed well over the last few days with significant negative balance. Clinically has improved. Today creatinine is further bumped up, probably from overnight significant tachyarrhythmia as well as possibly mild over diuresis and a low blood pressure. I would hold off on Entresto tonight. Also hold on Coreg for now. Continue amiodarone. Hold on diuretics. Resume p.o. diuretics tomorrow of the creatinine in his downtrending. Overall needs out of bed to chair and better mobility. Discussed with the patient. Patient is still remains kind of clue as about her overall medical condition. Importance of understanding medical situation and hopefully providing her with education material would help. Compliance with medication was discussed. She persistently has cough which is unusual. Consider noncontrast imaging of the chest with a CTA in his she has persistent significant effusion may need thoracocentesis. Discussed with hospitalist team. (2) Paroxysmal atrial fibrillation: Status: Acute Assessment and Plan: Paroxysmal atrial fibrillation although overnight had significant fast heart rate consistent with a possibly SVT or atrial flutter. Has converted back to sinus rhythm. Continue amiodarone increase amiodarone loading to 400 mg b.i.d.. Noncontrast CTA as above. Currently on full oral anticoagulation will continue the same. Will follow with you Time Spent With Patient Time: Total time managing care of this patient today ____ minutes. Progress Note: Quality Stroke Does the patient have a stroke diagnosis?: No Procedures Date of Service Date of Service: 10/04/24
--- NOTE | 2024-10-04 10:42 | MHC.CM.PN ---
Per ROUNDS discussion, Patient is not yet medically cleared for dc (Heart Failure); PT is recommending STR and CM will follow.
[2024-10-04 11:23] LABS: Glucose, Whole Blood 247 mg/dL (60-115)
[2024-10-04 11:44] VITALS: BP 92/68; PULSE 66; RESP 15; TEMP 36.4; O2SAT 99
--- NOTE | 2024-10-04 14:16 | P.PNIM_ITS ---
Subjective Subjective Date of Service: 10/04/24 Interval History: seen and examined this morning follow up for CHF limited historian dry cough; no clear sob/dsypnea Had prolonged tachycardia overnight consistent with SVT/atrial flutter and required 2 dose of IV Lopressor and digoxin. No chest pain Review of Systems Review of Systems: Yes all other systems are reviewed and are negative Constitutional Constitutional: Denies chills and Denies fever(s) Cardiovascular Cardiovascular: Denies chest pain and Denies palpitations Endocrine Endocrine: Denies palpitations Physical Exam 2 Vital Signs: Vital Signs: Last Vital Signs Temp 97.6 F 10/04/24 11:44 Pulse 66 10/04/24 11:44 Resp 15 10/04/24 11:44 BP 92/68 10/04/24 11:44 Pulse Ox 99 10/04/24 11:44 O2 Del Method Room Air 10/04/24 11:44 O2 Flow Rate 6 09/30/24 18:53 Oxygen Flow Rate 6 09/30/24 18:40 BMI result Body Mass Index 34.6 Const: Other: vague historian General: cooperative, no acute distress, alert and awake Nutritional Appearance: obese Orientation/consciousness: patient oriented x3 Resp: Effort & Inspection: normal respiratory effort and able to speak in complete sentences Cardio: Rate: regular rate Neuro: General: patient oriented x3, moves all extremities and CN's II-XI intact bilaterally Extrem: General: Yes no pedal edema Objective Data Active Medications Acetaminophen (Acetaminophen 325 Mg Tablet) 975 mg PO Q6H PRN PRN Reason: Pain, Mild 1-3,fever,headache Last Admin: 10/04/24 08:39 Dose: 975 mg Documented By: TALI Amiodarone HCl (Amiodarone Hcl 200 Mg Tablet) 400 mg PO BID [facility] Apixaban (Apixaban 5 Mg Tablet) 5 mg PO BID [facility] Last Admin: 10/04/24 08:40 Dose: 5 mg Documented By: TALI Bisacodyl (Bisacodyl 10 Mg Supp.Rect) 10 mg [place] BEDTIME PRN PRN Reason: Constipation Carvedilol (Carvedilol 3.125 Mg Tablet) 3.125 mg PO BID [facility]; Protocol Last Admin: 10/04/24 08:39 Dose: 3.125 mg Documented By: TALI Dextrose (Dextrose 50 % 25 Gm/50 Ml Syringe) 25 gm IVPUSH Q15M PRN; Protocol PRN Reason: per Hypoglycemia Standing Ord. Empagliflozin (Empagliflozin 10 Mg Tablet) 10 mg PO DAILY [facility] Last Admin: 10/04/24 08:39 Dose: 10 mg Documented By: TALI Glucose (Glucose Gel 15 Gm Gel..Gram.) 15 gm PO Q15M PRN; Protocol PRN Reason: per Hypoglycemia Standing Ord. Guaifenesin (Guaifenesin 200 Mg/10 Ml 10 Ml Liquid) 10 ml PO Q6H PRN PRN Reason: Cough Last Admin: 10/04/24 08:39 Dose: 10 ml Documented By: TALI Insulin Human Lispro (Insulin Lispro 100 Unit/Ml 3 Ml Vial) 0 unit SUBCUT QIDACHS [facility]; Protocol Last Admin: 10/04/24 11:52 Dose: 4 unit Documented By: TALI Magnesium Hydroxide (Milk Of Magnesia 30 Ml Oral.Susp) 30 ml PO BID PRN PRN Reason: Constipation Melatonin (Melatonin 3 Mg Tablet) 6 mg PO BEDTIME PRN PRN Reason: Insomnia Polyethylene Glycol (Polyethylene Glycol 3350 17 Gm Powd.Pack) 17 gm PO DAILY [facility] Last Admin: 10/04/24 08:39 Dose: 17 gm Documented By: TALI Sacubitril/Valsartan (Sacubitril/Valsartan 1 Tab Tablet) 1 tab PO BID [facility]; Protocol Last Admin: 10/04/24 08:39 Dose: 1 tab Documented By: TALI Sodium Chloride (0.9 % Sodium Chloride Flush 3 Ml Syringe) 3 ml IVFLUSH QSHIFT [facility] Last Admin: 10/04/24 11:54 Dose: 3 ml Documented By: TALI Labs 10/02/24 07:14 10/04/24 07:20 Labs: Laboratory Results - last 24 hr 10/03/24 10/03/24 10/04/24 16:10 20:52 07:10 Anion Gap Estim Creat Clear Calc Estimated GFR POC Glucose 175 H 190 H 169 H Random Glucose Calcium B-Natriuretic Peptide 10/04/24 10/04/24 07:20 11:19 Anion Gap 12 Estim Creat Clear Calc 29.3 Estimated GFR 26 POC Glucose 247 H Random Glucose 163 H Calcium 8.7 B-Natriuretic Peptide 473 H Assessment and Plan (1) Paroxysmal atrial fibrillation: Status: Acute (2) Acute exacerbation of CHF (congestive heart failure): Status: Acute Plan This is a 69F PMH hfref, pafib, CKD III, DM, presented with sob d/t decompensated heart failure Acute hypoxic respiratory failure secondary to acute on chronic systolic and diastolic last echo Jun 2024, EF 15-20% grade II diastolic dysfunction renal function now trending up, hold lasix Cardiology following hold tono shell, Coreg 3.125 b.i.d. Monitor I/O, weight, electrolytes ZEINAB on CKD3 likely due to medications hold as above follow BMP Paroxysmal AFib had afib RVR/SVT overnight 10/03 requiring multiple doses of IV medications; this a.m. in sinus rhythm, heart rate controlled Increase amiodarone to 400 b.i.d. for 1 month followed by 200 mg daily continue eliquis Cardiology following cough chest CT negative for pna showing mediastinal lymphadenopathy - will need outpatient follow up symptomatic treatment Hypokalemia Improved with replacement Diabetes Victoza on hold Continue SSI, follow POCs DVT prophylaxis-on Eliquis Full Code reason for continued hospitalization: IV diuresis acute heart failure Quality Stroke Does the patient have a stroke diagnosis?: No VTE Prior VTE?: No VTE Risk Level:: Medical - moderate - high VTE Device Contraindication: N/A - Device Ordered VTE Drug Contraindication: N/A - Med Ordered
[2024-10-04 15:54] VITALS: BP 108/60; PULSE 68; RESP 17; TEMP 36.2; O2SAT 97
[2024-10-04 16:18] LABS: Glucose, Whole Blood 84 mg/dL (60-115)
[2024-10-04] MEDS: Nystatin Powder 15 GM BOTTLE 1 APPL TOPICAL ×2 (17:08→21:39)
[2024-10-04 20:00] VITALS: BP 123/61; PULSE 68; RESP 18; TEMP 36.2; O2SAT 99
[2024-10-04 20:41] LABS: Glucose, Whole Blood 171 mg/dL (60-115)
[2024-10-04] MEDS: Amiodarone HCL 200 MG TABLET 400 MG PO (21:39)
[2024-10-04 23:55] VITALS: BP 117/57; PULSE 73; RESP 18; TEMP 36.3; O2SAT 99
[2024-10-05 04:00] VITALS: BP 120/65; PULSE 71; RESP 18; TEMP 36.1; O2SAT 98
[2024-10-05 07:15] LABS: Anion Gap 14 (12-20); Blood Urea Nitrogen 35 mg/dL (9-16); Calcium 8.6 mg/dL (8.4-10.2); Carbon Dioxide 32 mmol/L (22-29); Chloride 100 mmol/L (96-108); Creatinine Clr Calc Pharmacy 31.2; Estimated Glomerular Filt Rate 28; Glucose Random 139 mg/dL (60-115); Potassium 3.8 mmol/L (3.3-5.1); Sodium 142 mmol/L (135-145)
[2024-10-05 07:16] VITALS: BP 110/64; PULSE 74; RESP 18; TEMP 36.8; O2SAT 97
--- NOTE | 2024-10-05 07:19 | PC.NURSE ---
pt refusing poc this morning stating phleb isacc her blood and it will show a result.
--- NOTE | 2024-10-05 10:15 | PM.PNCARD ---
Subjective Subjective Date of Service: 10/05/24 Principal diagnosis: Decompensated congestive heart failure, cardiac arrhythmias Interval history: no overnight significant atrial arrhythmias. Hemodynamically stable. Blood pressure is stable. Creatinine is downtrending. No shortness of breath. Continues to have dry cough. Chest CTA yesterday showed mediastinal lymphadenopathy without significant congestive lungs. Review of Systems Constitutional: Reports weakness Eyes: Reports no additional eye complaints Cardiovascular: Denies chest pain, Denies lightheadedness, Denies Loss of Consciousness, Denies palpitations and Reports dyspnea on exertion Respiratory: Reports cough and Reports dyspnea on exertion Reports weakness Endocrine: Denies palpitations Physical Exam Vital Signs: Last Vital Signs Temp 98.2 F 10/05/24 07:16 Pulse 74 10/05/24 07:16 Resp 18 10/05/24 07:16 BP 110/64 10/05/24 07:16 Pulse Ox 97 10/05/24 07:16 O2 Del Method Room Air 10/05/24 07:16 O2 Flow Rate 6 09/30/24 18:53 Oxygen Flow Rate 6 09/30/24 18:40 BMI result Body Mass Index 34.6 Const General: cooperative and comfortable Nutritional Appearance: obese Orientation/consciousness: patient oriented x3 Neck Neck: Yes trachea midline, Yes supple and Yes no JVD Resp Effort & Inspection: decreased respiratory effort Auscultation: diminished lung sounds Cardio Palpation: abnormal PMI displaced PMI Rate: regular rate Rhythm: regular rhythm Heart sounds: S1 normal heart sound present, S2 normal heart sound present, no click, no gallops and no murmurs Skin General skin exam: no rashes or lesions noted Neuro General: patient oriented x3 and no focal motor deficits Extrem General: No clubbing, No cyanosis and Yes edema Objective Labs and Meds 10/02/24 07:14 10/05/24 06:19 Lab results: Laboratory Results - last 24 hr 10/04/24 10/04/24 10/04/24 11:19 16:15 20:36 Hold Purple Top Sodium Potassium Chloride Carbon Dioxide Anion Gap BUN Creatinine Estim Creat Clear Calc Estimated GFR POC Glucose 247 H 84 171 H Random Glucose Calcium 10/05/24 06:19 Hold Purple Top SEE NOTE Sodium 142 Potassium 3.8 Chloride 100 Carbon Dioxide 32 H Anion Gap 14 BUN 35 H Creatinine 1.77 H Estim Creat Clear Calc 31.2 Estimated GFR 28 POC Glucose Random Glucose 139 H Calcium 8.6 Imaging Radiologist's impression: Impressions Chest CT 10/04/24 13:45 IMPRESSION: Mediastinal lymphadenopathy as described. Given the size of the nodes, mediastinoscopy should be considered. Electronically signed by: Milton Bonilla MD 10/04/2024 02:19 PM EDT Progress Note: A&P Assessment and plan (1) Acute exacerbation of CHF (congestive heart failure): Status: Acute Assessment and Plan: Acute decompensated congestive heart failure, with significant systolic dysfunction. Eventually require ischemic workup. For now blood pressures improved and clinically appears much more euvolemic. Restart Lasix 40 mg daily. Also restart Entresto 24-26 mg b.i.d.. Blood pressure more stable. Hold off on carvedilol therapy at this point time due to lower blood pressure. Continue monitor strict intake and output chart. Monitor renal function tomorrow. Will hold off any other neurohormonal modulation due to lower blood pressure. Continue aggressive rhythm control approach. Heart failure management was discussed again and she seems to still not understand the gravity of his situation. unclear reason for cough. Consider continue incentive spirometry and pulmonary consult (2) Paroxysmal atrial fibrillation: Status: Acute Assessment and Plan: paroxysmal atrial fibrillation better suppressed on higher dose of amiodarone. Continue amiodarone loading 400 mg b.i.d. for total of 2 weeks. 200 mg beyond that. Continue full oral anticoagulation. Will follow with you Time Spent With Patient Time: Total time managing care of this patient today ____ minutes. Progress Note: Quality Stroke Does the patient have a stroke diagnosis?: No Procedures Date of Service Date of Service: 10/05/24
[2024-10-05] MEDS: Amiodarone HCL 200 MG TABLET 400 MG PO ×2 (10:27→20:36)
[2024-10-05] MEDS: guaiFENesin 200 MG/10 ML 10 ML LIQUID PO (10:27)
[2024-10-05] MEDS: Apixaban 5 MG TABLET PO ×2 (10:28→20:37)
[2024-10-05] MEDS: Empagliflozin 10 MG TABLET PO (10:28)
--- NOTE | 2024-10-05 10:28 | P.PNIM_ITS ---
Subjective Subjective Date of Service: 10/05/24 Interval History: seen and examined this morning follow up for CHF, ZEINAB reporting cough. no sob doesn't give much history Review of Systems Review of Systems: Yes all other systems are reviewed and are negative Constitutional Constitutional: Denies chills and Denies fever(s) Cardiovascular Cardiovascular: Denies chest pain, Denies palpitations and Denies dyspnea Respiratory Respiratory: Reports cough and Denies dyspnea Gastrointestinal Gastrointestinal: Denies abdominal pain Endocrine Endocrine: Denies palpitations Physical Exam 2 Vital Signs: Vital Signs: Last Vital Signs Temp 98.2 F 10/05/24 07:16 Pulse 74 10/05/24 07:16 Resp 18 10/05/24 07:16 BP 110/64 10/05/24 07:16 Pulse Ox 97 10/05/24 07:16 O2 Del Method Room Air 10/05/24 07:16 O2 Flow Rate 6 09/30/24 18:53 Oxygen Flow Rate 6 09/30/24 18:40 BMI result Body Mass Index 34.6 Const: Other: vague historian General: no acute distress, alert and awake Nutritional Appearance: o bese Resp: Effort & Inspection: normal respiratory effort and able to speak in complete sentences Cardio: Rate: regular rate Neuro: General: moves all extremities and CN's II-XI intact bilaterally Extrem: General: Yes no pedal edema Objective Data Active Medications Acetaminophen (Acetaminophen 325 Mg Tablet) 975 mg PO Q6H PRN PRN Reason: Pain, Mild 1-3,fever,headache Last Admin: 10/04/24 08:39 Dose: 975 mg Documented By: TALI Amiodarone HCl (Amiodarone Hcl 200 Mg Tablet) 400 mg PO BID [facility] Last Admin: 10/04/24 21:39 Dose: 400 mg Documented By: ANTOINKristin Apixaban (Apixaban 5 Mg Tablet) 5 mg PO BID [facility] Last Admin: 10/04/24 21:39 Dose: 5 mg Documented By: ANTOINKristin Bisacodyl (Bisacodyl 10 Mg Supp.Rect) 10 mg [place] BEDTIME PRN PRN Reason: Constipation Carvedilol (Carvedilol 3.125 Mg Tablet) 3.125 mg PO BID [facility]; Protocol Last Admin: 10/04/24 08:39 Dose: 3.125 mg Documented By: TALI Dextrose (Dextrose 50 % 25 Gm/50 Ml Syringe) 25 gm IVPUSH Q15M PRN; Protocol PRN Reason: per Hypoglycemia Standing Ord. Empagliflozin (Empagliflozin 10 Mg Tablet) 10 mg PO DAILY [facility] Last Admin: 10/04/24 08:39 Dose: 10 mg Documented By: TALI Furosemide (Furosemide 40 Mg Tablet) 40 mg PO DAILY [facility]; Protocol Glucose (Glucose Gel 15 Gm Gel..Gram.) 15 gm PO Q15M PRN; Protocol PRN Reason: per Hypoglycemia Standing Ord. Guaifenesin (Guaifenesin 200 Mg/10 Ml 10 Ml Liquid) 10 ml PO Q6H PRN PRN Reason: Cough Last Admin: 10/04/24 08:39 Dose: 10 ml Documented By: TALI Insulin Human Lispro (Insulin Lispro 100 Unit/Ml 3 Ml Vial) 0 unit SUBCUT QIDACHS [facility]; Protocol Last Admin: 10/05/24 07:19 Dose: Not Given Documented By: JAMIL Non-Admin Reason: low poc Magnesium Hydroxide (Milk Of Magnesia 30 Ml Oral.Susp) 30 ml PO BID PRN PRN Reason: Constipation Melatonin (Melatonin 3 Mg Tablet) 6 mg PO BEDTIME PRN PRN Reason: Insomnia Nystatin (Nystatin Powder 15 Gm Bottle) 1 appl TOPICAL BID [facility]; Protocol Last Admin: 10/04/24 21:39 Dose: 1 appl Documented By: ANTOINC Polyethylene Glycol (Polyethylene Glycol 3350 17 Gm Powd.Pack) 17 gm PO DAILY [facility] Last Admin: 10/04/24 08:39 Dose: 17 gm Documented By: TALI Sacubitril/Valsartan (Sacubitril/Valsartan 1 Tab Tablet) 1 tab PO BID [facility]; Protocol Sodium Chloride (0.9 % Sodium Chloride Flush 3 Ml Syringe) 3 ml IVFLUSH QSHIFT [facility] Last Admin: 10/05/24 07:20 Dose: Not Given Documented By: JAMIL Non-Admin Reason: Previously Administered Labs 10/02/24 07:14 10/05/24 06:19 Labs: Laboratory Results - last 24 hr 10/04/24 10/04/24 10/04/24 11:19 16:15 20:36 Hold Purple Top Anion Gap Estim Creat Clear Calc Estimated GFR POC Glucose 247 H 84 171 H Random Glucose Calcium 10/05/24 06:19 Hold Purple Top SEE NOTE Anion Gap 14 Estim Creat Clear Calc 31.2 Estimated GFR 28 POC Glucose Random Glucose 139 H Calcium 8.6 Assessment and Plan (1) Paroxysmal atrial fibrillation: Status: Acute (2) Acute on chronic combined systolic and diastolic CHF (congestive heart failure): Status: Acute Plan This is a 69F PMH hfref, pafib, CKD III, DM, presented with sob d/t decompensated heart failure Acute hypoxic respiratory failure secondary to acute on chronic systolic and diastolic last echo Jun 2024, EF 15-20% grade II diastolic dysfunction renal function was trending up, lasix, entresto and coreg placed on hold 10/04 - will now resume po lasix and entresto hold coreg continue jardiance Cardiology following ZEINAB on CKD3 likely due to medications. improving. follow BMP Paroxysmal AFib had afib RVR/SVT overnight 10/03 requiring multiple doses of IV medications; HR better controlled Increase amiodarone to 400 b.i.d. for 2 weeks (end 10/19) followed by 200 mg daily continue eliquis Cardiology following cough chest CT negative for pna showing mediastinal lymphadenopathy - will need outpatient follow up symptomatic treatment RPP pending Hypokalemia Improved with replacement Diabetes Victoza on hold Continue SSI, follow POCs DVT prophylaxis- Eliquis Full Code dispo - PT rec STR reason for continued hospitalization: IV diuresis acute heart failure Quality Stroke Does the patient have a stroke diagnosis?: No VTE Prior VTE?: No VTE Risk Level:: Medical - moderate - high VTE Device Contraindication: N/A - Device Ordered VTE Drug Contraindication: N/A - Med Ordered
[2024-10-05] MEDS: Nystatin Powder 15 GM BOTTLE 1 APPL TOPICAL ×2 (10:29→20:41)
[2024-10-05 11:15] LABS: Glucose, Whole Blood 227 mg/dL (60-115)
[2024-10-05] MEDS: Insulin Lispro 100 UNIT/ML 3 ML VIAL SUBCUT ×3 (11:46→20:37)
[2024-10-05 11:54] VITALS: BP 100/51; PULSE 72; RESP 16; TEMP 36.4; O2SAT 96
[2024-10-05 14:51] LABS: Adenovirus PCR Not Detected (Not Detect.); Bordetella parapertussis PCR Not Detected (Not Detect.); Bordetella pertussis PCR Not Detected (Not Detect.); Chlamydia pneumoniae PCR Not Detected (Not Detect.); Coronavirus 229E PCR Not Detected (Not Detect.); Coronavirus HKU1 PCR Not Detected (Not Detect.); Coronavirus NL63 PCR Not Detected (Not Detect.); Coronavirus OC43 PCR Not Detected (Not Detect.); Human metapneumovirus PCR Not Detected (Not Detect.); Influenza A PCR Not Detected (Not Detect.); Influenza B PCR Not Detected (Not Detect.); Mycoplasma pneumoniae PCR Not Detected (Not Detect.); Parainfluenza 1 PCR Not Detected (Not Detect.); Parainfluenza 2 PCR Not Detected (Not Detect.); Parainfluenza 3 PCR Not Detected (Not Detect.); Parainfluenza 4 PCR Not Detected (Not Detect.); RSV PCR Not Detected (Not Detect.); Rhino/Enterovirus PCR Not Detected (Not Detect.)
[2024-10-05 14:55] LABS: Influenza A H1 PCR Not Detected (Not Detect.); Influenza A H1-2009 PCR Not Detected (Not Detect.); Influenza A H3 PCR Not Detected (Not Detect.); SARS-CoV-2 PCR Not Detected (Not Detect.)
[2024-10-05 15:20] VITALS: BP 101/53; PULSE 69; RESP 16; TEMP 36.2; O2SAT 96
[2024-10-05 15:56] LABS: Glucose, Whole Blood 159 mg/dL (60-115)
[2024-10-05] MEDS: 0.9 % Sodium Chloride Flush 3 ML SYRINGE IVFLUSH ×2 (16:49→20:38)
[2024-10-05 20:00] VITALS: BP 115/77; PULSE 74; RESP 18; TEMP 36.3; O2SAT 99
[2024-10-05 20:34] LABS: Glucose, Whole Blood 174 mg/dL (60-115)
[2024-10-05] MEDS: Sacubitril/Valsartan 24/26 1 TAB TABLET PO (20:37)
[2024-10-05 23:37] VITALS: BP 111/53; PULSE 71; RESP 16; TEMP 36.1; O2SAT 97
[2024-10-06] VITALS (7 sets, daily range): BP systolic 97–123; BP diastolic 54–78; PULSE 66–70; RESP 16–20; TEMP 36.1–37.1; O2SAT 96–99
[2024-10-06 06:23] LABS: Anion Gap 14 (12-20); Blood Urea Nitrogen 36 mg/dL (9-16); Calcium 8.8 mg/dL (8.4-10.2); Carbon Dioxide 30 mmol/L (22-29); Chloride 102 mmol/L (96-108); Creatinine Clr Calc Pharmacy 30.5; Estimated Glomerular Filt Rate 28; Glucose Random 153 mg/dL (60-115); Potassium 3.7 mmol/L (3.3-5.1); Sodium 142 mmol/L (135-145)
[2024-10-06 07:12] LABS: Glucose, Whole Blood 151 mg/dL (60-115)
[2024-10-06] MEDS: Empagliflozin 10 MG TABLET PO (08:54)
[2024-10-06] MEDS: Insulin Lispro 100 UNIT/ML 3 ML VIAL SUBCUT ×4 (08:54→21:32)
[2024-10-06] MEDS: Apixaban 5 MG TABLET PO ×2 (08:54→21:31)
[2024-10-06] MEDS: 0.9 % Sodium Chloride Flush 3 ML SYRINGE IVFLUSH (08:55)
[2024-10-06] MEDS: Amiodarone HCL 200 MG TABLET 400 MG PO ×2 (08:55→21:31)
[2024-10-06] MEDS: guaiFENesin 200 MG/10 ML 10 ML LIQUID PO (08:55)
[2024-10-06] MEDS: Nystatin Powder 15 GM BOTTLE 1 APPL TOPICAL ×2 (08:59→21:35)
--- NOTE | 2024-10-06 11:10 | HO.PM.IMPN ---
Subjective Subjective Date of Service: 10/06/24 Interval History: Seen and examined this morning Follow-up for CHF reporting ongoing cough vague historian not getting out of bed Review of Systems Review of Systems: Yes all other systems are reviewed and are negative Constitutional Constitutional: Denies chills and Denies fever(s) Cardiovascular Cardiovascular: Denies chest pain, Denies palpitations and Denies dyspnea Respiratory Respiratory: Reports cough and Denies dyspnea no wheeze Endocrine Endocrine: Denies palpitations Physical Exam Vital Signs: Vital Signs: Last Vital Signs Temp 97.3 F 10/06/24 10:58 Pulse 67 10/06/24 10:58 Resp 16 10/06/24 10:58 BP 114/56 L 10/06/24 10:58 Pulse Ox 99 10/06/24 10:58 O2 Del Method Room Air 10/06/24 10:58 O2 Flow Rate 6 09/30/24 18:53 Oxygen Flow Rate 6 09/30/24 18:40 BMI result Body Mass Index 34.6 Const: Other: vague historian General: cooperative, no acute distress, alert and awake Nutritional Appearance: obese Orientation/consciousness: patient oriented x3 Resp: Effort & Inspection: normal respiratory effort and able to speak in complete sentences Cardio: Rate: regular rate Neuro: General: patient oriented x3, moves all extremities and CN's II-XI intact bilaterally Extrem: General: Yes no pedal edema Objective Data Active Medications Acetaminophen (Acetaminophen 325 Mg Tablet) 975 mg PO Q6H PRN PRN Reason: Pain, Mild 1-3,fever,headache Last Admin: 10/04/24 08:39 Dose: 975 mg Documented By: TALI Amiodarone HCl (Amiodarone Hcl 200 Mg Tablet) 400 mg PO BID [facility] Last Admin: 10/06/24 08:55 Dose: 400 mg Documented By: SAUL Apixaban (Apixaban 5 Mg Tablet) 5 mg PO BID [facility] Last Admin: 10/06/24 08:54 Dose: 5 mg Documented By: SAUL Bisacodyl (Bisacodyl 10 Mg Supp.Rect) 10 mg [place] BEDTIME PRN PRN Reason: Constipation Carvedilol (Carvedilol 3.125 Mg Tablet) 3.125 mg PO BID [facility]; Protocol Last Admin: 10/04/24 08:39 Dose: 3.125 mg Documented By: TALI Dextrose (Dextrose 50 % 25 Gm/50 Ml Syringe) 25 gm IVPUSH Q15M PRN; Protocol PRN Reason: per Hypoglycemia Standing Ord. Empagliflozin (Empagliflozin 10 Mg Tablet) 10 mg PO DAILY [facility] Last Admin: 10/06/24 08:54 Dose: 10 mg Documented By: SAUL Furosemide (Furosemide 40 Mg Tablet) 40 mg PO DAILY [facility]; Protocol Glucose (Glucose Gel 15 Gm Gel..Gram.) 15 gm PO Q15M PRN; Protocol PRN Reason: per Hypoglycemia Standing Ord. Guaifenesin (Guaifenesin 200 Mg/10 Ml 10 Ml Liquid) 10 ml PO TID [facility] Last Admin: 10/06/24 08:55 Dose: 10 ml Documented By: SAUL Doxycycline Hyclate 100 mg/ (Sodium Chloride) 250 mls @ 166.67 mls/hr IV Q12H [facility] Insulin Human Lispro (Insulin Lispro 100 Unit/Ml 3 Ml Vial) 0 unit SUBCUT QIDACHS [facility]; Protocol Last Admin: 10/06/24 08:54 Dose: 2 unit Documented By: SAUL Magnesium Hydroxide (Milk Of Magnesia 30 Ml Oral.Susp) 30 ml PO BID PRN PRN Reason: Constipation Melatonin (Melatonin 3 Mg Tablet) 6 mg PO BEDTIME PRN PRN Reason: Insomnia Nystatin (Nystatin Powder 15 Gm Bottle) 1 appl TOPICAL BID [facility]; Protocol Last Admin: 10/06/24 08:59 Dose: 1 appl Documented By: SAUL Polyethylene Glycol (Polyethylene Glycol 3350 17 Gm Powd.Pack) 17 gm PO DAILY [facility] Last Admin: 10/06/24 08:59 Dose: Not Given Documented By: SAUL Non-Admin Reason: Patient Refused Sacubitril/Valsartan (Sacubitril/Valsartan 1 Tab Tablet) 1 tab PO BID [facility]; Protocol Last Admin: 10/05/24 20:37 Dose: 1 tab Documented By: MAXIMILIANO Sodium Chloride (0.9 % Sodium Chloride Flush 3 Ml Syringe) 3 ml IVFLUSH QSHIFT [facility] Last Admin: 10/06/24 08:55 Dose: 3 ml Documented By: SAUL Labs 10/02/24 07:14 10/06/24 06:01 Labs: Laboratory Results - last 24 hr 10/05/24 10/05/24 10/05/24 10:25 10:59 15:24 Hold Purple Top Anion Gap Estim Creat Clear Calc Estimated GFR POC Glucose 227 H 159 H Random Glucose Calcium Respiratory Panel North See Note Adenovirus (Rapid PCR) Not Detected B.pert (TEM-PCR) Not Detected B.parapertussis DNA PCR Not Detected C. pneumoniae DNA (PCR) Not Detected Coronavirus OC43 (PCR) Not Detected Coronavirus HKU1 (PCR) Not Detected Coronavirus 229E (PCR) Not Detected Coronavirus NL63 (PCR) Not Detected Human Metapneumovir PCR Not Detected Influenza A (RT-PCR) Not Detected Influenza A (H1) PCR Not Detected Influ A (H1/09) PCR Not Detected Influenza A (H3) PCR Not Detected Influenza B (RT-PCR) Not Detected M. pneumoniae (PCR) Not Detected Parainfluenza 1 (PCR) Not Detected Parainfluenza 2 (PCR) Not Detected Parainfluenza 3 (PCR) Not Detected Parainfluenza 4 (PCR) Not Detected RSV (PCR) Not Detected Entero/Rhino (PCR) Not Detected SARS-CoV-2 RNA (RT-PCR) Not Detected 10/05/24 10/06/24 10/06/24 20:28 06:01 06:06 Hold Purple Top SEE NOTE Anion Gap 14 Estim Creat Clear Calc 30.5 Estimated GFR 28 POC Glucose 174 H Random Glucose 153 H Calcium 8.8 Respiratory Panel North Adenovirus (Rapid PCR) B.pert (TEM-PCR) B.parapertussis DNA PCR C. pneumoniae DNA (PCR) Coronavirus OC43 (PCR) Coronavirus HKU1 (PCR) Coronavirus 229E (PCR) Coronavirus NL63 (PCR) Human Metapneumovir PCR Influenza A (RT-PCR) Influenza A (H1) PCR Influ A (H1/09) PCR Influenza A (H3) PCR Influenza B (RT-PCR) M. pneumoniae (PCR) Parainfluenza 1 (PCR) Parainfluenza 2 (PCR) Parainfluenza 3 (PCR) Parainfluenza 4 (PCR) RSV (PCR) Entero/Rhino (PCR) SARS-CoV-2 RNA (RT-PCR) 10/06/24 06:54 Hold Purple Top Anion Gap Estim Creat Clear Calc Estimated GFR POC Glucose 151 H Random Glucose Calcium Respiratory Panel North Adenovirus (Rapid PCR) B.pert (TEM-PCR) B.parapertussis DNA PCR C. pneumoniae DNA (PCR) Coronavirus OC43 (PCR) Coronavirus HKU1 (PCR) Coronavirus 229E (PCR) Coronavirus NL63 (PCR) Human Metapneumovir PCR Influenza A (RT-PCR) Influenza A (H1) PCR Influ A (H1) PCR Influenza A (H3) PCR Influenza B (RT-PCR) M. pneumoniae (PCR) Parainfluenza 1 (PCR) Parainfluenza 2 (PCR) Parainfluenza 3 (PCR) Parainfluenza 4 (PCR) RSV (PCR) Entero/Rhino (PCR) SARS-CoV-2 RNA (RT-PCR) Assessment and Plan (1) Acute on chronic combined systolic and diastolic CHF (congestive heart failure): Status: Acute (2) Paroxysmal atrial fibrillation: Status: Acute Plan This is a 69F H hfref, pafib, CKD III, DM, presented with sob d/t decompensated heart failure Acute hypoxic respiratory failure secondary to acute on chronic systolic and diastolic last echo Jun 2024, EF 15-20% grade II diastolic dysfunction renal function was trending up, lasix, entresto and coreg placed on hold 10/04 - will now resume po lasix and entresto coreg d/c continue jardiance Cardiology following ZEINAB on CKD3 likely due to medications. renal function about the same, not too far off baseline, likely due to starting entreso. outpatient monitoring of renal function Paroxysmal AFib had afib RVR/SVT overnight 10/03 requiring multiple doses of IV medications; HR better controlled Increase amiodarone to 400 b.i.d. for 2 weeks (end 10/19) followed by 200 mg daily continue eliquis Cardiology following cough due to possible bronchitis chest CT negative for pna showing mediastinal lymphadenopathy - will need outpatient follow up symptomatic treatment RPP negative (although not good sample per nurse due to lack of cooperation) Possible bronchitis, we will start IV doxycycline Hypokalemia Improved with replacement Diabetes Victoza on hold Continue SSI, follow POCs DVT prophylaxis- Eliquis Full Code dispo - PT rec STR reason for continued hospitalization: acute heart failure, placement Quality Stroke Does the patient have a stroke diagnosis?: No VTE Prior VTE?: No VTE Risk Level:: Medical - moderate - high VTE Device Contraindication: N/A - Device Ordered VTE Drug Contraindication: N/A - Med Ordered
[2024-10-06] MEDS: Doxycycline Hyclate 100 MG in 0.9 % Sodium Chloride 250 ML 166.67 MG IV ×2 (11:14→21:31)
[2024-10-06 11:31] LABS: Glucose, Whole Blood 191 mg/dL (60-115)
--- NOTE | 2024-10-06 15:28 | PM.PNCARD ---
Subjective Subjective Date of Service: 10/06/24 Principal diagnosis: Decompensated congestive heart failure, cardiac arrhythmias Interval history: Patient having no cardiac symptoms. Continues to have cough. No overnight significant arrhythmias. Blood pressure is on the softer side. Review of Systems Constitutional: Reports weakness Cardiovascular: Reports no additional cardiovascular complaints Respiratory: Reports cough Gastrointestinal: Reports no additional gastrointestinal complaints Reports weakness Psychiatric: Reports no additional psychiatric complaints Physical Exam Vital Signs: Last Vital Signs Temp 97.3 F 10/06/24 10:58 Pulse 67 10/06/24 14:17 Resp 16 10/06/24 10:58 BP 97/54 L 10/06/24 14:17 Pulse Ox 99 10/06/24 10:58 O2 Del Method Room Air 10/06/24 10:58 O2 Flow Rate 6 09/30/24 18:53 Oxygen Flow Rate 6 09/30/24 18:40 BMI result Body Mass Index 34.6 Const General: cooperative and comfortable Nutritional Appearance: obese Orientation/consciousness: patient oriented x3 Neck Neck: Yes trachea midline, Yes supple and Yes no JVD Resp Effort & Inspection: decreased respiratory effort Auscultation: diminished lung sounds Cardio Palpation: abnormal PMI displaced PMI Rate: regular rate Rhythm: regular rhythm Heart sounds: S1 normal heart sound present, S2 normal heart sound present, no click, no gallops and no murmurs Skin General skin exam: no rashes or lesions noted Neuro General: patient oriented x3 and no focal motor deficits Extrem General: No clubbing, No cyanosis and Yes edema Objective Labs and Meds 10/02/24 07:14 10/06/24 06:01 Lab results: Laboratory Results - last 24 hr 10/05/24 10/05/24 10/06/24 15:24 20:28 06:01 Hold Purple Top Sodium 142 Potassium 3.7 Chloride 102 Carbon Dioxide 30 H Anion Gap 14 BUN 36 H Creatinine 1.81 H Estim Creat Clear Calc 30.5 Estimated GFR 28 POC Glucose 159 H 174 H Random Glucose 153 H Calcium 8.8 10/06/24 10/06/24 10/06/24 06:06 06:54 11:03 Hold Purple Top SEE NOTE Sodium Potassium Chloride Carbon Dioxide Anion Gap BUN Creatinine Estim Creat Clear Calc Estimated GFR POC Glucose 151 H 191 H Random Glucose Calcium Progress Note: A&P Assessment and plan (1) Acute exacerbation of CHF (congestive heart failure): Status: Acute Assessment and Plan: Decompensated systolic heart failure. Patient doing better. Continue current diuretic dose. Continue current Entresto therapy. Hold off on other neurohormonal modulation except for Jardiance due to low blood pressure. Heart failure management discussed in details. Daily weight monitoring avoidance salt loading was discussed. Importance of compliance and follow up was discussed. Continue rhythm control approach. Will need ischemic workup as outpatient. Will sign of the case and follow as outpatient. (2) Paroxysmal atrial fibrillation: Status: Acute Assessment and Plan: Paroxysmal atrial fibrillation currently suppressed on amiodarone therapy. Continue loading for 2 weeks. Continue full oral anticoagulation with Eliquis. Will follow up with outpatient. Will follow up in the clinic in 2 weeks time, sooner p.r.n.. Thank you for allowing me to partake in her care Time Spent With Patient Time: Total time managing care of this patient today ____ minutes. Progress Note: Quality Stroke Does the patient have a stroke diagnosis?: No Procedures Date of Service Date of Service: 10/06/24
[2024-10-06 15:48] LABS: Glucose, Whole Blood 198 mg/dL (60-115)
[2024-10-06 21:15] LABS: Glucose, Whole Blood 175 mg/dL (60-115)
[2024-10-06] MEDS: Sacubitril/Valsartan 24/26 1 TAB TABLET PO (21:31)
[2024-10-07] MEDS: 0.9 % Sodium Chloride Flush 3 ML SYRINGE IVFLUSH ×4 (00:43→22:26)
[2024-10-07 04:00] VITALS: BP 121/58; PULSE 67; RESP 18; TEMP 36.6; O2SAT 98
[2024-10-07 07:25] LABS: Glucose, Whole Blood 133 mg/dL (60-115)
[2024-10-07 07:39] VITALS: BP 125/63; PULSE 64; RESP 20; TEMP 36.2; O2SAT 97
[2024-10-07] MEDS: Empagliflozin 10 MG TABLET PO (09:56)
[2024-10-07] MEDS: Furosemide 40 MG TABLET PO (09:56)
[2024-10-07] MEDS: Apixaban 5 MG TABLET PO ×2 (09:56→22:14)
[2024-10-07] MEDS: Doxycycline Hyclate 100 MG in 0.9 % Sodium Chloride 250 ML 166.67 MG IV ×2 (09:57→22:27)
[2024-10-07] MEDS: Amiodarone HCL 200 MG TABLET 400 MG PO ×2 (09:57→22:14)
[2024-10-07] MEDS: Nystatin Powder 15 GM BOTTLE 1 APPL TOPICAL ×2 (10:47→22:21)
[2024-10-07] MEDS: Sacubitril/Valsartan 24/26 1 TAB TABLET PO ×2 (10:47→22:15)
--- NOTE | 2024-10-07 10:51 | MHC.CM.PN ---
Addendum entered by Hortencia Banks 10/07/24 11:24: Per [facility], when they attempted to run Patient's insurance, it came up as Inactive, as of 10/06/2024; an email referral has been made to [facility] [place] [employer]); CM will follow. Original Note: Per [facility]OUNDS discussion, Patient may be medically cleared for dc to SNF/STR today or tomorrow. CM met with Patient at bedside to discuss dc planning and Patient adamantly states that she wants to go home. Patient gave CM permission to ask [facility] to attempt insurance auth in case she changes her mind about STR. Patient also gave CM to speak with her Niece/Jaye @ [phone] regarding the dc plan(Patient lives with Jaye, not Niece/Cheyenne). Per Jaye, Patient needs STR because she works all day and because Patient is not current with a PCP, she will not qualify for home vna services. Jaye is going to speak with Patient and ask Patient's Sister to speak with her to encourage STR. CM has asked [facility] to initiate auth and CM will continue to follow.
[2024-10-07 11:41] LABS: Glucose, Whole Blood 181 mg/dL (60-115)
[2024-10-07 12:00] VITALS: BP 130/67; PULSE 69; RESP 20; TEMP 36.3; O2SAT 98
[2024-10-07] MEDS: Insulin Lispro 100 UNIT/ML 3 ML VIAL SUBCUT ×2 (12:25→17:23)
--- NOTE | 2024-10-07 13:04 | P.PNIM_ITS ---
Subjective Subjective Date of Service: 10/07/24 Interval History: Follow-up for CHF reporting ongoing cough vague historian not getting out of bed Review of Systems Review of Systems: Yes all other systems are reviewed and are negative Constitutional Constitutional: Denies chills and Denies fever(s) Cardiovascular Cardiovascular: Denies chest pain, Denies palpitations and Denies dyspnea Respiratory Respiratory: Reports cough and Denies dyspnea no wheeze Endocrine Endocrine: Denies palpitations Physical Exam 2 Vital Signs: Vital Signs: Last Vital Signs Temp 97.4 F 10/07/24 12:00 Pulse 69 10/07/24 12:00 Resp 20 10/07/24 12:00 BP 130/67 10/07/24 12:00 Pulse Ox 98 10/07/24 12:00 O2 Del Method Room Air 10/07/24 12:00 O2 Flow Rate 6 09/30/24 18:53 Oxygen Flow Rate 6 09/30/24 18:40 BMI result Body Mass Index 34.6 Appearing in no acute distress lung sounds are clear to auscultation heart regular rate rhythm, clear S1, S2 positive bowel sounds, abdomen is soft, nontender neuro patient is alert x3, no focal deficits Objective Data Active Medications Acetaminophen (Acetaminophen 325 Mg Tablet) 975 mg PO Q6H PRN PRN Reason: Pain, Mild 1-3,fever,headache Last Admin: 10/04/24 08:39 Dose: 975 mg Documented By: TALI Amiodarone HCl (Amiodarone Hcl 200 Mg Tablet) 400 mg PO BID [facility] Last Admin: 10/07/24 09:57 Dose: 400 mg Documented By: MYRNA Apixaban (Apixaban 5 Mg Tablet) 5 mg PO BID [facility] Last Admin: 10/07/24 09:56 Dose: 5 mg Documented By: MYRNA Bisacodyl (Bisacodyl 10 Mg Supp.Rect) 10 mg [place] BEDTIME PRN PRN Reason: Constipation Dextrose (Dextrose 50 % 25 Gm/50 Ml Syringe) 25 gm IVPUSH Q15M PRN; Protocol PRN Reason: per Hypoglycemia Standing Ord. Empagliflozin (Empagliflozin 10 Mg Tablet) 10 mg PO DAILY [facility] Last Admin: 10/07/24 09:56 Dose: 10 mg Documented By: MYRNA Furosemide (Furosemide 40 Mg Tablet) 40 mg PO DAILY [facility]; Protocol Last Admin: 10/07/24 09:56 Dose: 40 mg Documented By: MYRNA Glucose (Glucose Gel 15 Gm Gel..Gram.) 15 gm PO Q15M PRN; Protocol PRN Reason: per Hypoglycemia Standing Ord. Guaifenesin (Guaifenesin 200 Mg/10 Ml 10 Ml Liquid) 10 ml PO TID [facility] Last Admin: 10/07/24 10:26 Dose: Not Given Documented By: MYRNA Non-Admin Reason: Patient Refused Doxycycline Hyclate 100 mg/ (Sodium Chloride) 250 mls @ 166.67 mls/hr IV Q12H [facility] Last Admin: 10/07/24 09:57 Dose: 166.67 mls/hr Documented By: MYRNA Insulin Human Lispro (Insulin Lispro 100 Unit/Ml 3 Ml Vial) 0 unit SUBCUT QIDACHS [facility]; Protocol Last Admin: 10/07/24 12:25 Dose: 2 unit Documented By: MYRNA Magnesium Hydroxide (Milk Of Magnesia 30 Ml Oral.Susp) 30 ml PO BID PRN PRN Reason: Constipation Melatonin (Melatonin 3 Mg Tablet) 6 mg PO BEDTIME PRN PRN Reason: Insomnia Nystatin (Nystatin Powder 15 Gm Bottle) 1 appl TOPICAL BID [facility]; Protocol Last Admin: 10/07/24 10:47 Dose: 1 appl Documented By: MYRNA Polyethylene Glycol (Polyethylene Glycol 3350 17 Gm Powd.Pack) 17 gm PO DAILY [facility] Last Admin: 10/07/24 10:27 Dose: Not Given Documented By: MYRNA Non-Admin Reason: Patient Refused Sacubitril/Valsartan (Sacubitril/Valsartan 1 Tab Tablet) 1 tab PO BID [facility]; Protocol Last Admin: 10/07/24 10:47 Dose: 1 tab Documented By: MYRNA Sodium Chloride (0.9 % Sodium Chloride Flush 3 Ml Syringe) 3 ml IVFLUSH QSHIFT [facility] Last Admin: 10/07/24 11:17 Dose: 3 ml Documented By: MYRNA Labs 10/02/24 07:14 10/06/24 06:01 Labs: Laboratory Results - last 24 hr 10/06/24 10/06/24 10/07/24 15:29 21:07 07:16 POC Glucose 198 H 175 H 133 H 10/07/24 11:31 POC Glucose 181 H Assessment and Plan (1) Acute on chronic combined systolic and diastolic CHF (congestive heart failure): Status: Acute (2) Paroxysmal atrial fibrillation: Status: Acute Plan 69F PMH hfref, pafib, CKD III, DM, presented with sob d/t decompensated heart failure Acute hypoxic respiratory failure secondary to acute on chronic systolic and diastolic last echo Jun 2024, EF 15-20% grade II diastolic dysfunction renal function was trending up, lasix, entresto and coreg placed on hold 10/04 - will now resume po lasix and entresto coreg d/c continue jardiance Cardiology following ZEINAB on CKD3 likely due to medications. renal function about the same, not too far off baseline, likely due to starting entreso. outpatient monitoring of renal function Paroxysmal AFib had afib RVR/SVT overnight 10/03 requiring multiple doses of IV medications; HR better controlled Increase amiodarone to 400 b.i.d. for 2 weeks (end 10/19) followed by 200 mg daily continue eliquis Cardiology following cough due to possible bronchitis chest CT negative for pna showing mediastinal lymphadenopathy - will need outpatient follow up symptomatic treatment RPP negative (although not good sample per nurse due to lack of cooperation) IV doxycycline Hypokalemia Improved with replacement Diabetes Victoza on hold Continue SSI, follow POCs DVT prophylaxis- Eliquis Full Code dispo - PT rec STR reason for continued hospitalization: acute heart failure, placement Quality Stroke Does the patient have a stroke diagnosis?: No VTE Prior VTE?: No VTE Risk Level:: Medical - moderate - high VTE Device Contraindication: N/A - Device Ordered VTE Drug Contraindication: N/A - Med Ordered
[2024-10-07 15:46] VITALS: BP 119/62; PULSE 63; RESP 18; TEMP 36.6; O2SAT 98
[2024-10-07 16:21] LABS: Glucose, Whole Blood 165 mg/dL (60-115)
[2024-10-07 20:00] VITALS: BP 119/56; PULSE 66; RESP 17; TEMP 36.4; O2SAT 99
[2024-10-07 20:51] LABS: Glucose, Whole Blood 96 mg/dL (60-115)
[2024-10-07] MEDS: guaiFENesin 200 MG/10 ML 10 ML LIQUID PO (22:12)
[2024-10-07 23:52] VITALS: BP 125/58; PULSE 67; RESP 17; TEMP 35.9; O2SAT 98
[2024-10-08] VITALS (7 sets, daily range): BP systolic 111–135; BP diastolic 53–69; PULSE 60–69; RESP 16–18; TEMP 36.1–37.2; O2SAT 97–100
[2024-10-08 07:31] LABS: Glucose, Whole Blood 128 mg/dL (60-115)
[2024-10-08 08:03] LABS: Hematocrit 36.2 % (37.0-47.0); Hemoglobin 11.3 g/dl (12.0-16.0); Mean Corpuscular HGB Conc 31.2 g/dl (31.0-35.0); Mean Corpuscular Hemoglobin 28.4 pg (27.0-33.0); Mean Platelet Volume 11.8 fL (9.4-12.3); Platelet Count 240 X10*3/uL (160-400); Red Blood Count 3.98 X10*6/uL (4.20-5.50); Red Cell Distribution Width 15.9 % (11.0-16.0); White Blood Count 4.2 X10*3/uL (4.8-10.8)
[2024-10-08 08:13] LABS: Anion Gap 13 (12-20); Blood Urea Nitrogen 30 mg/dL (9-16); Calcium 8.6 mg/dL (8.4-10.2); Carbon Dioxide 30 mmol/L (22-29); Chloride 104 mmol/L (96-108); Estimated Glomerular Filt Rate 28; Glucose Random 138 mg/dL (60-115); Potassium 3.6 mmol/L (3.3-5.1); Sodium 143 mmol/L (135-145)
[2024-10-08] MEDS: Furosemide 40 MG TABLET PO (08:23)
[2024-10-08] MEDS: Apixaban 5 MG TABLET PO ×2 (08:23→20:57)
[2024-10-08] MEDS: Sacubitril/Valsartan 24/26 1 TAB TABLET PO ×2 (08:23→20:57)
[2024-10-08] MEDS: Amiodarone HCL 200 MG TABLET 400 MG PO ×2 (08:23→20:57)
[2024-10-08] MEDS: Empagliflozin 10 MG TABLET PO (08:23)
[2024-10-08] MEDS: Doxycycline Hyclate 100 MG in 0.9 % Sodium Chloride 250 ML 166.67 MG IV (08:25)
[2024-10-08] MEDS: 0.9 % Sodium Chloride Flush 3 ML SYRINGE IVFLUSH (08:26)
[2024-10-08] MEDS: Nystatin Powder 15 GM BOTTLE 1 APPL TOPICAL (08:29)
[2024-10-08 11:19] LABS: Glucose, Whole Blood 223 mg/dL (60-115)
[2024-10-08] MEDS: Acetaminophen 325 MG TABLET 975 MG PO ×2 (11:44→17:44)
[2024-10-08] MEDS: Insulin Lispro 100 UNIT/ML 3 ML VIAL SUBCUT ×2 (11:45→21:09)
--- NOTE | 2024-10-08 14:11 | HO.PM.IMPN ---
Subjective Subjective Date of Service: 10/08/24 Interval History: Follow-up for CHF reporting ongoing cough vague historian ob to chair Review of Systems Review of Systems: Yes all other systems are reviewed and are negative Constitutional Constitutional: Denies chills and Denies fever(s) Cardiovascular Cardiovascular: Denies chest pain, Denies palpitations and Denies dyspnea Respiratory Respiratory: Reports cough and Denies dyspnea no wheeze Endocrine Endocrine: Denies palpitations Physical Exam Vital Signs: Vital Signs: Last Vital Signs Temp 98.2 F 10/08/24 11:32 Pulse 60 10/08/24 11:32 Resp 16 10/08/24 11:32 BP 128/69 10/08/24 11:32 Pulse Ox 98 10/08/24 11:32 O2 Del Method Room Air 10/08/24 11:32 O2 Flow Rate 6 09/30/24 18:53 Oxygen Flow Rate 6 09/30/24 18:40 BMI result Body Mass Index 34.6 Appearing in no acute distress lung sounds are clear to auscultation heart regular rate rhythm, clear S1, S2 positive bowel sounds, abdomen is soft, nontender neuro patient is alert x3, no focal deficits Objective Data Active Medications Acetaminophen (Acetaminophen 325 Mg Tablet) 975 mg PO Q6H PRN PRN Reason: Pain, Mild 1-3,fever,headache Last Admin: 10/08/24 11:44 Dose: 975 mg Documented By: KATHY Amiodarone HCl (Amiodarone Hcl 200 Mg Tablet) 400 mg PO BID [facility] Last Admin: 10/08/24 08:23 Dose: 400 mg Documented By: KATHY Apixaban (Apixaban 5 Mg Tablet) 5 mg PO BID [facility] Last Admin: 10/08/24 08:23 Dose: 5 mg Documented By: KATHY Bisacodyl (Bisacodyl 10 Mg Supp.Rect) 10 mg [place] BEDTIME PRN PRN Reason: Constipation Dextrose (Dextrose 50 % 25 Gm/50 Ml Syringe) 25 gm IVPUSH Q15M PRN; Protocol PRN Reason: per Hypoglycemia Standing Ord. Empagliflozin (Empagliflozin 10 Mg Tablet) 10 mg PO DAILY [facility] Last Admin: 10/08/24 08:23 Dose: 10 mg Documented By: KATHY Furosemide (Furosemide 40 Mg Tablet) 40 mg PO DAILY [facility]; Protocol Last Admin: 10/08/24 08:23 Dose: 40 mg Documented By: KATHY Glucose (Glucose Gel 15 Gm Gel..Gram.) 15 gm PO Q15M PRN; Protocol PRN Reason: per Hypoglycemia Standing Ord. Guaifenesin (Guaifenesin 200 Mg/10 Ml 10 Ml Liquid) 10 ml PO TID [facility] Last Admin: 10/08/24 08:24 Dose: Not Given Documented By: KATHY Non-Admin Reason: Patient Refused Doxycycline Hyclate 100 mg/ (Sodium Chloride) 250 mls @ 166.67 mls/hr IV Q12H [facility] Last Infusion: 10/08/24 10:26 Dose: Infused Documented By: KATHY Insulin Human Lispro (Insulin Lispro 100 Unit/Ml 3 Ml Vial) 0 unit SUBCUT QIDACHS [facility]; Protocol Last Admin: 10/08/24 11:45 Dose: 4 unit Documented By: KATHY Magnesium Hydroxide (Milk Of Magnesia 30 Ml Oral.Susp) 30 ml PO BID PRN PRN Reason: Constipation Melatonin (Melatonin 3 Mg Tablet) 6 mg PO BEDTIME PRN PRN Reason: Insomnia Nystatin (Nystatin Powder 15 Gm Bottle) 1 appl TOPICAL BID [facility]; Protocol Last Admin: 10/08/24 08:29 Dose: 1 appl Documented By: KATHY Polyethylene Glycol (Polyethylene Glycol 3350 17 Gm Powd.Pack) 17 gm PO DAILY [facility] Last Admin: 10/08/24 08:25 Dose: Not Given Documented By: KATHY Non-Admin Reason: Patient Refused Sacubitril/Valsartan (Sacubitril/Valsartan 1 Tab Tablet) 1 tab PO BID [facility]; Protocol Last Admin: 10/08/24 08:23 Dose: 1 tab Documented By: KATHY Sodium Chloride (0.9 % Sodium Chloride Flush 3 Ml Syringe) 3 ml IVFLUSH QSHIFT [facility] Last Admin: 10/08/24 08:26 Dose: 3 ml Documented By: KATHY Labs 10/08/24 07:49 10/08/24 07:49 Labs: Laboratory Results - last 24 hr 10/07/24 10/07/24 10/08/24 16:15 20:42 07:19 MCV MCH MCHC RDW Plt Count MPV Absolute Nucleated RBC Nucleated RBC % (auto) Anion Gap Estim Creat Clear Calc Estimated GFR POC Glucose 165 H 96 128 H Random Glucose Calcium 10/08/24 10/08/24 07:49 11:07 MCV 91.0 MCH 28.4 MCHC 31.2 RDW 15.9 Plt Count 240 MPV 11.8 Absolute Nucleated RBC 0.000 Nucleated RBC % (auto) 0.0 Anion Gap 13 Estim Creat Clear Calc 31.0 Estimated GFR 28 POC Glucose 223 H Random Glucose 138 H Calcium 8.6 Assessment and Plan (1) Acute on chronic combined systolic and diastolic CHF (congestive heart failure): Status: Acute (2) Paroxysmal atrial fibrillation: Status: Acute Plan 69F PMH hfref, pafib, CKD III, DM, presented with sob d/t decompensated heart failure Acute hypoxic respiratory failure secondary to acute on chronic systolic and diastolic. Resolved last echo Jun 2024, EF 15-20% grade II diastolic dysfunction renal function was trending up, lasix, entresto and coreg placed on hold 10/04>resumed po lasix and entresto coreg d/c continue jardiance Cardiology following ZEINAB on CKD3 likely due to medications. not too far off baseline, likely due to starting entreso. Paroxysmal AFib had afib RVR/SVT10/03 requiring multiple doses of IV medications; HR better controlled Increased amiodarone to 400 b.i.d. for 2 weeks (end 10/19) followed by 200 mg daily continue eliquis Cardiology following Cough due to possible bronchitis chest CT negative for pna showing mediastinal lymphadenopathy>outpatient follow up symptomatic treatment RPP negative IV doxycycline Hypokalemia Improved with replacement Diabetes Victoza on hold Continue SSI, follow POCs DVT prophylaxis- Eliquis Full Code dispo>PT rec STR, working on insurance issues Quality Stroke Does the patient have a stroke diagnosis?: No VTE Prior VTE?: No VTE Risk Level:: Medical - moderate - high VTE Device Contraindication: N/A - Device Ordered VTE Drug Contraindication: N/A - Med Ordered
--- NOTE | 2024-10-08 15:35 | MHC.CM.PN ---
Per [facility] [place] [facility], an appointment with Patient's Niece/Jaye has been set up for Monday, 10/11 at 4PM to start a [employer] application. CM will continue to follow.
[2024-10-08 16:46] LABS: Glucose, Whole Blood 103 mg/dL (60-115)
[2024-10-08 20:48] LABS: Glucose, Whole Blood 176 mg/dL (60-115)
[2024-10-08] MEDS: Doxycycline Hyclate 100 MG in 0.9 % Sodium Chloride 250 ML 167 MG IV (20:58)
[2024-10-09] VITALS (9 sets, daily range): BP systolic 121–140; BP diastolic 56–68; PULSE 60–73; RESP 16–18; TEMP 36.1–37.1; O2SAT 97–99
[2024-10-09] MEDS: 0.9 % Sodium Chloride Flush 3 ML SYRINGE IVFLUSH ×3 (00:53→20:16)
[2024-10-09] MEDS: Acetaminophen 325 MG TABLET 975 MG PO ×2 (04:29→20:11)
--- NOTE | 2024-10-09 07:30 | HE.PHANOTE ---
IV TO PO Doxycycline changed from IV to PO per P&T
[2024-10-09 07:50] LABS: Glucose, Whole Blood 137 mg/dL (60-115)
[2024-10-09] MEDS: Sacubitril/Valsartan 24/26 1 TAB TABLET PO ×2 (09:19→20:11)
[2024-10-09] MEDS: Furosemide 40 MG TABLET PO (09:19)
[2024-10-09] MEDS: Amiodarone HCL 200 MG TABLET 400 MG PO ×2 (09:19→20:11)
[2024-10-09] MEDS: Apixaban 5 MG TABLET PO ×2 (09:19→20:11)
[2024-10-09] MEDS: Doxycycline Monohydrate 100 MG CAPSULE PO ×2 (09:19→20:11)
[2024-10-09] MEDS: Empagliflozin 10 MG TABLET PO (09:20)
[2024-10-09] MEDS: guaiFENesin 200 MG/10 ML 10 ML LIQUID PO ×2 (09:20→20:12)
[2024-10-09] MEDS: Nystatin Powder 15 GM BOTTLE 1 APPL TOPICAL ×2 (09:21→20:16)
[2024-10-09 11:39] LABS: Anion Gap 13 (12-20); Blood Urea Nitrogen 28 mg/dL (9-16); Calcium 8.6 mg/dL (8.4-10.2); Carbon Dioxide 31 mmol/L (22-29); Chloride 103 mmol/L (96-108); Creatinine Clr Calc Pharmacy 29.3; Estimated Glomerular Filt Rate 26; Glucose Random 241 mg/dL (60-115); Magnesium 1.8 mg/dL (1.6-2.6); Potassium 3.3 mmol/L (3.3-5.1); Sodium 144 mmol/L (135-145)
[2024-10-09 11:45] LABS: B Type Natriuretic Peptide 764 pg/mL (<100)
--- NOTE | 2024-10-09 12:09 | HO.PM.IMPN ---
Subjective Subjective Date of Service: 10/09/24 Interval History: denies chest pain or shortness of breath refusing to go to [facility] but her niece will not take her back Review of Systems Review of Systems: Yes all other systems are reviewed and are negative Physical Exam Vital Signs: Vital Signs: Last Vital Signs Temp 98.2 F 10/09/24 11:37 Pulse 60 10/09/24 11:37 Resp 18 10/09/24 11:37 BP 125/58 L 10/09/24 11:37 Pulse Ox 98 10/09/24 11:37 O2 Del Method Room Air 10/09/24 11:37 O2 Flow Rate 6 09/30/24 18:53 Oxygen Flow Rate 6 09/30/24 18:40 BMI result Body Mass Index 34.6 Gen: in no acute distress HEENT: sclera anicteric, moist mucus membranes Neck: supple Lungs: clear to auscultation bilaterally Heart: regular rate and rhythm, no murmurs Abd: soft, non-tender, non-distended Ext: no edema Skin: warm/well-perfused Neuro: alert and oriented x3, no focal findings Psych: appropriate affect Objective Data Active Medications Acetaminophen (Acetaminophen 325 Mg Tablet) 975 mg PO Q6H PRN PRN Reason: Pain, Mild 1-3,fever,headache Last Admin: 10/09/24 04:29 Dose: 975 mg Documented By: CARLOS Amiodarone HCl (Amiodarone Hcl 200 Mg Tablet) 400 mg PO BID [facility] Last Admin: 10/09/24 09:19 Dose: 400 mg Documented By: KATHY Apixaban (Apixaban 5 Mg Tablet) 5 mg PO BID [facility] Last Admin: 10/09/24 09:19 Dose: 5 mg Documented By: KATHY Bisacodyl (Bisacodyl 10 Mg Supp.Rect) 10 mg [place] BEDTIME PRN PRN Reason: Constipation Dextrose (Dextrose 50 % 25 Gm/50 Ml Syringe) 25 gm IVPUSH Q15M PRN; Protocol PRN Reason: per Hypoglycemia Standing Ord. Doxycycline Monohydrate (Doxycycline Monohydrate 100 Mg Capsule) 100 mg PO Q12H [facility] Last Admin: 10/09/24 09:19 Dose: 100 mg Documented By: KATHY Empagliflozin (Empagliflozin 10 Mg Tablet) 10 mg PO DAILY [facility] Last Admin: 10/09/24 09:20 Dose: 10 mg Documented By: KATHY Furosemide (Furosemide 40 Mg Tablet) 40 mg PO DAILY [facility]; Protocol Last Admin: 10/09/24 09:19 Dose: 40 mg Documented By: KATHY Glucose (Glucose Gel 15 Gm Gel..Gram.) 15 gm PO Q15M PRN; Protocol PRN Reason: per Hypoglycemia Standing Ord. Guaifenesin (Guaifenesin 200 Mg/10 Ml 10 Ml Liquid) 10 ml PO TID [facility] Last Admin: 10/09/24 09:20 Dose: 10 ml Documented By: KATHY Insulin Human Lispro (Insulin Lispro 100 Unit/Ml 3 Ml Vial) 0 unit SUBCUT QIDACHS [facility]; Protocol Last Admin: 10/09/24 08:01 Dose: Not Given Documented By: KATHY Non-Admin Reason: No Insulin Coverage Magnesium Hydroxide (Milk Of Magnesia 30 Ml Oral.Susp) 30 ml PO BID PRN PRN Reason: Constipation Melatonin (Melatonin 3 Mg Tablet) 6 mg PO BEDTIME PRN PRN Reason: Insomnia Nystatin (Nystatin Powder 15 Gm Bottle) 1 appl TOPICAL BID [facility]; Protocol Last Admin: 10/09/24 09:21 Dose: 1 appl Documented By: KATHY Polyethylene Glycol (Polyethylene Glycol 3350 17 Gm Powd.Pack) 17 gm PO DAILY [facility] Last Admin: 10/09/24 09:20 Dose: Not Given Documented By: KATHY Non-Admin Reason: Patient Refused Sacubitril/Valsartan (Sacubitril/Valsartan 1 Tab Tablet) 1 tab PO BID [facility]; Protocol Last Admin: 10/09/24 09:19 Dose: 1 tab Documented By: KATHY Sodium Chloride (0.9 % Sodium Chloride Flush 3 Ml Syringe) 3 ml IVFLUSH QSHIFT [facility] Last Admin: 10/09/24 09:20 Dose: 3 ml Documented By: KATHY Labs 10/08/24 07:49 10/09/24 10:54 Labs: Laboratory Results - last 24 hr 10/08/24 10/08/24 10/09/24 16:09 20:35 07:35 Anion Gap Estim Creat Clear Calc Estimated GFR POC Glucose 103 176 H 137 H Random Glucose Calcium Magnesium B-Natriuretic Peptide 10/09/24 10:54 Anion Gap 13 Estim Creat Clear Calc 29.3 Estimated GFR 26 POC Glucose Random Glucose 241 H Calcium 8.6 Magnesium 1.8 B-Natriuretic Peptide 764 H Assessment and Plan (1) Acute on chronic combined systolic and diastolic CHF (congestive heart failure): Status: Acute (2) Paroxysmal atrial fibrillation: Status: Acute Plan d10 for 69yo F with HFrEF, pAF, CKD3, and DM2 presenting with dyspnea, admitted for ADHF acute hypoxic respiratory failure due to acute-chronic HFrEF - TTE Jun 2024 with LVEF 15-20% and grade 2 diastolic dysfunction - carvedilol discontinued due to hypotension - continue Entresto + empagliflozin - will give 1 dose of IV furosemide and recheck labs in AM - negative 7.5L cumulatively this admission - weaned off O2 ZEINAB/CKD3 - close to baseline, monitor closely pAF - AF/RVR vs SVT 10/03 requiring multiple doses of IV medications; HR now controlled in NSR - amiodarone load 10/04-10/19 400 mg bid then 200 mg daily - continue apixaban - needs outpt Cardiology follow-up bronchitis - doxycycline 10/06-10/[address] 10/04 - should have outpt mediastinoscopy hypoK - repleted DM2 - continue correction-dose lispro + empagliflozin VTE ppx - apixaban dispo - STR; CM working on insurance issues In my clinical judgment, the patient requires continued inpatient hospitalization for the following reasons: diuresis, placement Total time managing care of this patient today: 40 minutes. Quality Stroke Does the patient have a stroke diagnosis?: No VTE Prior VTE?: No VTE Risk Level:: Medical - moderate - high VTE Device Contraindication: N/A - Device Ordered VTE Drug Contraindication: N/A - Med Ordered
[2024-10-09 12:12] LABS: Glucose, Whole Blood 246 mg/dL (60-115)
[2024-10-09] MEDS: Furosemide 40 MG/4 ML VIAL IVPUSH (13:07)
[2024-10-09] MEDS: Insulin Lispro 100 UNIT/ML 3 ML VIAL SUBCUT (13:08)
[2024-10-09 16:08] LABS: Glucose, Whole Blood 90 mg/dL (60-115)
[2024-10-09] MEDS: Melatonin 3 MG TABLET 6 MG PO (20:11)
[2024-10-09 20:15] LABS: Glucose, Whole Blood 141 mg/dL (60-115)
[2024-10-10] VITALS (7 sets, daily range): BP systolic 116–134; BP diastolic 56–70; PULSE 59–64; RESP 16–18; TEMP 36.1–37.1; O2SAT 97–99
[2024-10-10 07:22] LABS: Glucose, Whole Blood 124 mg/dL (60-115)
[2024-10-10] MEDS: Sacubitril/Valsartan 24/26 1 TAB TABLET PO ×2 (08:50→20:21)
[2024-10-10] MEDS: Amiodarone HCL 200 MG TABLET 400 MG PO ×2 (08:50→20:21)
[2024-10-10] MEDS: Apixaban 5 MG TABLET PO ×2 (08:50→20:21)
[2024-10-10] MEDS: 0.9 % Sodium Chloride Flush 3 ML SYRINGE IVFLUSH ×3 (08:50→20:20)
[2024-10-10] MEDS: Empagliflozin 10 MG TABLET PO (08:50)
[2024-10-10] MEDS: Doxycycline Monohydrate 100 MG CAPSULE PO ×2 (08:51→20:21)
[2024-10-10] MEDS: Nystatin Powder 15 GM BOTTLE 1 APPL TOPICAL ×2 (08:51→20:23)
--- NOTE | 2024-10-10 11:00 | HO.PM.IMPN ---
Subjective Subjective Date of Service: 10/10/24 Interval History: c/o cough no dyspnea or chest pain refused labs this AM Review of Systems Review of Systems: Yes all other systems are reviewed and are negative Physical Exam Vital Signs: Vital Signs: Last Vital Signs Temp 97.0 F 10/10/24 07:10 Pulse 60 10/10/24 07:10 Resp 18 10/10/24 07:10 BP 132/69 10/10/24 07:10 Pulse Ox 99 10/10/24 07:10 O2 Del Method Room Air 10/10/24 07:10 O2 Flow Rate 6 09/30/24 18:53 Oxygen Flow Rate 6 09/30/24 18:40 BMI result Body Mass Index 34.6 Gen: in no acute distress HEENT: sclera anicteric, moist mucus membranes Neck: supple Lungs: clear to auscultation bilaterally Heart: regular rate and rhythm, no murmurs Abd: soft, non-tender, non-distended Ext: no edema Skin: warm/well-perfused Neuro: alert and oriented x3, no focal findings Psych: appropriate affect Objective Data Active Medications Acetaminophen (Acetaminophen 325 Mg Tablet) 975 mg PO Q6H PRN PRN Reason: Pain, Mild 1-3,fever,headache Last Admin: 10/09/24 20:11 Dose: 975 mg Documented By: MANAN Amiodarone HCl (Amiodarone Hcl 200 Mg Tablet) 400 mg PO BID [facility] Last Admin: 10/10/24 08:50 Dose: 400 mg Documented By: OFELIA Apixaban (Apixaban 5 Mg Tablet) 5 mg PO BID [facility] Last Admin: 10/10/24 08:50 Dose: 5 mg Documented By: OFELIA Bisacodyl (Bisacodyl 10 Mg Supp.Rect) 10 mg [place] BEDTIME PRN PRN Reason: Constipation Dextrose (Dextrose 50 % 25 Gm/50 Ml Syringe) 25 gm IVPUSH Q15M PRN; Protocol PRN Reason: per Hypoglycemia Standing Ord. Doxycycline Monohydrate (Doxycycline Monohydrate 100 Mg Capsule) 100 mg PO Q12H [facility] Last Admin: 10/10/24 08:51 Dose: 100 mg Documented By: OFELIA Empagliflozin (Empagliflozin 10 Mg Tablet) 10 mg PO DAILY [facility] Last Admin: 10/10/24 08:50 Dose: 10 mg Documented By: OFELIA Furosemide (Furosemide 40 Mg Tablet) 40 mg PO DAILY [facility]; Protocol Last Admin: 10/09/24 09:19 Dose: 40 mg Documented By: KATHY Glucose (Glucose Gel 15 Gm Gel..Gram.) 15 gm PO Q15M PRN; Protocol PRN Reason: per Hypoglycemia Standing Ord. Guaifenesin (Guaifenesin 200 Mg/10 Ml 10 Ml Liquid) 10 ml PO TID [facility] Last Admin: 10/10/24 08:53 Dose: Not Given Documented By: OFELIA Non-Admin Reason: Patient Refused Insulin Human Lispro (Insulin Lispro 100 Unit/Ml 3 Ml Vial) 0 unit SUBCUT QIDACHS [facility]; Protocol Last Admin: 10/10/24 08:51 Dose: Not Given Documented By: OFELIA Non-Admin Reason: No Insulin Coverage Magnesium Hydroxide (Milk Of Magnesia 30 Ml Oral.Susp) 30 ml PO BID PRN PRN Reason: Constipation Melatonin (Melatonin 3 Mg Tablet) 6 mg PO BEDTIME PRN PRN Reason: Insomnia Last Admin: 10/09/24 20:11 Dose: 6 mg Documented By: MANAN Nystatin (Nystatin Powder 15 Gm Bottle) 1 appl TOPICAL BID [facility]; Protocol Last Admin: 10/10/24 08:51 Dose: 1 appl Documented By: OFELIA Polyethylene Glycol (Polyethylene Glycol 3350 17 Gm Powd.Pack) 17 gm PO DAILY [facility] Last Admin: 10/10/24 08:51 Dose: Not Given Documented By: OFELIA Non-Admin Reason: Patient Refused Sacubitril/Valsartan (Sacubitril/Valsartan 1 Tab Tablet) 1 tab PO BID [facility]; Protocol Last Admin: 10/10/24 08:50 Dose: 1 tab Documented By: OFELIA Sodium Chloride (0.9 % Sodium Chloride Flush 3 Ml Syringe) 3 ml IVFLUSH QSHIFT [facility] Last Admin: 10/10/24 08:50 Dose: 3 ml Documented By: OFELIA Labs 10/08/24 07:49 10/09/24 10:54 Labs: Laboratory Results - last 24 hr 10/09/24 10/09/24 10/09/24 10:54 11:36 16:02 Anion Gap 13 Estim Creat Clear Calc 29.3 Estimated GFR 26 POC Glucose 246 H 90 Random Glucose 241 H Calcium 8.6 Magnesium 1.8 B-Natriuretic Peptide 764 H 10/09/24 10/10/24 20:04 07:13 Anion Gap Estim Creat Clear Calc Estimated GFR POC Glucose 141 H 124 H Random Glucose Calcium Magnesium B-Natriuretic Peptide Assessment and Plan (1) Acute on chronic combined systolic and diastolic CHF (congestive heart failure): Status: Acute (2) Paroxysmal atrial fibrillation: Status: Acute Plan [id number] 69yo F with HFrEF, pAF, CKD3, and DM2 presenting with dyspnea, admitted for ADHF acute hypoxic respiratory failure due to acute-chronic HFrEF - TTE Jun 2024 with LVEF 15-20% and grade 2 diastolic dysfunction - carvedilol discontinued due to hypotension - continue Entresto + empagliflozin - gave 1 dose of IV furosemide yesterday, recheck labs tomorrow - negative 7.3L cumulatively this admission - weaned off O2 ZEINAB/CKD3 - close to baseline, monitor closely, BMP ordered for tomorrow pAF - AF/RVR vs SVT 10/03 requiring multiple doses of IV medications; HR now controlled in NSR - amiodarone load 10/04-10/19 400 mg bid then 200 mg daily - continue apixaban - needs outpt Cardiology follow-up bronchitis - doxycycline 10/06-10/10; add benzonatate + guaifenesin/DM mediastinal lymphadenopathy on CT 10/04 - should have outpt mediastinoscopy hypoK - repleted DM2 - continue correction-dose lispro + empagliflozin VTE ppx - apixaban dispo - STR; CM working on insurance issues In my clinical judgment, the patient requires continued inpatient hospitalization for the following reasons: diuresis, placement Total time managing care of this patient today: 35 minutes. Quality Stroke Does the patient have a stroke diagnosis?: No VTE Prior VTE?: No VTE Risk Level:: Medical - moderate - high VTE Device Contraindication: N/A - Device Ordered VTE Drug Contraindication: N/A - Med Ordered
[2024-10-10 11:24] LABS: Glucose, Whole Blood 191 mg/dL (60-115)
[2024-10-10] MEDS: Insulin Lispro 100 UNIT/ML 3 ML VIAL SUBCUT ×2 (12:08→20:20)
[2024-10-10 15:33] LABS: Glucose, Whole Blood 120 mg/dL (60-115)
--- NOTE | 2024-10-10 17:08 | PC.NURSE ---
pt refused blood work this am. DR Patel spoke with the patient and pt agreed to do blood work tomorrow
[2024-10-10 19:45] LABS: Glucose, Whole Blood 181 mg/dL (60-115)
[2024-10-10] MEDS: Melatonin 3 MG TABLET 6 MG PO (20:21)
[2024-10-11] VITALS (7 sets, daily range): BP systolic 112–135; BP diastolic 56–67; PULSE 57–61; RESP 16–18; TEMP 36.2–36.6; O2SAT 95–100
[2024-10-11 07:26] LABS: Anion Gap 10 (12-20); Blood Urea Nitrogen 29 mg/dL (9-16); Calcium 9.1 mg/dL (8.4-10.2); Carbon Dioxide 32 mmol/L (22-29); Chloride 105 mmol/L (96-108); Creatinine Clr Calc Pharmacy 28.6; Estimated Glomerular Filt Rate 26; Glucose Random 102 mg/dL (60-115); Magnesium 1.7 mg/dL (1.6-2.6); Sodium 144 mmol/L (135-145)
[2024-10-11 07:33] LABS: B Type Natriuretic Peptide 445 pg/mL (<100)
[2024-10-11 07:41] LABS: Glucose, Whole Blood 123 mg/dL (60-115)
[2024-10-11] MEDS: 0.9 % Sodium Chloride Flush 3 ML SYRINGE IVFLUSH (08:25)
[2024-10-11] MEDS: Amiodarone HCL 200 MG TABLET 400 MG PO ×2 (08:25→20:12)
[2024-10-11] MEDS: Sacubitril/Valsartan 24/26 1 TAB TABLET PO ×2 (08:25→20:12)
[2024-10-11] MEDS: Empagliflozin 10 MG TABLET PO (08:25)
[2024-10-11] MEDS: Apixaban 5 MG TABLET PO ×2 (08:25→20:12)
[2024-10-11] MEDS: Doxycycline Monohydrate 100 MG CAPSULE PO ×2 (08:25→20:12)
[2024-10-11] MEDS: Nystatin Powder 15 GM BOTTLE 1 APPL TOPICAL ×2 (08:26→20:19)
[2024-10-11] MEDS: Potassium Chloride ER 20 MEQ TAB.ER.PRT 40 MEQ PO (09:25)
[2024-10-11] MEDS: Acetaminophen 325 MG TABLET 975 MG PO (09:25)
[2024-10-11 11:09] LABS: Glucose, Whole Blood 243 mg/dL (60-115)
[2024-10-11] MEDS: Insulin Lispro 100 UNIT/ML 3 ML VIAL SUBCUT ×2 (11:52→17:04)
--- NOTE | 2024-10-11 12:20 | P.PNIM_ITS ---
Subjective Subjective Date of Service: 10/11/24 Interval History: c/o cough no chest pain no dyspnea Review of Systems Review of Systems: Yes all other systems are reviewed and are negative Physical Exam 2 Vital Signs: Vital Signs: Last Vital Signs Temp 97.9 F 10/11/24 10:56 Pulse 58 10/11/24 10:56 Resp 18 10/11/24 10:56 BP 112/56 L 10/11/24 10:56 Pulse Ox 100 10/11/24 10:56 O2 Del Method Room Air 10/11/24 10:56 O2 Flow Rate 6 09/30/24 18:53 Oxygen Flow Rate 6 09/30/24 18:40 BMI result Body Mass Index 34.6 Gen: in no acute distress HEENT: sclera anicteric, moist mucus membranes Neck: supple Lungs: clear to auscultation bilaterally Heart: regular rate and rhythm, no murmurs Abd: soft, non-tender, non-distended Ext: no edema Skin: warm/well-perfused Neuro: alert and oriented x3, no focal findings Psych: appropriate affect Objective Data Active Medications Acetaminophen (Acetaminophen 325 Mg Tablet) 975 mg PO Q6H PRN PRN Reason: Pain, Mild 1-3,fever,headache Last Admin: 10/11/24 09:25 Dose: 975 mg Documented By: OFELIA Amiodarone HCl (Amiodarone Hcl 200 Mg Tablet) 400 mg PO BID [facility] Last Admin: 10/11/24 08:25 Dose: 400 mg Documented By: OFELIA Apixaban (Apixaban 5 Mg Tablet) 5 mg PO BID [facility] Last Admin: 10/11/24 08:25 Dose: 5 mg Documented By: OFELIA Benzonatate (Benzonatate 100 Mg Capsule) 200 mg PO TID PRN PRN Reason: Cough Bisacodyl (Bisacodyl 10 Mg Supp.Rect) 10 mg [place] BEDTIME PRN PRN Reason: Constipation Dextrose (Dextrose 50 % 25 Gm/50 Ml Syringe) 25 gm IVPUSH Q15M PRN; Protocol PRN Reason: per Hypoglycemia Standing Ord. Doxycycline Monohydrate (Doxycycline Monohydrate 100 Mg Capsule) 100 mg PO Q12H [facility] Last Admin: 10/11/24 08:25 Dose: 100 mg Documented By: OFELIA Empagliflozin (Empagliflozin 10 Mg Tablet) 10 mg PO DAILY [facility] Last Admin: 10/11/24 08:25 Dose: 10 mg Documented By: OFELIA Furosemide (Furosemide 40 Mg Tablet) 40 mg PO DAILY [facility]; Protocol Last Admin: 10/09/24 09:19 Dose: 40 mg Documented By: KATHY Glucose (Glucose Gel 15 Gm Gel..Gram.) 15 gm PO Q15M PRN; Protocol PRN Reason: per Hypoglycemia Standing Ord. Guaifenesin (Guaifenesin 200 Mg/10 Ml 10 Ml Liquid) 10 ml PO TID [facility] Last Admin: 10/11/24 08:26 Dose: Not Given Documented By: OFELIA Non-Admin Reason: Patient Refused Guaifenesin/Dextromethorphan (Guaifenesin Dm 100/10/5 Ml 5 Ml Syrup) 5 ml PO Q4H PRN PRN Reason: Cough Insulin Human Lispro (Insulin Lispro 100 Unit/Ml 3 Ml Vial) 0 unit SUBCUT QIDACHS [facility]; Protocol Last Admin: 10/11/24 11:52 Dose: 4 unit Documented By: OFELIA Magnesium Hydroxide (Milk Of Magnesia 30 Ml Oral.Susp) 30 ml PO BID PRN PRN Reason: Constipation Melatonin (Melatonin 3 Mg Tablet) 6 mg PO BEDTIME PRN PRN Reason: Insomnia Last Admin: 10/10/24 20:21 Dose: 6 mg Documented By: KULDIP Nystatin (Nystatin Powder 15 Gm Bottle) 1 appl TOPICAL BID [facility]; Protocol Last Admin: 10/11/24 08:26 Dose: 1 appl Documented By: OFELIA Polyethylene Glycol (Polyethylene Glycol 3350 17 Gm Powd.Pack) 17 gm PO DAILY [facility] Last Admin: 10/11/24 08:26 Dose: Not Given Documented By: OFELIA Non-Admin Reason: Patient Refused Sacubitril/Valsartan (Sacubitril/Valsartan 1 Tab Tablet) 1 tab PO BID [facility]; Protocol Last Admin: 10/11/24 08:25 Dose: 1 tab Documented By: OFELIA Sodium Chloride (0.9 % Sodium Chloride Flush 3 Ml Syringe) 3 ml IVFLUSH QSHIFT [facility] Last Admin: 10/11/24 08:25 Dose: 3 ml Documented By: OFELIA Labs 10/08/24 07:49 10/11/24 06:27 Labs: Laboratory Results - last 24 hr 10/10/24 10/10/24 10/11/24 15:29 19:41 06:27 Anion Gap 10 L Estim Creat Clear Calc 28.6 Estimated GFR 26 POC Glucose 120 H 181 H Random Glucose 102 Calcium 9.1 Magnesium 1.7 B-Natriuretic Peptide 445 H 10/11/24 10/11/24 07:35 10:59 Anion Gap Estim Creat Clear Calc Estimated GFR POC Glucose 123 H 243 H Random Glucose Calcium Magnesium B-Natriuretic Peptide Assessment and Plan (1) Acute on chronic combined systolic and diastolic CHF (congestive heart failure): Status: Acute (2) Paroxysmal atrial fibrillation: Status: Acute Plan d12 for 69yo F with HFrEF, pAF, CKD3, and DM2 presenting with dyspnea, admitted for ADHF acute hypoxic respiratory failure due to acute-chronic HFrEF - TTE Jun 2024 with LVEF 15-20% and grade 2 diastolic dysfunction - carvedilol discontinued due to hypotension - continue Entresto + empagliflozin - SCr up a little, hold furosemide for now - negative 6.7L cumulatively this admission - weaned off O2 hypoK - replete PO, recheck tomorrow ZEINAB/CKD3 - hold furosemide, monitor pAF - AF/RVR vs SVT 10/03 requiring multiple doses of IV medications; HR now controlled in NSR - amiodarone load 10/04-10/19 400 mg bid then 200 mg daily - continue apixaban - needs outpt Cardiology follow-up bronchitis - doxycycline 10/06-10/10; addded benzonatate + guaifenesin/DM - repeat RPP mediastinal lymphadenopathy on CT 10/04 - should have outpt mediastinoscopy DM2 - continue correction-dose lispro + empagliflozin VTE ppx - apixaban dispo - STR; CM working on insurance issues In my clinical judgment, the patient requires continued inpatient hospitalization for the following reasons: placement Total time managing care of this patient today: 35 minutes. Quality Stroke Does the patient have a stroke diagnosis?: No VTE Prior VTE?: No VTE Risk Level:: Medical - moderate - high VTE Device Contraindication: N/A - Device Ordered VTE Drug Contraindication: N/A - Med Ordered
[2024-10-11 14:02] LABS: Adenovirus PCR Not Detected (Not Detect.); Bordetella parapertussis PCR Not Detected (Not Detect.); Bordetella pertussis PCR Not Detected (Not Detect.); Chlamydia pneumoniae PCR Not Detected (Not Detect.); Coronavirus 229E PCR Not Detected (Not Detect.); Coronavirus HKU1 PCR Not Detected (Not Detect.); Coronavirus NL63 PCR Not Detected (Not Detect.); Coronavirus OC43 PCR Not Detected (Not Detect.); Human metapneumovirus PCR Not Detected (Not Detect.); Influenza A PCR Not Detected (Not Detect.); Influenza B PCR Not Detected (Not Detect.); Mycoplasma pneumoniae PCR Not Detected (Not Detect.); Parainfluenza 1 PCR Not Detected (Not Detect.); Parainfluenza 2 PCR Not Detected (Not Detect.); Parainfluenza 3 PCR Not Detected (Not Detect.); Parainfluenza 4 PCR Not Detected (Not Detect.); RSV PCR Not Detected (Not Detect.); Rhino/Enterovirus PCR Not Detected (Not Detect.)
[2024-10-11 14:16] LABS: Influenza A H1 PCR Not Detected (Not Detect.); Influenza A H1-2009 PCR Not Detected (Not Detect.); Influenza A H3 PCR Not Detected (Not Detect.); SARS-CoV-2 PCR Not Detected (Not Detect.)
[2024-10-11 15:32] LABS: Glucose, Whole Blood 185 mg/dL (60-115)
[2024-10-11 19:24] LABS: Glucose, Whole Blood 142 mg/dL (60-115)
[2024-10-11] MEDS: Melatonin 3 MG TABLET 6 MG PO (20:11)
[2024-10-12] MEDS: Acetaminophen 325 MG TABLET 975 MG PO (02:49)
[2024-10-12 03:14] VITALS: BP 126/60; PULSE 60; RESP 16; TEMP 36.2; O2SAT 99
[2024-10-12 07:29] LABS: Glucose, Whole Blood 124 mg/dL (60-115)
[2024-10-12 07:32] VITALS: BP 109/61; PULSE 60; RESP 18; TEMP 36.2; O2SAT 100
[2024-10-12] MEDS: Sacubitril/Valsartan 24/26 1 TAB TABLET PO ×2 (08:21→19:37)
[2024-10-12] MEDS: polyethylene glycoL 3350 17 GM POWD.PACK PO (08:22)
[2024-10-12] MEDS: Empagliflozin 10 MG TABLET PO (08:22)
[2024-10-12] MEDS: Doxycycline Monohydrate 100 MG CAPSULE PO ×2 (08:22→19:37)
[2024-10-12] MEDS: Apixaban 5 MG TABLET PO ×2 (08:22→19:37)
[2024-10-12] MEDS: Amiodarone HCL 200 MG TABLET 400 MG PO ×2 (08:22→19:38)
[2024-10-12] MEDS: Nystatin Powder 15 GM BOTTLE 1 APPL TOPICAL ×2 (08:28→19:38)
--- NOTE | 2024-10-12 11:17 | HO.PM.IMPN ---
Subjective Subjective Date of Service: 10/12/24 Interval History: c/o cough no dyspnea refused labs this AM Review of Systems Review of Systems: Yes all other systems are reviewed and are negative Physical Exam Vital Signs: Vital Signs: Last Vital Signs Temp 97.2 F 10/12/24 07:32 Pulse 60 10/12/24 07:32 Resp 18 10/12/24 07:32 BP 109/61 10/12/24 07:32 Pulse Ox 100 10/12/24 07:32 O2 Del Method Room Air 10/12/24 07:32 O2 Flow Rate 6 09/30/24 18:53 Oxygen Flow Rate 6 09/30/24 18:40 BMI result Body Mass Index 34.6 Gen: in no acute distress HEENT: sclera anicteric, moist mucus membranes Neck: supple Lungs: clear to auscultation bilaterally Heart: regular rate and rhythm, no murmurs Abd: soft, non-tender, non-distended Ext: no edema Skin: warm/well-perfused Neuro: alert and oriented x3, no focal findings Psych: appropriate affect Objective Data Active Medications Acetaminophen (Acetaminophen 325 Mg Tablet) 975 mg PO Q6H PRN PRN Reason: Pain, Mild 1-3,fever,headache Last Admin: 10/12/24 02:49 Dose: 975 mg Documented By: MANAN Amiodarone HCl (Amiodarone Hcl 200 Mg Tablet) 400 mg PO BID [facility] Last Admin: 10/12/24 08:22 Dose: 400 mg Documented By: GEORGIA Apixaban (Apixaban 5 Mg Tablet) 5 mg PO BID [facility] Last Admin: 10/12/24 08:22 Dose: 5 mg Documented By: GEORGIA Benzonatate (Benzonatate 100 Mg Capsule) 200 mg PO TID PRN PRN Reason: Cough Bisacodyl (Bisacodyl 10 Mg Supp.Rect) 10 mg [place] BEDTIME PRN PRN Reason: Constipation Dextrose (Dextrose 50 % 25 Gm/50 Ml Syringe) 25 gm IVPUSH Q15M PRN; Protocol PRN Reason: per Hypoglycemia Standing Ord. Doxycycline Monohydrate (Doxycycline Monohydrate 100 Mg Capsule) 100 mg PO Q12H [facility] Last Admin: 10/12/24 08:22 Dose: 100 mg Documented By: GEORGIA Empagliflozin (Empagliflozin 10 Mg Tablet) 10 mg PO DAILY [facility] Last Admin: 10/12/24 08:22 Dose: 10 mg Documented By: GEORGIA Furosemide (Furosemide 40 Mg Tablet) 40 mg PO DAILY [facility]; Protocol Last Admin: 10/09/24 09:19 Dose: 40 mg Documented By: KATHY Glucose (Glucose Gel 15 Gm Gel..Gram.) 15 gm PO Q15M PRN; Protocol PRN Reason: per Hypoglycemia Standing Ord. Guaifenesin (Guaifenesin 200 Mg/10 Ml 10 Ml Liquid) 10 ml PO TID [facility] Last Admin: 10/12/24 08:23 Dose: 10 ml Documented By: GEORGIA Guaifenesin/Dextromethorphan (Guaifenesin Dm 100/10/5 Ml 5 Ml Syrup) 5 ml PO Q4H PRN PRN Reason: Cough Insulin Human Lispro (Insulin Lispro 100 Unit/Ml 3 Ml Vial) 0 unit SUBCUT QIDACHS [facility]; Protocol Last Admin: 10/12/24 07:54 Dose: Not Given Documented By: GEORGIA Non-Admin Reason: No Insulin Coverage Magnesium Hydroxide (Milk Of Magnesia 30 Ml Oral.Susp) 30 ml PO BID PRN PRN Reason: Constipation Melatonin (Melatonin 3 Mg Tablet) 6 mg PO BEDTIME PRN PRN Reason: Insomnia Last Admin: 10/11/24 20:11 Dose: 6 mg Documented By: MANAN Nystatin (Nystatin Powder 15 Gm Bottle) 1 appl TOPICAL BID [facility]; Protocol Last Admin: 10/12/24 08:28 Dose: 1 appl Documented By: GEORGIA Polyethylene Glycol (Polyethylene Glycol 3350 17 Gm Powd.Pack) 17 gm PO DAILY [facility] Last Admin: 10/12/24 08:22 Dose: 17 gm Documented By: GEORGIA Sacubitril/Valsartan (Sacubitril/Valsartan 1 Tab Tablet) 1 tab PO BID [facility]; Protocol Last Admin: 10/12/24 08:21 Dose: 1 tab Documented By: GEORGIA Sodium Chloride (0.9 % Sodium Chloride Flush 3 Ml Syringe) 3 ml IVFLUSH QSHIFT [facility] Last Admin: 10/12/24 07:54 Dose: Not Given Documented By: GEORGIA Non-Admin Reason: No Access Labs 10/08/24 07:49 10/11/24 06:27 Labs: Laboratory Results - last 24 hr 10/11/24 10/11/24 10/11/24 12:06 15:19 19:14 POC Glucose 185 H 142 H Respiratory Panel [place] See Note Adenovirus (Rapid PCR) Not Detected B.pert (TEM-PCR) Not Detected B.parapertussis DNA PCR Not Detected C. pneumoniae DNA (PCR) Not Detected Coronavirus OC43 (PCR) Not Detected Coronavirus HKU1 (PCR) Not Detected Coronavirus 229E (PCR) Not Detected Coronavirus NL63 (PCR) Not Detected Human Metapneumovir PCR Not Detected Influenza A (RT-PCR) Not Detected Influenza A (H1) PCR Not Detected Influ A (H1/) PCR Not Detected Influenza A (H3) PCR Not Detected Influenza B (RT-PCR) Not Detected M. pneumoniae (PCR) Not Detected Parainfluenza 1 (PCR) Not Detected Parainfluenza 2 (PCR) Not Detected Parainfluenza 3 (PCR) Not Detected Parainfluenza 4 (PCR) Not Detected RSV (PCR) Not Detected Entero/Rhino (PCR) Not Detected SARS-CoV-2 RNA (RT-PCR) Not Detected 10/12/24 07:02 POC Glucose 124 H Respiratory Panel [place] Adenovirus (Rapid PCR) B.pert (TEM-PCR) B.parapertussis DNA PCR C. pneumoniae DNA (PCR) Coronavirus OC43 (PCR) Coronavirus HKU1 (PCR) Coronavirus 229E (PCR) Coronavirus NL63 (PCR) Human Metapneumovir PCR Influenza A (RT-PCR) Influenza A (H1) PCR Influ A (H1/) PCR Influenza A (H3) PCR Influenza B (RT-PCR) M. pneumoniae (PCR) Parainfluenza 1 (PCR) Parainfluenza 2 (PCR) Parainfluenza 3 (PCR) Parainfluenza 4 (PCR) RSV (PCR) Entero/Rhino (PCR) SARS-CoV-2 RNA (RT-PCR) Assessment and Plan (1) Acute on chronic combined systolic and diastolic CHF (congestive heart failure): Status: Acute (2) Paroxysmal atrial fibrillation: Status: Acute Plan d13 for 69yo F with HFrEF, pAF, CKD3, and DM2 presenting with dyspnea, admitted for ADHF acute hypoxic respiratory failure due to acute-chronic HFrEF - TTE Jun 2024 with LVEF 15-20% and grade 2 diastolic dysfunction - carvedilol discontinued due to hypotension - continue Entresto + empagliflozin - SCr up a little, hold furosemide for now - negative 6.1L cumulatively this admission - weaned off O2 hypoK - repleted, recheck pending ZEINAB/CKD3 - hold furosemide, recheck pending pAF - AF/RVR vs SVT 10/03 requiring multiple doses of IV medications; HR now controlled in NSR - amiodarone load 10/04-10/19 400 mg bid then 200 mg daily - continue apixaban - needs outpt Cardiology follow-up bronchitis - doxycycline 10/06-10/10; addded benzonatate + guaifenesin/DM - repeat RPP negative mediastinal lymphadenopathy on CT 10/04 - should have outpt mediastinoscopy DM2 - continue correction-dose lispro + empagliflozin VTE ppx - apixaban dispo - STR; CM working on insurance issues In my clinical judgment, the patient requires continued inpatient hospitalization for the following reasons: placement Total time managing care of this patient today: 35 minutes. Quality Stroke Does the patient have a stroke diagnosis?: No VTE Prior VTE?: No VTE Risk Level:: Medical - moderate - high VTE Device Contraindication: N/A - Device Ordered VTE Drug Contraindication: N/A - Med Ordered
[2024-10-12 11:57] LABS: Glucose, Whole Blood 237 mg/dL (60-115)
[2024-10-12] MEDS: Insulin Lispro 100 UNIT/ML 3 ML VIAL SUBCUT (12:09)
[2024-10-12 12:25] VITALS: BP 111/53; PULSE 60; RESP 18; TEMP 36.6; O2SAT 97
[2024-10-12 15:47] VITALS: BP 132/58; PULSE 59; RESP 18; TEMP 36.6; O2SAT 99
[2024-10-12 16:29] LABS: Glucose, Whole Blood 95 mg/dL (60-115)
[2024-10-12 19:04] VITALS: BP 140/67; PULSE 69; RESP 18; TEMP 36.2; O2SAT 99
[2024-10-12] MEDS: Benzonatate 100 MG CAPSULE 200 MG PO (19:37)
[2024-10-12] MEDS: Melatonin 3 MG TABLET 6 MG PO (19:37)
[2024-10-12 20:30] LABS: Glucose, Whole Blood 148 mg/dL (60-115)
[2024-10-12] MEDS: Calcium Carbonate 750 MG TAB.CHEW PO (23:00)
[2024-10-12 23:31] VITALS: BP 130/71; PULSE 68; RESP 18; TEMP 35.9; O2SAT 98
[2024-10-13 03:10] VITALS: BP 140/76; PULSE 67; RESP 18; TEMP 35.7; O2SAT 99
[2024-10-13 07:43] LABS: Glucose, Whole Blood 117 mg/dL (60-115)
[2024-10-13 08:00] VITALS: BP 134/65; PULSE 63; RESP 18; TEMP 36.4; O2SAT 99
[2024-10-13 08:06] LABS: Anion Gap 16 (12-20); Blood Urea Nitrogen 25 mg/dL (9-16); Calcium 9.2 mg/dL (8.4-10.2); Carbon Dioxide 25 mmol/L (22-29); Chloride 109 mmol/L (96-108); Creatinine Clr Calc Pharmacy 31.9; Estimated Glomerular Filt Rate 29; Glucose Random 118 mg/dL (60-115); Potassium 3.6 mmol/L (3.3-5.1); Sodium 146 mmol/L (135-145)
[2024-10-13 08:13] LABS: B Type Natriuretic Peptide 1276 pg/mL (<100)
[2024-10-13] MEDS: Amiodarone HCL 200 MG TABLET 400 MG PO ×2 (09:57→21:38)
[2024-10-13 09:59] VITALS: BP 142/62
[2024-10-13] MEDS: Sacubitril/Valsartan 24/26 1 TAB TABLET PO ×2 (09:59→21:38)
[2024-10-13] MEDS: Doxycycline Monohydrate 100 MG CAPSULE PO ×2 (10:01→21:38)
[2024-10-13] MEDS: polyethylene glycoL 3350 17 GM POWD.PACK PO (10:01)
[2024-10-13] MEDS: Empagliflozin 10 MG TABLET PO (10:01)
[2024-10-13] MEDS: Apixaban 5 MG TABLET PO ×2 (10:01→21:38)
[2024-10-13] MEDS: Benzonatate 100 MG CAPSULE 200 MG PO (10:01)
[2024-10-13] MEDS: Nystatin Powder 15 GM BOTTLE 1 APPL TOPICAL ×2 (10:05→21:39)
--- NOTE | 2024-10-13 10:06 | HO.PM.IMPN ---
Subjective Subjective Date of Service: 10/13/24 Interval History: no new complaints Review of Systems Review of Systems: Yes all other systems are reviewed and are negative Physical Exam Vital Signs: Vital Signs: Last Vital Signs Temp 97.6 F 10/13/24 08:00 Pulse 63 10/13/24 08:00 Resp 18 10/13/24 08:00 BP 134/65 10/13/24 08:00 Pulse Ox 99 10/13/24 08:00 O2 Del Method Room Air 10/13/24 08:00 O2 Flow Rate 6 09/30/24 18:53 Oxygen Flow Rate 6 09/30/24 18:40 BMI result Body Mass Index 34.6 Gen: in no acute distress HEENT: sclera anicteric, moist mucus membranes Neck: supple Lungs: clear to auscultation bilaterally Heart: regular rate and rhythm, no murmurs Abd: soft, non-tender, non-distended Ext: no edema Skin: warm/well-perfused Neuro: alert and oriented x3, no focal findings Psych: appropriate affect Objective Data Active Medications Acetaminophen (Acetaminophen 325 Mg Tablet) 975 mg PO Q6H PRN PRN Reason: Pain, Mild 1-3,fever,headache Last Admin: 10/12/24 02:49 Dose: 975 mg Documented By: MANAN Amiodarone HCl (Amiodarone Hcl 200 Mg Tablet) 400 mg PO BID [facility] Last Admin: 10/12/24 19:38 Dose: 400 mg Documented By: MANAN Apixaban (Apixaban 5 Mg Tablet) 5 mg PO BID [facility] Last Admin: 10/12/24 19:37 Dose: 5 mg Documented By: MANAN Benzonatate (Benzonatate 100 Mg Capsule) 200 mg PO TID PRN PRN Reason: Cough Last Admin: 10/12/24 19:37 Dose: 200 mg Documented By: MANAN Bisacodyl (Bisacodyl 10 Mg Supp.Rect) 10 mg [place] BEDTIME PRN PRN Reason: Constipation Calcium Carbonate (Calcium Carbonate 750 Mg Tab.Chew) 750 mg PO Q6H PRN PRN Reason: Heartburn Last Admin: 10/12/24 23:00 Dose: 750 mg Documented By: MANAN Dextrose (Dextrose 50 % 25 Gm/50 Ml Syringe) 25 gm IVPUSH Q15M PRN; Protocol PRN Reason: per Hypoglycemia Standing Ord. Doxycycline Monohydrate (Doxycycline Monohydrate 100 Mg Capsule) 100 mg PO Q12H [facility] Last Admin: 10/12/24 19:37 Dose: 100 mg Documented By: MANAN Empagliflozin (Empagliflozin 10 Mg Tablet) 10 mg PO DAILY [facility] Last Admin: 10/12/24 08:22 Dose: 10 mg Documented By: GEORGIA Furosemide (Furosemide 40 Mg Tablet) 40 mg PO DAILY [facility]; Protocol Last Admin: 10/09/24 09:19 Dose: 40 mg Documented By: KATHY Glucose (Glucose Gel 15 Gm Gel..Gram.) 15 gm PO Q15M PRN; Protocol PRN Reason: per Hypoglycemia Standing Ord. Guaifenesin (Guaifenesin 200 Mg/10 Ml 10 Ml Liquid) 10 ml PO TID [facility] Last Admin: 10/12/24 19:38 Dose: Not Given Documented By: MANAN Non-Admin Reason: Patient Refused Guaifenesin/Dextromethorphan (Guaifenesin Dm 100/10/5 Ml 5 Ml Syrup) 5 ml PO Q4H PRN PRN Reason: Cough Insulin Human Lispro (Insulin Lispro 100 Unit/Ml 3 Ml Vial) 0 unit SUBCUT QIDACHS [facility]; Protocol Last Admin: 10/13/24 07:48 Dose: Not Given Documented By: GEORGIA Non-Admin Reason: No Insulin Coverage Magnesium Hydroxide (Milk Of Magnesia 30 Ml Oral.Susp) 30 ml PO BID PRN PRN Reason: Constipation Melatonin (Melatonin 3 Mg Tablet) 6 mg PO BEDTIME PRN PRN Reason: Insomnia Last Admin: 10/12/24 19:37 Dose: 6 mg Documented By: MANAN Nystatin (Nystatin Powder 15 Gm Bottle) 1 appl TOPICAL BID [facility]; Protocol Last Admin: 10/12/24 19:38 Dose: 1 appl Documented By: MANAN Polyethylene Glycol (Polyethylene Glycol 3350 17 Gm Powd.Pack) 17 gm PO DAILY [facility] Last Admin: 10/12/24 08:22 Dose: 17 gm Documented By: GEORGIA Sacubitril/Valsartan (Sacubitril/Valsartan 1 Tab Tablet) 1 tab PO BID [facility]; Protocol Last Admin: 10/12/24 19:37 Dose: 1 tab Documented By: MANAN Sodium Chloride (0.9 % Sodium Chloride Flush 3 Ml Syringe) 3 ml IVFLUSH QSHIFT [facility] Last Admin: 10/12/24 19:42 Dose: Not Given Documented By: MANAN Non-Admin Reason: No Access Labs 10/08/24 07:49 10/13/24 06:59 Labs: Laboratory Results - last 24 hr 10/12/24 10/12/24 10/12/24 11:53 16:25 20:26 Hold Purple Top Anion Gap Estim Creat Clear Calc Estimated GFR POC Glucose 237 H 95 148 H Random Glucose Calcium B-Natriuretic Peptide 10/13/24 10/13/24 06:59 07:39 Hold Purple Top SEE NOTE Anion Gap 16 Estim Creat Clear Calc 31.9 Estimated GFR 29 POC Glucose 117 H Random Glucose 118 H Calcium 9.2 B-Natriuretic Peptide 1276 H Assessment and Plan (1) Acute on chronic combined systolic and diastolic CHF (congestive heart failure): Status: Acute (2) Paroxysmal atrial fibrillation: Status: Acute Plan d14 for 69yo F with HFrEF, pAF, CKD3, and DM2 presenting with dyspnea, admitted for ADHF acute hypoxic respiratory failure due to acute-chronic HFrEF - TTE Jun 2024 with LVEF 15-20% and grade 2 diastolic dysfunction - carvedilol discontinued due to hypotension - continue Entresto + empagliflozin - restart PO furosemide - negative 5.2L cumulatively this admission - weaned off O2 hypoK - repleted mild hyperNa - encourage free water intake, recheck level tomorrow ZEINAB/CKD3 - hold furosemide, recheck pending pAF - AF/RVR vs SVT 10/03 requiring multiple doses of IV medications; HR now controlled in NSR - amiodarone load 10/04-10/19 400 mg bid then 200 mg daily - continue apixaban - needs outpt Cardiology follow-up bronchitis - doxycycline 10/06-10/10; addded benzonatate + guaifenesin/DM - repeat RPP negative mediastinal lymphadenopathy on CT 10/04 - should have outpt mediastinoscopy DM2 - continue correction-dose lispro + empagliflozin VTE ppx - apixaban dispo - STR; CM working on insurance issues In my clinical judgment, the patient requires continued inpatient hospitalization for the following reasons: placement Total time managing care of this patient today: 45 minutes. Quality Stroke Does the patient have a stroke diagnosis?: No VTE Prior VTE?: No VTE Risk Level:: Medical - moderate - high VTE Device Contraindication: N/A - Device Ordered VTE Drug Contraindication: N/A - Med Ordered
[2024-10-13 11:38] LABS: Glucose, Whole Blood 183 mg/dL (60-115)
[2024-10-13] MEDS: Insulin Lispro 100 UNIT/ML 3 ML VIAL SUBCUT ×2 (12:00→21:38)
[2024-10-13] MEDS: Lidocaine 4 % Patch ADH..PATCH 1 PATCH TRANSDERMA (12:00)
[2024-10-13 15:48] VITALS: BP 141/70; PULSE 64; RESP 18; TEMP 36.4; O2SAT 98
[2024-10-13 16:11] LABS: Glucose, Whole Blood 101 mg/dL (60-115)
[2024-10-13 19:38] VITALS: BP 160/75; PULSE 66; RESP 16; TEMP 36.6; O2SAT 97
[2024-10-13 20:17] LABS: Glucose, Whole Blood 161 mg/dL (60-115)
[2024-10-13] MEDS: guaiFENesin 200 MG/10 ML 10 ML LIQUID PO (21:38)
[2024-10-14 03:55] VITALS: BP 165/77; PULSE 62; RESP 16; TEMP 36.6; O2SAT 97
[2024-10-14 07:21] LABS: Glucose, Whole Blood 117 mg/dL (60-115)
[2024-10-14 07:45] VITALS: BP 144/62; PULSE 57; RESP 18; TEMP 37.2; O2SAT 98
[2024-10-14] MEDS: Doxycycline Monohydrate 100 MG CAPSULE PO (09:24)
[2024-10-14] MEDS: Benzonatate 100 MG CAPSULE 200 MG PO (09:24)
[2024-10-14] MEDS: Apixaban 5 MG TABLET PO ×2 (09:24→20:59)
[2024-10-14] MEDS: Amiodarone HCL 200 MG TABLET 400 MG PO ×2 (09:24→20:58)
[2024-10-14] MEDS: Furosemide 40 MG TABLET PO (09:24)
[2024-10-14] MEDS: Sacubitril/Valsartan 24/26 1 TAB TABLET PO ×2 (09:25→20:59)
[2024-10-14] MEDS: Empagliflozin 10 MG TABLET PO (09:25)
[2024-10-14] MEDS: Nystatin Powder 15 GM BOTTLE 1 APPL TOPICAL ×2 (09:25→21:00)
--- NOTE | 2024-10-14 09:47 | HO.PM.IMPN ---
Subjective Subjective Date of Service: 10/14/24 Interval History: no dyspnea no edema Review of Systems Review of Systems: Yes all other systems are reviewed and are negative Physical Exam Vital Signs: Vital Signs: Last Vital Signs Temp 98.9 F 10/14/24 07:45 Pulse 57 10/14/24 07:45 Resp 18 10/14/24 07:45 BP 144/62 H 10/14/24 07:45 Pulse Ox 98 10/14/24 07:45 O2 Del Method Room Air 10/14/24 07:45 O2 Flow Rate 6 09/30/24 18:53 Oxygen Flow Rate 6 09/30/24 18:40 BMI result Body Mass Index 34.6 Gen: in no acute distress HEENT: sclera anicteric, moist mucus membranes Neck: supple Lungs: clear to auscultation bilaterally Heart: regular rate and rhythm, no murmurs Abd: soft, non-tender, non-distended Ext: no edema Skin: warm/well-perfused Neuro: alert and oriented x3, no focal findings Psych: restricted affect Objective Data Active Medications Acetaminophen (Acetaminophen 325 Mg Tablet) 975 mg PO Q6H PRN PRN Reason: Pain, Mild 1-3,fever,headache Last Admin: 10/12/24 02:49 Dose: 975 mg Documented By: MANAN Amiodarone HCl (Amiodarone Hcl 200 Mg Tablet) 400 mg PO BID [facility] Last Admin: 10/14/24 09:24 Dose: 400 mg Documented By: GEORGIA Apixaban (Apixaban 5 Mg Tablet) 5 mg PO BID [facility] Last Admin: 10/14/24 09:24 Dose: 5 mg Documented By: GEORGIA Benzonatate (Benzonatate 100 Mg Capsule) 200 mg PO TID PRN PRN Reason: Cough Last Admin: 10/14/24 09:24 Dose: 200 mg Documented By: GEORGIA Bisacodyl (Bisacodyl 10 Mg Supp.Rect) 10 mg [place] BEDTIME PRN PRN Reason: Constipation Calcium Carbonate (Calcium Carbonate 750 Mg Tab.Chew) 750 mg PO Q6H PRN PRN Reason: Heartburn Last Admin: 10/12/24 23:00 Dose: 750 mg Documented By: MANAN Dextrose (Dextrose 50 % 25 Gm/50 Ml Syringe) 25 gm IVPUSH Q15M PRN; Protocol PRN Reason: per Hypoglycemia Standing Ord. Doxycycline Monohydrate (Doxycycline Monohydrate 100 Mg Capsule) 100 mg PO Q12H [facility] Last Admin: 10/14/24 09:24 Dose: 100 mg Documented By: GEORGIA Empagliflozin (Empagliflozin 10 Mg Tablet) 10 mg PO DAILY [facility] Last Admin: 10/14/24 09:25 Dose: 10 mg Documented By: GEORGIA Furosemide (Furosemide 40 Mg Tablet) 40 mg PO DAILY [facility]; Protocol Last Admin: 10/14/24 09:24 Dose: 40 mg Documented By: GEORGIA Glucose (Glucose Gel 15 Gm Gel..Gram.) 15 gm PO Q15M PRN; Protocol PRN Reason: per Hypoglycemia Standing Ord. Guaifenesin (Guaifenesin 200 Mg/10 Ml 10 Ml Liquid) 10 ml PO TID [facility] Last Admin: 10/14/24 09:25 Dose: Not Given Documented By: GEORGIA Non-Admin Reason: Patient Refused Guaifenesin/Dextromethorphan (Guaifenesin Dm 100/10/5 Ml 5 Ml Syrup) 5 ml PO Q4H PRN PRN Reason: Cough Insulin Human Lispro (Insulin Lispro 100 Unit/Ml 3 Ml Vial) 0 unit SUBCUT QIDACHS [facility]; Protocol Last Admin: 10/14/24 07:27 Dose: Not Given Documented By: GEORGIA Non-Admin Reason: No Insulin Coverage Lidocaine (Lidocaine 4 % Patch Adh..Patch) 1 patch TRANSDERMA DAILY [facility]; Protocol Last Admin: 10/14/24 09:25 Dose: Not Given Documented By: GEORGIA Non-Admin Reason: Patient Refused Magnesium Hydroxide (Milk Of Magnesia 30 Ml Oral.Susp) 30 ml PO BID PRN PRN Reason: Constipation Melatonin (Melatonin 3 Mg Tablet) 6 mg PO BEDTIME PRN PRN Reason: Insomnia Last Admin: 10/12/24 19:37 Dose: 6 mg Documented By: MANAN Nystatin (Nystatin Powder 15 Gm Bottle) 1 appl TOPICAL BID [facility]; Protocol Last Admin: 10/14/24 09:25 Dose: 1 appl Documented By: GEORGIA Polyethylene Glycol (Polyethylene Glycol 3350 17 Gm Powd.Pack) 17 gm PO DAILY [facility] Last Admin: 10/14/24 09:27 Dose: Not Given Documented By: GEORGIA Non-Admin Reason: Patient Refused Sacubitril/Valsartan (Sacubitril/Valsartan 1 Tab Tablet) 1 tab PO BID [facility]; Protocol Last Admin: 10/14/24 09:25 Dose: 1 tab Documented By: GEORGIA Sodium Chloride (0.9 % Sodium Chloride Flush 3 Ml Syringe) 3 ml IVFLUSH QSHIFT [facility] Last Admin: 10/14/24 09:25 Dose: Not Given Documented By: GEORGIA Non-Admin Reason: No Access Labs 10/08/24 07:49 10/13/24 06:59 Labs: Laboratory Results - last 24 hr 10/13/24 10/13/24 10/13/24 11:34 15:54 20:12 POC Glucose 183 H 101 161 H 10/14/24 07:16 POC Glucose 117 H Assessment and Plan (1) Acute on chronic combined systolic and diastolic CHF (congestive heart failure): Status: Acute (2) Paroxysmal atrial fibrillation: Status: Acute Plan d15 for 69yo F with HFrEF, pAF, CKD3, and DM2 presenting with dyspnea, admitted for ADHF acute hypoxic respiratory failure due to acute-chronic HFrEF - TTE Jun 2024 with LVEF 15-20% and grade 2 diastolic dysfunction - carvedilol discontinued due to hypotension - continue Entresto + empagliflozin - restarted PO furosemide - negative 6.6 L cumulatively this admission - weaned off O2 hypoK - repleted mild hyperNa - encourage free water intake, recheck level tomorrow ZEINAB/CKD3 - restart PO furosemide, recheck BMP tomorrow pAF - AF/RVR vs SVT 10/03 requiring multiple doses of IV medications; HR now controlled in NSR - amiodarone load 10/04-10/19 400 mg bid then 200 mg daily - continue apixaban - needs outpt Cardiology follow-up bronchitis - completed doxycycline x8d; benzonatate + guaifenesin/DM for symptom relief - repeat RPP negative mediastinal lymphadenopathy on CT 10/04 - should have outpt mediastinoscopy DM2 - continue correction-dose lispro + empagliflozin VTE ppx - apixaban dispo - [facility]; CM working on insurance issues In my clinical judgment, the patient requires continued inpatient hospitalization for the following reasons: placement Total time managing care of this patient today: 35 minutes. Quality Stroke Does the patient have a stroke diagnosis?: No VTE Prior VTE?: No VTE Risk Level:: Medical - moderate - high VTE Device Contraindication: N/A - Device Ordered VTE Drug Contraindication: N/A - Med Ordered
[2024-10-14 11:40] VITALS: BP 153/74; PULSE 62; RESP 18; TEMP 36.9; O2SAT 98
--- NOTE | 2024-10-14 11:57 | PC.NURSE ---
called patient sister,left message with number to call if has questions
[2024-10-14 12:04] LABS: Glucose, Whole Blood 185 mg/dL (60-115)
[2024-10-14] MEDS: Insulin Lispro 100 UNIT/ML 3 ML VIAL SUBCUT ×2 (13:35→20:59)
--- NOTE | 2024-10-14 14:56 | P.CDIM_ITS ---
PROVIDER RESPONSE TEXT: To clarify, the appropriate diagnosis supported by the clinical indicators: Acute bronchitis QUERY TEXT: PHYSICIAN'S DOCUMENTATION REQUEST Date of Query: 10/14/2024 08:00 AM EDT Patient Name: Elizabeth Russell Admit Date: 10/01/2024 Dear Marin Patel MD, A review of the medical record indicates additional documentation may be needed. Please review below and update the documentation accordingly. Clinical Indicators: Progress notes: Cough due to possible bronchitis. Chest Ct negative for pna Symptomatic treatment. Start IV doxycycyline. Clarify which of the following accurately represents the acuity/specifics to the noted Bronchitis: Possible options might include: Acute bronchitis Chronic bronchitis Chemical bronchitis Viral bronchitis Asthmatic bronchitis Other specifics to the bronchitis Other (explain) Clinically unable to determine (explain) Thank you, Adrianne De La Vega, CCS, CDIS Use of terms such as suspected, likely, concern for, or probable (associated with a specific diagnosi s that is being evaluated, monitored, or treated as if it exists) are acceptable and can be coded in the inpatient se tting, when documented at the time of discharge. Please use your independent medical judgment in providing your response. THIS QUERY IS PART OF THE PERMANENT MEDICAL RECORD
[2024-10-14 15:25] VITALS: BP 128/62; PULSE 61; RESP 18; TEMP 36.1; O2SAT 97
[2024-10-14 16:01] LABS: Glucose, Whole Blood 142 mg/dL (60-115)
[2024-10-14 19:01] VITALS: BP 122/60; PULSE 61; RESP 18; TEMP 36.2; O2SAT 98
[2024-10-14 20:11] LABS: Glucose, Whole Blood 154 mg/dL (60-115)
[2024-10-14] MEDS: Throat Lozenge, Medicated LOZENGE 1 LOZENGE MUCOUS MEM (20:59)
[2024-10-15 03:24] VITALS: BP 162/72; PULSE 63; RESP 14; TEMP 36.1; O2SAT 98
[2024-10-15 06:23] LABS: Anion Gap 13 (12-20); Blood Urea Nitrogen 26 mg/dL (9-16); Calcium 9.2 mg/dL (8.4-10.2); Carbon Dioxide 29 mmol/L (22-29); Chloride 107 mmol/L (96-108); Creatinine Clr Calc Pharmacy 28.4; Estimated Glomerular Filt Rate 26; Glucose Random 94 mg/dL (60-115); Potassium 3.3 mmol/L (3.3-5.1); Sodium 146 mmol/L (135-145)
[2024-10-15 06:29] LABS: B Type Natriuretic Peptide 909 pg/mL (<100)
[2024-10-15 07:17] VITALS: BP 137/65; PULSE 60; RESP 14; O2SAT 98
[2024-10-15 07:17] LABS: Glucose, Whole Blood 91 mg/dL (60-115)
[2024-10-15 07:38] VITALS: TEMP 36.3
[2024-10-15] MEDS: Amiodarone HCL 200 MG TABLET 400 MG PO ×2 (07:55→22:34)
[2024-10-15] MEDS: Furosemide 40 MG TABLET PO (07:55)
[2024-10-15] MEDS: Sacubitril/Valsartan 24/26 1 TAB TABLET PO ×2 (07:55→22:34)
[2024-10-15] MEDS: Apixaban 5 MG TABLET PO ×2 (07:56→22:29)
[2024-10-15] MEDS: Empagliflozin 10 MG TABLET PO (07:56)
[2024-10-15] MEDS: Lidocaine 4 % Patch ADH..PATCH 1 PATCH TRANSDERMA (08:01)
--- NOTE | 2024-10-15 10:55 | P.PNIM_ITS ---
Subjective Subjective Date of Service: 10/15/24 Interval History: no new complaints Review of Systems Review of Systems: Yes all other systems are reviewed and are negative Physical Exam 2 Vital Signs: Vital Signs: Last Vital Signs Temp 97.3 F 10/15/24 07:38 Pulse 60 10/15/24 07:17 Resp 14 10/15/24 07:17 BP 137/65 10/15/24 07:17 Pulse Ox 98 10/15/24 07:17 O2 Del Method Room Air 10/15/24 07:17 O2 Flow Rate 6 09/30/24 18:53 Oxygen Flow Rate 6 09/30/24 18:40 BMI result Body Mass Index 34.6 Gen: in no acute distress HEENT: sclera anicteric, moist mucus membranes Neck: supple Lungs: clear to auscultation bilaterally Heart: regular rate and rhythm, no murmurs Abd: soft, non-tender, non-distended Ext: no edema Skin: warm/well-perfused Neuro: alert and oriented x3, no focal findings Psych: restricted affect Objective Data Active Medications Acetaminophen (Acetaminophen 325 Mg Tablet) 975 mg PO Q6H PRN PRN Reason: Pain, Mild 1-3,fever,headache Last Admin: 10/12/24 02:49 Dose: 975 mg Documented By: MANAN Amiodarone HCl (Amiodarone Hcl 200 Mg Tablet) 400 mg PO BID [facility] Last Admin: 10/15/24 07:55 Dose: 400 mg Documented By: CLAIR Apixaban (Apixaban 5 Mg Tablet) 5 mg PO BID [facility] Last Admin: 10/15/24 07:56 Dose: 5 mg Documented By: CLAIR Benzocaine (Throat Lozenge, Medicated Lozenge) 1 lozenge MUCOUS MEM Q2H PRN PRN Reason: Sore Throat Last Admin: 10/14/24 20:59 Dose: 1 lozenge Documented By: TRINI-CONNDorothy Benzonatate (Benzonatate 100 Mg Capsule) 200 mg PO TID PRN PRN Reason: Cough Last Admin: 10/14/24 09:24 Dose: 200 mg Documented By: GEORGIA Bisacodyl (Bisacodyl 10 Mg Supp.Rect) 10 mg [place] BEDTIME PRN PRN Reason: Constipation Calcium Carbonate (Calcium Carbonate 750 Mg Tab.Chew) 750 mg PO Q6H PRN PRN Reason: Heartburn Last Admin: 10/12/24 23:00 Dose: 750 mg Documented By: MANAN Dextrose (Dextrose 50 % 25 Gm/50 Ml Syringe) 25 gm IVPUSH Q15M PRN; Protocol PRN Reason: per Hypoglycemia Standing Ord. Empagliflozin (Empagliflozin 10 Mg Tablet) 10 mg PO DAILY [facility] Last Admin: 10/15/24 07:56 Dose: 10 mg Documented By: CLAIR Furosemide (Furosemide 40 Mg Tablet) 40 mg PO DAILY [facility]; Protocol Last Admin: 10/15/24 07:55 Dose: 40 mg Documented By: CLAIR Glucose (Glucose Gel 15 Gm Gel..Gram.) 15 gm PO Q15M PRN; Protocol PRN Reason: per Hypoglycemia Standing Ord. Guaifenesin (Guaifenesin 200 Mg/10 Ml 10 Ml Liquid) 10 ml PO TID [facility] Last Admin: 10/15/24 07:57 Dose: Not Given Documented By: CLAIR Non-Admin Reason: Patient Refused Guaifenesin/Dextromethorphan (Guaifenesin Dm 100/10/5 Ml 5 Ml Syrup) 5 ml PO Q4H PRN PRN Reason: Cough Insulin Human Lispro (Insulin Lispro 100 Unit/Ml 3 Ml Vial) 0 unit SUBCUT QIDACHS [facility]; Protocol Last Admin: 10/15/24 07:25 Dose: Not Given Documented By: CLAIR Non-Admin Reason: No Insulin Coverage Lidocaine (Lidocaine 4 % Patch Adh..Patch) 1 patch TRANSDERMA DAILY [facility]; Protocol Last Admin: 10/15/24 08:01 Dose: 1 patch Documented By: CLAIR Magnesium Hydroxide (Milk Of Magnesia 30 Ml Oral.Susp) 30 ml PO BID PRN PRN Reason: Constipation Melatonin (Melatonin 3 Mg Tablet) 6 mg PO BEDTIME PRN PRN Reason: Insomnia Last Admin: 10/12/24 19:37 Dose: 6 mg Documented By: MANAN Nystatin (Nystatin Powder 15 Gm Bottle) 1 appl TOPICAL BID [facility]; Protocol Last Admin: 10/15/24 08:06 Dose: Not Given Documented By: CLAIR Non-Admin Reason: Patient Refused Polyethylene Glycol (Polyethylene Glycol 3350 17 Gm Powd.Pack) 17 gm PO DAILY [facility] Last Admin: 10/15/24 07:59 Dose: Not Given Documented By: CLAIR Non-Admin Reason: Patient Refused Sacubitril/Valsartan (Sacubitril/Valsartan 1 Tab Tablet) 1 tab PO BID [facility]; Protocol Last Admin: 10/15/24 07:55 Dose: 1 tab Documented By: CLAIR Sodium Chloride (0.9 % Sodium Chloride Flush 3 Ml Syringe) 3 ml IVFLUSH QSHIFT [facility] Last Admin: 10/15/24 07:52 Dose: Not Given Documented By: CLAIR Non-Admin Reason: No Insulin Coverage Labs 10/08/24 07:49 10/15/24 05:27 Labs: Laboratory Results - last 24 hr 10/14/24 10/14/24 10/14/24 11:38 15:56 19:51 Anion Gap Estim Creat Clear Calc Estimated GFR POC Glucose 185 H 142 H 154 H Random Glucose Calcium B-Natriuretic Peptide 10/15/24 10/15/24 05:27 07:09 Anion Gap 13 Estim Creat Clear Calc 28.4 Estimated GFR 26 POC Glucose 91 Random Glucose 94 Calcium 9.2 B-Natriuretic Peptide 909 H Assessment and Plan (1) Acute on chronic combined systolic and diastolic CHF (congestive heart failure): Status: Acute (2) Paroxysmal atrial fibrillation: Status: Acute Plan d16 for 69yo F with HFrEF, pAF, CKD3, and DM2 presenting with dyspnea, admitted for ADHF acute hypoxic respiratory failure due to acute-chronic HFrEF - TTE Jun 2024 with LVEF 15-20% and grade 2 diastolic dysfunction - carvedilol discontinued due to hypotension - continue Entresto + empagliflozin - restarted PO furosemide - negative 6.14 L cumulatively this admission - weaned off O2 hypoK - repleted mild hyperNa - encourage free water intake, recheck level in 2d ZEINAB/CKD3 - restarted PO furosemide, recheck lytes in 2d pAF - AF/RVR vs SVT 10/03 requiring multiple doses of IV medications; HR now controlled in NSR - amiodarone load 10/04-10/19 400 mg bid then 200 mg daily - continue apixaban - needs outpt Cardiology follow-up bronchitis - completed doxycycline x8d; benzonatate + guaifenesin/DM for symptom relief - repeat RPP negative mediastinal lymphadenopathy on CT 10/04 - should have outpt mediastinoscopy DM2 - continue correction-dose lispro + empagliflozin VTE ppx - apixaban dispo - [facility]; CM working on insurance issues In my clinical judgment, the patient requires continued inpatient hospitalization for the following reasons: placement Total time managing care of this patient today: 35 minutes. Quality Stroke Does the patient have a stroke diagnosis?: No VTE Prior VTE?: No VTE Risk Level:: Medical - moderate - high VTE Device Contraindication: N/A - Device Ordered VTE Drug Contraindication: N/A - Med Ordered
[2024-10-15 11:25] LABS: Glucose, Whole Blood 245 mg/dL (60-115)
[2024-10-15] MEDS: Insulin Lispro 100 UNIT/ML 3 ML VIAL SUBCUT ×2 (12:05→22:30)
[2024-10-15 15:20] VITALS: BP 132/61; PULSE 64; RESP 18; TEMP 36.8; O2SAT 98
[2024-10-15 16:13] LABS: Glucose, Whole Blood 108 mg/dL (60-115)
[2024-10-15 19:23] VITALS: BP 130/60; PULSE 64; RESP 18; TEMP 36.5; O2SAT 97
[2024-10-15 20:27] LABS: Glucose, Whole Blood 203 mg/dL (60-115)
[2024-10-15 22:34] VITALS: BP 173/74
[2024-10-16 03:32] VITALS: BP 141/70; PULSE 59; RESP 16; TEMP 36.2; O2SAT 98
[2024-10-16 07:22] LABS: Glucose, Whole Blood 94 mg/dL (60-115)
[2024-10-16 07:59] VITALS: BP 159/85; PULSE 57; RESP 18; TEMP 36.4; O2SAT 97
[2024-10-16 09:13] VITALS: BP 159/85
[2024-10-16] MEDS: Amiodarone HCL 200 MG TABLET 400 MG PO ×2 (09:13→20:00)
[2024-10-16] MEDS: Apixaban 5 MG TABLET PO ×2 (09:13→20:00)
[2024-10-16] MEDS: Empagliflozin 10 MG TABLET PO (09:13)
[2024-10-16] MEDS: Sacubitril/Valsartan 24/26 1 TAB TABLET PO (09:13)
[2024-10-16 09:14] VITALS: BP 159/85
[2024-10-16] MEDS: Lidocaine 4 % Patch ADH..PATCH 1 PATCH TRANSDERMA (09:14)
[2024-10-16] MEDS: Furosemide 40 MG TABLET PO (09:14)
--- NOTE | 2024-10-16 09:51 | HO.PM.IMPN ---
Subjective Subjective Date of Service: 10/16/24 Interval History: cough improved; no other complaints Review of Systems Review of Systems: Yes all other systems are reviewed and are negative Physical Exam Vital Signs: Vital Signs: Last Vital Signs Temp 97.6 F 10/16/24 07:59 Pulse 57 10/16/24 07:59 Resp 18 10/16/24 07:59 BP 159/85 H 10/16/24 09:14 Pulse Ox 97 10/16/24 07:59 O2 Del Method Room Air 10/16/24 07:59 O2 Flow Rate 6 09/30/24 18:53 Oxygen Flow Rate 6 09/30/24 18:40 BMI result Body Mass Index 34.6 Gen: in no acute distress HEENT: sclera anicteric, moist mucus membranes Neck: supple Lungs: clear to auscultation bilaterally Heart: regular rate and rhythm, no murmurs Abd: soft, non-tender, non-distended Ext: no edema Skin: warm/well-perfused Neuro: alert and oriented x3, no focal findings Psych: restricted affect Objective Data Active Medications Acetaminophen (Acetaminophen 325 Mg Tablet) 975 mg PO Q6H PRN PRN Reason: Pain, Mild 1-3,fever,headache Last Admin: 10/12/24 02:49 Dose: 975 mg Documented By: MANAN Amiodarone HCl (Amiodarone Hcl 200 Mg Tablet) 400 mg PO BID [facility] Last Admin: 10/16/24 09:13 Dose: 400 mg Documented By: NATTY Apixaban (Apixaban 5 Mg Tablet) 5 mg PO BID [facility] Last Admin: 10/16/24 09:13 Dose: 5 mg Documented By: NATTY Benzocaine (Throat Lozenge, Medicated Lozenge) 1 lozenge MUCOUS MEM Q2H PRN PRN Reason: Sore Throat Last Admin: 10/14/24 20:59 Dose: 1 lozenge Documented By: TRINI-KIMBERLYN Benzonatate (Benzonatate 100 Mg Capsule) 200 mg PO TID PRN PRN Reason: Cough Last Admin: 10/14/24 09:24 Dose: 200 mg Documented By: GEOR[place]IA Bisacodyl (Bisacodyl 10 Mg Supp.Rect) 10 mg [place] BEDTIME PRN PRN Reason: Constipation Calcium Carbonate (Calcium Carbonate 750 Mg Tab.Chew) 750 mg PO Q6H PRN PRN Reason: Heartburn Last Admin: 10/12/24 23:00 Dose: 750 mg Documented By: MANAN Dextrose (Dextrose 50 % 25 Gm/50 Ml Syringe) 25 gm IVPUSH Q15M PRN; Protocol PRN Reason: per Hypoglycemia Standing Ord. Empagliflozin (Empagliflozin 10 Mg Tablet) 10 mg PO DAILY [facility] Last Admin: 10/16/24 09:13 Dose: 10 mg Documented By: NATTY Furosemide (Furosemide 40 Mg Tablet) 40 mg PO DAILY [facility]; Protocol Last Admin: 10/16/24 09:14 Dose: 40 mg Documented By: NATTY Glucose (Glucose Gel 15 Gm Gel..Gram.) 15 gm PO Q15M PRN; Protocol PRN Reason: per Hypoglycemia Standing Ord. Guaifenesin/Dextromethorphan (Guaifenesin Dm 100/10/5 Ml 5 Ml Syrup) 5 ml PO Q4H PRN PRN Reason: Cough Insulin Human Lispro (Insulin Lispro 100 Unit/Ml 3 Ml Vial) 0 unit SUBCUT QIDACHS [facility]; Protocol Last Admin: 10/16/24 07:28 Dose: Not Given Documented By: NATTY Non-Admin Reason: No Insulin Coverage Lidocaine (Lidocaine 4 % Patch Adh..Patch) 1 patch TRANSDERMA DAILY [facility]; Protocol Last Admin: 10/16/24 09:14 Dose: 1 patch Documented By: NATTY Magnesium Hydroxide (Milk Of Magnesia 30 Ml Oral.Susp) 30 ml PO BID PRN PRN Reason: Constipation Melatonin (Melatonin 3 Mg Tablet) 6 mg PO BEDTIME PRN PRN Reason: Insomnia Last Admin: 10/12/24 19:37 Dose: 6 mg Documented By: MANAN Nystatin (Nystatin Powder 15 Gm Bottle) 1 appl TOPICAL BID [facility]; Protocol Last Admin: 10/16/24 09:17 Dose: Not Given Documented By: NATTY Non-Admin Reason: Patient Refused Polyethylene Glycol (Polyethylene Glycol 3350 17 Gm Powd.Pack) 17 gm PO DAILY [facility] Last Admin: 10/16/24 09:15 Dose: Not Given Documented By: NATTY Non-Admin Reason: Patient Refused Sacubitril/Valsartan (Sacubitril/Valsartan 1 Tab Tablet) 1 tab PO BID [facility]; Protocol Last Admin: 10/16/24 09:13 Dose: 1 tab Documented By: NATTY Sodium Chloride (0.9 % Sodium Chloride Flush 3 Ml Syringe) 3 ml IVFLUSH QSHIFT [facility] Last Admin: 10/16/24 09:11 Dose: Not Given Documented By: NATTY Non-Admin Reason: No Access Labs 10/08/24 07:49 10/15/24 05:27 Labs: Laboratory Results - last 24 hr 10/15/24 10/15/24 10/15/24 11:12 16:09 20:16 POC Glucose 245 H 108 203 H 10/16/24 07:15 POC Glucose 94 Assessment and Plan (1) Acute on chronic combined systolic and diastolic CHF (congestive heart failure): Status: Acute (2) Paroxysmal atrial fibrillation: Status: Acute Plan d17 for 69yo F with HFrEF, pAF, CKD3, and DM2 presenting with dyspnea, admitted for ADHF acute hypoxic respiratory failure due to acute-chronic HFrEF - TTE Jun 2024 with LVEF 15-20% and grade 2 diastolic dysfunction - carvedilol discontinued due to hypotension - continue Entresto (will increase dose due to HTN) + empagliflozin - restarted PO furosemide - negative 6L cumulatively this admission - weaned off O2 hypoK - repleted mild hyperNa - encourage free water intake, recheck level tomorrow ZEINAB/CKD3 - restarted PO furosemide, recheck lytes tomorrow pAF - AF/RVR vs SVT 10/03 requiring multiple doses of IV medications; HR now controlled in NSR - amiodarone load 10/04-10/19 400 mg bid then 200 mg daily - continue apixaban - needs outpt Cardiology follow-up bronchitis - completed doxycycline x8d; benzonatate + guaifenesin/DM for symptom relief - repeat RPP negative mediastinal lymphadenopathy on CT 10/04 - should have outpt mediastinoscopy DM2 - continue correction-dose lispro + empagliflozin VTE ppx - apixaban dispo - STR; CM working on insurance issues In my clinical judgment, the patient requires continued inpatient hospitalization for the following reasons: placement Total time managing care of this patient today: 35 minutes. Quality Stroke Does the patient have a stroke diagnosis?: No VTE Prior VTE?: No VTE Risk Level:: Medical - moderate - high VTE Device Contraindication: N/A - Device Ordered VTE Drug Contraindication: N/A - Med Ordered
[2024-10-16 11:09] LABS: Glucose, Whole Blood 240 mg/dL (60-115)
[2024-10-16] MEDS: Insulin Lispro 100 UNIT/ML 3 ML VIAL SUBCUT ×2 (11:30→22:23)
[2024-10-16 15:22] VITALS: BP 133/66; PULSE 58; RESP 17; TEMP 36.4; O2SAT 97
--- NOTE | 2024-10-16 15:36 | MHC.CM.PN ---
pt has [place] [facility] [place] advantage id #is [id number] alfredo shell for auth
[2024-10-16 16:20] LABS: Glucose, Whole Blood 144 mg/dL (60-115)
[2024-10-16 19:21] VITALS: BP 144/65; PULSE 59; RESP 18; O2SAT 97
[2024-10-16] MEDS: Sacubitril/Valsartan 49/51 1 TAB TABLET PO (20:00)
[2024-10-16 21:17] LABS: Glucose, Whole Blood 192 mg/dL (60-115)
[2024-10-17 03:35] VITALS: BP 131/73; PULSE 60; RESP 16; TEMP 36.4; O2SAT 97
[2024-10-17 07:20] VITALS: BP 121/58; PULSE 56; RESP 17; TEMP 36.2; O2SAT 97
[2024-10-17 07:28] LABS: Glucose, Whole Blood 110 mg/dL (60-115)
[2024-10-17 09:19] VITALS: BP 121/58
[2024-10-17] MEDS: Apixaban 5 MG TABLET PO ×2 (09:19→20:01)
[2024-10-17] MEDS: Furosemide 40 MG TABLET PO (09:19)
[2024-10-17] MEDS: Empagliflozin 10 MG TABLET PO (09:19)
[2024-10-17] MEDS: Sacubitril/Valsartan 49/51 1 TAB TABLET PO ×2 (09:19→20:01)
[2024-10-17] MEDS: Amiodarone HCL 200 MG TABLET 400 MG PO ×2 (09:19→20:01)
[2024-10-17] MEDS: Lidocaine 4 % Patch ADH..PATCH 1 PATCH TRANSDERMA (09:20)
--- NOTE | 2024-10-17 11:05 | MHC.CM.PN ---
Addendum entered by Dayanna Zamora 10/17/24 16:32: CM SPOKE TO PTS MELYSSA SMITH. MELYSSA REPORTS THE PT DOES NOT DO MUCH FOR HERSELF, BUT SHE DOES UNDERSTAND THE PT CAN DO THESE THINGS. SHE SAYS SHE IS FINE WITH THE PT COMING HOME, BUT IS WORRIED BECAUSE SHE WORKS ALL DAY. SHE SAYS IF THE PT REFUSES TO GO TO [facility], SHE WILL PICK HER UP TOMORROW AFTERNOON ONCE OUT OF WORK. SHE STATES SHE WOULD LIKE TO GET THE HOME BETTER PREPARED FOR PT WHEN SHE MOVED THERE SHE DID NOT EXPECT TO HAVE THE PT MOVE IN, SO IT IS NOT IDEAL. PT WILL DC HOME TOMORROW AFTERNOON [facility]IA [facility] Addendum entered by Dayanna Zamora 10/17/24 12:29: CM ATTEMPTED TO CALL PTS TEJINDERMELYSSA AGUIRRE [phone], TO DISCUSS DCP, UNABLE TO LEAVE MESSAGE DUE TO FULL MAILBOX Original Note: CM MET WITH PT TO INFORM HER TEE CABRERA WAS UNABLE TO VERIFY HER INSURANCE FOR AUTH REFERRAL EXPANDED AND [facility] ARE OFFERING PT STATES SHE DOES NOT HAVE A PREFERENCE AND WANTS TO GO HOME SHE SAYS HER SISTER LIVES RIGHT [place] AND SHE DOES NOT BELIEVE HER FAMILY IS WORRIED ABOUT HER SAFETY CM DISCUSSED CONCERNS ABOUT HER ABILITY TO NAVIGATE STAIRS SHE LIVES ON THE [address] SHE IS WILLING TO WORK WITH PT AGAIN TODAY, WHICH WILL BE NECESSARY FOR ASSESSING HOME SAFETY OR GETTING AUTH FOR STR CM WILL MEET WITH PT AGAIN AFTER HER PT UPDATE [facility] WILL INITIATE AUTH IN CASE PT AGREES TO [facility]
[2024-10-17 11:18] LABS: Glucose, Whole Blood 208 mg/dL (60-115)
[2024-10-17] MEDS: Insulin Lispro 100 UNIT/ML 3 ML VIAL SUBCUT ×2 (11:43→20:01)
--- NOTE | 2024-10-17 12:55 | P.F2F_ITS ---
Service Date Service Date: 10/17/24 Encounter Date of encounter: 10/17/24 Reasons for Services Signs and symptoms assessed: CHF balance gait Reason for jail: neurological assessment, medication management, medication treatment and teach disease management Reason for physical therapy: home safety and mobility, therapeutic exercises, gait/transfer training, assess need for DME, ADL training and energy conservation Reason for occupational therapy: home safety and mobility, therapeutic exercises, gait/transfer training, assess need for DME, ADL training and energy conservation MD Overseeing Care: Cesario Cedeno Homebound: Leaving the home is medically contraindicated at this time without the asist of a device and/or another person due th the listed conditions above and below. Reason homebound: unsteady gait / fall risk, cognitively impaired / unsafe and weakness related to hospital stay Certification: Based on the above findings, I certify that this patient is confined to the home and needs intermittent jail care, physical therapy and/or speech therapy, or continues to need occupational therapy. The patient is under my care, and I have initiated the establishment of the plan of care. The patient will be followed by a physician who will periodically review the plan of care. Time Spent With Patient Time: Total time managing care of this patient today ____ minutes.
--- NOTE | 2024-10-17 13:04 | P.DS_ITS ---
DS: Providers Provider Date of Service: 10/17/24 Date of admission: 09/30/24 22:18 Date of discharge: 10/17/24 Primary care physician: None Physician Consults: 10/01/24 08:34 Consult to Cardiology Routine Consulting Provider: [facility] Reason for consultation: chf DS: Diagnosis Discharge Diagnosis (1) Acute on chronic combined systolic and diastolic CHF (congestive heart failure): Status: Acute (2) Paroxysmal atrial fibrillation: Status: Acute (3) Acute kidney injury superimposed on CKD: Status: Acute (4) Acute respiratory failure with hypoxia: Status: Acute DS: Summary Hospital Course Hospital Course: From the history and physical by the admitting hospitalist, Ashlie Luu MD, 09/30/24: Elizabeth Russell is a 69 years old woman with past medical history significant for paroxysmal atrial fibrillation, HFrEF (15-20%), CKD and type 2 diabetes mellitus presents to the emergency department complaining of shortness on breath that started today associated with dry cough. She denied any associated chest pain, headache, sore throat, fever or chills. She also denied any acute gastrointestinal or symptoms. Denied leg swelling. Patient stated that she is not taking any blood thinners such as Eliquis (she said no one told her she has to take this; however she filled out a prescription for it on July 27, 2024). She denied tobacco smoking, alcohol abuse or illicit drug use. TTE June 2024 showed EF 15-20%, diastolic dysfunction. In the ED, she was found to have stable vital signs. Blood workup showed no leukocytosis. Hemoglobin is 11.2 which is at baseline. Platelets are normal. There are no electrolyte imbalances. Glucose 184. Creatinine is 1.43 which is at baseline. Transaminases are mildly elevated (better that prior). Troponin is 40.3 (prior 31.7) and markedly elevated BNP, 2018 (prior 278). CXR showed diffuse interstitial patchy opacities in both lungs, moderate left and small right pleural effusion, mild cardiomegaly findings are concerning for fluid overload/CHF. ECG showed sinus rhythm with occasional PVCs. ED tx: Furosemide 40 mg IV 69yo F with HFrEF, pAF, CKD3, and DM2 presenting with dyspnea, admitted for ADHF. Hospital course by problem: acute hypoxic respiratory failure due to acute-chronic HFrEF - TTE Jun 2024 with LVEF 15-20% and grade 2 diastolic dysfunction - carvedilol discontinued due to hypotension - changed losartan to Entresto (will increase dose due to HTN) - started empagliflozin - diuresed with IV furosemide, changed to PO furosemide - negative 4.2Lcumulatively this admission - weaned off O2 - will need to follow up with [facility] in 2 weeks as outpatient ZEINAB/CKD3 - creatinine around 1.9 which may be her new baseline; ordered repeat BMP in 1 week pAF - AF/RVR vs SVT 10/03 requiring multiple doses of IV medications; HR now controlled in NSR - amiodarone load 10/04-10/19 400 mg bid then 200 mg daily - continued apixaban - needs outpt Cardiology follow-up as above bronchitis - completed doxycycline x8d; respiratory pathogen panel negative incidental mediastinal lymphadenopathy on CT 10/04 - recommend referral to Thoracic Surgery for outpatient mediastinoscopy Transfer to short-term rehabilitation given balance and gait deficits was recommended; however, the patient adamantly declined. She was sent home with VNA services. Time Attestation Discharge Coordination Time (in mins): 45 Quality: Safe Use of Opioids Does Pt have an Active Cancer Diagnosis on the Problem List?: No Quality: Stroke Does the patient have a stroke diagnosis?: No Physical Exam Vital Signs: Vital Signs: Last Vital Signs Temp 97.2 F 10/17/24 07:20 Pulse 56 10/17/24 07:20 Resp 17 10/17/24 07:20 BP 121/58 L 10/17/24 09:19 Pulse Ox 97 10/17/24 07:20 O2 Del Method Room Air 10/17/24 07:20 O2 Flow Rate 6 09/30/24 18:53 Oxygen Flow Rate 6 09/30/24 18:40 BMI result Body Mass Index 34.6 Gen: in no acute distress HEENT: sclera anicteric, moist mucus membranes Neck: supple Lungs: clear to auscultation bilaterally Heart: regular rate and rhythm, no murmurs Abd: soft, non-tender, non-distended Ext: no edema Skin: warm/well-perfused Neuro: alert and oriented x3, no focal findings Psych: restricted affect DS: Data Data Completed and Pending Completed studies during hospitalization [Text1]: Laboratory Results WBC 4.2 X10*3/uL (4.8-10.8) L 10/08/24 07:49 RBC 3.98 X10*6/uL (4.20-5.50) L 10/08/24 07:49 Hgb 11.3 g/dl (12.0-16.0) L 10/08/24 07:49 Hct 36.2 % (37.0-47.0) L 10/08/24 07:49 MCV 91.0 fL (80.0-98.0) 10/08/24 07:49 MCH 28.4 pg (27.0-33.0) 10/08/24 07:49 MCHC 31.2 g/dl (31.0-35.0) 10/08/24 07:49 RDW 15.9 % (11.0-16.0) 10/08/24 07:49 Plt Count 240 X10*3/uL (160-400) 10/08/24 07:49 MPV 11.8 fL (9.4-12.3) 10/08/24 07:49 Immature Gran % (Auto) 0.4 % (0.0-0.4) 10/01/24 06:11 Neut % (Auto) 56.1 % (45-73) 10/01/24 06:11 Lymph % (Auto) 22.8 % (20-40) 10/01/24 06:11 [facility] % (Auto) 11.0 % (2-11) 10/01/24 06:11 Eos % (Auto) 9.1 % (0-4) H 10/01/24 06:11 Baso % (Auto) 0.6 % (0-2) 10/01/24 06:11 Lymph # (Auto) 1.2 X10*3/uL (1.2-4.9) 10/01/24 06:11 [facility] # (Auto) 0.6 X10*3/uL (0.1-1.2) 10/01/24 06:11 Eos # (Auto) 0.5 X10*3/uL (0.0-0.4) H 10/01/24 06:11 Baso # (Auto) 0.0 X10*3/uL (0.0-0.2) 10/01/24 06:11 Abs Immat Gran (auto) 0.02 X10*3/uL (0.00-0.03) 10/01/24 06:11 Absolute Neuts (auto) 2.9 x10*3/uL (2.0-8.3) 10/01/24 06:11 Absolute Nucleated RBC 0.000 X10*3/uL (0.0-0.012) 10/08/24 07:49 Nucleated RBC % (auto) 0.0 /100WBC (0.0-0.2) 10/08/24 07:49 Hold Purple Top SEE NOTE 10/13/24 06:59 VBG pH 7.41 (7.32-7.43) 09/30/24 19:50 VBG pCO2 48 mmHg 09/30/24 19:50 VBG pO2 59 mmHg 09/30/24 19:50 VBG HCO3 31 mmol/L (22-26) H 09/30/24 19:50 VBG O2 Saturation 81.0 % 09/30/24 19:50 VBG Base Excess 5.6 mmol/L 09/30/24 19:50 Sodium 146 mmol/L (135-145) H 10/15/24 05:27 Potassium 3.3 mmol/L (3.3-5.1) 10/15/24 05:27 Chloride 107 mmol/L (96-108) 10/15/24 05:27 Carbon Dioxide 29 mmol/L (22-29) 10/15/24 05:27 Anion Gap 13 (12-20) 10/15/24 05:27 BUN 26 mg/dL (9-16) H 10/15/24 05:27 Creatinine 1.94 mg/dL (0.5-1.4) H 10/15/24 05:27 Estim Creat Clear Calc 28.4 10/15/24 05:27 Estimated GFR 26 10/15/24 05:27 POC Glucose 208 mg/dL (60-115) H 10/17/24 11:08 Random Glucose 94 mg/dL (60-115) 10/15/24 05:27 Calcium 9.2 mg/dL (8.4-10.2) 10/15/24 05:27 Magnesium 1.7 mg/dL (1.6-2.6) 10/11/24 06:27 Total Bilirubin 0.6 mg/dL (0.0-1.0) 09/30/24 19:46 AST 37 U/L (5-31) H 09/30/24 19:46 ALT 68 U/L (0-31) H 09/30/24 19:46 Alkaline Phosphatase 74 U/L (39-117) 09/30/24 19:46 Troponin I High Sens 44.3 ng/L (<3.5-17.0) H 10/01/24 06:11 B-Natriuretic Peptide 909 pg/mL (<100) H 10/15/24 05: Total Protein 7.3 g/dL (6.5-8.0) 09/30/24 19:46 Albumin 4.0 g/dL (3.5-5.0) 09/30/24 19:46 Procalcitonin 0.04 ng/mL 09/30/24 19:46 Respiratory Panel North See Note 10/11/24 12:06 Adenovirus (Rapid PCR) Not Detected (Not Detect.) 10/11/24 12:06 B.pert (TEM-PCR) Not Detected (Not Detect.) 10/11/24 12:06 B.parapertussis DNA PCR Not Detected (Not Detect.) 10/11/24 12:06 C. pneumoniae DNA (PCR) Not Detected (Not Detect.) 10/11/24 12:06 Coronavirus OC43 (PCR) Not Detected (Not Detect.) 10/11/24 12:06 Coronavirus HKU1 (PCR) Not Detected (Not Detect.) 10/11/24 12:06 Coronavirus 229E (PCR) Not Detected (Not Detect.) 10/11/24 12:06 Coronavirus NL63 (PCR) Not Detected (Not Detect.) 10/11/24 12:06 Human Metapneumovir PCR Not Detected (Not Detect.) 10/11/24 12:06 Influenza A (RT-PCR) Not Detected (Not Detect.) 10/11/24 12:06 Influenza A (H1) PCR Not Detected (Not Detect.) 10/11/24 12:06 Influ A (H1/09) PCR Not Detected (Not Detect.) 10/11/24 12:06 Influenza A (H3) PCR Not Detected (Not Detect.) 10/11/24 12:06 Influenza Type A (PCR) NEGATIVE (Negative) 09/30/24 19:46 Influenza Type B (PCR) NEGATIVE (Negative) 09/30/24 19:46 Influenza B (RT-PCR) Not Detected (Not Detect.) 10/11/24 12:06 M. pneumoniae (PCR) Not Detected (Not Detect.) 10/11/24 12:06 Parainfluenza 1 (PCR) Not Detected (Not Detect.) 10/11/24 12:06 Parainfluenza 2 (PCR) Not Detected (Not Detect.) 10/11/24 12:06 Parainfluenza 3 (PCR) Not Detected (Not Detect.) 10/11/24 12:06 Parainfluenza 4 (PCR) Not Detected (Not Detect.) 10/11/24 12:06 RSV RNA Qual (PCR) NEGATIVE (Negative) 09/30/24 19:46 RSV (PCR) Not Detected (Not Detect.) 10/11/24 12:06 Entero/Rhino (PCR) Not Detected (Not Detect.) 10/11/24 12:06 SARS-CoV-2 RNA (RT-PCR) Not Detected (Not Detect.) 10/11/24 12:[address] 10/04/24 13:45 IMPRESSION: Mediastinal lymphadenopathy as described. Given the size of the nodes, mediastinoscopy should be considered. Electronically signed by: Milton Bonilla MD 10/04/2024 02:19 PM EDT Discharge Plan Discharge Anticipated Discharge Date/Time: 10/17/24 12:57 Patient Disposition: Home Health Service Discharge Diagnosis: hypoxia due to CHF exacerbation atrial fibrillation acute/chronic kidney disease bronchitis mediastinal adenopathy Referrals: Cesario Cedeno MD [Physician] - 1 Week Rhett Plummer MD [Physician] - 2 Weeks Zackery Salmeron [Physician] - 1 Week Dulce Valentine MD [Physician] - 1 Week Discharge Medications: New amiodarone 200 mg Tablet See Rx Instructions .ROUTE .COMPLEX Qty: 37 0RF Rx Instructions: 400 mg (2 tabs) twice daily until 10/19. Starting on 10/20, take 200 mg (1 tab) once daily Entresto 49-51 mg Tablet 1 tab PO BID Qty: 60 0RF Protocol: Hold for SBP< HOLD for SBP < : 90 furosemide 40 mg Tablet 40 mg PO DAILY Qty: 30 0RF Protocol: Hold for SBP< HOLD for SBP < : 90 Jardiance 10 mg Tablet 10 mg PO DAILY Qty: 30 0RF Continued metoclopramide HCl 5 mg Tablet 5 mg PO DAILY montelukast 10 mg Tablet 10 mg PO DAILY apixaban 5 mg Tablet 5 mg PO BID insulin aspart U-100 [Novolog FlexPen U-100 Insulin] 100 unit/mL (3 mL) Insulin Pen 1 sliding scale dose SUBCUT TIDAC Protocol: Insulin Correction Scale Less than or equal to 110 ---- Give (units): 0 111 to 150 Give (units): 0 151 to 200 Give (units): 2 201 to 250 Give (units): 4 251 to 300 Give (units): 6 301 to 350 Give (units): 8 Greater than 350 Give (units): 10 Call MD if Blood Glucose > : 350 liraglutide [Victoza 2-Mian] 0.6 mg/0.1 mL (18 mg/3 mL) Pen Injector 1.8 mg SUBCUT DAILY dicyclomine 10 mg Capsule 10 mg PO QID Discontinued losartan 50 mg tablet 50 mg PO DAILY amlodipine 5 mg tablet 5 mg PO DAILY metoprolol tartrate 25 mg Tablet 25 mg PO BID Discharge Orders: Discharge Order (Routine); Ordered 10/17/24 Ordered By: Marin Patel Diet: Diabetic diet Activity on Discharge: As tolerated Stand Alone Forms: Patient Portal Discharge page Print Language: Unable To Collect Other Ambulatory Orders: Basic Metabolic Panel (Routine) Timeframe: 1 Week Facility: [facility] - Location: Laboratory Ordered By: Marin Patel Care Plan Goals: cardiac health Health Concerns: hypoxia due to CHF exacerbation atrial fibrillation acute/chronic kidney disease bronchitis mediastinal adenopathy Plan of Treatment: off oxygen stop metoprolol tartrate stop losartan stop amlodipine start empagliflozin 10 mg once daily start Entresto 49-51 mg twice daily start furosemide 40 mg once daily start amiodarone; take 400 mg (2 tabs) twice daily until 10/19. Starting 10/20, take 200 mg (1 tab) once daily. Low-sodium diet: less than 2000 mg of sodium daily. Weigh yourself daily and call your doctor if your weight goes up by more than 3 lb/day or 5 lb/week. follow up with [facility] [place] 2 weeks for workup of mediastinal lymphadenopathy, recommend referral to Thoracic Surgery to consider mediastinoscopy home with VNA services Please follow up with your primary care doctor within 1 week. Return to the hospital if you experience recurrent or worsening symptoms. Assessment: See Discharge Summary. Patient Instructions: Heart Failure (DC)
[2024-10-17 15:28] VITALS: BP 133/64; PULSE 56; RESP 16; TEMP 36.8; O2SAT 98
--- NOTE | 2024-10-17 16:41 | P.PNIM_ITS ---
Subjective Subjective Date of Service: 10/17/24 Interval History: cough resolved refuses STR, wants to go home Review of Systems Review of Systems: Yes all other systems are reviewed and are negative Physical Exam 2 Vital Signs: Vital Signs: Last Vital Signs Temp 98.3 F 10/17/24 15:28 Pulse 56 10/17/24 15:28 Resp 16 10/17/24 15:28 BP 133/64 10/17/24 15:28 Pulse Ox 98 10/17/24 15:28 O2 Del Method Room Air 10/17/24 15:28 O2 Flow Rate 6 09/30/24 18:53 Oxygen Flow Rate 6 09/30/24 18:40 BMI result Body Mass Index 34.6 Gen: in no acute distress HEENT: sclera anicteric, moist mucus membranes Neck: supple Lungs: clear to auscultation bilaterally Heart: regular rate and rhythm, no murmurs Abd: soft, non-tender, non-distended Ext: no edema Skin: warm/well-perfused Neuro: alert and oriented x3, no focal findings Psych: restricted affect Objective Data Active Medications Acetaminophen (Acetaminophen 325 Mg Tablet) 975 mg PO Q6H PRN PRN Reason: Pain, Mild 1-3,fever,headache Last Admin: 10/12/24 02:49 Dose: 975 mg Documented By: MANAN Amiodarone HCl (Amiodarone Hcl 200 Mg Tablet) 400 mg PO BID [facility] Last Admin: 10/17/24 09:19 Dose: 400 mg Documented By: NATTY Apixaban (Apixaban 5 Mg Tablet) 5 mg PO BID [facility] Last Admin: 10/17/24 09:19 Dose: 5 mg Documented By: NATTY Benzocaine (Throat Lozenge, Medicated Lozenge) 1 lozenge MUCOUS MEM Q2H PRN PRN Reason: Sore Throat Last Admin: 10/14/24 20:59 Dose: 1 lozenge Documented By: TIRNI-KIMBERLYN Benzonatate (Benzonatate 100 Mg Capsule) 200 mg PO TID PRN PRN Reason: Cough Last Admin: 10/14/24 09:24 Dose: 200 mg Documented By: [place] Bisacodyl (Bisacodyl 10 Mg Supp.Rect) 10 mg IL BEDTIME PRN PRN Reason: Constipation Calcium Carbonate (Calcium Carbonate 750 Mg Tab.Chew) 750 mg PO Q6H PRN PRN Reason: Heartburn Last Admin: 10/12/24 23:00 Dose: 750 mg Documented By: MANAN Dextrose (Dextrose 50 % 25 Gm/50 Ml Syringe) 25 gm IVPUSH Q15M PRN; Protocol PRN Reason: per Hypoglycemia Standing Ord. Empagliflozin (Empagliflozin 10 Mg Tablet) 10 mg PO DAILY [facility] Last Admin: 10/17/24 09:19 Dose: 10 mg Documented By: NATTY Furosemide (Furosemide 40 Mg Tablet) 40 mg PO DAILY MAURI; Protocol Last Admin: 10/17/24 09:19 Dose: 40 mg Documented By: NATTY Glucose (Glucose Gel 15 Gm Gel..Gram.) 15 gm PO Q15M PRN; Protocol PRN Reason: per Hypoglycemia Standing Ord. Guaifenesin/Dextromethorphan (Guaifenesin Dm 100/10/5 Ml 5 Ml Syrup) 5 ml PO Q4H PRN PRN Reason: Cough Insulin Human Lispro (Insulin Lispro 100 Unit/Ml 3 Ml Vial) 0 unit SUBCUT QIDACHS [facility]; Protocol Last Admin: 10/17/24 11:43 Dose: 4 unit Documented By: NATTY Lidocaine (Lidocaine 4 % Patch Adh..Patch) 1 patch TRANSDERMA DAILY [facility]; Protocol Last Admin: 10/17/24 09:20 Dose: 1 patch Documented By: NATTY Magnesium Hydroxide (Milk Of Magnesia 30 Ml Oral.Susp) 30 ml PO BID PRN PRN Reason: Constipation Melatonin (Melatonin 3 Mg Tablet) 6 mg PO BEDTIME PRN PRN Reason: Insomnia Last Admin: 10/12/24 19:37 Dose: 6 mg Documented By: MANAN Nystatin (Nystatin Powder 15 Gm Bottle) 1 appl TOPICAL BID MAURI; Protocol Last Admin: 10/17/24 09:24 Dose: Not Given Documented By: NATTY Non-Admin Reason: Patient Refused Polyethylene Glycol (Polyethylene Glycol 3350 17 Gm Powd.Pack) 17 gm PO DAILY MAURI Last Admin: 10/17/24 09:24 Dose: Not Given Documented By: NATTY Non-Admin Reason: Patient Refused Sacubitril/Valsartan (Sacubitril/Valsartan 49/51 1 Tab Tablet) 1 tab PO BID MAURI; Protocol Last Admin: 10/17/24 09:19 Dose: 1 tab Documented By: NATTY Sodium Chloride (0.9 % Sodium Chloride Flush 3 Ml Syringe) 3 ml IVFLUSH QSHIFT [facility] Last Admin: 10/17/24 16:10 Dose: Not Given Documented By: NATTY Non-Admin Reason: No Access Labs 10/08/24 07:49 10/15/24 05:27 Labs: Laboratory Results - last 24 hr 10/16/24 10/17/24 10/17/24 21:00 07:22 11:08 POC Glucose 192 H 110 208 H Assessment and Plan (1) Acute on chronic combined systolic and diastolic CHF (congestive heart failure): Status: Acute (2) Paroxysmal atrial fibrillation: Status: Acute Plan d18 for 69yo F with HFrEF, pAF, CKD3, and DM2 presenting with dyspnea, admitted for ADHF acute hypoxic respiratory failure due to acute-chronic HFrEF - TTE Jun 2024 with LVEF 15-20% and grade 2 diastolic dysfunction - carvedilol discontinued due to hypotension - continue Entresto + empagliflozin - restarted PO furosemide - negative 4.2L cumulatively this admission - weaned off O2 hypoK - repleted mild hyperNa - encourage free water intake, recheck level refused ZEINAB/CKD3 - restarted PO furosemide, recheck BMP refused by pt pAF - AF/RVR vs SVT 10/03 requiring multiple doses of IV medications; HR now controlled in NSR - amiodarone load 10/04-10/19 400 mg bid then 200 mg daily - continue apixaban - needs outpt Cardiology follow-up bronchitis - completed doxycycline x8d; benzonatate + guaifenesin/DM for symptom relief - repeat RPP negative mediastinal lymphadenopathy on CT 10/04 - should have outpt mediastinoscopy DM2 - continue correction-dose lispro + empagliflozin VTE ppx - apixaban dispo - STR recommended and bed secured but pt adamantly refused. Plan home with VNA but no ride today In my clinical judgment, the patient requires continued inpatient hospitalization for the following reasons: placement Total time managing care of this patient today: 35 minutes. Quality Stroke Does the patient have a stroke diagnosis?: No VTE Prior VTE?: No VTE Risk Level:: Medical - moderate - high VTE Device Contraindication: N/A - Device Ordered VTE Drug Contraindication: N/A - Med Ordered
--- NOTE | 2024-10-17 16:45 | PC.NURSE ---
patient refused TUBE TELLER to take POC, t/w attempted to educate pt on importance of checking blood sugars and administration of insulin but pt not willing to listen at this time and still refusing POC. Dr Patel made aware.
[2024-10-17 19:19] VITALS: BP 140/63; PULSE 61; RESP 18; TEMP 36.5; O2SAT 98
[2024-10-17 19:22] LABS: Glucose, Whole Blood 194 mg/dL (60-115)
[2024-10-18 03:42] VITALS: BP 121/58; PULSE 54; RESP 18; TEMP 36.1; O2SAT 96
[2024-10-18 07:08] VITALS: BP 130/60; PULSE 61; RESP 18; TEMP 36.3; O2SAT 98
[2024-10-18 07:26] LABS: Glucose, Whole Blood 125 mg/dL (60-115)
[2024-10-18] MEDS: Amiodarone HCL 200 MG TABLET 400 MG PO (08:15)
[2024-10-18] MEDS: Apixaban 5 MG TABLET PO (08:15)
[2024-10-18] MEDS: polyethylene glycoL 3350 17 GM POWD.PACK PO (08:15)
[2024-10-18] MEDS: Sacubitril/Valsartan 49/51 1 TAB TABLET PO (08:15)
[2024-10-18] MEDS: Furosemide 40 MG TABLET PO (08:15)
[2024-10-18] MEDS: Empagliflozin 10 MG TABLET PO (08:15)
[2024-10-18] MEDS: Nystatin Powder 15 GM BOTTLE 1 APPL TOPICAL (08:16)
[2024-10-18 11:58] LABS: Glucose, Whole Blood 192 mg/dL (60-115)
[2024-10-18] MEDS: Insulin Lispro 100 UNIT/ML 3 ML VIAL SUBCUT (12:26)
[2024-10-18 15:15] VITALS: BP 136/62; PULSE 60; RESP 18; TEMP 36.1; O2SAT 100
== END 2024-10-18 16:31 | disposition home health service (06) | DRG 291 ==
LOC: HO.ED 22:01 → HO.EDOVER 22:23 → HO.IMC 10-01 19:09 → HO.S3 10-14 09:17
PROVIDERS: Internal Medicine; Nurse Practitioner Acute Care; Physician Assistant Medical; Admitting Provider Internal Medicine; Emergency Provider Emergency Medicine; Visit Provider Family Medicine
DX: I13.0 Hypertensive heart and chronic kidney disease with heart failure and stage 1 through stage 4 chronic kidney disease, or unspecified chronic kidney disease (principal); I50.43 Acute on chronic combined systolic (congestive) and diastolic (congestive) heart failure; J96.01 Acute respiratory failure with hypoxia; N17.9 Acute kidney failure, unspecified; E87.0 Hyperosmolality and hypernatremia; E87.6 Hypokalemia; N18.31 Chronic kidney disease, stage 3a; E11.22 Type 2 diabetes mellitus with diabetic chronic kidney disease; I48.0 Paroxysmal atrial fibrillation; R59.0 Localized enlarged lymph nodes; J20.9 Acute bronchitis, unspecified; E66.9 Obesity, unspecified; Z68.36 Body mass index [BMI] 36.0-36.9, adult; Z71.3 Dietary counseling and surveillance; Z20.822 Contact with and (suspected) exposure to COVID-19; Z79.4 Long term (current) use of insulin; Z79.01 Long term (current) use of anticoagulants; Z79.899 Other long term (current) drug therapy
CPT/HCPCS: 0241U; 36415; 71045; 71250; 80048; 80053; 82803; 82947; 83735; 83880; 84145; 84484; 85025; 85027; 87633; 93005; 97110; 97116; 97162; 97530; 99285; J0696; J1160; J1271; J1938

== ENCOUNTER → 2024-09-30 18:50 | Outpatient (BNV) | payer MEDICARE, SELFPAY | PROVIDERS: Emergency Provider Emergency Medicine; Visit Provider Student in an Organized Health Care Education/Training Program | DX: J84.9 Interstitial pulmonary disease, unspecified (principal) | CPT/HCPCS: 71045 ==

== ENCOUNTER 2024-09-30 22:18 | Outpatient (BNV) | payer MEDICARE, SELFPAY | END 2024-10-03 20:27 | PROVIDERS: Admitting Provider Internal Medicine; Emergency Provider Emergency Medicine; Visit Provider Internal Medicine Cardiovascular Disease | DX: I47.10 Supraventricular tachycardia, unspecified (principal); I44.7 Left bundle-branch block, unspecified; I51.7 Cardiomegaly | CPT/HCPCS: 93010 ==

== ENCOUNTER 2024-09-30 22:18 | Outpatient (BNV) | payer MEDICARE, SELFPAY | END 2024-10-04 13:45 | PROVIDERS: Admitting Provider Internal Medicine; Emergency Provider Emergency Medicine; Visit Provider Radiology Diagnostic Radiology | DX: R05.9 Cough, unspecified (principal); R59.0 Localized enlarged lymph nodes; I50.9 Heart failure, unspecified | CPT/HCPCS: 71250 ==

== ENCOUNTER 2024-09-30 22:18 | Outpatient (BNV) | payer MEDICARE, SELFPAY | END 2024-10-02 11:25 | PROVIDERS: Admitting Provider Internal Medicine; Emergency Provider Emergency Medicine; Visit Provider Radiology Diagnostic Radiology | DX: J90 Pleural effusion, not elsewhere classified (principal) | CPT/HCPCS: 71250 ==

== ENCOUNTER → 2024-09-30 22:18 | Outpatient (BNV) | payer MEDICARE, SELFPAY | PROVIDERS: Admitting Provider Internal Medicine; Emergency Provider Emergency Medicine; Visit Provider Internal Medicine Cardiovascular Disease | DX: I50.9 Heart failure, unspecified (principal); I48.0 Paroxysmal atrial fibrillation; I47.10 Supraventricular tachycardia, unspecified; I49.3 Ventricular premature depolarization | CPT/HCPCS: 93010; 99222 ==

== ENCOUNTER → 2024-09-30 22:18 | Outpatient (BNV) | payer MEDICARE, SELFPAY | PROVIDERS: Admitting Provider Internal Medicine; Emergency Provider Emergency Medicine; Visit Provider Internal Medicine | DX: I48.0 Paroxysmal atrial fibrillation (principal); I50.9 Heart failure, unspecified | CPT/HCPCS: 99232; 99233 ==

== ENCOUNTER 2024-12-24 15:26 | Inpatient (IN) | payer MEDICARE, SELFPAY ==
--- NOTE | ~2024-12-24 | XR_ITS ---
EXAMINATION: XR CHEST CLINICAL INFORMATION: sob COMPARISON: 09/30/2024. TECHNIQUE: 2 views of the chest were obtained. FINDINGS: There is mild cardiac enlargement. Mediastinal and hilar contours appear normal. Aortic mural calcifications. Vascular congestion in the hilar regions. Lungs demonstrate mild interstitial pulmonary edema. There is a small layering left effusion. There is no pneumothorax or pleural effusion. There is no focal osseous or soft tissue abnormality. Cervical fusion hardware incidentally noted. XR/XR chest 2V IMPRESSION: 1. Cardiac enlargement. 2. Mild interstitial pulmonary edema. Tiny left layering effusion. Electronically signed by: Mg Mendoza MD 12/24/2024 04:16 PM EDT
[2024-12-24 15:37] VITALS: BP 166/88; PULSE 88; RESP 18; TEMP 36.6; O2SAT 98; BMI 28.9
--- NOTE | 2024-12-24 15:38 | ECG_ITS ---
Test Reason : sob Blood Pressure : */* mmHG Vent. Rate : 85 BPM Atrial Rate : 85 BPM P-R Int : 178 ms QRS Dur : 114 ms QT Int : 430 ms P-R-T Axes : 44 8 167 degrees QTcB Int : 511 ms Sinus rhythm with Premature supraventricular complexes and with occasional Premature ventricular complexes Incomplete left bundle branch block Left ventricular hypertrophy with repolarization abnormality ( R in aVL , Gideon product ) Prolonged QT Abnormal ECG When compared with ECG of 03-Oct-2024 20:27, Premature ventricular complexes are now Present Premature supraventricular complexes are now Present Vent. rate has decreased by 64 bpm T wave inversion no longer evident in Inferior leads Referred By: Candida Sampson Electronically Signed By: VERENICE HAQ MD
--- NOTE | 2024-12-24 15:39 | ED.GENADULT ---
HPI - General Adult General Chief complaint: General Medical Stated complaint: Fluid in Both legs Time Seen by Provider: 12/24/24 19:17 Related Data Home Medications ?Medication ?Instructions ?Recorded ?Confirmed apixaban 5 mg tablet 5 mg PO BID 06/29/24 12/24/24 insulin aspart U-100 100 unit/mL 1 sliding scale dose subcut TIDAC 06/29/24 12/24/24 (3 mL) subcutaneous pen (Novolog FlexPen U-100 Insulin aspart) liraglutide 0.6 mg/0.1 mL (18 mg/3 1.8 mg subcut DAILY 06/29/24 12/24/24 mL) subcutaneous pen injector ([employer]stoza 2-Mian) metoclopramide HCl 5 mg tablet 5 mg PO DAILY 06/29/24 12/24/24 montelukast 10 mg tablet 10 mg PO DAILY 06/29/24 12/24/24 dicyclomine 10 mg capsule 10 mg PO QID 07/01/24 12/24/24 amiodarone 200 mg tablet 200 mg PO DAILY 12/24/24 12/24/24 Previous Rx's ?Medication ?Instructions ?Recorded empagliflozin 10 mg tablet 10 mg PO DAILY #30 tabs 10/17/24 (Jardiance) furosemide 40 mg tablet 40 mg PO DAILY #30 tabs 10/17/24 sacubitril 49 mg-valsartan 51 mg 1 tab PO BID #60 tabs 10/17/24 tablet (Entresto) blood sugar diagnostic (FreeStyle #100 ea 10/18/24 Lite Strips) blood-glucose meter (FreeStyle #1 ea 10/18/24 Lite Meter kit) lancets #100 ea 10/18/24 Allergies Allergy/AdvReac Type Severity Reaction Status Date / Time No Known Allergies Allergy Verified 12/24/24 15:39 FORMERLY [facility], [facility] Past Medical History Medical History Paroxysmal atrial fibrillation Acute on chronic combined systolic and diastolic CHF (congestive heart failure) Noncompliance with medications Acute exacerbation of CHF (congestive heart failure) Hypertension CKD (chronic kidney disease) stage 3, GFR 30-59 ml/min Hypertensive urgency Acute combined systolic and diastolic congestive heart failure Diabetes mellitus Asthma Hypertension Social History Social History Household Members: Family Housing: House Do you presently have visiting nurse or other home services: No Patient Tobacco Use Status: Never used Tobacco Smoked in Last 30 Days: No Use of substances other than those prescribed or required for medical reasons: No Advance Directives: Yes Advance Directives on File: Yes Advance Directives Date on File: 07/05/24 Do you have a plan to hurt others: No Plan Nutrition Risks: No Nutritional Risk service: No Physical Exam ED Vital Signs: Vital Signs - 24 hr 12/24/24 15:37 12/24/24 19:39 Temperature 98 F Pulse Rate 88 82 Respiratory Rate 18 12 Blood Pressure 166/88 H 151/91 H Pulse Oximetry 98 97 Oxygen Delivery Method Room Air Room Air BMI result Body Mass Index 28.9 Course Course Course Narrative: This is a Rapid Medical Examination (RME) performed by Roel Sampson PA-C in triage. Full HPI, ROS, assessment and treatment plan per primary provider in the Main ED. Hx: 69 yo F hx of CHF, HTN, DM here w/ daughter for eval of LE swelling and SOB. daughter states she refuses to f/u with her PCP to refill her lasix, has not taken this since september. PE/vitals: b/l nonpitting LE edema, ttp, lungs clear, no respiratory distress Plan: labs, ekg, cxr Reevaluation(s) Reevaluation #1: this is a duplicate note. see dr. barba completed note regarding patient's visit on 12/24/24. Medications Administered Generic Name Dose Route Start Last Admin Trade Name Freq PRN Reason Stop Dose Admin Acetaminophen 650 mg 12/24/24 22:22 12/25/24 10:20 Acetaminophen 325 Mg Tablet PO 650 mg Q6H PRN Administration Pain, Mild 1-3,fever,headache Furosemide 40 mg 12/25/24 09:00 12/25/24 08:54 Furosemide 40 Mg/4 Ml Vial IVPUSH 40 mg DAILY MAURI Administration Protocol Insulin Human Lispro 0 unit 12/25/24 07:30 12/25/24 07:32 Insulin Lispro 100 Unit/Ml 3 Ml Vial SUBCUT 2 unit QIDACHS MAURI Administration Protocol Sodium Chloride 3 ml 12/25/24 00:00 12/25/24 07:33 0.9 % Sodium Chloride Flush 3 Ml Syringe IVFLUSH 3 ml QSHIFT MAURI Administration Discontinued Medications Generic Name Dose Route Start Last Admin Trade Name Freq PRN Reason Stop Dose Admin Furosemide 40 mg 12/24/24 19:56 12/24/24 21:01 Furosemide 40 Mg/4 Ml Vial IVPUSH 12/24/24 19:57 40 mg ONCE ONE Administration Protocol Magnesium Sulfate 2 gm in 50 mls @ 25 mls/hr 12/24/24 20:58 12/24/24 23:10 Magnesium Sulfate/H2o IV 12/24/24 22:57 Infused ONCE ONE Infusion Potassium Bicarbonate 25 meq 12/24/24 20:58 12/24/24 21:11 Potassium Bicarbonate/Cit Ac 25 Meq Tablet.Eff PO 12/24/24 20:59 25 meq ONCE ONE Administration Potassium Chloride 40 meq 12/24/24 22:20 12/24/24 23:10 Potassium Chloride Packet 20 Meq Packet PO 12/24/24 22:21 40 meq ONCE ONE Administration Medical Decision Making Lab Data 12/24/24 16:32 12/24/24 15:56 Labs: Lab Results 12/24/24 12/24/24 12/24/24 Range/Units 15:56 16:32 21:00 WBC 4.7 L (4.8-10.8) X10*3/uL RBC 3.49 L (4.20-5.50) X10*6/uL Hgb 10.2 L (12.0-16.0) g/dl Hct 31.1 L (37.0-47.0) % MCV 89.1 (80.0-98.0) fL MCH 29.2 (27.0-33.0) pg MCHC 32.8 (31.0-35.0) g/dl RDW 16.0 (11.0-16.0) % Plt Count 287 (160-400) X10*3/uL MPV 10.9 (9.4-12.3) fL Immature Gran % (Auto) 0.9 H (0.0-0.4) % Neut % (Auto) 68.3 (45-73) % Lymph % (Auto) 19.6 L (20-40) % [place] % (Auto) 8.2 (2-11) % Eos % (Auto) 2.4 (0-4) % Baso % (Auto) 0.6 (0-2) % Lymph # (Auto) 0.9 L (1.2-4.9) X10*3/uL [place] # (Auto) 0.4 (0.1-1.2) X10*3/uL Eos # (Auto) 0.1 (0.0-0.4) X10*3/uL Baso # (Auto) 0.0 (0.0-0.2) X10*3/uL Abs Immat Gran (auto) 0.04 H (0.00-0.03) X10*3/uL Absolute Neuts (auto) 3.2 (2.0-8.3) x10*3/uL Absolute Nucleated RBC 0.000 (0.0-0.012) X10*3/uL Nucleated RBC % (auto) 0.0 (0.0-0.2) /100WBC VBG pH 7.41 (7.32-7.43) VBG pCO2 49 mmHg VBG pO2 51 mmHg VBG HCO3 31 H (22-26) mmol/L VBG O2 Saturation 74.0 % VBG Base Excess 5.8 mmol/L Sodium 143 (135-145) mmol/L Potassium 3.2 L (3.3-5.1) mmol/L Chloride 106 (96-108) mmol/L Carbon Dioxide 26 (22-29) mmol/L Anion Gap 14 (12-20) BUN 22 H (9-16) mg/dL Creatinine 1.70 H (0.5-1.4) mg/dL Estim Creat Clear Calc 29.6 Estimated GFR 30 Random Glucose 181 H (60-115) mg/dL Calcium 8.9 (8.4-10.2) mg/dL Magnesium 1.7 (1.6-2.6) mg/dL Total Bilirubin 0.5 (0.0-1.0) mg/dL AST 57 H (5-31) U/L ALT 77 H (0-31) U/L Alkaline Phosphatase 68 (39-117) U/L Troponin I High Sens 28.5 H (<3.5-17.0) ng/L B-Natriuretic Peptide 1760 H (<100) pg/mL Total Protein 7.4 (6.5-8.0) g/dL Albumin 4.1 (3.5-5.0) g/dL Discharge Plan Discharge Clinical Impression: CHF (congestive heart failure) Qualifiers: Heart failure type: systolic Heart failure chronicity: acute on chronic Qualified Code(s): I50.23 - Acute on chronic systolic (congestive) heart failure Patient Disposition: Admitted As Inpatient
[2024-12-24 16:14] LABS: Alanine Aminotransferase 77 U/L (0-31); Albumin Level 4.1 g/dL (3.5-5.0); Alkaline Phosphatase 68 U/L (39-117); Anion Gap 14 (12-20); Aspartate Amino Transferase 57 U/L (5-31); Blood Urea Nitrogen 22 mg/dL (9-16); Calcium 8.9 mg/dL (8.4-10.2); Carbon Dioxide 26 mmol/L (22-29); Chloride 106 mmol/L (96-108); Creatinine Clr Calc Pharmacy 29.6; Estimated Glomerular Filt Rate 30; Magnesium 1.7 mg/dL (1.6-2.6); Potassium 3.2 mmol/L (3.3-5.1); Sodium 143 mmol/L (135-145); Total Protein 7.4 g/dL (6.5-8.0)
[2024-12-24 16:21] LABS: Troponin-I High Sensitivity 28.5 ng/L (<3.5-17.0)
[2024-12-24 16:26] LABS: B Type Natriuretic Peptide 1760 pg/mL (<100)
[2024-12-24 16:40] LABS: Hematocrit 31.1 % (37.0-47.0); Hemoglobin 10.2 g/dl (12.0-16.0); Imm Gran Abs Auto 0.04 X10*3/uL (0.00-0.03); Imm Gran Pct Auto 0.9 % (0.0-0.4); Lymphocytes Absolute Auto 0.9 X10*3/uL (1.2-4.9); Mean Corpuscular HGB Conc 32.8 g/dl (31.0-35.0); Mean Corpuscular Hemoglobin 29.2 pg (27.0-33.0); Mean Corpuscular Volume 89.1 fL (80.0-98.0); NRBC Abs Auto 0.000 X10*3/uL (0.0-0.012); NRBC Pct Auto 0.0 /100WBC (0.0-0.2); Platelet Count 287 X10*3/uL (160-400); Red Blood Count 3.49 X10*6/uL (4.20-5.50); White Blood Count 4.7 X10*3/uL (4.8-10.8)
[2024-12-24 16:58] LABS: MANUAL DIFF FLAG NO
--- NOTE | 2024-12-24 19:19 | ED.GENADULT ---
HPI - General Adult General Chief complaint: General Medical Stated complaint: Fluid in Both legs Time Seen by Provider: 12/24/24 19:17 Source: patient and family Mode of arrival: wheelchair Limitations: no limitations History of Present Illness ED Provider: Dr. Vega HPI narrative: This is a 69-year-old female history of acute respiratory failure, CKD, CHF EF of 25-30% presented hospital today for evaluation of increased leg swelling. Patient stated that she has been out of her medicine for quite some time. Denies any coughing denies any fever. Denies any recent illness. However patient does endorse increased leg swelling with some shortness of breath. Collateral information was obtained from patient's family. Spoken to Nancy who has assess her healthcare proxy however informed me that she no longer wants to be the healthcare proxy she will prefer if Ashley is HCP as the patient is living with her at this time. However given patient mentation currently I am not sure if patient is able to designate a healthcare proxy. Patient is a poor historian on exam. Discuss patient's presentation with Ashley (Her niece) she stated that patient sister brought her to the ER because of the degree of her leg swelling. Stated that at baseline she is confused. She is able to hold conversation. However have difficulty recalling events. This is normal for the patient. Related Data Home Medications ?Medication ?Instructions ?Recorded ?Confirmed apixaban 5 mg tablet 5 mg PO BID 06/29/24 10/01/24 insulin aspart U-100 100 unit/mL 1 sliding scale dose subcut TIDAC 06/29/24 10/01/24 (3 mL) subcutaneous pen (Novolog FlexPen U-100 Insulin aspart) liraglutide 0.6 mg/0.1 mL (18 mg/3 1.8 mg subcut DAILY 06/29/24 10/01/24 mL) subcutaneous pen injector (Victoza 2-Mian) metoclopramide HCl 5 mg tablet 5 mg PO DAILY 06/29/24 10/01/24 montelukast 10 mg tablet 10 mg PO DAILY 06/29/24 10/01/24 dicyclomine 10 mg capsule 10 mg PO QID 07/01/24 10/01/24 Previous Rx's ?Medication ?Instructions ?Recorded amiodarone 200 mg tablet See Rx Instructions .Route 10/17/24 .COMPLEX #37 tabs empagliflozin 10 mg tablet 10 mg PO DAILY #30 tabs 10/17/24 (Jardiance) furosemide 40 mg tablet 40 mg PO DAILY #30 tabs 10/17/24 sacubitril 49 mg-valsartan 51 mg 1 tab PO BID #60 tabs 10/17/24 tablet (Entresto) blood sugar diagnostic (FreeStyle #100 ea 10/18/24 Lite Strips) blood-glucose meter (FreeStyle #1 ea 10/18/24 Lite Meter kit) lancets #100 ea 10/18/24 Allergies Allergy/AdvReac Type Severity Reaction Status Date / Time No Known Allergies Allergy Verified 12/24/24 15:39 Review of Systems Review of Systems: Pertinent review of system as mentioned in HPI [facility] Past Medical History [facility] Narrative: As mentioned in [facility] Medical History CKD (chronic kidney disease) stage 3, GFR 30-59 ml/min Hypertensive urgency Acute combined systolic and diastolic congestive heart failure Diabetes mellitus Asthma Hypertension Social History Social History Household Members: Family Housing: House Do you presently have visiting nurse or other home services: No Patient Tobacco Use Status: Never used Tobacco Smoked in Last 30 Days: No Use of substances other than those prescribed or required for medical reasons: No Advance Directives: Yes Advance Directives on File: Yes Advance Directives Date on File: 07/05/24 Do you have a plan to hurt others: No Plan service: No Physical Exam ED Exam Exam: General: Pleasant, no distress, interacting appropriately Head: Normacephalic, atraumatic ENT: oral mucosa dry, neck supple, no tracheal deviation Cardiovascular: regular rate, regular rhythm, no murmurs, rubbing, gallops Respiratory: Bibasilar crackles Gastrointestinal: Soft, non distended, non tender, non guarding Extremities: +3 pitting edema in lower extremities bilaterally Neurological: Awake and alert, no facial droop noted Skin: Warm and dry Psychiatric: Appropriate mood and thoughts Vital Signs: Vital Signs - 24 hr 12/24/24 15:37 12/24/24 19:39 Temperature 98 F Pulse Rate 88 82 Respiratory Rate 18 12 Blood Pressure 166/88 H 151/91 H Pulse Oximetry 98 97 Oxygen Delivery Method Room Air Room Air BMI result Body Mass Index 28.9 Medications Administered Generic Name Dose Route Start Last Admin Trade Name Freq PRN Reason Stop Dose Admin Magnesium Sulfate 2 gm in 50 mls @ 25 mls/hr 12/24/24 20:58 12/24/24 21:10 Magnesium Sulfate/H2o IV 12/24/24 22:57 25 mls/hr ONCE ONE Administration Discontinued Medications Generic Name Dose Route Start Last Admin Trade Name Freq PRN Reason Stop Dose Admin Furosemide 40 mg 12/24/24 19:56 12/24/24 21:01 Furosemide 40 Mg/4 Ml Vial IVPUSH 12/24/24 19:57 40 mg ONCE ONE Administration Protocol Potassium Bicarbonate 25 meq 12/24/24 20:58 12/24/24 21:11 Potassium Bicarbonate/Cit Ac 25 Meq Tablet.Eff PO 12/24/24 20:59 25 meq ONCE ONE Administration Medical Decision Making Medical Decision Making [facility] Narrative: This is a 69-year-old female history of CHF CKD presented hospital today for increased leg swelling. Likely secondary to medication noncompliance as she stated she has not taken her medication in quite some time. Concerns for CHF exacerbation. Patient does noted to have EF of 25-30% on prior echocardiogram. We will obtain cardiac workup including EKG CBC CMP troponin. Chest x-ray will be obtained as well. Plan to give patient does IV Lasix here 40 mg given her nature of her CKD. She does not appear to be hypoxic or tachypneic on exam. However patient currently lives with her niece. Patient family noted that she is confused at baseline. She has some component of cognitive disorder. Patient is conversational at baseline. However has difficulty recalling. Patient does have some signs of hypokalemia. We will plan to replete p.o. potassium. IV magnesium will be given the patient as well. This may be secondary to diuretic usage. Given patient's extent of fluid overload in her lower extremities. We will plan to admit patient to the hospital for further diuresis. May need further coordination of medication and social care to ensure that patient is compliant with her medication. Patient's chest x-ray shows pulmonary vascular congestion. And cardiomegaly. Troponin slightly elevated. This is down trending compared to previous troponin BNP however is elevated from previous lab work. UA still currently pending for UTI rule out. Patient will be admitted to the hospital. Differential Diagnosis Differential Diagnoses: The differential diagnosis associated with the presentation includes CHF exacerbation, pneumonia, UTI, fluid overload, leg edema Consult Healthcare Provider Management of the patient was discussed with: Hospitalist Lab Data MDM Lab Attestation statement: I reviewed the patient's lab results. 12/24/24 16:32 12/24/24 15:56 Labs: Lab Results 12/24/24 12/24/24 12/24/24 Range/Units 15:56 16:32 21:00 WBC 4.7 L (4.8-10.8) X10*3/uL RBC 3.49 L (4.20-5.50) X10*6/uL Hgb 10.2 L (12.0-16.0) g/dl Hct 31.1 L (37.0-47.0) % MCV 89.1 (80.0-98.0) fL MCH 29.2 (27.0-33.0) pg MCHC 32.8 (31.0-35.0) g/dl RDW 16.0 (11.0-16.0) % Plt Count 287 (160-400) X10*3/uL MPV 10.9 (9.4-12.3) fL Immature Gran % (Auto) 0.9 H (0.0-0.4) % Neut % (Auto) 68.3 (45-73) % Lymph % (Auto) 19.6 L (20-40) % [place] % (Auto) 8.2 (2-11) % Eos % (Auto) 2.4 (0-4) % Baso % (Auto) 0.6 (0-2) % Lymph # (Auto) 0.9 L (1.2-4.9) X10*3/uL [place] # (Auto) 0.4 (0.1-1.2) X10*3/uL Eos # (Auto) 0.1 (0.0-0.4) X10*3/uL Baso # (Auto) 0.0 (0.0-0.2) X10*3/uL Abs Immat Gran (auto) 0.04 H (0.00-0.03) X10*3/uL Absolute Neuts (auto) 3.2 (2.0-8.3) x10*3/uL Absolute Nucleated RBC 0.000 (0.0-0.012) X10*3/uL Nucleated RBC % (auto) 0.0 (0.0-0.2) /100WBC VBG pH 7.41 (7.32-7.43) VBG pCO2 49 mmHg VBG pO2 51 mmHg VBG HCO3 31 H (22-26) mmol/L VBG O2 Saturation 74.0 % VBG Base Excess 5.8 mmol/L Sodium 143 (135-145) mmol/L Potassium 3.2 L (3.3-5.1) mmol/L Chloride 106 (96-108) mmol/L Carbon Dioxide 26 (22-29) mmol/L Anion Gap 14 (12-20) BUN 22 H (9-16) mg/dL Creatinine 1.70 H (0.5-1.4) mg/dL Estim Creat Clear Calc 29.6 Estimated GFR 30 Random Glucose 181 H (60-115) mg/dL Calcium 8.9 (8.4-10.2) mg/dL Magnesium 1.7 (1.6-2.6) mg/dL Total Bilirubin 0.5 (0.0-1.0) mg/dL AST 57 H (5-31) U/L ALT 77 H (0-31) U/L Alkaline Phosphatase 68 (39-117) U/L Troponin I High Sens 28.5 H (<3.5-17.0) ng/L B-Natriuretic Peptide 1760 H (<100) pg/mL Total Protein 7.4 (6.5-8.0) g/dL Albumin 4.1 (3.5-5.0) g/dL Independent Interpretation I performed an independent interpretation of an: EKG and Plain X-Ray Radiology Impression Discussion of test interpretation with radiology: I have reviewed the radiologist's reading. Discharge Plan Discharge Clinical Impression: CHF (congestive heart failure) Patient Disposition: Admitted As Inpatient
[2024-12-24 19:39] VITALS: BP 151/91; PULSE 82; RESP 12; O2SAT 97
[2024-12-24] MEDS: Furosemide 40 MG/4 ML VIAL IVPUSH (21:01)
[2024-12-24 21:02] LABS: Venous Blood Gas Refer to POC result
[2024-12-24 21:03] LABS: VBG HCO3 31 mmol/L (22-26); VBG O2 % Saturation 74.0 %
[2024-12-24] MEDS: Magnesium Sulfate/H2O 2 GM/50 ML PIGGYBACK IV (21:10)
[2024-12-24] MEDS: Potassium Bicarbonate/Cit AC 25 MEQ TABLET.EFF PO (21:11)
--- NOTE | 2024-12-24 21:41 | P.HPHOSP_ITS ---
History of Present Illness Date of Service: 12/24/24 Chief Complaint: dyspnea This has a 69-year-old female with pertinent history of combined systolic and diastolic congestive heart failure, paroxysmal atrial fibrillation on anticoagulation, CKD stage 3, insulin-dependent diabetes mellitus who presents to the emergency department for evaluation of dyspnea and leg swelling. Patient states she noticed lower extremity leg swelling on the day of presentation. Also reports orthopnea. Unclear if patient is compliant with home medications. Denies fever, chills or cough. No chest pain or palpitations. No nausea, vomiting, abdominal pain, changes in urinary or bowel habits. In the emergency department, BNP 1760 and imaging with interstitial pulmonary edema. Patient was given IV Lasix in the ER and hospital medicine team consulted for admission Review of Systems 2 Cardiovascular: Cardiovascular: Reports leg edema, Reports dyspnea on exertion and Reports orthopnea Respiratory: Respiratory: Reports dyspnea on exertion Gastrointestinal: Gastrointestinal: Reports no additional gastrointestinal complaints Genitourinary: Genitourinary: Reports no additional female genitourinary complaints [facility] Medical History Paroxysmal atrial fibrillation Acute on chronic combined systolic and diastolic CHF (congestive heart failure) Noncompliance with medications Acute exacerbation of CHF (congestive heart failure) Hypertension CKD (chronic kidney disease) stage 3, GFR 30-59 ml/min Hypertensive urgency Acute combined systolic and diastolic congestive heart failure Diabetes mellitus Asthma Hypertension Social History Household Members: Family Housing: House Do you presently have visiting nurse or other home services: No Patient Tobacco Use Status: Never used Tobacco Smoked in Last 30 Days: No Use of substances other than those prescribed or required for medical reasons: No Advance Directives: Yes Advance Directives on File: Yes Advance Directives Date on File: 07/05/24 Do you have a plan to hurt others: No Plan service: No Meds Allergies Allergy/AdvReac Type Severity Reaction Status Date / Time No Known Allergies Allergy Verified 12/24/24 15:39 Active Medications: Current Medications Magnesium Sulfate (Magnesium Sulfate/H2o) 2 gm in 50 mls @ 25 mls/hr IV ONCE ONE Stop: 12/24/24 22:57 Last Admin: 12/24/24 21:10 Dose: 25 mls/hr Home Medications ?Medication ?Instructions ?Recorded ?Confirmed ?Last Taken ?Type apixaban 5 mg tablet 5 mg PO BID 06/29/24 5 09/20/24 History insulin aspart U-100 100 unit/mL 1 sliding scale dose subcut TIDAC 06/29/24 10/01/24 09/20/24 History (3 mL) subcutaneous pen (Novolog FlexPen U-100 Insulin aspart) liraglutide 0.6 mg/0.1 mL (18 mg/3 1.8 mg subcut DAILY 06/29/24 10/01/24 09/20/24 History mL) subcutaneous pen injector (Verdex [employer]ologiestoza 2-Mian) metoclopramide HCl 5 mg tablet 5 mg PO DAILY 06/29/24 10/01/24 09/20/24 History montelukast 10 mg tablet 10 mg PO DAILY 06/29/24/11/2909/20/24 History dicyclomine 10 mg capsule 10 mg PO QID 07/01/2409/20/24 History Physical Exam 2 Vital Signs and Narrative: Vital Signs: Last Vital Signs Temp 98 F 12/24/24 15:37 Pulse 82 12/24/24 19:39 Resp 12 12/24/24 19:39 BP 151/91 H 12/24/24 19:39 Pulse Ox 97 12/24/24 19:39 O2 Del Method Room Air 12/24/24 19:39 BMI result Body Mass Index 28.9 Const: Other: Middle-aged female lying in bed in mild distress Neck supple Irregular rhythm, S1-S2 heard Bilateral crackles at bases Abdomen soft nontender, no guarding, no rigidity Patient is awake, alert and oriented x2 ; no focal motor deficit Psych: Normal mood Bilateral pedal edema Results Labs 12/24/24 16:32 12/24/24 15:56 Labs: Laboratory Results - last 24 hr 12/24/24 12/24/24 12/24/24 15:56 16:32 21:00 MCV 89.1 MCH 29.2 MCHC 32.8 RDW 16.0 Plt Count 287 MPV 10.9 Immature Gran % (Auto) 0.9 H Neut % (Auto) 68.3 Lymph % (Auto) 19.6 L [place] % (Auto) 8.2 Eos % (Auto) 2.4 Baso % (Auto) 0.6 Lymph # (Auto) 0.9 L [place] # (Auto) 0.4 Eos # (Auto) 0.1 Baso # (Auto) 0.0 Abs Immat Gran (auto) 0.04 H Absolute Neuts (auto) 3.2 Absolute Nucleated RBC 0.000 Nucleated RBC % (auto) 0.0 VBG pH 7.41 VBG pCO2 49 VBG pO2 51 VBG HCO3 31 H VBG O2 Saturation 74.0 VBG Base Excess 5.8 Anion Gap 14 Estim Creat Clear Calc 29.6 Estimated GFR 30 Random Glucose 181 H Calcium 8.9 Magnesium 1.7 Total Bilirubin 0.5 AST 57 H ALT 77 H Alkaline Phosphatase 68 B-Natriuretic Peptide 1760 H Total Protein 7.4 Albumin 4.1 Imaging Radiologist's Impressions: Impressions Chest X-Ray 12/24/24 15:06 IMPRESSION: 1. Cardiac enlargement. 2. Mild interstitial pulmonary edema. Tiny left layering effusion. Electronically signed by: Mg Mendoza MD 12/24/2024 04:16 PM EDT RP Assessment and Plan (1) CHF (congestive heart failure): Qualifiers: Heart failure chronicity: acute on chronic Heart failure type: systolic Qualified Code(s): I50.23 - Acute on chronic systolic (congestive) heart failure Status: Acute Plan This has a 69-year-old female with pertinent history of combined systolic and diastolic congestive heart failure, paroxysmal atrial fibrillation on anticoagulation, CKD stage 3, insulin-dependent diabetes mellitus who presents to the emergency department for evaluation of dyspnea and leg swelling. #. Acute on chronic combined systolic and diastolic CHF: Will admit patient with IV diuresis. Strict I's and O's. Low-salt diet. Echo with EF 15-20% and grade 2 diastolic dysfunction in June 2024. Patient not on beta-flaco due to hypotension. Continue Entresto plus empagliflozin. #. Hypokalemia: Repleted #. Insulin-dependent diabetes mellitus with hyperglycemia: On sliding scale insulin before meals and at bedtime #. Paroxysmal atrial fibrillation: On amiodarone and Eliquis #. CKD stage 3: Creatinine at baseline Med rec pending DVT prophylaxis: Eliquis Full code. Discussed with patient at bedside Quality Stroke Does the patient have a stroke diagnosis?: No VTE Prior VTE?: No VTE Risk Level:: Medical - moderate - high VTE Device Contraindication: Treatment Not Indicated VTE Drug Contraindication: N/A - Med Ordered
[2024-12-24 22:29] VITALS: BP 167/98; PULSE 81; RESP 18; TEMP 36.7; O2SAT 100
--- NOTE | 2024-12-24 22:43 | PHA.MEDREC ---
Addendum entered by Geovanni Priest, PharmD 12/24/24 22:58: MED REC CHECKED BY [facility] Original Note: Pharmacy Consult ? Medication Reconciliation Pharmacy has completed the medication reconciliation. Spoke with pt and she was a very poor historian with her medications and is non-compliant with taking her medications; in claims pt has not been filling medications. PT admitted with us 09/30-10/18 and was not able to verify any medications from the packet and when I asked if she takes any insulin and she stated yeah, I should be taking it but I'm not at this time . Pt has a sister (Mony [phone]) but states she is just as bad as her and wont know the pt medications. I utilized Dc packet and will have Am team call pt sister to see if she knows anything.
[2024-12-24 22:56] LABS: Appearance Urine Clear; Glucose Urine UA Negative (Negative); PH 6.5 (5.0-9.0); Specific Gravity - Urine 1.010 (1.005-1.025); UMIC TRIGGER UA YES
[2024-12-24] MEDS: Potassium Chloride Packet 20 MEQ PACKET 40 MEQ PO (23:10)
--- NOTE | 2024-12-25 00:36 | PC.NURSE ---
Pt resting on stretcher, confused at times. Call geiger in reach.
[2024-12-25] MEDS: 0.9 % Sodium Chloride Flush 3 ML SYRINGE IVFLUSH ×3 (02:00→16:30)
[2024-12-25 02:16] VITALS: BP 155/81; PULSE 75; RESP 18; O2SAT 99
--- NOTE | 2024-12-25 04:02 | PC.NURSE ---
per phlebotomy, pt refusing morning labs at this time.
[2024-12-25 05:34] VITALS: BP 135/88; PULSE 81; RESP 16; O2SAT 100
[2024-12-25 07:24] LABS: Glucose, Whole Blood 160 mg/dL (60-115)
[2024-12-25] MEDS: Furosemide 40 MG/4 ML VIAL IVPUSH (08:54)
[2024-12-25 10:54] LABS: MANUAL DIFF FLAG NO
[2024-12-25 10:58] LABS: Hematocrit 32.6 % (37.0-47.0); Hemoglobin 10.8 g/dl (12.0-16.0); Imm Gran Abs Auto 0.03 X10*3/uL (0.00-0.03); Imm Gran Pct Auto 0.7 % (0.0-0.4); Lymphocytes Absolute Auto 1.1 X10*3/uL (1.2-4.9); Mean Corpuscular HGB Conc 33.1 g/dl (31.0-35.0); Mean Corpuscular Hemoglobin 29.6 pg (27.0-33.0); Mean Corpuscular Volume 89.3 fL (80.0-98.0); NRBC Abs Auto 0.000 X10*3/uL (0.0-0.012); NRBC Pct Auto 0.0 /100WBC (0.0-0.2); Platelet Count 293 X10*3/uL (160-400); Red Blood Count 3.65 X10*6/uL (4.20-5.50); White Blood Count 4.5 X10*3/uL (4.8-10.8)
--- NOTE | 2024-12-25 10:59 | MHC.CM.PN ---
Attempted to meet with patient in regards to discharge planning. Patient sleeping. No family present. Will attempt to meet gain.
[2024-12-25 11:17] LABS: Anion Gap 16 (12-20); Blood Urea Nitrogen 21 mg/dL (9-16); Calcium 8.8 mg/dL (8.4-10.2); Carbon Dioxide 29 mmol/L (22-29); Chloride 103 mmol/L (96-108); Creatinine Clr Calc Pharmacy 28.5; Estimated Glomerular Filt Rate 28; Potassium 3.4 mmol/L (3.3-5.1); Sodium 145 mmol/L (135-145)
[2024-12-25 13:14] LABS: Glucose, Whole Blood 122 mg/dL (60-115)
--- NOTE | 2024-12-25 14:47 | MHC.CM.PN ---
Met with patient in regards to discharge planning. Patient lives with her niece, uses a walker/cane and had no services prior to coming to the hospital . Patient denies having a PCP. Copy of HCP verfied to be on file. IMM explained and signed. Patient feels she can safely return home when medically stable and family will transport patient home. Continue to monitor for d/c needs.
--- NOTE | 2024-12-25 15:56 | P.PNIM_ITS ---
Subjective Subjective Date of Service: 12/25/24 Interval History: Very pleasant female. Reporting exertional dyspnea, lower extremity edema and generalized fatigue and malaise. Review of Systems Review of Systems: Yes all other systems are reviewed and are negative Physical Exam 2 Exam: Exam: General: A&O x3, oriented to time place person and situation, comfortable, no pain Cardiac: S1, S2 auscultated with no S3/4, no MRG. Well perfused. Irregularly irregular Respiratory: Bibasilar crepitations auscultated in the mid zones bilaterally with midzone wheezing. No respiratory distress. GI/ : No abdominal pain on palpation, no masses or distentions. MSK: Normal ambulation without pain at bony prominences or musculature. Lower extremity edema 2+ pitting mid lara Neurological: Normal neurological examination on overview, without obvious CN II-XII abnormalities. Vital Signs: Vital Signs: Last Vital Signs Temp 98.0 F 12/24/24 22:29 Pulse 81 12/25/24 05:34 Resp 16 12/25/24 05:34 BP 135/88 12/25/24 05:34 Pulse Ox 100 12/25/24 05:34 O2 Del Method Room Air 12/25/24 05:34 BMI result Body Mass Index 28.9 Objective Data Active Medications Acetaminophen (Acetaminophen 325 Mg Tablet) 650 mg PO Q6H PRN PRN Reason: Pain, Mild 1-3,fever,headache Last Admin: 12/25/24 10:20 Dose: 650 mg Documented By: NAOMY Calcium Carbonate (Calcium Carbonate 750 Mg Tab.Chew) 750 mg PO Q4H PRN PRN Reason: Heartburn Dextrose (Dextrose 50 % 25 Gm/50 Ml Syringe) 25 gm IVPUSH Q15M PRN; Protocol PRN Reason: per Hypoglycemia Standing Ord. Furosemide (Furosemide 40 Mg/4 Ml Vial) 40 mg IVPUSH DAILY [facility]; Protocol Last Admin: 12/25/24 08:54 Dose: 40 mg Documented By: NAOMY Glucose (Glucose Gel 15 Gm Gel..Gram.) 15 gm PO Q15M PRN; Protocol PRN Reason: per Hypoglycemia Standing Ord. Insulin Human Lispro (Insulin Lispro 100 Unit/Ml 3 Ml Vial) 0 unit SUBCUT QIDACHS [facility]; Protocol Last Admin: 12/25/24 13:08 Dose: Not Given Documented By: TRINI-ALBINO Non-Admin Reason: No Insulin Coverage Magnesium Hydroxide (Milk Of Magnesia 30 Ml Oral.Susp) 30 ml PO DAILY PRN PRN Reason: Constipation Melatonin (Melatonin 3 Mg Tablet) 6 mg PO BEDTIME PRN PRN Reason: Insomnia Ondansetron HCl (Ondansetron Hcl 4 Mg/2 Ml Vial) 4 mg IVPUSH Q8H PRN PRN Reason: Nausea and Vomiting Sodium Chloride (0.9 % Sodium Chloride Flush 3 Ml Syringe) 3 ml IVFLUSH QSHIFT [facility] Last Admin: 12/25/24 07:33 Dose: 3 ml Documented By: NAOMY Labs 12/25/24 10:39 12/25/24 10:39 Labs: Laboratory Results - last 24 hr 12/24/24 12/24/24 12/24/24 15:56 16:32 21:00 MCV 89.1 MCH 29.2 MCHC 32.8 RDW 16.0 Plt Count 287 MPV 10.9 Immature Gran % (Auto) 0.9 H Neut % (Auto) 68.3 Lymph % (Auto) 19.6 L [place] % (Auto) 8.2 Eos % (Auto) 2.4 Baso % (Auto) 0.6 Lymph # (Auto) 0.9 L [place] # (Auto) 0.4 Eos # (Auto) 0.1 Baso # (Auto) 0.0 Abs Immat Gran (auto) 0.04 H Absolute Neuts (auto) 3.2 Absolute Nucleated RBC 0.000 Nucleated RBC % (auto) 0.0 VBG pH 7.41 VBG pCO2 49 VBG pO2 51 VBG HCO3 31 H VBG O2 Saturation 74.0 VBG Base Excess 5.8 Anion Gap 14 Estim Creat Clear Calc 29.6 Estimated GFR 30 POC Glucose Random Glucose 181 H Calcium 8.9 Magnesium 1.7 Total Bilirubin 0.5 AST 57 H ALT 77 H Alkaline Phosphatase 68 B-Natriuretic Peptide 1760 H Total Protein 7.4 Albumin 4.1 Urine Color Urine Appearance Urine pH Ur Specific [place] Urine Protein Urine Glucose (UA) Urine Ketones Urine Blood Urine Nitrite Ur Leukocyte Esterase Urine RBC Urine WBC Ur Squamous Epith Cells Urine Bacteria Hyaline Casts 12/24/24 12/25/24 12/25/24 22:49 07:14 10:39 MCV 89.3 MCH 29.6 MCHC 33.1 RDW 16.3 H Plt Count 293 MPV 11.3 Immature Gran % (Auto) 0.7 H Neut % (Auto) 62.0 Lymph % (Auto) 23.9 [place] % (Auto) 9.8 Eos % (Auto) 2.7 Baso % (Auto) 0.9 Lymph # (Auto) 1.1 L [place] # (Auto) 0.4 Eos # (Auto) 0.1 Baso # (Auto) 0.0 Abs Immat Gran (auto) 0.03 Absolute Neuts (auto) 2.8 Absolute Nucleated RBC 0.000 Nucleated RBC % (auto) 0.0 VBG pH VBG pCO2 VBG pO2 VBG HCO3 VBG O2 Saturation VBG Base Excess Anion Gap 16 Estim Creat Clear Calc 28.5 Estimated GFR 28 POC Glucose 160 H Random Glucose 201 H Calcium 8.8 Magnesium Total Bilirubin AST ALT Alkaline Phosphatase B-Natriuretic Peptide Total Protein Albumin Urine Color Yellow Urine Appearance Clear Urine pH 6.5 Ur Specific [place] 1.010 Urine Protein 300 (3+) H Urine Glucose (UA) Negative Urine Ketones Negative Urine Blood Trace H Urine Nitrite Negative Ur Leukocyte Esterase Trace H Urine RBC 0-2 Urine WBC 0-5 Ur Squamous Epith Cells 0-2 Urine Bacteria None Seen Hyaline Casts 0-2 12/25/24 13:05 MCV MCH MCHC RDW Plt Count MPV Immature Gran % (Auto) Neut % (Auto) Lymph % (Auto) [place] % (Auto) Eos % (Auto) Baso % (Auto) Lymph # (Auto) [place] # (Auto) Eos # (Auto) Baso # (Auto) Abs Immat Gran (auto) Absolute Neuts (auto) Absolute Nucleated RBC Nucleated RBC % (auto) VBG pH VBG pCO2 VBG pO2 VBG HCO3 VBG O2 Saturation VBG Base Excess Anion Gap Estim Creat Clear Calc Estimated GFR POC Glucose 122 H Random Glucose Calcium Magnesium Total Bilirubin AST ALT Alkaline Phosphatase B-Natriuretic Peptide Total Protein Albumin Urine Color Urine Appearance Urine pH Ur Specific [place] Urine Protein Urine Glucose (UA) Urine Ketones Urine Blood Urine Nitrite Ur Leukocyte Esterase Urine RBC Urine WBC Ur Squamous Epith Cells Urine Bacteria Hyaline Casts Assessment and Plan (1) Hypertensive urgency: Status: Acute (2) Congestive heart failure of unknown etiology: Status: Acute (3) Acute kidney injury superimposed on CKD: Status: Acute (4) Acute respiratory failure with hypoxia: Status: Acute Plan 69-year-old female, with PMH of BiV CHFrEF, paroxysmal atrial fibrillation on anticoagulation, CKD 3, type 2 DM, presenting to hospital with dyspnea and lower extremity edema, admitted with an acute on chronic combined biventricular congestive heart failure exacerbation. BiV CHFrEF 15-20% Evidence of acute exacerbation with volume overload. PLAN - furosemide 40 mg IV b.i.d. - continue Entresto - continue empagliflozin - no beta blockade secondary to hypotension - strict I's and O's - daily weights - Check magnesium Atrial fibrillation, paroxysmal PLAN - continue amiodarone - continue apixaban - cardiac telemetry Type 2 diabetes mellitus Hyperglycemia PLAN - POC glucose t.i.d. and nighttime - diabetic diet - insulin sliding scale - continue empagliflozin CKD stage 3 Continue home medications [facility] - VTE: Eliquis - CODE STATUS: Full code - DIET: Cardiac Quality Stroke Does the patient have a stroke diagnosis?: No VTE Prior VTE?: No VTE Risk Level:: Medical - moderate - high VTE Device Contraindication: Treatment Not Indicated VTE Drug Contraindication: N/A - Med Ordered
[2024-12-25 16:01] VITALS: BP 127/63; PULSE 74; RESP 16; O2SAT 98
[2024-12-25 18:20] LABS: Glucose, Whole Blood 131 mg/dL (60-115)
[2024-12-25 20:02] VITALS: BP 139/55; PULSE 80; RESP 14; TEMP 36.9; O2SAT 100
[2024-12-25 21:39] LABS: Glucose, Whole Blood 185 mg/dL (60-115)
--- NOTE | 2024-12-26 06:14 | PC.NURSE ---
Late Entry from 0000. RN to bedside to answer bed alarm, finding the pt sitting upright on the edge of the bed awake, alert, and without distress noted. She reports that she needs to void, commode present in room but patient has a purewick in place. Pt asked this RN where she was, stating multiple times how she was unsure as to what brought her in and/or how she got here. THis RN attempted to acclimate the pt to the current situation and location, but she still had questions regarding how she arrived and who would have brought her expressing concern that she is unsure of these events. The pt was assisted to bedside commode by EDT and purewick replaced upon return to bedside. The pt was provided with food and beverage per request prior to falling back to sleep for the night.
[2024-12-26 06:21] LABS: Anion Gap 15 (12-20); Blood Urea Nitrogen 24 mg/dL (9-16); Calcium 8.5 mg/dL (8.4-10.2); Carbon Dioxide 29 mmol/L (22-29); Chloride 104 mmol/L (96-108); Creatinine Clr Calc Pharmacy 31.5; Estimated Glomerular Filt Rate 32; Magnesium 2.0 mg/dL (1.6-2.6); Potassium 3.1 mmol/L (3.3-5.1); Sodium 145 mmol/L (135-145)
[2024-12-26 06:48] VITALS: BP 155/89; PULSE 77; RESP 20; TEMP 36.5
[2024-12-26 07:16] LABS: Glucose, Whole Blood 141 mg/dL (60-115)
[2024-12-26] MEDS: Furosemide 40 MG/4 ML VIAL IVPUSH (08:15)
[2024-12-26 08:34] LABS: MANUAL DIFF FLAG NO
[2024-12-26 08:36] LABS: Hematocrit 32.8 % (37.0-47.0); Hemoglobin 10.7 g/dl (12.0-16.0); Imm Gran Abs Auto 0.02 X10*3/uL (0.00-0.03); Imm Gran Pct Auto 0.4 % (0.0-0.4); Lymphocytes Absolute Auto 1.4 X10*3/uL (1.2-4.9); Mean Corpuscular HGB Conc 32.6 g/dl (31.0-35.0); Mean Corpuscular Hemoglobin 28.8 pg (27.0-33.0); Mean Corpuscular Volume 88.4 fL (80.0-98.0); NRBC Abs Auto 0.000 X10*3/uL (0.0-0.012); NRBC Pct Auto 0.0 /100WBC (0.0-0.2); Platelet Count 273 X10*3/uL (160-400); Red Blood Count 3.71 X10*6/uL (4.20-5.50); White Blood Count 4.8 X10*3/uL (4.8-10.8)
[2024-12-26 08:58] LABS: B Type Natriuretic Peptide 1452 pg/mL (<100)
[2024-12-26 08:59] LABS: Anion Gap 14 (12-20); Blood Urea Nitrogen 22 mg/dL (9-16); Calcium 9.1 mg/dL (8.4-10.2); Carbon Dioxide 30 mmol/L (22-29); Chloride 103 mmol/L (96-108); Creatinine Clr Calc Pharmacy 31.7; Estimated Glomerular Filt Rate 32; Magnesium 2.0 mg/dL (1.6-2.6); Potassium 3.2 mmol/L (3.3-5.1); Sodium 144 mmol/L (135-145)
--- NOTE | 2024-12-26 12:43 | PC.NURSE ---
Delay of insulin due to waiting on lunch tray. Called Kitchen in regard to pt tray. Kitchen staff stated they would be bringing pt tray soon.
[2024-12-26 13:14] LABS: Glucose, Whole Blood 172 mg/dL (60-115)
[2024-12-26 14:24] VITALS: BP 143/67; PULSE 81; RESP 18; TEMP 36.1; O2SAT 98
[2024-12-26 14:31] VITALS: BMI 34.8
[2024-12-26] MEDS: Potassium Chloride Packet 20 MEQ PACKET 40 MEQ PO (15:05)
[2024-12-26] MEDS: 0.9 % Sodium Chloride Flush 3 ML SYRINGE IVFLUSH ×2 (15:07→21:27)
--- NOTE | 2024-12-26 15:08 | HO.PM.IMPN ---
Subjective Subjective Date of Service: 12/26/24 Interval History: Patient feels well today. Reports some improvement in her breathing. Also reports some improvement in lower extremity edema. Denies chest pain palpitations dizziness diaphoresis. Eating and drinking well. Urinating and stooling well. Physical Exam Exam: Exam: General: A&O x3, oriented to time place person and situation, comfortable, no pain Cardiac: S1, S2 auscultated with no S3/4, no MRG. Well perfused. Irregularly irregular Respiratory: Bibasilar crepitations auscultated in the mid zones bilaterally with midzone wheezing. No respiratory distress. GI/ : No abdominal pain on palpation, no masses or distentions. MSK: Normal ambulation without pain at bony prominences or musculature. Lower extremity edema 2+ pitting mid [place] Neurological: Normal neurological examination on overview, without obvious CN II-XII abnormalities. Vital Signs: Vital Signs: Last Vital Signs Temp 97.0 F 12/26/24 14:24 Pulse 81 12/26/24 14:24 Resp 18 12/26/24 14:24 BP 143/67 H 12/26/24 14:24 Pulse Ox 98 12/26/24 14:24 O2 Del Method Room Air 12/26/24 14:24 BMI result Body Mass Index 34.8 Objective Data Active Medications Acetaminophen (Acetaminophen 325 Mg Tablet) 650 mg PO Q6H PRN PRN Reason: Pain, Mild 1-3,fever,headache Last Admin: 12/25/24 10:20 Dose: 650 mg Documented By: NAOMY Calcium Carbonate (Calcium Carbonate 750 Mg Tab.Chew) 750 mg PO Q4H PRN PRN Reason: Heartburn Dextrose (Dextrose 50 % 25 Gm/50 Ml Syringe) 25 gm IVPUSH Q15M PRN; Protocol PRN Reason: per Hypoglycemia Standing Ord. Furosemide (Furosemide 40 Mg/4 Ml Vial) 40 mg IVPUSH DAILY [facility]; Protocol Last Admin: 12/26/24 08:15 Dose: 40 mg Documented By: LUPIS Glucose (Glucose Gel 15 Gm Gel..Gram.) 15 gm PO Q15M PRN; Protocol PRN Reason: per Hypoglycemia Standing Ord. Insulin Human Lispro (Insulin Lispro 100 Unit/Ml 3 Ml Vial) 0 unit SUBCUT QIDACHS [facility]; Protocol Last Admin: 12/26/24 13:03 Dose: 2 unit Documented By: RONALD Comments: adm by sliding scale Magnesium Hydroxide (Milk Of Magnesia 30 Ml Oral.Susp) 30 ml PO DAILY PRN PRN Reason: Constipation Melatonin (Melatonin 3 Mg Tablet) 6 mg PO BEDTIME PRN PRN Reason: Insomnia Ondansetron HCl (Ondansetron Hcl 4 Mg/2 Ml Vial) 4 mg IVPUSH Q8H PRN PRN Reason: Nausea and Vomiting Sodium Chloride (0.9 % Sodium Chloride Flush 3 Ml Syringe) 3 ml IVFLUSH QSHIFT [facility] Last Admin: 12/26/24 07:24 Dose: Not Given Documented By: LUPIS Non-Admin Reason: Med Not Available Labs 12/26/24 08:15 12/26/24 08:14 Labs: Laboratory Results - last 24 hr 12/25/24 12/25/24 12/26/24 18:16 21:36 05:04 MCV MCH MCHC RDW Plt Count MPV Immature Gran % (Auto) Neut % (Auto) Lymph % (Auto) [place] % (Auto) Eos % (Auto) Baso % (Auto) Lymph # (Auto) [place] # (Auto) Eos # (Auto) Baso # (Auto) Abs Immat Gran (auto) Absolute Neuts (auto) Absolute Nucleated RBC Nucleated RBC % (auto) Anion Gap 15 Estim Creat Clear Calc 31.5 Estimated GFR 32 POC Glucose 131 H 185 H Random Glucose 165 H Calcium 8.5 Magnesium 2.0 B-Natriuretic Peptide 12/26/24 12/26/24 12/26/24 07:11 08:14 08:15 MCV 88.4 MCH 28.8 MCHC 32.6 RDW 16.4 H Plt Count 273 MPV 11.1 Immature Gran % (Auto) 0.4 Neut % (Auto) 57.2 Lymph % (Auto) 28.8 [place] % (Auto) 8.8 Eos % (Auto) 4.2 H Baso % (Auto) 0.6 Lymph # (Auto) 1.4 [place] # (Auto) 0.4 Eos # (Auto) 0.2 Baso # (Auto) 0.0 Abs Immat Gran (auto) 0.02 Absolute Neuts (auto) 2.7 Absolute Nucleated RBC 0.000 Nucleated RBC % (auto) 0.0 Anion Gap 14 Estim Creat Clear Calc 31.7 Estimated GFR 32 POC Glucose 141 H Random Glucose 153 H Calcium 9.1 D Magnesium 2.0 B-Natriuretic Peptide 1452 H 12/26/24 12:56 MCV MCH MCHC RDW Plt Count MPV Immature Gran % (Auto) Neut % (Auto) Lymph % (Auto) [place] % (Auto) Eos % (Auto) Baso % (Auto) Lymph # (Auto) [place] # (Auto) Eos # (Auto) Baso # (Auto) Abs Immat Gran (auto) Absolute Neuts (auto) Absolute Nucleated RBC Nucleated RBC % (auto) Anion Gap Estim Creat Clear Calc Estimated GFR POC Glucose 172 H Random Glucose Calcium Magnesium B-Natriuretic Peptide Assessment and Plan (1) CHF (congestive heart failure): Status: Acute (2) Acute kidney injury superimposed on CKD: Status: Acute (3) Hypertensive urgency: Status: Acute Plan 69-year-old female, with PMH of BiV CHFrEF, paroxysmal atrial fibrillation on anticoagulation, CKD 3, type 2 DM, presenting to hospital with dyspnea and lower extremity edema, admitted with an acute on chronic combined biventricular congestive heart failure exacerbation. BiV CHFrEF 15-20% Evidence of acute exacerbation with volume overload. PLAN - furosemide 40 mg IV b.i.d. - continue Entresto - continue empagliflozin - no beta blockade secondary to hypotension - strict I's and O's - daily weights - Check magnesium Atrial fibrillation, paroxysmal PLAN - continue amiodarone - continue apixaban - cardiac telemetry Type 2 diabetes mellitus Hyperglycemia PLAN - POC glucose t.i.d. and nighttime - diabetic diet - insulin sliding scale - continue empagliflozin CKD stage 3 Continue home medications [facility] - VTE: Eliquis - CODE STATUS: Full code - DIET: Cardiac Total time managing care of this patient today: 35 minutes. Quality Stroke Does the patient have a stroke diagnosis?: No VTE Prior VTE?: No VTE Risk Level:: Medical - moderate - high VTE Device Contraindication: Treatment Not Indicated VTE Drug Contraindication: N/A - Med Ordered
[2024-12-26 15:52] VITALS: BP 138/78; PULSE 79; RESP 18; TEMP 36.1; O2SAT 98
[2024-12-26 16:26] LABS: Glucose, Whole Blood 133 mg/dL (60-115)
[2024-12-26 21:23] LABS: Glucose, Whole Blood 170 mg/dL (60-115)
[2024-12-26] MEDS: Sacubitril/Valsartan 49/51 1 TAB TABLET PO (21:24)
[2024-12-26 23:22] VITALS: BP 140/74; PULSE 85; RESP 17; TEMP 36.4; O2SAT 98
[2024-12-27 07:14] LABS: Anion Gap 15 (12-20); Blood Urea Nitrogen 24 mg/dL (9-16); Calcium 8.9 mg/dL (8.4-10.2); Carbon Dioxide 31 mmol/L (22-29); Chloride 102 mmol/L (96-108); Creatinine Clr Calc Pharmacy 32.2; Estimated Glomerular Filt Rate 29; Potassium 3.4 mmol/L (3.3-5.1); Sodium 145 mmol/L (135-145)
[2024-12-27 07:24] LABS: B Type Natriuretic Peptide 954 pg/mL (<100)
[2024-12-27 07:52] LABS: Glucose, Whole Blood 146 mg/dL (60-115)
[2024-12-27 08:00] VITALS: BP 145/88; PULSE 74; RESP 18; TEMP 36.1; O2SAT 98
[2024-12-27] MEDS: 0.9 % Sodium Chloride Flush 3 ML SYRINGE IVFLUSH ×2 (09:19→20:47)
[2024-12-27] MEDS: Sacubitril/Valsartan 49/51 1 TAB TABLET PO ×2 (09:19→20:47)
[2024-12-27 11:46] LABS: Glucose, Whole Blood 207 mg/dL (60-115)
--- NOTE | 2024-12-27 12:42 | P.PNIM_ITS ---
Subjective Subjective Date of Service: 12/27/24 Interval History: Patient lying comfortably in bed. She reports that her lower extremity edema has significantly improved as compared to yesterday. She endorses improvement in her respirations. She does endorse fatigue and malaise that has persistent Review of Systems Review of Systems: Yes all other systems are reviewed and are negative Physical Exam 2 Exam: Exam: General: A&O x3, oriented to time place person and situation, comfortable, no pain Cardiac: S1, S2 auscultated with no S3/4, no MRG. Well perfused. Irregularly irregular Respiratory: Bibasilar crepitations auscultated in the mid zones bilaterally with midzone wheezing. No respiratory distress. GI/ : No abdominal pain on palpation, no masses or distentions. MSK: Normal ambulation without pain at bony prominences or musculature. Lower extremity edema 2+ pitting mid [place] Neurological: Normal neurological examination on overview, without obvious CN II-XII abnormalities. Vital Signs: Vital Signs: Last Vital Signs Temp 96.9 F 12/27/24 08:00 Pulse 74 12/27/24 08:00 Resp 18 12/27/24 08:00 BP 145/88 H 12/27/24 08:00 Pulse Ox 98 12/27/24 08:00 O2 Del Method Room Air 12/27/24 08:00 BMI result Body Mass Index 34.8 Objective Data Active Medications Acetaminophen (Acetaminophen 325 Mg Tablet) 650 mg PO Q6H PRN PRN Reason: Pain, Mild 1-3,fever,headache Last Admin: 12/25/24 10:20 Dose: 650 mg Documented By: NAOMY Amiodarone HCl (Amiodarone Hcl 200 Mg Tablet) 200 mg PO DAILY [facility] Last Admin: 12/27/24 09:19 Dose: 200 mg Documented By: DOBROB Apixaban (Apixaban 5 Mg Tablet) 5 mg PO BID [facility] Last Admin: 12/27/24 09:19 Dose: 5 mg Documented By: BRORacquel Calcium Carbonate (Calcium Carbonate 750 Mg Tab.Chew) 750 mg PO Q4H PRN PRN Reason: Heartburn Dextrose (Dextrose 50 % 25 Gm/50 Ml Syringe) 25 gm IVPUSH Q15M PRN; Protocol PRN Reason: per Hypoglycemia Standing Ord. Empagliflozin (Empagliflozin 10 Mg Tablet) 10 mg PO DAILY [facility] Last Admin: 12/27/24 09:19 Dose: 10 mg Documented By: RYANN Furosemide (Furosemide 40 Mg/4 Ml Vial) 40 mg IVPUSH DAILY [facility]; Protocol On Hold: 12/27/24 07:36 Last Admin: 12/26/24 08:15 Dose: 40 mg Documented By: ALEXAVECA Glucose (Glucose Gel 15 Gm Gel..Gram.) 15 gm PO Q15M PRN; Protocol PRN Reason: per Hypoglycemia Standing Ord. Insulin Human Lispro (Insulin Lispro 100 Unit/Ml 3 Ml Vial) 0 unit SUBCUT QIDACHS [facility]; Protocol Last Admin: 12/27/24 12:29 Dose: 4 unit Documented By: RYANN Magnesium Hydroxide (Milk Of Magnesia 30 Ml Oral.Susp) 30 ml PO DAILY PRN PRN Reason: Constipation Melatonin (Melatonin 3 Mg Tablet) 6 mg PO BEDTIME PRN PRN Reason: Insomnia Ondansetron HCl (Ondansetron Hcl 4 Mg/2 Ml Vial) 4 mg IVPUSH Q8H PRN PRN Reason: Nausea and Vomiting Sacubitril/Valsartan (Sacubitril/Valsartan 49/51 1 Tab Tablet) 1 tab PO BID [facility]; Protocol Last Admin: 12/27/24 09:19 Dose: 1 tab Documented By: RYANN Sodium Chloride (0.9 % Sodium Chloride Flush 3 Ml Syringe) 3 ml IVFLUSH QSHIFT [facility] Last Admin: 12/27/24 09:19 Dose: 3 ml Documented By: RYANN Labs 12/26/24 08:15 12/27/24 05:47 Labs: Laboratory Results - last 24 hr 12/26/24 12/26/24 12/26/24 12:56 16:21 21:19 Anion Gap Estim Creat Clear Calc Estimated GFR POC Glucose 172 H 133 H 170 H Random Glucose Calcium B-Natriuretic Peptide 12/27/24 12/27/24 12/27/24 05:47 07:34 11:36 Anion Gap 15 Estim Creat Clear Calc 32.2 Estimated GFR 29 POC Glucose 146 H 207 H Random Glucose 140 H Calcium 8.9 B-Natriuretic Peptide 954 H Assessment and Plan (1) CHF (congestive heart failure): Status: Acute (2) Acute kidney injury superimposed on CKD: Status: Acute (3) Acute diastolic CHF (congestive heart failure), NYHA class 3: Status: Acute Plan 69-year-old female, with PMH of BiV CHFrEF, paroxysmal atrial fibrillation on anticoagulation, CKD 3, type 2 DM, presenting to hospital with dyspnea and lower extremity edema, admitted with an acute on chronic combined biventricular congestive heart failure exacerbation. BiV CHFrEF 15-20% Evidence of acute exacerbation with volume overload. Euvolemic currently PLAN - furosemide 40 mg IV b.i.d. held for today - continue Entresto - continue empagliflozin - no beta blockade secondary to hypotension - strict I's and O's - daily weights - Check magnesium Atrial fibrillation, paroxysmal PLAN - continue amiodarone - continue apixaban - cardiac telemetry Type 2 diabetes mellitus Hyperglycemia PLAN - POC glucose t.i.d. and nighttime - diabetic diet - insulin sliding scale - continue empagliflozin CKD stage 3 Continue home medications [facility] - VTE: Apixaban 5 mg b.i.d. p.o. - CODE STATUS: Full code - DIET: Cardiac Total time managing care of this patient today: 35 minutes. Quality Stroke Does the patient have a stroke diagnosis?: No VTE Prior VTE?: No VTE Risk Level:: Medical - moderate - high VTE Device Contraindication: Treatment Not Indicated VTE Drug Contraindication: N/A - Med Ordered
--- NOTE | 2024-12-27 15:44 | MHC.CM.PN ---
EMR REVIEWED AND PER MD ROUNDS, PT NOT YET MEDICALLY CLEARED FOR DC. PT IS UNABLE TO HAVE HOME SERVICES SHE IS NOT CURRENT WITH A PCP. CM PROVIDED [facility] BROCHURE TO ESTABLISH WITH A NEW PROVIDER. CM WILL CONTINUE TO FOLLOW FOR ANY CHANGE TO DC PLAN/NEEDS.
[2024-12-27 16:00] VITALS: BP 135/71; PULSE 73; RESP 18; TEMP 36.3; O2SAT 97
[2024-12-27 16:46] LABS: Glucose, Whole Blood 122 mg/dL (60-115)
[2024-12-27 20:37] LABS: Glucose, Whole Blood 162 mg/dL (60-115)
[2024-12-27 20:46] VITALS: BP 133/73; PULSE 75; RESP 18; TEMP 36.1; O2SAT 96
[2024-12-27 23:27] VITALS: BP 133/79; PULSE 71; RESP 18; TEMP 36; O2SAT 98
--- NOTE | 2024-12-28 06:48 | PC.NURSE ---
Pt pulled out IV. Pt allowed RNs to attempt a new IV once, it was unsuccessful. At this time patient is AxO and refusing second attempt. No IV access at this time. MD Willingham notified.
[2024-12-28 07:23] LABS: Glucose, Whole Blood 142 mg/dL (60-115)
[2024-12-28 07:32] VITALS: BP 146/74; PULSE 72; RESP 18; TEMP 36.2; O2SAT 98
[2024-12-28 08:02] LABS: B Type Natriuretic Peptide 619 pg/mL (<100)
[2024-12-28 08:03] LABS: Anion Gap 15 (12-20); Blood Urea Nitrogen 27 mg/dL (9-16); Calcium 9.3 mg/dL (8.4-10.2); Carbon Dioxide 29 mmol/L (22-29); Chloride 102 mmol/L (96-108); Creatinine Clr Calc Pharmacy 34.2; Estimated Glomerular Filt Rate 31; Potassium 3.3 mmol/L (3.3-5.1); Sodium 143 mmol/L (135-145)
[2024-12-28] MEDS: Sacubitril/Valsartan 49/51 1 TAB TABLET PO (09:00)
--- NOTE | 2024-12-28 10:47 | PM.DS ---
DS: Providers Provider Date of Service: 12/28/24 Date of admission: 12/24/24 21:40 Date of discharge: 12/28/24 Primary care physician: Lydia Physician Attending physician on discharge: Margie Whitfield DS: Diagnosis Discharge Diagnosis (1) CHF (congestive heart failure): Status: Acute (2) Acute kidney injury superimposed on CKD: Status: Acute (3) Acute diastolic CHF (congestive heart failure), NYHA class 3: Status: Acute DS: Summary Hospital Course Hospital Course: This has a 69-year-old female with pertinent history of combined systolic and diastolic congestive heart failure, paroxysmal atrial fibrillation on anticoagulation, CKD stage 3, insulin-dependent diabetes mellitus who presents to the emergency department for evaluation of dyspnea and leg swelling. Patient states she noticed lower extremity leg swelling on the day of presentation. Also reports orthopnea. Unclear if patient is compliant with home medications. Denies fever, chills or cough. No chest pain or palpitations. No nausea, vomiting, abdominal pain, changes in urinary or bowel habits. In the emergency department, BNP 1760 and imaging with interstitial pulmonary edema. Patient was given IV Lasix in the ER and hospital medicine team consulted for admission. Acute on chronic CHF exacerbation (EF 15-20%): Patient was diuresed to euvolemia. Hypokalemia resolved Paroxysmal atrial fibrillation Remains on amiodarone and apixaban. Patient medically stable for discharge home Status at Discharge Functional status at discharge: independent ambulation Overall status at discharge: patient is back to baseline Time Attestation Total time managing care of this patient today: 35 mintues. Discharge Coordination Time (in mins): 15 Quality: Safe Use of Opioids Does Pt have an Active Cancer Diagnosis on the Problem List?: No Quality: Stroke Does the patient have a stroke diagnosis?: No Physical Exam Exam: Exam: General: A&O x3, oriented to time place person and situation, comfortable, no pain Cardiac: S1, S2 auscultated with no S3/4, no MRG. Well perfused. Irregularly irregular Respiratory: Bibasilar crepitations auscultated in the mid zones bilaterally with midzone wheezing. No respiratory distress. GI/ : No abdominal pain on palpation, no masses or distentions. MSK: Normal ambulation without pain at bony prominences or musculature. Lower extremity edema 1+ ankles. Neurological: Normal neurological examination on overview, without obvious CN II-XII abnormalities. Vital Signs: Vital Signs: Last Vital Signs Temp 97.2 F 12/28/24 07:32 Pulse 72 12/28/24 07:32 Resp 18 12/28/24 07:32 BP 146/74 H 12/28/24 07:32 Pulse Ox 98 12/28/24 07:32 O2 Del Method Room Air 12/28/24 07:32 BMI result Body Mass Index 34.8 DS: Data Data Completed and Pending Labs on day of discharge: Laboratory Results - last 24 hr 12/27/24 12/27/24 12/27/24 11:36 16:35 20:31 Sodium Potassium Chloride Carbon Dioxide Anion Gap BUN Creatinine Estim Creat Clear Calc Estimated GFR POC Glucose 207 H 122 H 162 H Random Glucose Calcium B-Natriuretic Peptide 12/28/24 12/28/24 07:18 07:25 Sodium 143 Potassium 3.3 Chloride 102 Carbon Dioxide 29 Anion Gap 15 BUN 27 H Creatinine 1.62 H Estim Creat Clear Calc 34.2 Estimated GFR 31 POC Glucose 142 H Random Glucose 148 H Calcium 9.3 B-Natriuretic Peptide 619 H Discharge Plan Discharge Anticipated Discharge Date/Time: 12/28/24 10:51 Patient Disposition: Home, Self-Care Discharge Diagnosis: Acute on chronic CHFrEF 15-20% exacerbation, with mild ZEINAB Referrals: Physician,None [Primary Care Provider, Medical] - 1 Week Discharge Medications: Continued sacubitril-valsartan [Entresto] 49-51 mg Tablet 1 tab PO BID Qty: 60 0RF Protocol: Hold for SBP< HOLD for SBP < : 90 furosemide 40 mg Tablet 40 mg PO DAILY Qty: 30 0RF Protocol: Hold for SBP< HOLD for SBP < : 90 Jardiance 10 mg Tablet 10 mg PO DAILY Qty: 30 0RF (DME) FreeStyle Lite Strips Strip See Rx Instructions .ROUTE .MEDSUPPLY Qty: 100 0RF Rx Instructions: QID (DME) lancets Misc See Rx Instructions .ROUTE .MEDSUPPLY Qty: 100 0RF Rx Instructions: 4 times daily QIDACH (DME) blood-glucose meter [FreeStyle Lite Meter] Kit See Rx Instructions .ROUTE .MEDSUPPLY Qty: 1 0RF Rx Instructions: As directed metoclopramide HCl 5 mg Tablet 5 mg PO DAILY montelukast 10 mg Tablet 10 mg PO DAILY apixaban 5 mg Tablet 5 mg PO BID insulin aspart U-100 [Novolog FlexPen U-100 Insulin] 100 unit/mL (3 mL) Insulin Pen 1 sliding scale dose SUBCUT TIDAC Protocol: Insulin Correction Scale Less than or equal to 110 ---- Give (units): 0 111 to 150 Give (units): 0 151 to 200 Give (units): 2 201 to 250 Give (units): 4 251 to 300 Give (units): 6 301 to 350 Give (units): 8 Greater than 350 Give (units): 10 Call MD if Blood Glucose > : 350 liraglutide [Victoza 2-Mian] 0.6 mg/0.1 mL (18 mg/3 mL) Pen Injector 1.8 mg SUBCUT DAILY dicyclomine 10 mg Capsule 10 mg PO QID amiodarone 200 mg tablet 200 mg PO DAILY Rx Instructions: 400 mg (2 tabs) twice daily until 10/19. Starting on 10/20, take 200 mg (1 tab) once daily Discharge Orders: Discharge Order (Routine); Ordered 12/28/24 Ordered By: Margie Whitfield Diet: Advance to usual diet Activity on Discharge: As tolerated Stand Alone Forms: Patient Portal Discharge page Print Language: Unable To Collect Care Plan Goals: Follow up with PCP within 1 week of discharge Follow up with Cardiology outpatient setting Continue medication compliance Continue compliance with dietary restrictions including 2 g sodium restriction Monitor for increase in weight of 2 lb in 2 consecutive days, that could represent recurrence of fluid overload Health Concerns: CHFrEF 15-20% AFib CKD Plan of Treatment: As above Assessment: Euvolemic, and back to clinical baseline. Hemodynamically stable for discharge
[2024-12-28 11:15] LABS: Glucose, Whole Blood 279 mg/dL (60-115)
--- NOTE | 2024-12-28 11:22 | MHC.CM.PN ---
PT CLEARED TO DC HOME TODAY, UNABLE TO HAVE VNA DUE TO LACK OF PCP PER NIECE, PT HAS NOT BEEN ON HER HOME MEDS FOR SOME TIME HOSPITALIST AWARE AND WILL WRITE FOR ALL MEDS AT DC TEJINDERCARLA IS AWARE CM WILL ATTEMPT TO MAKE A POST DC APPT WITH AN [facility] PROVIDER ON MONDAY SHE REPORTS LAST TIME PT WAS DISCHARGED THEY TOLD HER TO CALL [facility] AND SHE WAS TOLD IT WAS A ONE YEAR WAIT, SHE THOUGHT THAT PT WAS ACTUALLY GOING TO SEE SOMEONE IN [place], HOWEVER THERE IS NO APPT IN THE SYSTEM SHE IS AWARE PT CAN USE URGENT CARE NEEDED UNTIL HER PCP APPT TASK ENTERED FOR POST DC APPT ATTEMPTS ON MONDAY-LUIS IS AWARE SOMEONE WILL CALL HER WITH APPT INFO LUIS GOMEZ: [phone]
--- NOTE | 2024-12-28 12:00 | PC.NURSE ---
Patient alert and oriented. Discharge instructions reviewed with patient, including medications, medication teaching, picking up medications. Also reviewed following up with a PCP. Discharge instructions and process reviewed with patient's niece as well per patient request.
[2024-12-28 12:56] VITALS: BP 129/65; PULSE 73; RESP 16; TEMP 36.3; O2SAT 97
== END 2024-12-28 13:47 | disposition home or self-care (01) | DRG 291 ==
LOC: HO.ED 19:34 → HO.EDOVER 21:46 → HO.S3 12-26 12:50
PROVIDERS: Physician Assistant Medical; Admitting Provider Student in an Organized Health Care Education/Training Program; Emergency Provider Student in an Organized Health Care Education/Training Program; Visit Provider Hospitalist
DX: I13.0 Hypertensive heart and chronic kidney disease with heart failure and stage 1 through stage 4 chronic kidney disease, or unspecified chronic kidney disease (principal); I50.43 Acute on chronic combined systolic (congestive) and diastolic (congestive) heart failure; N17.9 Acute kidney failure, unspecified; N18.30 Chronic kidney disease, stage 3 unspecified; I50.82 Biventricular heart failure; E11.22 Type 2 diabetes mellitus with diabetic chronic kidney disease; E87.6 Hypokalemia; E11.65 Type 2 diabetes mellitus with hyperglycemia; I48.0 Paroxysmal atrial fibrillation; Z79.01 Long term (current) use of anticoagulants; Z79.899 Other long term (current) drug therapy
CPT/HCPCS: 36415; 71046; 80048; 80053; 81001; 82803; 82947; 83735; 83880; 84484; 85025; 93005; 99285; J1938; J3475

== ENCOUNTER → 2024-12-24 15:38 | Outpatient (BNV) | payer MEDICARE, SELFPAY | PROVIDERS: Admitting Provider Student in an Organized Health Care Education/Training Program; Emergency Provider Student in an Organized Health Care Education/Training Program; Visit Provider Internal Medicine Cardiovascular Disease | DX: I49.1 Atrial premature depolarization (principal); I49.3 Ventricular premature depolarization; I51.7 Cardiomegaly; I44.7 Left bundle-branch block, unspecified | CPT/HCPCS: 93010 ==

== ENCOUNTER → 2024-12-24 15:38 | Outpatient (BNV) | payer MEDICARE, SELFPAY | PROVIDERS: Visit Provider Radiology Diagnostic Radiology | DX: I51.7 Cardiomegaly (principal) | CPT/HCPCS: 71046 ==

== ENCOUNTER → 2024-12-24 21:40 | Outpatient (BNV) | payer MEDICARE, SELFPAY | PROVIDERS: Admitting Provider Student in an Organized Health Care Education/Training Program; Emergency Provider Student in an Organized Health Care Education/Training Program; Visit Provider Student in an Organized Health Care Education/Training Program | DX: I50.23 Acute on chronic systolic (congestive) heart failure (principal) | CPT/HCPCS: 99222 ==

== ENCOUNTER 2025-02-15 17:48 | Emergency (ER) | payer MEDICARE, SELFPAY ==
--- NOTE | ~2025-02-15 | XR_ITS ---
CLINICAL HISTORY: cough 2 view chest x-ray Comparison: CR/SR - XR CHEST 2 VIEWS - 12/24/24 16:06 EDT Findings: Blunting of the left costophrenic angle. The lungs are under expanded. Perihilar reticular ground-glass opacities. Heart size is normal. Mild osteopenia. Mild calcified atherosclerotic disease of the aortic arch. IMPRESSION: 1. Mild CHF. 2. Small left pleural effusion. This document has been electronically signed by: Saturnino Pitt MD on 02/15/2025 19:43:24
--- NOTE | ~2025-02-15 | XR_ITS ---
CLINICAL HISTORY: volume overload 1 view chest x-ray Comparison: CR - XR CHEST 2V - 02/15/25 19:06 EDT Findings: Low lung volumes are present. Enlarged cardiac and mediastinal silhouette is unchanged. Bilateral reticular opacities are present. Left pleural effusion is unchanged. No pneumothorax. Pulmonary venous vasculature is prominent. No acute fracture. IMPRESSION: 1. Left pleural effusion and pulmonary interstitial edema. Unchanged This document has been electronically signed by: Freddie Lang III, MD PHD on 02/16/2025 04:16:46
[2025-02-15 17:57] VITALS: PULSE 84; O2SAT 98
[2025-02-15 17:58] VITALS: BP 157/85; PULSE 81; RESP 18; TEMP 36.8; O2SAT 95; BMI 31.9
--- OUTSIDE RECORDS SUMMARY | 2025-02-15 18:56 | XMS_ITS | Encounter Summary ---
Author Organization [facility] Address [address] [place] [address] Care Team Providers Care Rejected Items Clerk Name Role Phone Suresh Lopez DO Primary Care Provider [phone] Encounter Details Date Type Department Care Team (Latest Contact Info) Description 07/08/2024 Lab Requisition [facility] - Main Lab [address] [facility] [place] [phone] Ana M Wiley MD [address] [place] [address] Type 2 diabetes mellitus without complications (CMS/HCC V24, CMS/HCC V28); Heart failure, unspecified (CMS/HCC V24, CMS/HCC V28); Chronic kidney disease, unspecified Social History Tobacco Use Types Packs/Day Years Used Date Smoking Tobacco: Never Assessed Comments Unknown Sex and Gender Information Value Date Recorded Sex Assigned at Not on file Legal Sex Female 10:18 PM EST Gender Identity Not on file Sexual Orientation Not on file documented as of this encounter Plan of Treatment Not on file documented as of this encounter Procedures Procedure Name Priority Date/Time Associated Diagnosis Comments COMPLETE BLOOD COUNT Routine 07/08/2024 7:47 AM EST Type 2 diabetes mellitus without complications (CMS/HCC) Heart failure, unspecified (CMS/HCC) Chronic kidney disease, unspecified COMPREHENSIVE METABOLIC PANEL Routine 07/08/2024 7:47 AM EST Type 2 diabetes mellitus without complications (CMS/HCC) Heart failure, unspecified (CMS/HCC) Chronic kidney disease, unspecified documented in this encounter Results * (ABNORMAL) Comprehensive metabolic panel (07/08/2024 7:47 AM EST) Sodium 139 133 - 145 mmol/L LAB CHEMISTRY METHOD 07/08/2024 1:27 PM [facility] Potassium 4.6 3.5 - 5.5 mmol/L LAB CHEMISTRY METHOD 07/08/2024 1:27 PM [facility] Chloride 108 96 - 110 mmol/L LAB CHEMISTRY METHOD 07/08/2024 1:27 PM [facility] CO2 23 21 - 32 mmol/L LAB CHEMISTRY METHOD 07/08/2024 1:27 PM [facility] Anion Gap 8 3 - 11 LAB CHEMISTRY METHOD 07/08/2024 1:27 PM [facility] Glucose 120(H) 70 - 100 mg/dL LAB CHEMISTRY METHOD 07/08/2024 1:27 PM [facility] BUN 21 5 - 25 mg/dL LAB CHEMISTRY METHOD 07/08/2024 1:27 PM [facility] Creatinine 1.48(H) 0.50 - 1.10 mg/dL LAB CHEMISTRY METHOD 07/08/2024 1:27 PM [facility] eGFR 38(L) >=60 mL/min/1. 73m2 LAB CHEMISTRY METHOD 07/08/2024 1:27 PM [facility] Comment:Calculation based on the Chronic Kidney Disease Epidemiology Collaboration (CKD-EPI) equation refit without adjustment for race. BUN/Creatinine Ratio 14.2 LAB CHEMISTRY METHOD 07/08/2024 1:27 PM [facility] Calcium 8.9 8.5 - 10.5 mg/dL LAB CHEMISTRY METHOD 07/08/2024 1:27 PM [facility] AST (SGOT) 25 10 - 42 unit/L LAB CHEMISTRY METHOD 07/08/2024 1:27 PM [facility] ALT (SGPT) 37 10 - 60 unit/L LAB CHEMISTRY METHOD 07/08/2024 1:27 PM [facility] Alkaline Phosphatase 70 42 - 121 unit/L LAB CHEMISTRY METHOD 07/08/2024 1:27 PM EST [facility] Total Protein 6.8 6.0 - 8.0 g/dL LAB CHEMISTRY METHOD 07/08/2024 1:27 PM EST [facility] Albumin 3.2 3.2 - 5.0 g/dL LAB CHEMISTRY METHOD 07/08/2024 1:27 PM [facility] Total Bilirubin 0.5 0.0 - 1.4 mg/dL LAB CHEMISTRY METHOD 07/08/2024 1:27 PM [facility] Blood Venous blood specimen / Unknown Venipuncture / Unknown 07/08/2024 7:47 AM EST 07/08/2024 11:51 AM EST us Ana M Wiley MD LAB BLOOD ORDERABLES Final Resul t [facility] [address] [place] [address], * (ABNORMAL) Complete blood count (07/08/2024 7:47 AM EST) WBC 4.0(L) 4.8 - 10.8 K/mcL LAB HEMETOLOGY METHOD 07/08/2024 1:26 PM [facility] RBC 3.70(L) 3.80 - 4.80 M/mcL LAB HEMETOLOGY METHOD 07/08/2024 1:26 PM [facility] Hemoglobin 10.7(L) 11.5 - 16.0 g/dL LAB HEMETOLOGY METHOD 07/08/2024 1:26 PM [facility] Hematocrit 33.1(L) 35.0 - 47.0 % LAB HEMETOLOGY METHOD 07/08/2024 1:26 PM [facility] MCV 89.0 79.0 - 98.0 FL LAB HEMETOLOGY METHOD 07/08/2024 1:26 PM EST [facility] MCH 28.8 27.0 - 32.0 pcg LAB HEMETOLOGY METHOD 07/08/2024 1:26 PM EST [facility] MCHC 32.3 32.0 - 37.0 g/dL LAB HEMETOLOGY METHOD 07/08/2024 1:26 PM EST [facility] RDW 15.2(H) 11.0 - 15.0 % LAB HEMETOLOGY METHOD 07/08/2024 1:26 PM EST [facility] Platelets 183 130 - 400 K/mcL LAB HEMETOLOGY METHOD 07/08/2024 1:26 PM EST [facility] MPV 13.1(H) 7.0 - 11.0 FL LAB HEMETOLOGY METHOD 07/08/2024 1:26 PM EST [facility] NRBC 0.0 <1.0 % LAB HEMETOLOGY METHOD 07/08/2024 1:26 PM [facility] NRBC Absolute 0.00 <0.10 K/mcL LAB HEMETOLOGY METHOD 07/08/2024 1:26 PM [facility] Blood Venous blood specimen / Unknown Venipuncture / Unknown 07/08/2024 7:47 AM EST 07/08/2024 11:51 AM EST Ana M Wiley MD LAB BLOOD ORDERABLES Final Resul t [facility] [address] [place] [address], documented in this encounter Visit Diagnoses Diagnosis Type 2 diabetes mellitus without complications (CMS/HCC V24, CMS/HCC V28) Heart failure, unspecified (CMS/HCC V24, CMS/HCC V28) Heart failure, unspecified Chronic kidney disease, unspecified documented in this encounter Care Teams Rejected Items Clerk Relationship Specialty Start Date End Date Suresh Lopez DO [address] [place] [address] [place] [address] PCP - General 05/29/23 documented as of this encounter
--- OUTSIDE RECORDS SUMMARY | 2025-02-15 18:56 | XMS_ITS | Encounter Summary ---
Author Organization [facility] Address [address] [place] [address] Care Team Providers Care Operations Director Name Role Phone Suresh Lopez DO Primary Care Provider [phone] Encounter Details Date Type Department Care Team (Latest Contact Info) Description 07/11/[address] [facility] - Main Lab [address] [facility] [place] [phone] Ana M Wiley MD [address] [place] [address] Type 2 diabetes mellitus without complications (CMS/HCC V24, CMS/HCC V28); Essential (primary) hypertension; Acute diastolic (congestive) heart failure (CMS/HCC V24, CMS/HCC V28); Chronic kidney disease, [...] Associated Diagnosis Comments COMPLETE BLOOD COUNT Routine 07/11/2024 7:12 AM EST Type 2 diabetes mellitus without complications (CMS/HCC) Essential (primary) hypertension Acute diastolic (congestive) heart failure (CMS/HCC) Chronic kidney disease, unspecified HEMOGLOBIN A1C Routine 07/11/2024 7:12 AM EST Type 2 diabetes mellitus without complications (CMS/HCC) Essential (primary) hypertension Acute diastolic (congestive) heart failure (CMS/HCC) Chronic kidney disease, unspecified COMPREHENSIVE METABOLIC PANEL Routine 07/11/2024 7:12 AM EST Type 2 diabetes mellitus without complications (CMS/HCC) Essential (primary) hypertension Acute diastolic (congestive) heart failure (CMS/HCC) Chronic kidney disease, unspecified documented in this encounter Results * (ABNORMAL) Hemoglobin A1c (07/11/2024 7:12 AM EST) Pathologist [facility] Hemoglobin A1C 8.6(H) <6.5 % LAB CHEMISTRY METHOD 07/11/2024 2:03 PM EST [facility] Mean Bld Glu Estim. 200 mg/dL LAB CHEMISTRY METHOD 07/11/2024 2:03 PM [facility] Blood Venous blood specimen / Unknown Venipuncture / Unknown 07/11/2024 7:12 AM EST 07/11/2024 9:54 AM EST AnaM Wiley MD LAB BLOOD ORDERABLES Final Resul t [facility] [address] [place] [address], * (ABNORMAL) Comprehensive metabolic panel (07/11/2024 7:12 AM EST) [facility] Sodium 140 133 - 145 mmol/L LAB CHEMISTRY METHOD 07/11/2024 11:42 AM EST [facility] Potassium 3.8 3.5 - 5.5 mmol/L LAB CHEMISTRY METHOD 07/11/2024 11:42 AM EST [facility] Chloride 105 96 - 110 mmol/L LAB CHEMISTRY METHOD 07/11/2024 11:42 AM EST [facility] CO2 26 21 - 32 mmol/L LAB CHEMISTRY METHOD 07/11/2024 11:42 AM [facility] Anion Gap 9 3 - 11 LAB CHEMISTRY METHOD 07/11/2024 11:42 AM [facility] Glucose 142(H) 70 - 100 mg/dL LAB CHEMISTRY METHOD 07/11/2024 11:42 AM [facility] BUN 17 5 - 25 mg/dL LAB CHEMISTRY METHOD 07/11/2024 11:42 AM [facility] Creatinine 1.43(H) 0.50 - 1.10 mg/dL LAB CHEMISTRY METHOD 07/11/2024 11:42 AM [facility] eGFR 40(L) >=60 mL/min/1. 73m2 LAB CHEMISTRY METHOD 07/11/2024 11:42 AM [facility] Comment:Calculation based on the Chronic Kidney Disease Epidemiology Collaboration (CKD-EPI) equation refit without adjustment for race. BUN/Creatinine Ratio 11.9 LAB CHEMISTRY METHOD 07/11/2024 11:42 AM [facility] Calcium 8.9 8.5 - 10.5 mg/dL LAB CHEMISTRY METHOD 07/11/2024 11:42 AM [facility] AST (SGOT) 25 10 - 42 unit/L LAB CHEMISTRY METHOD 07/11/2024 11:42 AM [facility] ALT (SGPT) 43 10 - 60 unit/L LAB CHEMISTRY METHOD 07/11/2024 11:42 AM [facility] Alkaline Phosphatase 72 42 - 121 unit/L LAB CHEMISTRY METHOD 07/11/2024 11:42 AM [facility] Total Protein 6.9 6.0 - 8.0 g/dL LAB CHEMISTRY METHOD 07/11/2024 11:42 AM [facility] Albumin 3.4 3.2 - 5.0 g/dL LAB CHEMISTRY METHOD 07/11/2024 11:42 AM [facility] Total Bilirubin 0.4 0.0 - 1.4 mg/dL LAB CHEMISTRY METHOD 07/11/2024 11:42 AM [facility] Blood Venous blood specimen / Unknown Venipuncture / Unknown 07/11/2024 7:12 AM EST 07/11/2024 9:54 AM EST us Ana M Wiley MD LAB BLOOD ORDERABLES Final Resul t [facility] [address] [place] [address], * (ABNORMAL) Complete blood count (07/11/2024 7:12 AM EST) WBC 4.3(L) 4.8 - 10.8 K/mcL LAB HEMETOLOGY METHOD 07/11/2024 11:17 AM [facility] RBC 3.50(L) 3.80 - 4.80 M/mcL LAB HEMETOLOGY METHOD 07/11/2024 11:17 AM [facility] Hemoglobin 10.0(L) 11.5 - 16.0 g/dL LAB HEMETOLOGY METHOD 07/11/2024 11:17 AM [facility] Hematocrit 31.7(L) 35.0 - 47.0 % LAB HEMETOLOGY METHOD 07/11/2024 11:17 AM [facility] MCV 90.1 79.0 - 98.0 FL LAB HEMETOLOGY METHOD 07/11/2024 11:17 AM [facility] MCH 28.4 27.0 - 32.0 pcg LAB HEMETOLOGY METHOD 07/11/2024 11:17 AM [facility] MCHC 31.5(L) 32.0 - 37.0 g/dL LAB HEMETOLOGY METHOD 07/11/2024 11:17 AM [facility] RDW 14.8 11.0 - 15.0 % LAB HEMETOLOGY METHOD 07/11/2024 11:17 AM [facility] Platelets 291 130 - 400 K/mcL LAB HEMETOLOGY METHOD 07/11/2024 11:17 AM [facility] MPV 11.9(H) 7.0 - 11.0 FL LAB HEMETOLOGY METHOD 07/11/2024 11:17 AM EST [facility] NRBC 0.0 <1.0 % LAB HEMETOLOGY METHOD 07/11/2024 11:17 AM EST [facility] NRBC Absolute 0.00 <0.10 K/mcL LAB HEMETOLOGY METHOD 07/11/2024 11:17 AM EST [facility] Blood Venous blood specimen / Unknown Venipuncture / Unknown 07/11/2024 7:12 AM EST 07/11/2024 9:54 AM EST us Ana M Wiley MD LAB BLOOD ORDERABLES Final Resul t [facility] [address] [place] [address], documented in this encounter Visit Diagnoses Diagnosis Type 2 diabetes mellitus without complications (CMS/HCC V24, CMS/HCC V28) Essential (primary) hypertension Unspecified essential hypertension Acute diastolic (congestive) heart failure (CMS/HCC V24, CMS/HCC V28) Chronic kidney disease, unspecified documented in this encounter Care Teams Operations Director Relationship Specialty Start Date End Date Suresh Lopez DO [address] [place] [address] PCP - General 05/29/23 documented as of this encounter
--- OUTSIDE RECORDS SUMMARY | 2025-02-15 18:56 | XMS_ITS | Encounter Summary ---
Author Organization [facility] Address [address] [place] [address] Care Team Providers Care Manager Wholesale Name Role Phone Suresh Lopez DO Primary Care Provider [phone] Encounter Details Date Type Department Care Team (Late st Contact Info) Description 07/16/2024 Lab Requisition [facility] - Main Lab [address] [place] [phone] Ana M Wiley MD [address] [place] [address] Heart failure, unspecified (CMS/HCC V24, CMS/HCC V28); Essential (primary) hypertension; Pneumonia, unspecified organism Social History Tobacco Use Types Packs/Day Years [...] Associated Diagnosis Comments COMPLETE BLOOD COUNT Routine 07/16/2024 5:36 AM EDT Heart failure, unspecified (CMS/HCC) Essential (primary) hypertension Pneumonia, unspecified organism BASIC METABOLIC PANEL Routine 07/16/2024 5:36 AM EDT Heart failure, unspecified (CMS/HCC) Essential (primary) hypertension Pneumonia, unspecified organism documented in this encounter Results * (ABNORMAL) Basic metabolic panel (07/16/2024 5:36 AM EDT) Sodium 138 133 - 145 mmol/L LAB CHEMISTRY METHOD 07/16/2024 9:30 AM [facility] Potassium 4.2 3.5 - 5.5 mmol/L LAB CHEMISTRY METHOD 07/16/2024 9:30 AM [facility] Chloride 103 96 - 110 mmol/L LAB CHEMISTRY METHOD 07/16/2024 9:30 AM [facility] CO2 28 21 - 32 mmol/L LAB CHEMISTRY METHOD 07/16/2024 9:30 AM [facility] Anion Gap 7 3 - 11 LAB CHEMISTRY METHOD 07/16/2024 9:30 AM [facility] Glucose 190(H) 70 - 100 mg/dL LAB CHEMISTRY METHOD 07/16/2024 9:30 AM [facility] BUN 18 5 - 25 mg/dL LAB CHEMISTRY METHOD 07/16/2024 9:30 AM [facility] Creatinine 1.46(H) 0.50 - 1.10 mg/dL LAB CHEMISTRY METHOD 07/16/2024 9:30 AM [facility] eGFR 39(L) >=60 mL/min/1. 73m2 LAB CHEMISTRY METHOD 07/16/2024 9:30 AM [facility] Comment:Calculation based on the Chronic Kidney Disease Epidemiology Collaboration (CKD-EPI) equation refit without adjustment for race. BUN/Creatinine Ratio 12.3 LAB CHEMISTRY METHOD 07/16/2024 9:30 AM [facility] Calcium 8.9 8.5 - 10.5 mg/dL LAB CHEMISTRY METHOD 07/16/2024 9:30 AM [facility] Blood Venous blood specimen / Unknown Venipuncture / Unknown 07/16/2024 5:36 AM EDT 07/16/2024 8:05 AM EDT us Ana M Wiley MD LAB BLOOD ORDERABLES Final Resul t [facility] [address] [place] [address], * (ABNORMAL) Complete blood count (07/16/2024 5:36 AM EDT) WBC 4.1(L) 4.8 - 10.8 K/mcL LAB HEMETOLOGY METHOD 07/16/2024 9:11 AM EDT [facility] RBC 3.70(L) 3.80 - 4.80 M/mcL LAB HEMETOLOGY METHOD 07/16/2024 9:11 AM EDT [facility] Hemoglobin 10.7(L) 11.5 - 16.0 g/dL LAB [facility]EMETOLOGY [facility] Hematocrit 34.3(L) 35.0 - 47.0 % LAB HEMETOLOGY METHOD [facility]16[facility]2024 [facility] MCV 91.7 79.0 - 98.0 FL LAB HEMETOLOGY METHOD 07/16[facility]2024 [facility] MCH 28.6 27.0 - 32.0 pcg LAB HEMETOLOGY METHOD 07/16/2024 9:11 AM [facility] MCHC 31.2(L) 32.0 - 37.0 g/dL LAB HEMETOLOGY METHOD [facility]16[facility]2024 [facility] RDW 14.9 11.0 - 15.0 % LAB HEMETOLOGY METHOD 07/16[facility]2024 [facility] Platelets 272 130 - 400 K/mcL LAB HEMETOLOGY METHOD 07/16/2024 9:11 AM [facility] MPV 12.5(H) 7.0 - 11.0 FL LAB HEMETOLOGY METHOD 07/16/2024 9:11 AM [facility] NRBC 0.0 <1.0 % LAB HEMETOLOGY METHOD 07/16/2024 9:11 AM EDT [facility] NRBC Absolute 0.00 <0.10 K/mcL LAB HEMETOLOGY METHOD 07/16/2024 9:11 AM EDT [facility] Blood Venous blood specimen / Unknown Venipuncture / Unknown 07/16/2024 5:36 AM EDT 07/16/2024 8:05 AM EDT us Ana M Wiley MD LAB BLOOD ORDERABLES Final Resul t [facility] [address] [place] [address], documented in this encounter Visit Diagnoses Diagnosis Heart failure, unspecified (CMS/HCC V24, CMS/HCC V28) Heart failure, unspecified Essential (primary) hypertension Unspecified essential hypertension Pneumonia, unspecified organism documented in this encounter Care Teams Manager Wholesale Relationship Specialty Start Date End Date Suresh Lopez DO [address] [place] [address] PCP - General 05/29/23 documented as of this encounter
--- OUTSIDE RECORDS SUMMARY | 2025-02-15 18:56 | XMS_ITS | Clinical Summary ---
Author Organization [address] Address [address] [place] [address] Phone Care Team Providers Care Office Support Associate Name Role Phone Suresh Lopez Primary Care Provider [phone] Social History Tobacco Use Types Packs/Day Years Used Date Smoking Tobacco: Never Assessed Comments Unknown Sex and Gender Information Value Date Recorded Sex Assigned at Not on file Legal Sex Female 10:18 PM EST Gender Identity Not on file Sexual Orientation Not on file Plan of Treatment Health Maintenance Due Date Last Done Comments Breast Cancer Screening 1955 Colorectal Cancer Screening: Colonoscopy 1955 DTaP,Tdap,and Td Vaccines (1 - Tdap) 1973 Pneumococcal Vaccine: 50+ Ye ars (1 of 2 - PCV) 1973 Zoster Vaccines (1 of 2) 2004 Depression Screening 05/08/2024 Falls Risk Assessment 07/08/2024 Hepatitis C Screening 07/08/2024 Osteoporosis Screening (Bone Density Screening) 07/08/2024 Social Influencers of Health Screening 07/08/2024 COVID-19 Vaccine ( - 2023-2 5 season) 2025 Influenza Vaccine (#1) 2025 RSV Immunization Adult Patie nts (1 - 1-dose 75+ series) 2029 HIB Vaccines Aged Out No longer eligi ble based on patient's age to complete this topic HPV Vaccines Aged Out No longer eligi ble based on patient's age to complete this topic Hepatitis A Vaccines Aged Out No long er eligible based on patient's age to complete this topic Hepatitis B Vaccines Aged Out No long er eligible based on patient's age to complete this topic IPV Vaccines Aged Out No longer eligi ble based on patient's age to complete this topic MMR Vaccines Aged Out No longer eligi ble based on patient's age to complete this topic Meningococcal ACWY Vaccine Aged Out N o longer eligible based on patient's age to complete this topic Meningococcal B Vaccine Aged Out No l onger eligible based on patient's age to complete this topic RSV Immunization Patients Un josé 20 months Aged Out No longer eligible b ased on patient's age to complete this topic Varicella Vaccines Aged Out No longer eligible based on patient's age to complete this topic Insurance [employer] Care Teams Office Support Associate Relationship Specialty Start Date End Date Suresh Lopez DO [address] [place] [address] PCP - General 05/29/23
[2025-02-15 19:44] LABS: MANUAL DIFF FLAG NO
[2025-02-15 19:59] LABS: Hematocrit 35.0 % (37.0-47.0); Hemoglobin 10.9 g/dl (12.0-16.0); Imm Gran Abs Auto 0.03 X10*3/uL (0.00-0.03); Imm Gran Pct Auto 0.7 % (0.0-0.4); Lymphocytes Absolute Auto 1.0 X10*3/uL (1.2-4.9); Mean Corpuscular HGB Conc 31.1 g/dl (31.0-35.0); Mean Corpuscular Hemoglobin 29.2 pg (27.0-33.0); Mean Corpuscular Volume 93.8 fL (80.0-98.0); NRBC Abs Auto 0.000 X10*3/uL (0.0-0.012); NRBC Pct Auto 0.0 /100WBC (0.0-0.2); Platelet Count 297 X10*3/uL (160-400); Red Blood Count 3.73 X10*6/uL (4.20-5.50); White Blood Count 4.5 X10*3/uL (4.8-10.8)
[2025-02-15 20:06] LABS: Alanine Aminotransferase 67 U/L (0-31); Albumin Level 4.1 g/dL (3.5-5.0); Alkaline Phosphatase 81 U/L (39-117); Anion Gap 16 (12-20); Aspartate Amino Transferase 53 U/L (5-31); Blood Urea Nitrogen 22 mg/dL (9-16); Calcium 9.0 mg/dL (8.4-10.2); Carbon Dioxide 25 mmol/L (22-29); Chloride 108 mmol/L (96-108); Creatinine Clr Calc Pharmacy 31.3; Estimated Glomerular Filt Rate 30; Potassium 3.2 mmol/L (3.3-5.1); Sodium 146 mmol/L (135-145); Total Protein 7.5 g/dL (6.5-8.0)
[2025-02-15 20:16] LABS: Troponin-I High Sensitivity 100.7 ng/L (<3.5-17.0)
--- NOTE | 2025-02-15 20:16 | ED.GENADULT ---
HPI - General Adult General Chief complaint: General Medical Stated complaint: Leg swelling x1week,does not have prescriptions? Time Seen by Provider: 02/15/25 20:04 Source: patient Limitations: no limitations History of Present Illness ED Provider: Brigida Brady PA-C HPI narrative: 69F with past medical history of CHF on Lasix, afib on Eliquis, CKD, T2DM on insulin, HTN, asthma was BIBA for leg pain and swelling for the last week. Complaining of associated dyspnea. Feels like shes had a cold all week. Difficulty walking due to pain/swelling, uses a walker baseline. Patient states she stopped taking her medications when they ran out due to transportation difficulties. Last fill date was 12/29 with a 30 day supply. Approximately 2 weeks with medication nonadherence. Patient has history of noncompliance with medications. States she cannot remember the last time she administered insulin. Related Data Previous Rx's ?Medication ?Instructions ?Recorded alcohol swabs 1 pad topical QIDACHS #100 ea 12/28/24 amiodarone 200 mg tablet 200 mg PO DAILY 30 days #30 tabs 12/28/24 apixaban 5 mg tablet 5 mg PO BID 30 days #60 tabs 12/28/24 blood sugar diagnostic (FreeStyle #100 ea 12/28/24 Lite Strips) blood-glucose meter (FreeStyle #1 ea 12/28/24 Lite Meter kit) empagliflozin 10 mg tablet 10 mg PO DAILY 30 days #30 tabs 12/28/24 (Jardiance) furosemide 40 mg tablet 40 mg PO DAILY 30 days #30 tabs 12/28/24 insulin lispro 100 unit/mL 1 sliding scale dose subcut 12/28/24 subcutaneous solution (Admelog QIDACHS 30 days #3 mL U-100 Insulin lispro) lancets #100 ea 12/28/24 montelukast 10 mg tablet 10 mg PO DAILY 30 days #30 tabs 12/28/24 sacubitril 49 mg-valsartan 51 mg 1 tab PO BID 30 days #60 tabs 12/28/24 tablet (Entresto) amiodarone 200 mg tablet 200 mg PO DAILY #30 tabs 02/18/25 apixaban 5 mg tablet (Eliquis) 5 mg PO BID 30 days #60 tabs 02/18/25 empagliflozin 10 mg tablet 10 mg PO DAILY 30 days #30 tabs 02/18/25 (Jardiance) furosemide 40 mg tablet (Lasix) 40 mg PO DAILY 30 days #30 tabs 02/18/25 insulin aspart U-100 100 unit/mL 1 sliding scale dose subcut 02/18/25 (3 mL) subcutaneous pen (Novolog USEASDIRECTD 30 days #15 mL FlexPen U-100 Insulin aspart) montelukast 10 mg tablet 10 mg PO DAILY 30 days #30 tabs 02/18/25 sacubitril 49 mg-valsartan 51 mg 1 tab PO BID 30 days #60 tabs 02/18/25 tablet Allergies Allergy/AdvReac Type Severity Reaction Status Date / Time No Known Allergies Allergy Verified 02/15/25 17:58 Review of Systems Review of Systems: Yes all other systems are reviewed and are negative Constitutional: Constitutional: Reports fatigue ENT: Denies dizziness Cardiovascular: Cardiovascular: Reports chest pain with activity, Denies syncope, Reports dyspnea and Reports dyspnea on exertion Respiratory: Respiratory: Reports dyspnea and Reports dyspnea on exertion Gastrointestinal: Gastrointestinal: Denies abdominal pain Neurologic: Denies dizziness and Denies syncope Endocrine: Endocrine: Reports fatigue [facility] Past Medical History Attestation statement: The following information was validated with the patient. Medical History (Updated 02/19/25 @ 00:01 by Luciana Gerard) Diabetes mellitus Paroxysmal atrial fibrillation Acute on chronic combined systolic and diastolic CHF (congestive heart failure) Noncompliance with medications Acute exacerbation of CHF (congestive heart failure) Hypertension CKD (chronic kidney disease) stage 3, GFR 30-59 ml/min Hypertensive urgency Acute combined systolic and diastolic congestive heart failure Asthma Hypertension Social History Social History Household Members: Family Housing: House Do you presently have visiting nurse or other home services: No Alcohol intake: former Patient Tobacco Use Status: Never used Tobacco Advance Directives Date on File: 07/05/24 service: No Physical Exam ED Vital Signs: Vital Signs - 24 hr 02/17/25 17:35 02/17/25 21:50 02/18/25 06:00 Temperature 98.7 F 96.9 F 96.8 F Pulse Rate 75 76 68 Respiratory Rate 20 18 18 Blood Pressure 134/58 L 140/69 H 145/60 H Pulse Oximetry 99 100 96 Oxygen Delivery Method Room Air Room Air Room Air 02/18/25 09:19 02/18/25 10:25 02/18/25 10:25 Temperature 96.9 F Pulse Rate 69 Respiratory Rate 19 Blood Pressure 131/60 131/60 131/60 Pulse Oximetry 97 Oxygen Delivery Method Room Air BMI result Body Mass Index 31.9 Const Other: Sleeping easily woken with verbal stimuli General: cooperative and alert; No comfortable or diaphoretic Nutritional Appearance: obese Orientation/consciousness: patient oriented x3 HENMT Head: Yes normocephalic and Yes atraumatic Resp Other: Poor inspiratory effort, faint crackles that are basilar Effort & Inspection: normal respiratory effort Cardio Other: Pitting edema Skin Other: Warm dry no rash Neuro General: patient oriented x3, no focal motor deficits and CN's II-XI intact bilaterally Psych Other: Cooperative Course Course Course Narrative: I Brigida Brady PA-C personally obtain history, performed the physical and assessment. Karin PATRICIO helped to formulate the documentation Reevaluation(s) Reevaluation #1: Physician observation continued. Patient is not in any distress. Patient is not hypoxic. Patient ate breakfast lunch without any problems. I reviewed patient's labs which showed elevated BNP which confirms history of CHF and flat troponin. Patient was made case management by previous provider Marychuy. I discussed case with hospitalist [employer] Marychuy Middleton due to patient's BNP numbers and troponin. After further discussion and evaluated the patient she states patient can continue to be on case management due to patient being asymptomatic. Presently she states no indication for admission. If patient decompensates than hospitalist should be made aware. Once again patient is not hypoxic negative for JVD. Patient was brought to the ED because of missed medications which led to her elevated BNP. Patient is now in overflow. Patient makes her own decision in his alert oriented x3. Patient wants a full code. Time: 16:11 Reevaluation #2: Physician observation continued. Uneventful night. Vital signs stable. No complaints from nursing overnight. Med reconciliation reviewed and done. PT evaluation suggests patient will benefit from home PT services, awaiting CM eval to set up home services. Will continue to monitor. Time: 15:36 Reevaluation #3: Time: 13:59 Date: 02/18/25 Provider: SOBIA Toure Patient in physician observation for case management needs. No overnight events. PT is recommending home services, patient does not have a PCP. VNA can not be arranged. Patient's knees will bring her home after work. That will be after 3 p.m. today. Physician observation completed at 14:00. Patient reporting that she does not have any of her medication refills therefore used [employer] to send over 1 month supply of these medications. Medications Administered Discontinued Medications Generic Name Dose Route Start Last Admin Trade Name Freq PRN Reason Stop Dose Admin Amiodarone HCl 200 mg 02/16/25 12:15 02/18/25 10:25 Amiodarone Hcl 200 Mg Tablet PO 200 mg DAILY MAURI Administration Apixaban 5 mg 02/16/25 12:15 02/18/25 10:25 Apixaban 5 Mg Tablet PO 5 mg BID MAURI Administration Benzocaine 1 lozenge 02/17/25 01:59 02/17/25 02:35 Throat Lozenge, Medicated Lozenge MUCOUS MEM 02/17/25 02:00 1 lozenge ONCE ONE Administration Benzocaine 1 lozenge 02/17/25 17:29 02/17/25 17:54 Throat Lozenge, Medicated Lozenge MUCOUS MEM 02/17/25 17:30 1 lozenge ONCE ONE Administration Empagliflozin 10 mg 02/16/25 12:15 02/18/25 10:25 Empagliflozin 10 Mg Tablet PO 10 mg DAILY MAURI Administration Furosemide 40 mg 02/15/25 20:19 02/15/25 20:49 Furosemide 40 Mg/4 Ml Vial IVPUSH 02/15/25 20:20 40 mg ONCE ONE Administration Protocol Furosemide 40 mg 02/16/25 12:15 02/18/25 10:25 Furosemide 40 Mg Tablet PO 40 mg DAILY MAURI Administration Protocol Insulin Human Lispro 0 unit 02/16/25 16:30 02/18/25 17:47 Insulin Lispro 100 Unit/Ml 3 Ml Vial SUBCUT Not Given QIDACHS [facility] Protocol Montelukast Sodium 10 mg 02/16/25 12:15 02/18/25 10:26 Montelukast Sodium 10 Mg Tablet PO 10 mg DAILY MAURI Administration Nitroglycerin 0.4 mg 02/15/25 20:19 02/15/25 23:23 Nitroglycerin 0.4 Mg Tab.Subl SUBLINGUAL 0.4 mg Q5MX3 PRN Administration volume overload Potassium Chloride 40 meq 02/15/25 22:19 02/15/25 22:31 Potassium Chloride Er 20 Meq Tab.Er.Prt PO 02/15/25 22:20 40 meq ONCE ONE Administration Sacubitril/Valsartan 1 tab 02/16/25 12:15 02/18/25 10:25 Sacubitril/Valsartan 49/51 1 Tab Tablet PO 1 tab BID MAURI Administration Protocol Medical Decision Making Medical Decision Making MDM Narrative: 69F with past medical history of CHF on Lasix, afib on Eliquis, CKD, T2DM on insulin, HTN, asthma was BIBA for leg pain and swelling for the last week. Complaining of associated dyspnea. Feels like shes had a cold all week. Difficulty walking due to pain/swelling, uses a walker baseline. Patient states she stopped taking her medications when they ran out due to transportation difficulties. Last fill date was 12/29 with a 30 day supply. Approximately 2 weeks with medication nonadherence. Patient has history of noncompliance with medications. States she cannot remember the last time she administered insulin. I've considered the following diagnoses: CHF exacerbation, asthma exacerbation, viral syndrome, pneumonia, pneumothorax, pulmonary embolism, ACS. Plan: This patient's clinical picture is consistent with a CHF exacerbation. Also considering she has been nonadherent with her Lasix for the last 2 [place] [address]. Viral panel negative. CXR showing I've reviewed the following tests: CBC showing anemia, no leukocytosis. EKG Vent. Rate : 74 BPM Atrial Rate : 74 BPM P-R Int : 188 ms QRS Dur : 116 ms QT Int : 446 ms P-R-T Axes : 55 10 121 degrees QTcB Int : 495 ms Normal sinus rhythm Minimal voltage criteria for LVH, may be normal variant ( Thompson product ) Cannot rule out Anterior infarct , age undetermined Abnormal ECG When compared with ECG of 24-Dec-2024 15:48, Premature ventricular complexes are no longer Present Premature supraventricular complexes are no longer Present CXR Findings: Blunting of the left costophrenic angle. The lungs are under expanded. Perihilar reticular ground-glass opacities. Heart size is normal. Mild osteopenia. Mild calcified atherosclerotic disease of the aortic arch. IMPRESSION: 1. Mild CHF. 2. Small left pleural effusion. Per Brigida Brady PA-C The patient is in volume overload, she has her medications in a week. We will be giving IV Lasix, sublingual nitro so she diuresis, she has no chest pain, her 1st troponin is elevated, this is from demand ischemia from her volume overload, BNP is also elevated, we will repeat her labs and chest x-ray later in the morning, hold her over for PT case management, it appears as if she is not being care forward at home. To note, the pleural effusion on the left is chronic Repeat lab studies: Troponin 116.7, BNP 18068 Chest x-ray:Findings: Low lung volumes are present. Enlarged cardiac and mediastinal silhouette is unchanged. Bilateral reticular opacities are present. Left pleural effusion is unchanged. No pneumothorax. Pulmonary venous vasculature is prominent. No acute fracture. IMPRESSION: 1. Left pleural effusion and pulmonary interstitial edema. Unchanged Overall her labs are improved, the left pleural effusion is chronic, she is diuresing well, she remained stable, no hypoxia, pressure improved Differential Diagnosis Differential Diagnoses: The differential diagnosis associated with the presentation includes See medical decision-making Admission/Observation Consideration of admission/observation: Escalation of care including admission/observation considered Maybe Consult Healthcare Provider Management of the patient was discussed with: Channel [facility] PT/ case management Lab Data MDM Lab Attestation statement: I reviewed the patient's lab results. 02/15/25 19:38 02/16/25 03:51 Labs: Lab Results 02/15/25 02/15/25 02/16/25 Range/Units 19:38 22:30 03:51 WBC 4.5 L (4.8-10.8) X10*3/uL RBC 3.73 L (4.20-5.50) X10*6/uL Hgb 10.9 L (12.0-16.0) g/dl Hct 35.0 L (37.0-47.0) % MCV 93.8 (80.0-98.0) fL MCH 29.2 (27.0-33.0) pg MCHC 31.1 (31.0-35.0) g/dl RDW 16.6 H (11.0-16.0) % Plt Count 297 (160-400) X10*3/uL MPV 10.9 (9.4-12.3) fL Immature Gran % (Auto) 0.7 H (0.0-0.4) % Neut % (Auto) 68.0 (45-73) % Lymph % (Auto) 21.8 (20-40) % Weston % (Auto) 7.3 (2-11) % Eos % (Auto) 1.3 (0-4) % Baso % (Auto) 0.9 (0-2) % Lymph # (Auto) 1.0 L (1.2-4.9) X10*3/uL Weston # (Auto) 0.3 (0.1-1.2) X10*3/uL Eos # (Auto) 0.1 (0.0-0.4) X10*3/uL Baso # (Auto) 0.0 (0.0-0.2) X10*3/uL Abs Immat Gran (auto) 0.03 (0.00-0.03) X10*3/uL Absolute Neuts (auto) 3.1 (2.0-8.3) x10*3/uL Absolute Nucleated RBC 0.000 (0.0-0.012) X10*3/uL Nucleated RBC % (auto) 0.0 (0.0-0.2) /100WBC Sodium 146 H 148 H (135-145) mmol/L Potassium 3.2 L 3.3 (3.3-5.1) mmol/L Chloride 108 107 (96-108) mmol/L Carbon Dioxide 25 27 (22-29) mmol/L Anion Gap 16 17 (12-20) BUN 22 H 19 H (9-16) mg/dL Creatinine 1.69 H 1.64 H (0.5-1.4) mg/dL Estim Creat Clear Calc 31.3 32.2 Estimated GFR 30 31 POC Glucose (60-115) mg/dL Random Glucose 131 H 131 H (60-115) mg/dL Calcium 9.0 8.8 (8.4-10.2) mg/dL Total Bilirubin 0.6 (0.0-1.0) mg/dL AST 53 H (5-31) U/L ALT 67 H (0-31) U/L Alkaline Phosphatase 81 (39-117) U/L Troponin I High Sens 100.7 H* D 123.9 H* 116.7 H* (<3.5-17.0) ng/L NT-Pro-B Natriuret Pep 86423.7 H 33995.0 H (<300) pg/mL Total Protein 7.5 (6.5-8.0) g/dL Albumin 4.1 (3.5-5.0) g/dL Influenza Type A (PCR) NEGATIVE (Negative) Influenza Type B (PCR) NEGATIVE (Negative) RSV RNA Qual (PCR) NEGATIVE (Negative) SARS-CoV-2 RNA (RT-PCR) NEGATIVE (Negative) 02/16/25 02/16/25 02/17/25 Range/Units 16:37 20:05 07:09 WBC (4.8-10.8) X10*3/uL RBC (4.20-5.50) X10*6/uL Hgb (12.0-16.0) g/dl Hct (37.0-47.0) % MCV (80.0-98.0) fL MCH (27.0-33.0) pg MCHC (31.0-35.0) g/dl RDW (11.0-16.0) % Plt Count (160-400) X10*3/uL MPV (9.4-12.3) fL Immature Gran % (Auto) (0.0-0.4) % Neut % (Auto) (45-73) % Lymph % (Auto) (20-40) % Weston % (Auto) (2-11) % Eos % (Auto) (0-4) % Baso % (Auto) (0-2) % Lymph # (Auto) (1.2-4.9) X10*3/uL Weston # (Auto) (0.1-1.2) X10*3/uL Eos # (Auto) (0.0-0.4) X10*3/uL Baso # (Auto) (0.0-0.2) X10*3/uL Abs Immat Gran (auto) (0.00-0.03) X10*3/uL Absolute Neuts (auto) (2.0-8.3) x10*3/uL Absolute Nucleated RBC (0.0-0.012) X10*3/uL Nucleated RBC % (auto) (0.0-0.2) /100WBC Sodium (135-145) mmol/L Potassium (3.3-5.1) mmol/L Chloride (96-108) mmol/L Carbon Dioxide (22-29) mmol/L Anion Gap (12-20) BUN (9-16) mg/dL Creatinine (0.5-1.4) mg/dL Estim Creat Clear Calc Estimated GFR POC Glucose 157 H 127 H 130 H (60-115) mg/dL Random Glucose (60-115) mg/dL Calcium (8.4-10.2) mg/dL Total Bilirubin (0.0-1.0) mg/dL AST (5-31) U/L ALT (0-31) U/L Alkaline Phosphatase (39-117) U/L Troponin I High Sens (<3.5-17.0) ng/L NT-Pro-B Natriuret Pep (<300) pg/mL Total Protein (6.5-8.0) g/dL Albumin (3.5-5.0) g/dL Influenza Type A (PCR) (Negative) Influenza Type B (PCR) (Negative) RSV RNA Qual (PCR) (Negative) SARS-CoV-2 RNA (RT-PCR) (Negative) 02/17/25 02/17/25 02/18/25 Range/Units 17:18 21:09 07:54 WBC (4.8-10.8) X10*3/uL RBC (4.20-5.50) X10*6/uL Hgb (12.0-16.0) g/dl Hct (37.0-47.0) % MCV (80.0-98.0) fL MCH (27.0-33.0) pg MCHC (31.0-35.0) g/dl RDW (11.0-16.0) % Plt Count (160-400) X10*3/uL MPV (9.4-12.3) fL Immature Gran % (Auto) (0.0-0.4) % Neut % (Auto) (45-73) % Lymph % (Auto) (20-40) % Weston % (Auto) (2-11) % Eos % (Auto) (0-4) % Baso % (Auto) (0-2) % Lymph # (Auto) (1.2-4.9) X10*3/uL Weston # (Auto) (0.1-1.2) X10*3/uL Eos # (Auto) (0.0-0.4) X10*3/uL Baso # (Auto) (0.0-0.2) X10*3/uL Abs Immat Gran (auto) (0.00-0.03) X10*3/uL Absolute Neuts (auto) (2.0-8.3) x10*3/uL Absolute Nucleated RBC (0.0-0.012) X10*3/uL Nucleated RBC % (auto) (0.0-0.2) /100WBC Sodium (135-145) mmol/L Potassium (3.3-5.1) mmol/L Chloride (96-108) mmol/L Carbon Dioxide (22-29) mmol/L Anion Gap (12-20) BUN (9-16) mg/dL Creatinine (0.5-1.4) mg/dL Estim Creat Clear Calc Estimated GFR POC Glucose 159 H 144 H 135 H (60-115) mg/dL Random Glucose (60-115) mg/dL Calcium (8.4-10.2) mg/dL Total Bilirubin (0.0-1.0) mg/dL AST (5-31) U/L ALT (0-31) U/L Alkaline Phosphatase (39-117) U/L Troponin I High Sens (<3.5-17.0) ng/L NT-Pro-B Natriuret Pep (<300) pg/mL Total Protein (6.5-8.0) g/dL Albumin (3.5-5.0) g/dL Influenza Type A (PCR) (Negative) Influenza Type B (PCR) (Negative) RSV RNA Qual (PCR) (Negative) SARS-CoV-2 RNA (RT-PCR) (Negative) 02/18/25 02/18/25 Range/Units 11:40 16:50 WBC (4.8-10.8) X10*3/uL RBC (4.20-5.50) X10*6/uL Hgb (12.0-16.0) g/dl Hct (37.0-47.0) % MCV (80.0-98.0) fL MCH (27.0-33.0) pg MCHC (31.0-35.0) g/dl RDW (11.0-16.0) % Plt Count (160-400) X10*3/uL MPV (9.4-12.3) fL Immature Gran % (Auto) (0.0-0.4) % Neut % (Auto) (45-73) % Lymph % (Auto) (20-40) % Weston % (Auto) (2-11) % Eos % (Auto) (0-4) % Baso % (Auto) (0-2) % Lymph # (Auto) (1.2-4.9) X10*3/uL Weston # (Auto) (0.1-1.2) X10*3/uL Eos # (Auto) (0.0-0.4) X10*3/uL Baso # (Auto) (0.0-0.2) X10*3/uL Abs Immat Gran (auto) (0.00-0.03) X10*3/uL Absolute Neuts (auto) (2.0-8.3) x10*3/uL Absolute Nucleated RBC (0.0-0.012) X10*3/uL Nucleated RBC % (auto) (0.0-0.2) /100WBC Sodium (135-145) mmol/L Potassium (3.3-5.1) mmol/L Chloride (96-108) mmol/L Carbon Dioxide (22-29) mmol/L Anion Gap (12-20) BUN (9-16) mg/dL Creatinine (0.5-1.4) mg/dL Estim Creat Clear Calc Estimated GFR POC Glucose 145 H 207 H (60-115) mg/dL Random Glucose (60-115) mg/dL Calcium (8.4-10.2) mg/dL Total Bilirubin (0.0-1.0) mg/dL AST (5-31) U/L ALT (0-31) U/L Alkaline Phosphatase (39-117) U/L Troponin I High Sens (<3.5-17.0) ng/L NT-Pro-B Natriuret Pep (<300) pg/mL Total Protein (6.5-8.0) g/dL Albumin (3.5-5.0) g/dL Influenza Type A (PCR) (Negative) Influenza Type B (PCR) (Negative) RSV RNA Qual (PCR) (Negative) SARS-CoV-2 RNA (RT-PCR) (Negative) Independent Interpretation I performed an independent interpretation of an: EKG Radiology Impression Discussion of test interpretation with radiology: I have reviewed the radiologist's reading. Discharge Plan Discharge Clinical Impression: Volume overload, Edema, peripheral Patient Disposition: Home, Self-Care Instructions: Edema (ED) Additional Instructions: You were seen in the emergency department, you were found to not have any necessity for hospital admission at this time. You were seen by the physical therapist to recommend VNA services. You need to have a primary care physician. Please continue all at-home medications as prescribed. If any new or worsening symptoms occur including but not limited to severe chest pain, shortness of breath, please seek emergent care. Prescriptions: New amiodarone 200 mg tablet 200 mg PO DAILY Qty: 30 0RF furosemide [Lasix] 40 mg tablet 40 mg PO DAILY 30 Days Qty: 30 0RF montelukast 10 mg tablet 10 mg PO DAILY 30 Days Qty: 30 0RF insulin aspart U-100 [Novolog FlexPen U-100 Insulin] 100 unit/mL (3 mL) insulin pen 1 sliding scale dose subcut USEASDIRECTD 30 Days Qty: 15 0RF Rx Instructions: 1 sliding scale dose SUBCUT TIDAC Protocol: Insulin Correction Scale Less than or equal to 110 ---- Give (units): 0 111 to 150 Give (units): 0 151 to 200 Give (units): 2 201 to 250 Give (units): 4 251 to 300 Give (units): 6 301 to 350 Give (units): 8 Greater than 350 Give (units): 10 Call MD if Blood Glucose > : 350 Eliquis 5 mg tablet 5 mg PO BID 30 Days Qty: 60 0RF Jardiance 10 mg tablet 10 mg PO DAILY 30 Days Qty: 30 0RF sacubitril-valsartan 49-51 mg tablet 1 tab PO BID 30 Days Qty: 60 0RF No Action insulin lispro [Admelog U-100 Insulin lispro] 100 unit/mL Solution 1 sliding scale dose subcut QIDACHS 30 Days Qty: 3 1RF Protocol: Insulin Correction Scale Less than or equal to 110 ---- Give (units): 0 111 to 150 Give (units): 0 151 to 200 Give (units): 2 201 to 250 Give (units): 4 251 to 300 Give (units): 6 301 to 350 Give (units): 8 Greater than 350 Give (units): 10 Call MD if Blood Glucose > : 350 furosemide 40 mg Tablet 40 mg PO DAILY 30 Days Qty: 30 2RF Protocol: Hold for SBP< HOLD for SBP < : 90 amiodarone 200 mg tablet 200 mg PO DAILY 30 Days Qty: 30 1RF Rx Instructions: 400 mg (2 tabs) twice daily until 10/19. Starting on 10/20, take 200 mg (1 tab) once daily (DME) FreeStyle Lite Strips Strip See Rx Instructions .ROUTE .MEDSUPPLY Qty: 100 2RF Rx Instructions: QID (DME) lancets Misc See Rx Instructions .ROUTE .MEDSUPPLY Qty: 100 2RF Rx Instructions: 4 times daily QIDACH (DME) blood-glucose meter [FreeStyle Lite Meter] Kit See Rx Instructions .ROUTE .MEDSUPPLY Qty: 1 0RF Rx Instructions: As directed montelukast 10 mg Tablet 10 mg PO DAILY 30 Days Qty: 30 2RF apixaban 5 mg Tablet 5 mg PO BID 30 Days Qty: 60 2RF Jardiance 10 mg Tablet 10 mg PO DAILY 30 Days Qty: 30 2RF sacubitril-valsartan [Entresto] 49-51 mg Tablet 1 tab PO BID 30 Days Qty: 60 2RF Protocol: Hold for SBP< HOLD for SBP < : 90 alcohol swabs Pads, Medicated 1 pad TOPICAL QIDACHS Qty: 100 0RF Rx Instructions: Use four times a day or as directed. Interventions: ED Discharge Assessment Last Done: 02/18/25 17:44 Discharge Date/Time: 02/18/25 17:46 Print Language: Comoran
[2025-02-15 20:26] LABS: Resp Syncy Virus RNA Qual PCR NEGATIVE (Negative); SARS COV2 PCR INHOUSE NEGATIVE (Negative)
[2025-02-15 20:46] VITALS: BP 160/93; PULSE 75
[2025-02-15 20:49] VITALS: BP 160/93
[2025-02-15] MEDS: Furosemide 40 MG/4 ML VIAL IVPUSH (20:49)
[2025-02-15] MEDS: Potassium Chloride ER 20 MEQ TAB.ER.PRT 40 MEQ PO (22:31)
[2025-02-15 22:58] LABS: Troponin-I High Sensitivity 123.9 ng/L (<3.5-17.0)
[2025-02-15 23:21] VITALS: BP 150/88; PULSE 73; RESP 16; O2SAT 96
[2025-02-15 23:23] VITALS: BP 150/88; PULSE 74
[2025-02-16] VITALS (7 sets, daily range): BP systolic 151–173; BP diastolic 76–92; PULSE 68–77; RESP 13–18; TEMP 36.2–37; O2SAT 98–99
[2025-02-16 04:18] LABS: Troponin-I High Sensitivity 116.7 ng/L (<3.5-17.0)
[2025-02-16 07:10] LABS: Anion Gap 17 (12-20); Blood Urea Nitrogen 19 mg/dL (9-16); Calcium 8.8 mg/dL (8.4-10.2); Carbon Dioxide 27 mmol/L (22-29); Chloride 107 mmol/L (96-108); Creatinine Clr Calc Pharmacy 32.2; Estimated Glomerular Filt Rate 31; Potassium 3.3 mmol/L (3.3-5.1); Sodium 148 mmol/L (135-145)
--- NOTE | 2025-02-16 10:52 | PC.NURSE ---
This Rn assumed care of patient @ 0700 Patient alert and responsive Purewick in place collecting straw colored urine Patient repositioned in bed Meds reconciled with Rx List as patient is a poor historian of meds
--- NOTE | 2025-02-16 12:20 | PHA.MEDREC ---
Pharmacy Consult ? Medication Reconciliation Pharmacy has completed the medication reconciliation. Checked med rec done by nursing
[2025-02-16] MEDS: Sacubitril/Valsartan 49/51 1 TAB TABLET PO ×2 (12:39→21:06)
--- NOTE | 2025-02-16 13:15 | MHC.CM.PN ---
Addendum entered by Zena Medley RN 02/16/25 15:41: REGARDING HCP PT'S SISTER/SECONDARY CONTSCT REPORTS IT SHOULD BE LUIS SARABIA WHOM PT LIVES W/HOWEVER PT DECLINES TO COMPLETE A NEW HCP AT THIS TIME. Addendum entered by Zena Medley RN 02/16/25 15:32: CM CONTACTED PT'S SISTER AT NUMBER ON FILE, PT'S SISTER DOES CONFIRM PT DOES NOT HAVE A PCP AND DUE TO A FEW MISSED APPT'S THEY COULD NOT GET HER IN UNTIL JUN 2025, PT'S SISTER REPORTS PT GETS OUT OF BREAT AND VERY TIRED JUST WALKING TO THE BATHROOM AND NEEDS HELP W/HER LEGS THEY HAVE BEEN SWOLLEN AND CAUSING PROBLEMS W/AMBULATION. HCP ON FILE IS LUIS HUBBARD HOWEVER PT'S SISTER SAYS IT SHOULD BE Addendum entered by Zena Medley RN 02/16/25 15:16: CM MET W/PT WHO REPORTS SHE LIVES W/HER NIECE WHO DOES NOT ANSWER PHONE WHILE SHE'S AT WORK, PT HAS INSULIN AND A WALKER AT HOME WHICH SHE USES ON OCCASION, DURING ASSESSMENT PT C/O STILL HAVING DIFFICULTY W/HER LEGS AND REPORTS SHE WAS OFF HER MEDS BECAUSE SHE DIDN'T CALL THEM IN, PT DENIES HAVING HOME SERVICES AT THIS TIME, PT ALSO UNSURE IF SHE HAS A PCP AND GIVES CM VERBAL CONSENT TO CONTACT HER SISTER WHO PT REPORTS LIVES [address] [address], PT [place]ES [place] [address] [place]/NIECE. PT DENIES HAVING A HCP AND DECLINES TO COMPLETE ONE AT TIME OF ASSESSMENT. Addendum entered by Zena Medley RN 02/16/25 14:36: CM ATTEMPTED TO CONTACT LUIS SARABIA AT NUMBER ON FILE, NUMBER IS CORRECT HOWEVER NO ANSWER AND VOICEMAIL IS FULL, CM UNABLE TO LEAVE MESSAGE. Original Note: ANTIC IF PT IS NOT ADMITTED SHE WILL STAY OPVERNIGHT AND PRESCRIPTIONS CAN BE SENT TO [facility] SO PT CAN DC W/MEDS SHE HAS BEEN WITHOUT MEDS FOR OVER 2 WKS.
--- NOTE | 2025-02-16 14:47 | PC.NURSE ---
Verbal report given to Zena Lau in overflow
--- NOTE | 2025-02-16 15:04 | PC.NURSE ---
Addendum entered by Zena Sampson RN 02/16/25 15:11: SHILOH contacted to order code status Original Note: Assumed care of pt approx 1500 on arrival to overflow
[2025-02-16 16:42] LABS: Glucose, Whole Blood 157 mg/dL (60-115)
--- NOTE | 2025-02-16 19:30 | MHC.EDTECH ---
pt bedding and hospital attire changed at this time. pt able to stand and pivot with assistance onto recliner at bedside while sheets were being replaced. purewick replaced, POC obtained, pt requests food and drink at this time. pt stating she feels confused and weak and wants to call her family. pt agrees to wait until morning but expressed disdain towards family for being in this position
[2025-02-16 20:15] LABS: Glucose, Whole Blood 127 mg/dL (60-115)
[2025-02-17] VITALS (7 sets, daily range): BP systolic 130–165; BP diastolic 58–82; PULSE 72–78; RESP 16–20; TEMP 36.1–37.1; O2SAT 98–100
--- NOTE | 2025-02-17 01:12 | MHC.EDTECH ---
pt suction canister emptied with about 800ml urine from [facility]
[2025-02-17] MEDS: Throat Lozenge, Medicated LOZENGE 1 LOZENGE MUCOUS MEM ×2 (02:35→17:54)
[2025-02-17 07:12] LABS: Glucose, Whole Blood 130 mg/dL (60-115)
[2025-02-17] MEDS: Sacubitril/Valsartan 49/51 1 TAB TABLET PO ×2 (09:42→21:13)
--- NOTE | 2025-02-17 10:59 | PC.NURSE ---
Pt alert and breathing unlabored this morning. Pt ate breakfast, took morning meds crushed in pudding. Pt reporting no new complaints at this time. Pt confused why she is taking so many meds, pt attempted to be educated that she was not taking her meds at home and we are getting her back on her medication regiment.
--- NOTE | 2025-02-17 11:38 | MHC.EDTECH ---
Patient refused to allow glucose checked before lunch.
[2025-02-17 17:21] LABS: Glucose, Whole Blood 159 mg/dL (60-115)
[2025-02-17 21:13] LABS: Glucose, Whole Blood 144 mg/dL (60-115)
--- NOTE | 2025-02-18 05:55 | PC.NURSE ---
Assumed care of patient at 1900. Patient remains in ED OVF for PT/CM.? Patient is alert and oriented to self and place (at times), otherwise confused. She is irritable at times, forgetting that she is in the hospital. When reoriented, she becomes apologetic. Assist x 2 to turn and reposition, patient is stiff with movement.Voiding with purewick. Med compliant. No acute events overnight, bed alarm on, call geiger within reach.
[2025-02-18 06:00] VITALS: BP 145/60; PULSE 68; RESP 18; TEMP 36; O2SAT 96
[2025-02-18 07:57] LABS: Glucose, Whole Blood 135 mg/dL (60-115)
[2025-02-18 09:19] VITALS: BP 131/60; PULSE 69; RESP 19; TEMP 36.1; O2SAT 97
[2025-02-18 10:25] VITALS: BP 131/60
[2025-02-18] MEDS: Sacubitril/Valsartan 49/51 1 TAB TABLET PO (10:25)
[2025-02-18 11:46] LABS: Glucose, Whole Blood 145 mg/dL (60-115)
--- NOTE | 2025-02-18 12:13 | MHC.CM.ED ---
Patient remains in ER overflow. Physical therapy eval completed. Home with services is recommended. Home VNA is unable to be arranged because patient does not have a PCP. Attempted to speak with patient's niece, Kristina, via telephone at [phone]. No answer. Voicemail is full. Spoke with patient's sister, Mony, via telephone at [phone]. Mony states she does not have a vehicle and her daughter is at work so Mony will not be able to transport patient home. Patient does not have keys to the apartment. Mony is going to take the bus to the hospital and sit with her until Kristina is out of work and can transport patient home. Mony states they've been trying to get a PCP for patient over a year. PCP options offered. Mony declined at this time stating I have my own medical issues. I can't deal with this right now. Monique TATUM and Noemi RAMSAY aware. Continue to monitor for d/c needs.
[2025-02-18 17:40] LABS: Glucose, Whole Blood 207 mg/dL (60-115)
[2025-02-18 17:44] VITALS: BP 140/59; PULSE 72; RESP 16; TEMP 36.9; O2SAT 98
== END 2025-02-18 17:46 | disposition home or self-care (01) ==
PROVIDERS: Physician Assistant Medical; Emergency Provider Emergency Medicine
DX: R60.0 Localized edema (principal); I48.91 Unspecified atrial fibrillation; R06.02 Shortness of breath; R26.2 Difficulty in walking, not elsewhere classified; J90 Pleural effusion, not elsewhere classified; I10 Essential (primary) hypertension; E11.9 Type 2 diabetes mellitus without complications; R94.31 Abnormal electrocardiogram [ECG] [EKG]; Z03.818 Encounter for observation for suspected exposure to other biological agents ruled out; Z79.899 Other long term (current) drug therapy; Z79.4 Long term (current) use of insulin; Z79.01 Long term (current) use of anticoagulants; Z91.148 Patient's other noncompliance with medication regimen for other reason
CPT/HCPCS: 36415; 71045; 71046; 80048; 80053; 82947; 83880; 84484; 85025; 87637; 93005; 97162; 99285; J1938

== ENCOUNTER → 2025-02-15 19:06 | Outpatient (BNV) | payer MEDICARE, SELFPAY | PROVIDERS: Visit Provider Radiology Diagnostic Radiology | DX: I50.9 Heart failure, unspecified (principal); J90 Pleural effusion, not elsewhere classified | CPT/HCPCS: 71046 ==

== ENCOUNTER → 2025-02-15 20:17 | Outpatient (BNV) | payer MEDICARE, SELFPAY | PROVIDERS: Emergency Provider Emergency Medicine; Visit Provider Internal Medicine Cardiovascular Disease | DX: R94.31 Abnormal electrocardiogram [ECG] [EKG] (principal); R06.02 Shortness of breath | CPT/HCPCS: 93010 ==

== ENCOUNTER → 2025-02-16 03:08 | Outpatient (BNV) | payer MEDICARE, SELFPAY | PROVIDERS: Emergency Provider Emergency Medicine; Visit Provider Radiology Diagnostic Radiology | DX: J90 Pleural effusion, not elsewhere classified (principal); J81.1 Chronic pulmonary edema | CPT/HCPCS: 71045 ==

== ENCOUNTER 2025-04-19 15:00 | Emergency (ER) | payer MEDICARE, SELFPAY ==
--- NOTE | ~2025-04-19 | XR_ITS ---
CLINICAL HISTORY: concern for fluid overload 1 view chest x-ray. Comparison: 02/16/2025 Findings: No consolidation or new effusion. Stable mild chronic blunting of the left costophrenic angle suggesting pleural scarring. Cardiac and mediastinal contours appear stable. Bones unremarkable. Impression: 1. No acute pulmonary disease or acute interval change compared to 02/16/2025. This document has been electronically signed by: Isiah Mendez MD on 04/19/2025 17:36:44
[2025-04-19 15:09] VITALS: BP 141/106; BP 153/73; PULSE 80; PULSE 83; RESP 18; TEMP 36.1; O2SAT 99; BMI 38.0
[2025-04-19 15:40] VITALS: TEMP 36.6
--- OUTSIDE RECORDS SUMMARY | 2025-04-19 15:43 | XMS_ITS | Encounter Summary ---
Author Organization [facility] Address [address] [place] [address] Care Team Providers Care Mud Analysis Well Logging Captain Name Role Phone Suresh Lopez DO Primary Care Provider [phone] Encounter Details Date Type Department Care Team (Latest Contact Info) Description 07/08/2024 Lab Requisition [facility] - Main Lab [address] [facility] [place] [phone] Ana M Wiley MD [address] [place] [address] Type 2 diabetes mellitus without [...] mmol/L LAB CHEMISTRY METHOD 07/08/2024 1:27 PM [facility] Potassium 4.6 3.5 - 5.5 mmol/L LAB CHEMISTRY METHOD 07/08/2024 1:27 PM [facility] Chloride 108 96 - 110 mmol/L LAB CHEMISTRY METHOD 07/08/2024 1:27 PM [facility] CO2 23 21 - 32 mmol/L LAB CHEMISTRY METHOD 07/08/2024 1:27 PM [facility] Anion Gap 8 3 - 11 LAB CHEMISTRY METHOD 07/08/2024 1:27 PM [facility] Glucose 120(H) 70 - 100 mg/dL LAB CHEMISTRY METHOD 07/08/2024 1:27 PM [facility] BUN 21 5 - 25 mg/dL LAB CHEMISTRY METHOD 07/08/2024 1:27 PM [facility] Creatinine 1.48(H) 0.50 - 1.10 mg/dL LAB CHEMISTRY METHOD 07/08/2024 1:27 PM [facility] eGFR 38(L) >=60 mL/min/1. 73m2 LAB CHEMISTRY METHOD 07/08/2024 1:27 PM [facility] Comment:Calculation based on the Chronic Kidney Disease Epidemiology Collaboration (CKD-EPI) equation refit without adjustment for race. BUN/Creatinine Ratio 14.2 LAB CHEMISTRY METHOD 07/08/2024 1:27 PM [facility] Calcium 8.9 8.5 - 10.5 mg/dL LAB CHEMISTRY METHOD 07/08/2024 1:27 PM [facility] AST (SGOT) 25 10 - 42 unit/L LAB CHEMISTRY METHOD 07/08/2024 1:27 PM [facility] ALT (SGPT) 37 10 - 60 unit/L LAB CHEMISTRY METHOD 07/08/2024 1:27 PM [facility] Alkaline Phosphatase 70 42 - 121 unit/L LAB CHEMISTRY METHOD 07/08/2024 1:27 PM EST [facility] Total Protein 6.8 6.0 - 8.0 g/dL LAB CHEMISTRY METHOD 07/08/2024 1:27 PM EST [facility] Albumin 3.2 3.2 - 5.0 g/dL LAB CHEMISTRY METHOD 07/08/2024 1:27 PM [facility] Total Bilirubin 0.5 0.0 - 1.4 mg/dL LAB CHEMISTRY METHOD 07/08/2024 1:27 PM [facility] Blood Venous blood specimen / Unknown Venipuncture / Unknown 07/08/2024 7:47 AM EST 07/08/2024 11:51 AM EST us Ana M Wiley MD LAB BLOOD ORDERABLES Final Resul t [facility] [address] [place] [address], * (ABNORMAL) Complete blood count (07/08/2024 7:47 AM EST) WBC 4.0(L) 4.8 - 10.8 K/mcL LAB HEMETOLOGY METHOD 07/08/2024 1:26 PM [facility] RBC 3.70(L) 3.80 - 4.80 M/mcL LAB HEMETOLOGY METHOD 07/08/2024 1:26 PM [facility] Hemoglobin 10.7(L) 11.5 - 16.0 g/dL LAB HEMETOLOGY METHOD 07/08/2024 1:26 PM [facility] Hematocrit 33.1(L) 35.0 - 47.0 % LAB HEMETOLOGY METHOD 07/08/2024 1:26 PM [facility] MCV 89.0 79.0 - 98.0 FL LAB HEMETOLOGY METHOD 07/08/2024 1:26 PM EST [facility] MCH 28.8 27.0 - 32.0 pcg LAB HEMETOLOGY METHOD 07/08/2024 1:26 PM EST [facility] MCHC 32.3 32.0 - 37.0 g/dL LAB HEMETOLOGY METHOD 07/08/2024 1:26 PM EST [facility] RDW 15.2(H) 11.0 - 15.0 % LAB HEMETOLOGY METHOD 07/08/2024 1:26 PM EST [facility] Platelets 183 130 - 400 K/mcL LAB HEMETOLOGY METHOD 07/08/2024 1:26 PM EST [facility] MPV 13.1(H) 7.0 - 11.0 FL LAB HEMETOLOGY METHOD 07/08/2024 1:26 PM EST [facility] NRBC 0.0 <1.0 % LAB HEMETOLOGY METHOD 07/08/2024 1:26 PM [facility] NRBC Absolute 0.00 <0.10 K/mcL LAB HEMETOLOGY METHOD 07/08/2024 1:26 PM [facility] Blood Venous blood specimen / Unknown Venipuncture / Unknown 07/08/2024 7:47 AM EST 07/08/2024 11:51 AM EST Ana M Wiley MD LAB BLOOD ORDERABLES Final Resul t [facility] [address] [place] [address], documented in this encounter Visit Diagnoses Diagnosis Type 2 diabetes mellitus without complications (CMS/HCC V24, CMS/HCC V28) Heart failure, unspecified (CMS/HCC V24, CMS/HCC V28) Heart failure, unspecified Chronic kidney disease, unspecified documented in this encounter Care Teams Mud Analysis Well Logging Captain Relationship Specialty Start Date End Date Suresh Lopez DO [address] [place] [address] [place] [address] PCP - General 05/29/23 documented as of this encounter
--- OUTSIDE RECORDS SUMMARY | 2025-04-19 15:43 | XMS_ITS | Clinical Summary ---
Author Organization [address] Address [address] [place] [address] Phone Care Team Providers Care Coding Consultant Name Role Phone Suresh Lopez Primary Care Provider [phone] Social History Tobacco Use Types Packs/Day Years [...] Health Screening 07/08/2024 COVID-19 Vaccine ( - 2024-2 6 season) 2025 Influenza Vaccine (#1) 2025 RSV [...] complete this topic Insurance [employer] Care Teams Coding Consultant Relationship Specialty Start Date End Date Suresh Lopez DO [address] [place] [address] PCP - General 05/29/23
--- OUTSIDE RECORDS SUMMARY | 2025-04-19 15:43 | XMS_ITS | Encounter Summary ---
Author Organization [facility] Address [address] [place] [address] Care Team Providers Care Forge Utility Worker Name Role Phone Suresh Lopez DO Primary Care Provider [phone] Encounter Details Date Type Department Care Team (Late st Contact Info) Description 07/16/2024 Lab Requisition [facility] - Main Lab [address] [place] [phone] Ana M Wiley MD [address] [place] [address] Heart failure, unspecified (CMS/HCC V24, [...] mmol/L LAB CHEMISTRY METHOD 07/16/2024 9:30 AM [facility] Potassium 4.2 3.5 - 5.5 mmol/L LAB CHEMISTRY METHOD 07/16/2024 9:30 AM [facility] Chloride 103 96 - 110 mmol/L LAB CHEMISTRY METHOD 07/16/2024 9:30 AM [facility] CO2 28 21 - 32 mmol/L LAB CHEMISTRY METHOD 07/16/2024 9:30 AM [facility] Anion Gap 7 3 - 11 LAB CHEMISTRY METHOD 07/16/2024 9:30 AM [facility] Glucose 190(H) 70 - 100 mg/dL LAB CHEMISTRY METHOD 07/16/2024 9:30 AM [facility] BUN 18 5 - 25 mg/dL LAB CHEMISTRY METHOD 07/16/2024 9:30 AM [facility] Creatinine 1.46(H) 0.50 - 1.10 mg/dL LAB CHEMISTRY METHOD 07/16/2024 9:30 AM [facility] eGFR 39(L) >=60 mL/min/1. 73m2 LAB CHEMISTRY METHOD 07/16/2024 9:30 AM [facility] Comment:Calculation based on the Chronic Kidney Disease Epidemiology Collaboration (CKD-EPI) equation refit without adjustment for race. BUN/Creatinine Ratio 12.3 LAB CHEMISTRY METHOD 07/16/2024 9:30 AM [facility] Calcium 8.9 8.5 - 10.5 mg/dL LAB CHEMISTRY METHOD 07/16/2024 9:30 AM [facility] Blood Venous blood specimen / Unknown Venipuncture / Unknown 07/16/2024 5:36 AM EDT 07/16/2024 8:05 AM EDT us Ana M Wiley MD LAB BLOOD ORDERABLES Final Resul t [facility] [address] [place] [address], * (ABNORMAL) Complete blood count (07/16/2024 5:36 AM EDT) WBC 4.1(L) 4.8 - 10.8 K/mcL LAB HEMETOLOGY METHOD 07/16/2024 9:11 AM EDT [facility] RBC 3.70(L) 3.80 - 4.80 M/mcL LAB HEMETOLOGY METHOD 07/16/2024 9:11 AM EDT [facility] Hemoglobin 10.7(L) 11.5 - 16.0 g/dL LAB HEMETOLOGY METHOD [facility] Hematocrit 34.3(L) 35.0 - 47.0 % LAB HEMETOLOGY METHOD 07/16/2024 9[facility] MCV 91.7 79.0 - 98.0 FL LAB HEMETOLOGY METHOD 07/16/2024 9[facility] MCH 28.6 27.0 - 32.0 pcg LAB HEMETOLOGY METHOD 07/16/2024 9:11 AM [facility] MCHC 31.2(L) 32.0 - 37.0 g/dL LAB HEMETOLOGY METHOD 07/16/2024 9:[facility] RDW 14.9 11.0 - 15.0 % LAB HEMETOLOGY METHOD 07/16/2024 9:[facility] Platelets 272 130 - 400 K/mcL LAB HEMETOLOGY METHOD 07/16/2024 9:11 AM [facility] MPV 12.5(H) 7.0 - 11.0 FL LAB HEMETOLOGY METHOD 07/16/2024 9:11 AM [facility] NRBC 0.0 <1.0 % LAB HEMETOLOGY METHOD 07/16/2024 9:11 AM EDT [facility] NRBC Absolute 0.00 <0.10 K/mcL LAB HEMETOLOGY METHOD 07/16/2024 9:11 AM EDT [facility] Blood Venous blood specimen / Unknown Venipuncture / Unknown 07/16/2024 5:36 AM EDT 07/16/2024 8:05 AM EDT us Ana M Wiley MD LAB BLOOD ORDERABLES Final Resul t [facility] [address] [place] [address], documented in this encounter Visit Diagnoses Diagnosis Heart failure, unspecified (CMS/HCC V24, CMS/HCC V28) Heart failure, unspecified Essential (primary) hypertension Unspecified essential hypertension Pneumonia, unspecified organism documented in this encounter Care Teams Forge Utility Worker Relationship Specialty Start Date End Date Suresh Lopez DO [address] [place] [address] PCP - General 05/29/23 documented as of this encounter
--- OUTSIDE RECORDS SUMMARY | 2025-04-19 15:43 | XMS_ITS | Encounter Summary ---
Author Organization [facility] [address] Address [address] [place] [address] Care Team Providers Care Hi Lo Driver Name Role Phone Suresh Lopez DO Primary Care Provider [phone] Encounter Details Date Type Department Care Team (Latest Contact Info) Description 07/11/2024 Lab Requisition [facility] - Main Lab [address] [facility] [place] [phone] Ana M Wiley MD [address] [place] [address] Type 2 diabetes mellitus without [...] Hemoglobin A1c (07/11/2024 7:12 AM EST) Pathologist [facility] Hemoglobin A1C 8.6(H) <6.5 % LAB CHEMISTRY METHOD 07/11/2024 2:03 PM EST [facility] Mean Bld Glu Estim. 200 mg/dL LAB CHEMISTRY METHOD 07/11/2024 2:03 PM [facility] Blood Venous blood specimen / Unknown Venipuncture / Unknown 07/11/2024 7:12 AM EST 07/11/2024 9:54 AM EST Ana M Wiley MD LAB BLOOD ORDERABLES Final Resul t [facility] [address] [place] [address], * (ABNORMAL) Comprehensive metabolic panel (07/11/2024 7:12 AM EST) [facility] Sodium 140 133 - 145 mmol/L LAB CHEMISTRY METHOD 07/11/2024 11:42 AM EST [facility] Potassium 3.8 3.5 - 5.5 mmol/L LAB CHEMISTRY METHOD 07/11/2024 11:42 AM EST [facility] Chloride 105 96 - 110 mmol/L LAB CHEMISTRY METHOD 07/11/2024 11:42 AM EST [facility] CO2 26 21 - 32 mmol/L LAB CHEMISTRY METHOD 07/11/2024 11:42 AM [facility] Anion Gap 9 3 - 11 LAB CHEMISTRY METHOD 07/11/2024 11:42 AM [facility] Glucose 142(H) 70 - 100 mg/dL LAB CHEMISTRY METHOD 07/11/2024 11:42 AM [facility] BUN 17 5 - 25 mg/dL LAB CHEMISTRY METHOD 07/11/2024 11:42 AM [facility] Creatinine 1.43(H) 0.50 - 1.10 mg/dL LAB CHEMISTRY METHOD 07/11/2024 11:42 AM [facility] eGFR 40(L) >=60 mL/min/1. 73m2 LAB CHEMISTRY METHOD 07/11/2024 11:42 AM [facility] Comment:Calculation based on the Chronic Kidney Disease Epidemiology Collaboration (CKD-EPI) equation refit without adjustment for race. BUN/Creatinine Ratio 11.9 LAB CHEMISTRY METHOD 07/11/2024 11:42 AM [facility] Calcium 8.9 8.5 - 10.5 mg/dL LAB CHEMISTRY METHOD 07/11/2024 11:42 AM [facility] AST (SGOT) 25 10 - 42 unit/L LAB CHEMISTRY METHOD 07/11/2024 11:42 AM [facility] ALT (SGPT) 43 10 - 60 unit/L LAB CHEMISTRY METHOD 07/11/2024 11:42 AM [facility] Alkaline Phosphatase 72 42 - 121 unit/L LAB CHEMISTRY METHOD 07/11/2024 11:42 AM [facility] Total Protein 6.9 6.0 - 8.0 g/dL LAB CHEMISTRY METHOD 07/11/2024 11:42 AM [facility] Albumin 3.4 3.2 - 5.0 g/dL LAB CHEMISTRY METHOD 07/11/2024 11:42 AM [facility] Total Bilirubin 0.4 0.0 - 1.4 mg/dL LAB CHEMISTRY METHOD 07/11/2024 11:42 AM [facility] Blood Venous blood specimen / Unknown Venipuncture / Unknown 07/11/2024 7:12 AM EST 07/11/2024 9:54 AM EST us Ana M Wiley MD LAB BLOOD ORDERABLES Final Resul t [facility] [address] [place] [address], * (ABNORMAL) Complete blood count (07/11/2024 7:12 AM EST) WBC 4.3(L) 4.8 - 10.8 K/mcL LAB HEMETOLOGY METHOD 07/11/2024 11:17 AM [facility] RBC 3.50(L) 3.80 - 4.80 M/mcL LAB HEMETOLOGY METHOD 07/11/2024 11:17 AM [facility] Hemoglobin 10.0(L) 11.5 - 16.0 g/dL LAB HEMETOLOGY METHOD 07/11/2024 11:17 AM [facility] Hematocrit 31.7(L) 35.0 - 47.0 % LAB HEMETOLOGY METHOD 07/11/2024 11:17 AM [facility] MCV 90.1 79.0 - 98.0 FL LAB HEMETOLOGY METHOD 07/11/2024 11:17 AM [facility] MCH 28.4 27.0 - 32.0 pcg LAB HEMETOLOGY METHOD 07/11/2024 11:17 AM [facility] MCHC 31.5(L) 32.0 - 37.0 g/dL LAB HEMETOLOGY METHOD 07/11/2024 11:17 AM [facility] RDW 14.8 11.0 - 15.0 % LAB HEMETOLOGY METHOD 07/11/2024 11:17 AM [facility] Platelets 291 130 - 400 K/mcL LAB HEMETOLOGY METHOD 07/11/2024 11:17 AM [facility] MPV 11.9(H) 7.0 - 11.0 FL LAB HEMETOLOGY METHOD 07/11/2024 11:17 AM EST [facility] NRBC 0.0 <1.0 % LAB HEMETOLOGY METHOD 07/11/2024 11:17 AM EST [facility] NRBC Absolute 0.00 <0.10 K/mcL LAB HEMETOLOGY METHOD 07/11/2024 11:17 AM EST [facility] Blood Venous blood specimen / Unknown Venipuncture / Unknown 07/11/2024 7:12 AM EST 07/11/2024 9:54 AM EST us Ana M Wiley MD LAB BLOOD ORDERABLES Final Resul t [facility] [address] [place] [address], documented in this encounter Visit Diagnoses Diagnosis Type 2 diabetes mellitus without complications (CMS/HCC V24, CMS/HCC V28) Essential (primary) hypertension Unspecified essential hypertension Acute diastolic (congestive) heart failure (CMS/HCC V24, CMS/HCC V28) Chronic kidney disease, unspecified documented in this encounter Care Teams Hi Lo Driver Relationship Specialty Start Date End Date Suresh Lopez DO [address] [place] [address] PCP - General 05/29/23 documented as of this encounter
--- NOTE | 2025-04-19 16:57 | ED.EXTPRO ---
HPI - Extremity Problem General Chief complaint: Extremity Problem Stated complaint: BLE PAIN, NO INJURY PER EMS Time Seen by Provider: 04/19/25 15:09 Source: patient, EMS, RN notes reviewed and old records reviewed Mode of arrival: EMS Limitations: no limitations History of Present Illness ED Provider: FLOR Shea HPI Narrative: 69-year-old female with medical history of systolic and diastolic congestive heart failure, paroxysmal atrial fibrillation on Eliquis, CKD stage 3, IDT2DM, presents to ED due to 2 weeks of worsening B/L lower extremity edema and weeping, 2 weeks of lower abdominal pain and multiple episodes of loose watery diarrhea with increased stool incontinence. Denies recent travel, sick contacts, fever, chest pain, SOB, nausea, vomiting, black/tarry stool, urinary symptoms. Related Data Home Medications ?Medication ?Instructions ?Recorded ?Confirmed alcohol swabs 1 topical 04/21/25 amiodarone 200 mg tablet 200 mg PO DAILY 04/21/25 04/21/25 apixaban 5 mg tablet (Eliquis) 5 mg PO BID 04/21/25 04/21/25 blood sugar diagnostic (FreeStyle 04/21/25 04/21/25 Lite Strips) empagliflozin 10 mg tablet 10 mg PO DAILY 04/21/25 04/21/25 (Jardiance) furosemide 40 mg tablet 40 mg PO DAILY 04/21/25 04/21/25 insulin lispro 100 unit/mL subcut QID 04/21/25 subcutaneous solution (Admelog U-100 Insulin lispro) insulin lispro 100 unit/mL subcut QID 04/21/25 subcutaneous solution (Admelog U-100 Insulin lispro) lancets 28 gauge (FreeStyle 04/21/25 04/21/25 Lancets) montelukast 10 mg tablet 10 mg PO DAILY 04/21/25 04/21/25 sacubitril 49 mg-valsartan 51 mg 1 tab PO BID 04/21/25 04/21/25 tablet (Entresto) Allergies Allergy/AdvReac Type Severity Reaction Status Date / Time No Known Allergies Allergy Verified 04/19/25 15:10 Review of Systems Review of Systems: Yes all other systems are reviewed and are negative PMFSH Past Medical History Attestation statement: The following information was validated with the patient. Source: old records reviewed and nursing notes reviewed Medical History Diabetes mellitus Paroxysmal atrial fibrillation Acute on chronic combined systolic and diastolic CHF (congestive heart failure) Noncompliance with medications Acute exacerbation of CHF (congestive heart failure) Hypertension CKD (chronic kidney disease) stage 3, GFR 30-59 ml/min Hypertensive urgency Acute combined systolic and diastolic congestive heart failure Asthma Hypertension Social History Social History Household Members: Family Housing: House Do you presently have visiting nurse or other home services: No Alcohol intake: former Patient Tobacco Use Status: Never used Tobacco Advance Directives Date on File: 07/05/24 service: No Physical Exam Vital Signs: Vital Signs: Last Vital Signs Temp 97.6 F 04/21/25 06:47 Pulse 74 04/21/25 08:31 Resp 13 04/21/25 06:47 BP 170/95 H 04/21/25 11:35 Pulse Ox 99 04/20/25 20:38 O2 Del Method Room Air 04/21/25 06:47 BMI result Body Mass Index 38.0 GENERAL APPEARANCE: ?AxOx4, chronically ill appearing, no acute distress. HEENT: ?NC, AT. MMM. EOMI, clear conjunctiva, oropharynx clear. NECK: ?Supple without lymphadenopathy.? No stiffness or restricted ROM. HEART:? Normal rate and regular rhythm, normal S1/S2, no m/r/g LUNGS:?Diminished breath sounds bilaterally, no expiratory wheeze noted ABDOMEN: ?Soft, non distended, no guarding, diffuse tenderness of lower abdomen BACK: No CVAT, no obvious deformity. EXTREMITIES: with venous stasis skin changes, thick scaling skin of the feet, overgrown thick toenails, scant pitting, DP pulses 2+ NEUROLOGICAL: ?Grossly nonfocal. Alert and oriented, moving all 4 extremities. Observed to ambulate with normal gait. Skin: ?Warm and dry without any rash. Course Reevaluation(s) Reevaluation #1: SOBIA Santamaria 04/20 Physician observation continued. Uneventful night. Vital signs stable. No complaints from nursing overnight. Med reconciliation reviewed and done. Pending disposition. Will continue to monitor. Time: 09:02 Reevaluation #2: Date: 04/21/25 Time: 12:30 Provider: Maria Shea PA-C Nursing stated patient was requesting robitussin for cough. Patient being medicated with 100mg tessalon jennifer for treatment. - Patient is being discharged to [facility] for SNF placement via BLS at 3pm Time: 20:25 Medications Administered Discontinued Medications Generic Name Dose Route Start Last Admin Trade Name Freq PRN Reason Stop Dose Admin Acetaminophen 650 mg 04/20/25 04:59 04/20/25 05:19 Acetaminophen 325 Mg Tablet PO 04/20/25 05:00 650 mg ONCE ONE Administration Acetaminophen 650 mg 04/21/25 11:17 04/21/25 11:34 Acetaminophen 325 Mg Tablet PO 04/21/25 11:18 650 mg ONCE ONE Administration Amiodarone HCl 200 mg 04/21/25 11:30 04/21/25 11:39 Amiodarone Hcl 200 Mg Tablet PO 200 mg DAILY MAURI Administration Apixaban 5 mg 04/21/25 11:30 04/21/25 11:39 Apixaban 5 Mg Tablet PO 5 mg BID MAURI Administration Benzonatate 100 mg 04/20/25 20:24 04/20/25 20:43 Benzonatate 100 Mg Capsule PO 04/20/25 20:25 100 mg ONCE ONE Administration Empagliflozin 10 mg 04/21/25 11:30 04/21/25 11:39 Empagliflozin 10 Mg Tablet PO 10 mg DAILY MAURI Administration Furosemide 40 mg 04/20/25 00:16 04/20/25 01:54 Furosemide 40 Mg/4 Ml Vial IVPUSH 04/20/25 00:17 40 mg ONCE ONE Administration Protocol Furosemide 40 mg 04/21/25 11:30 04/21/25 11:35 Furosemide 40 Mg Tablet PO 40 mg DAILY MAURI Administration Protocol Gabapentin 300 mg 04/20/25 04:59 04/20/25 05:19 Gabapentin 300 Mg Capsule PO 04/20/25 05:00 300 mg ONCE ONE Administration Montelukast Sodium 10 mg 04/21/25 11:30 04/21/25 11:39 Montelukast Sodium 10 Mg Tablet PO 10 mg DAILY MAURI Administration Potassium Chloride 20 meq 04/20/25 00:16 04/20/25 01:53 Potassium Chloride Er 20 Meq Tab.Er.Prt PO 04/20/25 00:17 20 meq ONCE ONE Administration Sacubitril/Valsartan 1 tab 04/21/25 11:30 04/21/25 11:39 Sacubitril/Valsartan 49/51 1 Tab Tablet PO 1 tab BID MAURI Administration Protocol Medical Decision Making Medical Decision Making [facility] Narrative: 69-year-old female with medical history of systolic and diastolic congestive heart failure, paroxysmal atrial fibrillation on Eliquis, CKD stage 3, IDT2DM, presents to ED due to 2 weeks of worsening B/L lower extremity edema and weeping, 2 weeks of lower abdominal pain and multiple episodes of loose watery diarrhea with increased stool incontinence Plan: Labs, UA, Stool sample, EKG, CXR, CT abdomen/pelvis Patient was signed out to my colleague Dr. Tete Santiago who will assume care of the patient. 6:26 AM 04/20/2025 (Dr. Tete Santiago, D.O.) patient found to have hypokalemia, slightly elevated creatinine from her baseline and slightly elevated cardiac enzyme. Repeat cardiac enzyme was flat. BNP also significantly elevated, concern for potential volume overload. Given her medication noncompliance, we will treat with a dose of Lasix and see how she responds. Unfortunately it seems that she has been continuously returning to the emergency department for most of her care and has no outpatient follow-up that she adheres to. She has been receiving all of her medication refills through the emergency department at a 30 day supply at a time. Patient is extremely unsteady on her feet, unsafe for discharge at this point. Plan for case management evaluation, physical therapy evaluation and social hold. Differential Diagnosis Differential Diagnoses: The differential diagnosis associated with the presentation includes CHF exacerbation Dysrhythmia Electrolyte abnormality Gastroenteritis Admission/Observation Consideration of admission/observation: Escalation of care including admission/observation considered Lab Data [facility] Lab Attestation statement: I reviewed the patient's lab results. 04/19/25 20:24 04/19/25 22:46 Labs: Lab Results 04/19/25 04/19/25 04/19/25 Range/Units 20:24 22:46 23:21 WBC 4.3 L (4.8-10.8) X10*3/uL RBC 3.66 L (4.20-5.50) X10*6/uL Hgb 10.7 L (12.0-16.0) g/dl Hct 33.5 L (37.0-47.0) % MCV 91.5 (80.0-98.0) fL MCH 29.2 (27.0-33.0) pg MCHC 31.9 (31.0-35.0) g/dl RDW 16.4 H (11.0-16.0) % Plt Count 264 (160-400) X10*3/uL MPV 11.0 (9.4-12.3) fL Immature Gran % (Auto) 0.5 H (0.0-0.4) % Neut % (Auto) 63.1 (45-73) % Lymph % (Auto) 21.1 (20-40) % [place] % (Auto) 12.3 H (2-11) % Eos % (Auto) 2.1 (0-4) % Baso % (Auto) 0.9 (0-2) % Lymph # (Auto) 0.9 L (1.2-4.9) X10*3/uL Preble # (Auto) 0.5 (0.1-1.2) X10*3/uL Eos # (Auto) 0.1 (0.0-0.4) X10*3/uL Baso # (Auto) 0.0 (0.0-0.2) X10*3/uL Abs Immat Gran (auto) 0.02 (0.00-0.03) X10*3/uL Absolute Neuts (auto) 2.7 (2.0-8.3) x10*3/uL Absolute Nucleated RBC 0.000 (0.0-0.012) X10*3/uL Nucleated RBC % (auto) 0.0 (0.0-0.2) /100WBC Sodium 146 H (135-145) mmol/L Potassium 3.0 L (3.3-5.1) mmol/L Chloride 108 (96-108) mmol/L Carbon Dioxide 30 H (22-29) mmol/L Anion Gap 11 L (12-20) BUN 19 H (9-16) mg/dL Creatinine 1.86 H (0.5-1.4) mg/dL Estim Creat Clear Calc 31.2 Estimated GFR 27 POC Glucose 144 H (60-115) mg/dL Random Glucose 140 H (60-115) mg/dL Calcium 8.7 (8.4-10.2) mg/dL Magnesium 1.8 (1.6-2.6) mg/dL Total Bilirubin 0.6 (0.0-1.0) mg/dL AST 26 (5-31) U/L ALT 20 (0-31) U/L Alkaline Phosphatase 54 (39-117) U/L Troponin I High Sens 20.8 H D (<3.5-17.0) ng/L NT-Pro-B Natriuret Pep 9935.3 H (<300) pg/mL Total Protein 6.5 (6.5-8.0) g/dL Albumin 3.6 (3.5-5.0) g/dL Urine Color Urine Appearance Urine pH (5.0-9.0) Ur Specific [place] (1.005-1.025) Urine Protein (Neg-Trace) mg/dL Urine Glucose (UA) (Negative) mg/dL Urine Ketones (Negative) mg/dL Urine Blood (Negative) Urine Nitrite (Negative) Ur Leukocyte Esterase (Negative) Urine RBC (0-2) /HPF Urine WBC (0-5) /HPF Ur Squamous Epith Cells (0-2) /HPF Urine Bacteria (None Seen) Hyaline Casts (0-2) /LPF COVID-19 (CHARITO) COVID-19 Clin Com Influenza Type A (PCR) (Negative) Influenza Type B (PCR) (Negative) RSV RNA Qual (PCR) (Negative) SARS-CoV-2 RNA (RT-PCR) (Negative) 04/20/25 04/20/25 04/20/25 Range/Units 05:37 16:34 18:02 WBC (4.8-10.8) X10*3/uL RBC (4.20-5.50) X10*6/uL Hgb (12.0-16.0) g/dl Hct (37.0-47.0) % MCV (80.0-98.0) fL MCH (27.0-33.0) pg MCHC (31.0-35.0) g/dl RDW (11.0-16.0) % Plt Count (160-400) X10*3/uL MPV (9.4-12.3) fL Immature Gran % (Auto) (0.0-0.4) % Neut % (Auto) (45-73) % Lymph % (Auto) (20-40) % Preble % (Auto) (2-11) % Eos % (Auto) (0-4) % Baso % (Auto) (0-2) % Lymph # (Auto) (1.2-4.9) X10*3/uL Preble # (Auto) (0.1-1.2) X10*3/uL Eos # (Auto) (0.0-0.4) X10*3/uL Baso # (Auto) (0.0-0.2) X10*3/uL Abs Immat Gran (auto) (0.00-0.03) X10*3/uL Absolute Neuts (auto) (2.0-8.3) x10*3/uL Absolute Nucleated RBC (0.0-0.012) X10*3/uL Nucleated RBC % (auto) (0.0-0.2) /100WBC Sodium (135-145) mmol/L Potassium (3.3-5.1) mmol/L Chloride (96-108) mmol/L Carbon Dioxide (22-29) mmol/L Anion Gap (12-20) BUN (9-16) mg/dL Creatinine (0.5-1.4) mg/dL Estim Creat Clear Calc Estimated GFR POC Glucose 154 H (60-115) mg/dL Random Glucose (60-115) mg/dL Calcium (8.4-10.2) mg/dL Magnesium (1.6-2.6) mg/dL Total Bilirubin (0.0-1.0) mg/dL AST (5-31) U/L ALT (0-31) U/L Alkaline Phosphatase (39-117) U/L Troponin I High Sens 18.2 H (<3.5-17.0) ng/L NT-Pro-B Natriuret Pep (<300) pg/mL Total Protein (6.5-8.0) g/dL Albumin (3.5-5.0) g/dL Urine Color Yellow Urine Appearance Clear Urine pH 5.5 (5.0-9.0) Ur Specific [place] 1.010 (1.005-1.025) Urine Protein 100 (2+) H (Neg-Trace) mg/dL Urine Glucose (UA) Negative (Negative) mg/dL Urine Ketones Negative (Negative) mg/dL Urine Blood Trace H (Negative) Urine Nitrite Negative (Negative) Ur Leukocyte Esterase Trace H (Negative) Urine RBC 0-2 (0-2) /HPF Urine WBC 0-5 (0-5) /HPF Ur Squamous Epith Cells 0-2 (0-2) /HPF Urine Bacteria 1+ (None Seen) Hyaline Casts 0-2 (0-2) /LPF COVID-19 (CHARITO) Cancelled COVID-19 Clin Com Cancelled Influenza Type A (PCR) NEGATIVE (Negative) Influenza Type B (PCR) NEGATIVE (Negative) RSV RNA Qual (PCR) NEGATIVE (Negative) SARS-CoV-2 RNA (RT-PCR) NEGATIVE (Negative) Independent Interpretation I performed an independent interpretation of an: Plain X-Ray Interpretation: Chest x-ray interpretation: Chronic left pleural effusion is unchanged from previous, no pneumothorax, no underlying infiltrates Radiology Impression Discussion of test interpretation with radiology: I have reviewed the radiologist's reading. External Record Review External record reviewed: Inpatient record Chronic Conditions Patient?s care impacted by: Hypertension and Other (CHF) Social Determinants Patient?s care significantly limited by Social Determinants of Health including: Problems related to primary support group and Other Social Determinant of Health Procedures Ultrasound ED POC Ultrasound: EMERGENCY ULTRASOUND REPORT?Ultrasound-Assisted ED Procedures Indication: Vein Catheterization: RN unable to obtain 20 gauge 2-1/2 inch IV placed in left upper extremity. Adequate blood return, flushes well secured with Tegaderm. Performed by: Brigida Brady PA-C Date: April 19, 2025 Time: 9:30 p.m. Discharge Plan Discharge Clinical Impression: Acute exacerbation of congestive heart failure, Bilateral edema of lower extremity, Difficulty walking, Noncompliance with medication regimen, Hypokalemia Patient Disposition: Xfer Inpatient Rehab Fac Transfer Details: TO DR JESS HERNANDEZ ACCEPTING Prescriptions: No Action furosemide 40 mg tablet 40 mg PO DAILY amiodarone 200 mg tablet 200 mg PO DAILY (DME) FreeStyle Lite Strips Strip MISCELLANEOUS QID montelukast 10 mg tablet 10 mg PO DAILY alcohol swabs Pads, Medicated 1 TOPICAL insulin lispro [Admelog U-100 Insulin lispro] 100 unit/mL solution subcut QID insulin lispro [Admelog U-100 Insulin lispro] 100 unit/mL solution subcut QID (DME) lancets [FreeStyle Lancets] 28 gauge misc MISCELLANEOUS QID Eliquis 5 mg tablet 5 mg PO BID Jardiance 10 mg tablet 10 mg PO DAILY sacubitril-valsartan [Entresto] 49-51 mg tablet 1 tab PO BID Referrals: [facility] [Outside] Cesario Cedeno MD [Primary Care Provider, Pulmonology] Discharge Date/Time: 04/21/25 15:00 Print Language: Albanian
--- NOTE | 2025-04-19 16:58 | ECG_ITS ---
Test Reason : WEAKNESS Blood Pressure : */* mmHG Vent. Rate : 77 BPM Atrial Rate : 77 BPM P-R Int : 190 ms QRS Dur : 120 ms QT Int : 448 ms P-R-T Axes : 50 8 126 degrees QTcB Int : 506 ms Normal sinus rhythm Incomplete left bundle branch block Minimal voltage criteria for LVH, may be normal variant ( Gideon product ) Nonspecific ST and T wave abnormality Abnormal ECG When compared with ECG of 15-Feb-2025 20:25, No significant change was found Referred By: Maria Shea Electronically Signed By: VERENICE HAQ MD
[2025-04-19 20:29] LABS: MANUAL DIFF FLAG NO
[2025-04-19 20:31] LABS: Hematocrit 33.5 % (37.0-47.0); Hemoglobin 10.7 g/dl (12.0-16.0); Imm Gran Abs Auto 0.02 X10*3/uL (0.00-0.03); Imm Gran Pct Auto 0.5 % (0.0-0.4); Lymphocytes Absolute Auto 0.9 X10*3/uL (1.2-4.9); Mean Corpuscular HGB Conc 31.9 g/dl (31.0-35.0); Mean Corpuscular Hemoglobin 29.2 pg (27.0-33.0); Mean Corpuscular Volume 91.5 fL (80.0-98.0); NRBC Abs Auto 0.000 X10*3/uL (0.0-0.012); NRBC Pct Auto 0.0 /100WBC (0.0-0.2); Platelet Count 264 X10*3/uL (160-400); Red Blood Count 3.66 X10*6/uL (4.20-5.50); White Blood Count 4.3 X10*3/uL (4.8-10.8)
[2025-04-19 21:23] VITALS: BP 153/72; PULSE 79; RESP 18; TEMP 36.6; O2SAT 99
[2025-04-19 23:13] LABS: Alanine Aminotransferase 20 U/L (0-31); Albumin Level 3.6 g/dL (3.5-5.0); Alkaline Phosphatase 54 U/L (39-117); Anion Gap 11 (12-20); Aspartate Amino Transferase 26 U/L (5-31); Blood Urea Nitrogen 19 mg/dL (9-16); Calcium 8.7 mg/dL (8.4-10.2); Carbon Dioxide 30 mmol/L (22-29); Chloride 108 mmol/L (96-108); Creatinine Clr Calc Pharmacy 31.2; Estimated Glomerular Filt Rate 27; Magnesium 1.8 mg/dL (1.6-2.6); Potassium 3.0 mmol/L (3.3-5.1); Sodium 146 mmol/L (135-145); Total Protein 6.5 g/dL (6.5-8.0)
[2025-04-19 23:20] LABS: Troponin-I High Sensitivity 20.8 ng/L (<3.5-17.0)
[2025-04-19 23:27] LABS: Glucose, Whole Blood 144 mg/dL (60-115)
[2025-04-20 01:50] VITALS: BP 135/63; PULSE 78; RESP 18; TEMP 36.9; O2SAT 98
[2025-04-20] MEDS: Potassium Chloride ER 20 MEQ TAB.ER.PRT PO (01:53)
[2025-04-20 01:54] VITALS: BP 135/63
[2025-04-20] MEDS: Furosemide 40 MG/4 ML VIAL IVPUSH (01:54)
[2025-04-20 04:47] VITALS: BP 144/80; PULSE 79; RESP 18; TEMP 36.6; O2SAT 100
[2025-04-20 06:11] LABS: Troponin-I High Sensitivity 18.2 ng/L (<3.5-17.0)
[2025-04-20 12:14] VITALS: BP 146/81; PULSE 66; RESP 18; TEMP 36.6; O2SAT 94
--- NOTE | 2025-04-20 12:54 | PHA.MEDREC ---
Addendum entered by Inna Gramajo [facility] 04/20/25 12:59: Patient stated [facility], but per claim history uses [facility]. Original Note: Pharmacy Consult ? Medication Reconciliation Pharmacy has completed the medication reconciliation. Spoke to patient at bedside, she was frustrated and admitted she does not take any of the medications she is supposed to. Asked about insulin, noted she should be on it but prefers the pills, but they are too big to swallow. 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 Left blank.
--- NOTE | 2025-04-20 13:17 | MHC.CM.ED ---
Received case management consult overnight. Patient came to the ER due to bilat LE pain. Work up essentially negative. Physical therapy eval is ordered and pending. Not available before Saturday 04/21. Attempted to meet with patient in regards to discharge planning. Patient is currently sleeping. Patient has a history of dementia. Spoke with patient's HCP/NiNancy medina at [phone]. Nancy requested CM speak with Kristina since patient lives with her. Spoke with Kristina via telephone at [phone]. Kristina is aware that patient will be in the ER overnight so that PT eval can be conducted. Referral for STR will be broadcasted locally at this time. Bed offers will be discussed with patient and Kristina benavidez. Continue to monitor for d/c needs.
[2025-04-20 16:44] LABS: Appearance Urine Clear; Glucose Urine UA Negative (Negative); PH 5.5 (5.0-9.0); Specific Gravity - Urine 1.010 (1.005-1.025); UMIC TRIGGER UACC YES
[2025-04-20 16:46] VITALS: BP 148/88; PULSE 76; RESP 14; TEMP 36.6; O2SAT 94
[2025-04-20 17:37] LABS: Resp Syncy Virus RNA Qual PCR NEGATIVE (Negative); SARS COV2 PCR INHOUSE NEGATIVE (Negative)
[2025-04-20 18:06] LABS: Glucose, Whole Blood 154 mg/dL (60-115)
--- NOTE | 2025-04-20 18:45 | PC.NURSE ---
pt ate well throughout shift. slept for most of the morning. pure wick in place 700ml in container. vitals stable. denies pain
[2025-04-20 20:38] VITALS: BP 163/99; PULSE 80; RESP 16; TEMP 36.4; O2SAT 99
[2025-04-21 03:10] VITALS: BP 173/95; PULSE 75; RESP 15; TEMP 36.6
[2025-04-21 06:47] VITALS: BP 149/95; PULSE 74; RESP 13; TEMP 36.4
[2025-04-21 08:31] VITALS: BP 149/95; PULSE 74
--- NOTE | 2025-04-21 11:05 | MHC.CM.ED ---
Addendum entered by Saira Kirby 04/21/25 13:48: Met w/pt who is now agreeable to SNF placement. [facility] is able to offer a bed and has obtained auth. Pt and family in agreement w/plan. Anthony to transport today at 3pm via BLS. ED care team aware and in agreement w/plan Original Note: Met w/pt to review PT eval recommendation for STR. Pt states she wants to return to home with services and does not want to go to STR. Message left for pt's niece, Kristina with whom she resides, message also left for HCP Nancy. Call then placed to pt's sister who is recovering from a renal transplant. She states pt has to go to rehab as family is not able to care for her with her complaints of weakness and pain. She is requesting to speak with pt and will then call ED CM back. Received call from Kristina who states pt needs more care than she can offer - states pt is unmotivated to help herself and should transition to a rehab. She states she cannot ambulate d/t leg pain and long toenails. Explained that pt has the right to refuse placement but we could arrange for services at the home. Kristina declines and continues to request placement - she then requested to speak with a provider. ED CM to follow
[2025-04-21 11:35] VITALS: BP 170/95
[2025-04-21] MEDS: Sacubitril/Valsartan 49/51 1 TAB TABLET PO (11:39)
--- NOTE | 2025-04-21 12:03 | PC.NURSE ---
Patient medicated per the MAR. Patient able to take medications one at a time with water. Applied lotion to bilateral legs. Patient younger sister (Mony Russell - )) on the phone, sister told this RN that patient sits all day and doesn't get up to go to the bathroom/eat/drink and doesn't take medications. Continues to await PT/CM. Patient resting at this time. Call geiger placed within reach. No signs of distress.
== END 2025-04-21 15:00 ==
PROVIDERS: Emergency Provider Emergency Medicine; PCP Internal Medicine Critical Care Medicine
DX: I13.0 Hypertensive heart and chronic kidney disease with heart failure and stage 1 through stage 4 chronic kidney disease, or unspecified chronic kidney disease (principal); N18.30 Chronic kidney disease, stage 3 unspecified; I50.43 Acute on chronic combined systolic (congestive) and diastolic (congestive) heart failure; E87.6 Hypokalemia; R26.2 Difficulty in walking, not elsewhere classified; E11.22 Type 2 diabetes mellitus with diabetic chronic kidney disease; I48.0 Paroxysmal atrial fibrillation; Z79.01 Long term (current) use of anticoagulants; Z91.148 Patient's other noncompliance with medication regimen for other reason
CPT/HCPCS: 36415; 71046; 80053; 81001; 82947; 83735; 83880; 84484; 85025; 87637; 93005; 96374; 97162; 99285; J1938

== ENCOUNTER → 2025-04-19 16:58 | Outpatient (BNV) | payer MEDICARE, SELFPAY | PROVIDERS: Emergency Provider Emergency Medicine; Visit Provider Internal Medicine Cardiovascular Disease | DX: I44.7 Left bundle-branch block, unspecified (principal) | CPT/HCPCS: 93010 ==